=== PATIENT | male | born 1955 | race Caucasian/White ===

== ENCOUNTER 2023-06-28 07:30 | Outpatient (RCR) | payer MEDICARE, OTHER, SELFPAY | END 2023-07-27 23:59 | disposition home or self-care (01) | LOC: INF 07:30 | PROVIDERS: PCP Family Medicine; Visit Provider Internal Medicine Hematology & Oncology | DX: C43.9 Malignant melanoma of skin, unspecified (principal); D64.9 Anemia, unspecified | CPT/HCPCS: G0463 ==

== ENCOUNTER 2023-07-01 14:03 | Outpatient (OUT) | payer MEDICARE, OTHER, MEDICAID, SELFPAY ==
--- NOTE | 2023-07-01 14:13 | PE_ITS ---
[address] [address] Patient Name: ALEXANDRIA JONES MRN: [id number] date: 1955 Sex: M Assigned Patient Location: PETCT Current Patient Location: Accession/Order Number: [id number] Exam Date: 07/01/2023 15:14 Report Date: 07/02/2023 09:17 At the request of: DIANA CHILDRESS Procedure: PET skull to mid thigh NUCLEAR MEDICINE PET/CT HISTORY: Melanoma. COMPARISON: None. METHOD: 13.6 mCi of F-18 FDG was administered intravenously. Blood sugar level at the time of the injection: 79. At 53 minutes from injection, PET images were obtained from the skull base through the midthigh levels in the axial plane. Reformatted images were performed in the sagittal and coronal planes. A low-dose, noncontrast CT scan was performed for attenuation correction and anatomical localization. A low dose, noncontrast and nondiagnostic CT scan was performed for attenuation correction and anatomic localization. Mediastinal blood pool SUV max 3.3 using the patient's body weight as the normalization method. FINDINGS: HEAD AND NECK: There are no metabolically active lymph nodes in the neck. CHEST: There are no metabolically active mediastinal, hilar, or axillary lymph nodes. The major airways are patent. There is no pericardial effusion. There is no evidence of abnormal metabolic uptake in the esophagus. There are coronary artery calcifications. There is no evidence of abnormal metabolic uptake in the lung parenchyma. There are no pleural effusions. There is no pneumothorax. ABDOMEN AND PELVIS: There is no evidence of abnormal metabolic activity in the liver or adrenal glands. There is no evidence of abnormal metabolic active lymph nodes in the abdomen or pelvis. There is no free fluid. There is physiologic uptake in the urinary system and bowel. There are scattered diverticuli. The prostate is enlarged. There is a focus increased metabolic uptake in the anus with a maximum SUV of 15.7. There is a left renal cyst. MUSCULOSKELETAL: There is a small focus increased metabolic uptake in the periphery of the L3 vertebral body with a maximum SUV of 5.7. PET/PET skull to mid thigh IMPRESSION: Small focus of increased metabolic uptake in the periphery of the L3 vertebral body which may represent degenerative changes, recommend correlation with MRI of lumbar spine with without contrast entirely excluded bone metastasis. No evidence of lymph node metastasis. Focal increased metabolic uptake in the anus which may be physiologic, however recommend direct visualization to exclude underlying lesion. Left renal cyst. Prostamegaly. Diverticulosis. Coronary artery calcifications. Electronically authenticated by: ZACKARY CARRERA Date: 07/02/2023 09:17
== END 2023-07-01 14:04 | disposition home or self-care (01) ==
LOC: PETCT 14:04
PROVIDERS: PCP Family Medicine; Visit Provider Internal Medicine Hematology & Oncology
DX: C43.4 Malignant melanoma of scalp and neck (principal)
CPT/HCPCS: 78815; A9552

== ENCOUNTER 2023-07-25 07:50 | Outpatient (OUT) | payer MEDICARE, OTHER, MEDICAID, SELFPAY ==
--- NOTE | 2023-07-25 | ECG_ITS ---
[facility] Test Date: 2023-07-25 Pat Name: ALEXANDRIA JONES Department: Room: - Gender: Male Video Editing Intern: : 1955 Requested By: FRANCISCO J CARRERA Order Number: [id number] Reading MD: OJ MANUEL Measurements Intervals [place] Rate: 93 P: 67 CA: 157 QRS: 70 QRSD: 89 T: 71 QT: 326 QTc: 406 Interpretive Statements SINUS RHYTHM Compared to ECG 05/17/2017 10:31:46 No significant changes Electronically Signed On 07-25-2023 19:55:48 EST by OJ MANUEL
[2023-07-25 08:36] LABS: Basophils Percent Auto 0.5 % (0.2-2.0); Eosinophils Absolute Auto 0.2 10^3/uL (0.0-0.7); Eosinophils Percent Auto 2.3 % (0.9-7.0); Hematocrit 44.2 % (42.0-54.0); Hemoglobin 14.8 g/dL (14.0-18.0); Immature Granulocytes Abs Auto 0.06 10^3/uL (0.00-0.03); Immature Granulocytes Pct Auto 0.7 % (0.0-0.5); Lymphocytes Absolute Auto 0.9 10^3/uL (1.2-3.8); Lymphocytes Percent Auto 10.6 % (20.5-60.0); Mean Corpuscular HGB Conc 33.5 g/dL (29.9-35.2); Mean Corpuscular Hemoglobin 31.5 pg (25.9-34.0); Mean Platelet Volume 9.5 fL (9.5-13.5); Monocytes Absolute Auto 0.7 10^3/uL (0.3-0.8); Monocytes Percent Auto 8.1 % (1.7-12.0); Neutrophils Absolute Auto 6.5 10^3/uL (1.4-6.5); Neutrophils Percent Auto 77.8 % (43.0-75.0); Platelet Count 231 10^3/uL (150-450); Red Cell Distribution Width 12.1 % (11.0-15.0); White Blood Count 8.4 10^3/uL (4.0-11.0)
[2023-07-25 08:51] LABS: Alanine Aminotransferase 21 U/L (16-63); Albumin Globulin Ratio 1.1; Albumin Level 3.6 g/dL (3.4-5.0); Alkaline Phosphatase 85 U/L (46-116); Anion Gap 12.6; Aspartate Amino Transferase 17 U/L (15-37); Bilirubin Total 0.5 mg/dL (0.2-1.0); Calcium 8.9 mg/dL (8.5-10.1); Carbon Dioxide 27.8 mmol/L (21.0-32.0); Chloride 101 mmol/L (98-107); Estimated GFR (African America >60 (>=60); Estimated GFR (Non-African Ame >60 (>=60); Globulin 3.4 g/dL; Glucose 85 mg/dL (74-106); Potassium 4.4 mmol/L (3.5-5.1); Sodium 137 mmol/L (136-145)
== END 2023-07-25 07:51 | disposition home or self-care (01) ==
LOC: CARD 07:52
PROVIDERS: PCP Family Medicine
DX: C43.4 Malignant melanoma of scalp and neck (principal)
CPT/HCPCS: 36415; 80053; 85025; 93005

== ENCOUNTER 2023-08-18 10:19 | Outpatient (RCR) | payer MEDICARE, OTHER, SELFPAY | END 2023-09-16 15:05 | disposition home or self-care (01) | LOC: PT 10:19 | PROVIDERS: PCP Family Medicine; Visit Provider Orthopaedic Surgery | DX: M25.552 Pain in left hip (principal); R29.3 Abnormal posture; R26.89 Other abnormalities of gait and mobility; R26.9 Unspecified abnormalities of gait and mobility | CPT/HCPCS: 97110; 97162 ==

== ENCOUNTER 2023-10-05 08:53 | Outpatient (OUT) | payer MEDICARE, OTHER, SELFPAY ==
[2023-10-05 09:40] LABS: Microalbumin Urine Random <1.3 mg/dL (<=30.0)
[2023-10-05 09:41] LABS: Estimated Average Glucose 114 mg/dL; Glycohemoglobin A1C 5.6 % (4.5-6.2)
[2023-10-05 10:37] LABS: Alanine Aminotransferase 29 U/L (16-63); Albumin Globulin Ratio 1.1; Albumin Level 3.9 g/dL (3.4-5.0); Alkaline Phosphatase 86 U/L (46-116); Anion Gap 14.4; Aspartate Amino Transferase 18 U/L (15-37); BUN Creatinine Ratio 27.1; Bilirubin Total 0.4 mg/dL (0.2-1.0); Calcium 9.5 mg/dL (8.5-10.1); Carbon Dioxide 27.2 mmol/L (21.0-32.0); Chloride 101 mmol/L (98-107); Chol HDL Ratio 3.4; Cholesterol 152 mg/dL (<=200); Estimated GFR (African America >60 (>=60); Estimated GFR (Non-African Ame >60 (>=60); Globulin 3.4 g/dL; Glucose 102 mg/dL (74-106); HDL Cholesterol 45 mg/dL (40-60); LDL Cholesterol Calculated 82.4 mg/dL; Potassium 4.6 mmol/L (3.5-5.1); Sodium 138 mmol/L (136-145); Total Protein 7.3 g/dL (6.4-8.2); Triglycerides 123 mg/dL (<=150); VLDL CHOLESTEROL 24.6 mg/dL
== END 2023-10-05 08:54 | disposition home or self-care (01) ==
LOC: LAB 08:57
PROVIDERS: PCP Family Medicine; Visit Provider Family Medicine
DX: E11.65 Type 2 diabetes mellitus with hyperglycemia (principal); E78.5 Hyperlipidemia, unspecified; I10 Essential (primary) hypertension
CPT/HCPCS: 36415; 80053; 80061; 82043; 83036

== ENCOUNTER 2024-12-07 08:18 | Outpatient (OUT) | payer MEDICARE, OTHER, SELFPAY ==
--- OUTSIDE RECORDS SUMMARY | 2023-06-28 11:00 | XMS_ITS ---
Author Organization [facility] [place] Address [address] [place] [address] Care Team Providers Care Document Control Supervisor Name Role Phone Karoline Sterling Primary Care Provider UnavailPiper Zuniga Unavailable [phone] REASON FOR VISIT MD New PT Onc Encounters Encounter Location Date Provider Diagnosis [facility] [address] [place] [phone] 06/28/2023 Piper Medina Plan Of Treatment No Information Progress Notes * Wong FLORES ADOB:[birth year] (68 yo M)Acc No.[id number]:06/28/2023 UNLOCKED PROGRESS NOTE Progress Notes Patient: Wong LUGO Provider: Cely Medina M.D. :1955 A ge:67 Y S ex:Male Date:06/28/2023 Address:[address] [place], [place] [id number] Pcp:Karoline Sterling Subjective: * Chief Complaints: * 1 . MD New PT Onc. * Medical History: Objective: * Vitals: Assessment: Plan: * Treatment: * * Electronic signature of Cornelius Medina MD, [id number] on 12/07/2024 at 08:23 AM EDT Sign off status: Pending Visit Status: C ONFPHONE (Voice) * Provider: Cely Medina M.D. Date: 0 06/28/2023 Generated for Samy valera/Dominic/Margaritaitting on: 0 12/07/2024 08:23 AM EDSpencer
--- OUTSIDE RECORDS SUMMARY | 2023-07-26 11:00 | XMS_ITS ---
Author Organization [facility] [place] Address [address] [place] [address] Care Team Providers Care Store Warehouse Associate Name Role Phone Karoline Sterling Primary Care Provider UnavailPiper Zuniga Unavailable [phone] REASON FOR VISIT Cancelled. Encounters Encounter Location Date Provider Diagnosis [facility] [address] [place] [phone] 07/26/2023 Piper Medina Plan Of Treatment No Information Progress Notes * MARK Wong ADOB:[birth year] (68 yo M)Acc No.[id number]:07/26/2023 UNLOCKED PROGRESS NOTE Progress Notes Patient: Wong LUGO Provider: Cely Medina M.D. :1955 A ge:67 Y S ex:Male Date:07/26/2023 Address:[address] [place], [place] [phone] Pcp:Karoline Sterling Subjective: * Chief Complaints: * 1 . Cancelled.. * Medical History: Objective: * Vitals: Assessment: Plan: * Treatment: * * Electronic signature of Cornelius Medina MD, [id number] on 12/07/2024 at 08:22 AM EDT Sign off status: Pending Visit Status: A [facility] (Voice) * Provider: Cely Medina M.D. Date: 0 07/26/2023 Generated for Samy valera/Dominic/Cassidy on: 0 12/07/2024 08:22 AM EDT
--- OUTSIDE RECORDS SUMMARY | 2024-12-07 08:22 | XMS_ITS | Clinical Summary ---
Author Organization [facility] Address [address] [place] [address] Phone Care Team Providers Care Mechanical Striper Name Role Phone Karoline Sterling MD Primary Care Provider [phone] Allergies No known active allergies Medications finasteride (Proscar) 5 mg tablet Take 1 tablet (5 mg) by mouth once daily in the morning. Take before meals. 05/29/2023 Active atorvastatin (Lipitor) 20 mg tablet Take 1 tablet (20 mg) by mouth once daily. 05/29/2023 Active lisinopriL-hydr ochlorothiazide 20-25 mg tablet Take 1 tablet by mouth once daily. 05/29/2023 Active metFORMIN (Glucophage) 500 mg tablet Take 1 tablet (500 mg) by mouth 2 times a day. 05/29/2023 Active spironolactone (Aldactone) 25 mg tablet Take 1 tablet (25 mg) by mouth once daily. 06/01/2023 Active tamsulosin (Flomax) 0.4 mg 24 hr capsule Take 1 capsule (0.4 mg) by mouth once daily. 05/29/2023 Active aspirin 81 mg EC tablet Take 1 tablet (81 mg) by mouth once daily. Active glucosamine/cho ndr munoz A sod (OSTEO BI-FLEX ORAL) Take by mouth. Active traMADol (Ultram) 50 mg tabletIndicatio ns:Malignant melanoma of neck (Multi),Post-op pain Take 1 tablet (50 mg) by mouth every 8 hours if needed for severe pain (7 - 10) for up to 12 doses. 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 Social History Tobacco Use Types Packs/Day Years Used Date Smoking Tobacco: Never Smokeless Tobacco: Never Tobacco Cessation:Counseling Given: Not Answered Sex and Gender Information Value Date Recorded Sex Assigned at Male 07/28/2023 8:55 AM EST Legal Sex Male 9:08 AM EST Gender Identity Male 07/28/2023 8:55 AM EST Sexual Orientation Straight 07/28/2023 8: 55 AM EST Last Filed Vital Signs Vital Sign Reading Time Taken Comments Blood Pressure 126/70 07/28/2023 1:50 PM EST Pulse 77 07/28/2023 1:50 PM EST Temperature 36.2 C (97.2 F) 07/28/2023 1:50 PM EST Respiratory Rate 18 07/28/2023 1:50 PM EST Oxygen Saturation 94% 07/28/2023 1:50 PM EST Inhaled Oxygen Concentration - - Weight 113 kg (248 lb 9.6 oz) 08/19/2023 3:19 PM EST Height 182.9 cm (6') 08/19/2023 3:19 PM EST Body Mass Index 33.72 08/19/2023 3:19 PM EST Plan of Treatment Health Maintenance Due Date Last Done Comments CT Colonography 1955 Colonoscopy 1955 Colorectal Cancer Screening 1955 FIT-DNA (Cologuard) 1955 FIT 1955 Lipid Panel 1955 Medicare Annual Wellness Visit (AWV) 1955 Sigmoidoscopy 1955 Derm Melanoma Skin Check 06/09/1955 Hepatitis C Screening 1972 Zoster Vaccines (1 of 2) 2004 DTaP/Tdap/Td Vaccines (1 - Tdap) 03/31/2017 03/30/2017 Pneumococcal Vaccine (2 of 2 - PCV20 or PCV21) 10/12/2018 10/12/2017 COVID-19 Vaccine (6 - season) 2024 06/10/2021, 01/07/2021, 11/12/2020, Additional history exists Influenza Vaccine (Season Ended) 2025 04/04/2023, 03/24/2022, 03/16/2022, Additional history exists Diabetes Screening 07/28/2026 07/28/2023 RSV High Risk: (Elderly (60+) or Population) (1 - 1-dose 75+ series) 2029 HIB Vaccines Aged Out No longer eligi ble based on patient's age to complete this topic HPV Vaccines Aged Out No longer eligi ble based on patient's age to complete this topic Hepatitis A Vaccines Aged Out No long er eligible based on patient's age to complete this topic Hepatitis B Vaccines Aged Out No long er eligible based on patient's age to complete this topic IPV Vaccines Aged Out No longer eligi ble based on patient's age to complete this topic Meningococcal Vaccine Aged Out No maddi belle eligible based on patient's age to complete this topic Rotavirus Vaccines Aged Out No longer eligible based on patient's age to complete this topic Procedures Procedure Name Priority Date/Time Associated Diagnosis Comments POCT GLUCOSE Routine 07/28/2023 9:15 AM EST from Last 3 Months or Most Recently Relevant to Health Maintenance Results * (ABNORMAL) POCT GLUCOSE (07/28/2023 9:15 AM EST) POCT Glucose 119(H) 74 - 99 mg/dL 07/28/2023 9:16 AM EST [facility] Blood Capillary blood specimen / Unknown 07/28/2023 9:15 AM EST 07/28/2023 9:16 AM EST Selwyn Garcia MD LAB POINT OF CARE TE ST DOCKED DEVICE UNSOLICITED RESULTS Final Result [facility] [address] [place] [address] from Last 3 Months or Most Recently Relevant to Health Maintenance Insurance MEDICARE PART A AND B Member Subscriber Plan / Payer (Ef fective 2019-Present) Name:Wong Flores Member ID:[id number] Relation to Subscriber:Self Name:Wong Flores Subscriber ID:[id number] Payer ID:Not on file Group ID:Not on file Type:Not on file Address: [address] MEDICARE SUPPLEMENT MEDICARE PART A AND B Member Subscriber Plan / Payer (Ef fective 2019-Present) Name:Wong Flores Member ID:[id number] Relation to Subscriber:Self Name:Wong Flores Subscriber ID:[id number] Payer ID:Not on file Group ID:Not on file Type:Not on file Address: [address] MEDICARE SUPPLEMENT Care Teams Mechanical Striper Relationship Specialty Start Date End Date Karoline Sterling MD PCP - General Family Medicine 07/28/23
--- OUTSIDE RECORDS SUMMARY | 2024-12-07 08:23 | XMS_ITS | Clinical Summary ---
Author Organization [employer] [facility] Address [id number] [place] [address] Care Team Providers Care Photographer Assistant Name Role Phone Karoline Sterling MD Primary Care Provider [phone] Allergies No known active allergies Medications atorvastatin (LIPITOR) 20 mg tablet Take 1 tablet (20 mg total) by mouth in the morning. 12/17/2021 Active lisinopril-hydr oCHLOROthiazide (PRINZIDE,ZESTO RETIC) 10-12.5 mg per tablet Take 1 tablet by mouth in the morning. 12/14/2021 Active metFORMIN (GLUCOPHAGE) 500 mg tablet Take 1 tablet (500 mg total) by mouth in the morning and 1 tablet (500 mg total) before bedtime. 10/23/2021 Active spironolactone (ALDACTONE) 25 mg tablet Take 1 tablet (25 mg total) by mouth in the morning. 2021 Active aspirin 81 mg Take 1 tablet (81 mg total) by mouth in the morning and 1 tablet (81 mg total) before bedtime. Active ibuprofen (MOTRIN) 800 mg tablet Take 1 tablet (800 mg total) by mouth every 6 (six) hours as needed for pain. Active tamsulosin (FLOMAX) 0.4 mg capsule TAKE 1 CAPSULE BY MOUTH TWICE DAILY (IN THE MORNING & AT BEDTIME) 180 capsule 3 02/23/2024 Active finasteride (PROSCAR) 5 mg tablet TAKE 1 TABLET BY MOUTH ONCE DAILY IN THE MORNING 90 tablet 3 05/13/2024 Active Active Problems Problem Noted Date Diagnosed Date Benign prostatic hyperplasia with lower urinary tract symptoms 10/20/2022 Overview (08/29/2024): ==== 08/29/2024 ==== continues on with maximal medical therapy no urgency frequency or leakage of urine no gross hematuria. Remain on maximal medical therapy return clinic 1 year PSA ==== 08/22/2023 ==== maximal medical therapy. Remain on such. ==== 10/20/2022 ==== longstanding history of BPH been on finasteride for at least 10 years or so. On tamsulosin as well. Tolerating medication. Continue on with such. Assessment & Plan (08/22/2023 1:30 PM EST): Decision was made during today's visit to continue on with the patient's prescription drug regimen which would require refill prior to next appointment Elevated PSA Overview (08/29/2024): Has been on finasteride greater than 10 years. ==== 08/29/2024 ==== PSA looks good 1.89. Very similar to what he had in the past in February 2022 of 1.87. PSA 1 year. ==== 08/22/2023 ==== PSA 1.61. Rectal exam is benign. Double the PSA. Still fine. PSA 1 year. ==== 10/20/2022 ==== PSA continues to improve 1.50. On finasteride double that to 3.0. For his age that is fine. ====04/14/22====PSA 1.87. Will recheck in 6 months ==== 01/04/2022 ==== PSA February 2024.35 July 17 5.13. October 15 2.75. September 2021 1.9---double to 3.8) . Treated for prostatitis 2020. Digital rectal exam benign feeling prostate. Assessment & Plan (10/20/2022 1:49 PM EDT): The return clinic 10 months with PSA Assessment & Plan (01/04/2022 2:59 PM EDT): Patient here for 2nd opinion regarding need to proceed with prostate biopsy +/- MRI. I discussed as below. The etiologies of elevated PSA including prostate cancer, BPH, natural variation, laboratory error, recent ejaculation, instrumentation, clinical or subclinical infection were reviewed. Options of ultrasound prostate biopsy, active surveillance, repeating the test, or non-intervention were discussed. We discussed the lack of evidence supporting empiric antibiotics. Discussed risk finding prostate cancer in 1:3 men with a PSA above 4 and 1:4 men with a PSA above 3. Patient understands that we do double the PSA based on finasteride use. Given the fact that the patient's PSA continues to drop based on the 2 most recent PSAs I think it would be reasonable to check a 3rd PSA and see where we stand re: his trajectory. Patient is most inclined to do so. He expressed desire to remain within this office. I will get a PSA in February it see him back. Family History Relation Name Status Comments Father Mother Social History Tobacco Use Types Packs/Day Years Used Date Smoking Tobacco: Never Smokeless Tobacco: Never Tobacco Cessation:Counseling Given: Not Answered Alcohol Use Standard Drinks/Week Comments Never 0 (1 standard drink = 0.6 oz pur e alcohol) Childcare Answer Date Recorded Childcare Unknown 12/06/2018 Employment Answer Date Recorded Employment Unknown 12/06/2018 Hunger Screening Answer Date Recorded Within the past 12 months we worried whether our food would run out before we got money to buy more. Never True 08/29/2024 Within the past 12 months th e food we bought just didn't last and we didn't have money to get more. Never True 08/29/2024 Sex and Gender Information Value Date Recorded Sex Assigned at Not on file Legal Sex Male 11:35 AM EDT Gender Identity Not on file Sexual Orientation Not on file Last Filed Vital Signs Vital Sign Reading Time Taken Comments Blood Pressure 144/76 08/29/2024 1:51 PM EST Pulse 94 08/29/2024 1:51 PM EST Temperature - - Respiratory Rate 18 01/04/2022 2:19 PM EDT Oxygen Saturation - - Inhaled Oxygen Concentration - - Weight 115.7 kg (255 lb) 08/29/2024 1:51 PM EST Height 182.9 cm (6') 08/29/2024 1:51 PM EST Body Mass Index 34.58 08/29/2024 1:51 PM EST Plan of Treatment Upcoming Encounters Date Type Department Care Team (Late st Contact Info) Description 09/11/2025 1:00 PM EDT Office Visit [facility] [address] [place] [address] [place] [address] Brian Goldman MD [address] [place] [phone] Health Maintenance Due Date Last Done Comments Depression Screening 1966 Adult BMI Follow Up Plan 1972 DTaP,Tdap and Td Vaccines (1 - Tdap) 1973 Zoster (Shingles) Vaccine (1 of 2) 2004 Fall Risk Screening 12/09/2019 Influenza Vaccine 02/25/2025 Adult BMI Screening 08/29/2025 08/29/2024 Tobacco Screening 08/29/2025 08/29/2024 Medical Devices Not on file Insurance MEDICARE [facility] COMMERCIAL MEDICARE [facility] COMMERCIAL Care Teams Photographer Assistant Relationship Specialty Start Date End Date Karoline Sterling MD [address] [place] [phone] PCP - General Family Medicine 03/10/22
--- OUTSIDE RECORDS SUMMARY | 2024-12-07 08:23 | XMS_ITS | Patient Health Record ---
Author Organization [facility] [place] Address [address] [place] [address] Care Team Providers Care Information Management Officer Name Role Phone Karoline Sterling Primary Care Provider Unavailabl e Reason For Referral No Information Plan Of Treatment No Information Insurance Providers Payer Name Payer Address Payer Phone Subscriber Number Group Number Insured Name Patient Relationship to Insured Coverage Start Date Coverage End Date [place] [address] [place] [address] [id number] Wong Flores Self - patient is the insured [employer] SUPPLEMENT [address] [address] [place], [place] [id number] Wong Flores Self - patient is the insured
--- OUTSIDE RECORDS SUMMARY | 2024-12-07 08:23 | XMS_ITS | Encounter Summary ---
Author Organization [facility] Address [address] [place] [address] Phone Care Team Providers Care Works Manager Name Role Phone Karoline Sterling MD Primary Care Provider [phone] Encounter Details Date Type Department Care Team (Late st Contact Info) Description 07/22/2023 Lab Requisition [facility] [address] [facility] [address] [place] [id number] [place] [address] Department of Otolaryngology [place] [id number] Disorder of the skin and subcutaneous tissue, unspecified Social History Tobacco Use Types Packs/Day Years Used Date Smoking Tobacco: Never Smokeless Tobacco: Never Sex and Gender Information Value Date Recorded Sex Assigned at Male 07/28/2023 8:55 AM EST Legal Sex Male 9:08 AM EST Gender Identity Male 07/28/2023 8:55 AM EST Sexual Orientation Straight 07/28/2023 8: 55 AM EST COVID-19 Exposure Response Date Recorded In the last 10 days, have yo u been in contact with someone who was confirmed or suspected to have Coronavirus/COVID-19? No / Unsure 07/19/2023 12:24 PM EST documented as of this encounter Plan of Treatment Not on file documented as of this encounter Procedures Procedure Name Priority Date/Time Associated Diagnosis Comments DERMPATH CONSULT Routine 07/22/2023 9:16 AM EST Disorder of the skin and subcutaneous tissue, unspecified documented in this encounter Results * Derm Consult (07/22/2023 9:16 AM EST) Case Report Dermatopathology Report Case: [id number] Authorizing Provider: Selwyn Garcia MD Collected: 07/22/2023 0916 Ordering Location: [facility] Received: 07/22/2023 0916 [facility] Pathologist: Ana Cristina Aguirre MD Specimen: OUTSIDE BLOCK(S)/SLIDE(S), 5 SLIDES, INFORM DIAGNOSTICS, [id number] (BX: 06/07/23) 4 3:24 PM EST [facility] FINAL DIAGNOSIS 5 SLIDES, INFORM DIAGNOSTICS, [id number] (BX: 06/07/23) SKIN, LEFT LATERAL NECK - POSTERIOR, TANGENTIAL SHAVE BIOPSY: MALIGNANT MELANOMA, BRESLOW THICKNESS AT LEAST 2.2 MM, PRESENT ON THE DEEP AND PERIPHERAL MARGIN WITH PERINEURAL INVASION, SEE NOTE. Note: Microscopic examination reveals a specimen that extends into the mid to deep reticular dermis. There is dense solar elastosis and there is an asymmetric proliferation of nested and single atypical melanocytes along the dermal-epidermal junction. There are spindled cells in the underlying dermis with mucin and perineural invasion. They stain with antibodies against SOX-10 and some superficial cells stain with antibodies against Melan-A. 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 Ulceration: Not identified Anatomic (Ramon) Level: At least level: IV : Focally transected on the deep margin. Mitotic Rate: None identified Microsatellite(s) : Not identified Lymphovascular Invasion: Not identified Neurotropism: Not identified Tumor-Infiltratin g Lymphocytes: Not identified Tumor Regression: Not identified MARGINS: Margin Status for Invasive Melanoma: Invasive melanoma present at margin Margin(s) Involved by Invasive Melanoma: Deep Margin Status for Melanoma in situ: Melanoma in situ present at margin Margin(s) Involved by Melanoma in Situ: Peripheral Margin(s) Involved by Melanoma in Situ: Deep PATHOLOGIC STAGE CLASSIFICATION (pTNM, AJCC 8th Edition): pT Category: pT3a 4 3:24 PM EST [facility] Clinical History Tuo. Neoplasm of uncertain behavior of skin. Rule out BCC. 4 3:24 PM EST [facility] Specimen Description A. OUTSIDE BLOCK(S)/SLIDE(S). Received for consultation from [employer] are five slides labeled [id number] (Bx: 06/07/23) along with the corresponding pathology report. 4 3:24 PM EST [facility] [employer] (OUTSIDE BLOCK(S)/SLIDE(S) ) 07/22/2023 9:16 AM EST 07/22/2023 9:16 AM EST us Selwyn Garcia MD LAB PATHOLOGY ORDERABLES Shannan l Result [facility] [address] [address] [place] [id number] documented in this encounter Visit Diagnoses Diagnosis Disorder of the skin and subcutaneous tissue, unspecified documented in this encounter Care Teams Works Manager Relationship Specialty Start Date End Date Karoline Sterling MD PCP - General Family Medicine 07/28/23 documented as of this encounter
--- OUTSIDE RECORDS SUMMARY | 2024-12-07 08:23 | XMS_ITS | Clinical Summary ---
Author Organization [facility] Address [address] [place] [address] Care Team Providers Care Hospitality Recruiter Name Role Phone Karoline Sterling MD Primary Care Provider [phone] Medications aspirin 325 MG tablet every 12 (twelve) hours Active atorvastatin (Lipitor) 20 MG tablet Take 20 mg by mouth in the morning. 05/29/2023 Active finasteride (Proscar) 5 MG tablet Take 5 mg by mouth in the morning. Take before meals. 05/29/2023 Active ibuprofen 800 MG tablet Take 800 mg by mouth every 6 (six) hours if needed Active lisinopril-hydr oCHLOROthiazide 10-12.5 MG tablet Take 1 tablet by mouth Daily Active metFORMIN (Glucophage) 500 MG tablet Take 500 mg by mouth in the morning and 500 mg in the evening. 05/29/2023 Active spironolactone (Aldactone) 25 MG tablet Take 25 mg by mouth Daily Active tamsulosin (Flomax) 0.4 MG 24 hr capsule TAKE 1 CAPSULE BY MOUTH TWICE DAILY (IN THE MORNING & AT BEDTIME) Active Active Problems No known active problems Family History Relation Name Status Comments Father Mother Social History Tobacco Use Types Packs/Day Years Used Date Smoking Tobacco: Never Smokeless Tobacco: Never Tobacco Cessation:Counseling Given: Not Answered Alcohol Use Standard Drinks/Week Comments Never 0 (1 standard drink = 0.6 oz pur e alcohol) Sex and Gender Information Value Date Recorded Sex Assigned at Male 08/03/2023 9:07 AM EST Legal Sex Male 6:46 PM EDT Gender Identity Male 08/03/2023 9:07 AM EST Sexual Orientation Not on file Last Filed Vital Signs Vital Sign Reading Time Taken Comments Blood Pressure - - Pulse - - Temperature - - Respiratory Rate - - Oxygen Saturation - - Inhaled Oxygen Concentration - - Weight 120 kg (265 lb) 08/11/2022 12:00 PM EST Height 182.9 cm (6') 08/11/2022 12:00 PM EST Body Mass Index 35.94 08/11/2022 12:00 PM EST Plan of Treatment Not on file Insurance MEDICARE [facility] Care Teams Hospitality Recruiter Relationship Specialty Start Date End Date Karoline Sterling MD PCP - General Family Medicine 08/10/23
[2024-12-07 08:39] LABS: Basophils Percent Auto 0.4 % (0.2-2.0); Eosinophils Absolute Auto 0.2 10^3/uL (0.0-0.7); Eosinophils Percent Auto 2.4 % (0.9-7.0); Hematocrit 43.9 % (42.0-54.0); Hemoglobin 14.7 g/dL (14.0-18.0); Immature Granulocytes Abs Auto 0.03 10^3/uL (0.00-0.03); Immature Granulocytes Pct Auto 0.4 % (0.0-0.5); Lymphocytes Absolute Auto 1.1 10^3/uL (1.2-3.8); Lymphocytes Percent Auto 14.6 % (20.5-60.0); Mean Corpuscular HGB Conc 33.5 g/dL (29.9-35.2); Mean Corpuscular Hemoglobin 31.3 pg (25.9-34.0); Mean Corpuscular Volume 93.6 fL (80.0-94.0); Mean Platelet Volume 9.7 fL (9.5-13.5); Monocytes Absolute Auto 0.6 10^3/uL (0.3-0.8); Neutrophils Absolute Auto 5.8 10^3/uL (1.4-6.5); Neutrophils Percent Auto 74.2 % (43.0-75.0); Platelet Count 239 10^3/uL (150-450); Red Blood Count 4.69 10^6/uL (4.70-6.10); Red Cell Distribution Width 12.7 % (11.0-15.0); White Blood Count 7.8 10^3/uL (4.0-11.0)
--- OUTSIDE RECORDS SUMMARY | 2024-12-07 08:39 | XMS_ITS | CCD ---
Author Organization [facility] Care Team Providers Care Commercial Construction Project Manager Name Role Phone DEEJAY MANUEL Referring Unavailable DEEJAY MANUEL Primary Care Unavailable SHENDGE, VITHAL Admitting Unavailable SHENDGE, ISRAHAL Attending Unavailable SHENDGE, VITHAL Surgeon Unavailable MS Procedure Practitioner Unavailab le DEEJAY MANUEL Referring Unavailable SHENDGE, VITHAL Admitting Unavailable DEEJAY MANUEL Primary Care Unavailable SHENDGE, VITHAL Attending Unavailable SHENDGE, VITHAL Surgeon Unavailable MS Procedure Practitioner Unavailab FRANCISCO J Perez Primary Care Physician [phone] DO Deejay Manuel Primary Care Provider MD Moody Barrett Attending Provider BRIA GONZALEZ Attending Unavailable PCP, UNKNOWN Primary Care Unavailable LUCHO, DR AKHTAR Admitting Unavailable STEPANIC, DR AKHTAR Attending Unavailable CARRERA, DR FRANCISCO J Allen Primary Care Unavailable STEPANIC, DR AKHTAR Admitting Unavailable STEPANIC, DR AKHTAR Attending Unavailable CARRERA, DR FRANCISCO J Allen Primary Care Unavailable MOUKARBEL, DR AKHTAR Admitting Unavailable MOUKARBEL, DR AKHTAR Attending Unavailable CARRERA, DR FRANCISCO J Allen Primary Care Unavailable Deejay Manuel Unavailable ALINE ., DR MERARY Terrazas Admitting Unavailable MIRELES ., DR MERARY Terrazas Attending Unavailable MIRELES ., DR MERARY Terrazas Consulting Unavailable KALEB, DR MCWILLIAMS Primary Care Unavailable MIRELES ., DR MERARY Terrazas Consulting Unavailable MIRELES ., DR MERARY Terrazas Attending Unavailable MIRELES ., DR MERARY Terrazas Admitting Unavailable KALEB, DR MCWILLIAMS Primary Care Unavailable RAYMOND MULLINS Consulting Unavailable MIRELES ., DR MERARY Terrazas Attending Unavailable MIRELES ., DR MERARY Terrazas Admitting Unavailable BROTHERS .JEREMY Consulting Unavailable KALEB, DR MCWILLIAMS Primary Care Unavailable MOUKARBEL, DR AKHTAR Attending Unavailable MOUKARBEL, DR AKHTAR Consulting Unavailable MOUKARBEL, DR AKHTAR Admitting Unavailable BALL, DR MCWILLIAMS Primary Care Unavailable BALL, DR MCWILLIAMS Attending Unavailable BALL, DR MCWILLIAMS Primary Care Unavailable BALL, DR MCWILLIAMS Admitting Unavailable BALL, DR MCWILLIAMS Consulting Unavailable LAKSHMIPATHY ., MIKAELA Attending Coreen vailable LAKSHMIPATHY ., NARJORGE AATH Admitting Coreen vailable BALL, DR MCWILLIAMS Consulting Unavailable BALL, DR MCWILLIAMS Primary Care Unavailable LAKSHMIPATHY ., NARJORGE AATH Consulting Coreen vailable LAKSHMIPATHY ., NARENDLEONELATH Consulting Coreen vailable LAKSHMIPATHY ., NARENDRANATH Admitting Coreen vailable LAKSHMIPATHY ., NARJORGE AATH Attending Coreen vailable BALL, DR MCWILLIAMS Primary Care Unavailable CESILIA, SHAKIRA Attending Unavailable CESILIA, SHAKIRA Consulting Unavailable SHAKIRA LOMAS Admitting Unavailable BALL, DR MCWILLIAMS Primary Care Unavailable MISC, DR AZUL Attending Unavailable MISC, DR AZUL Admitting Unavailable WEST, DR LARRY Nguyen Consulting Unavailable KALEB, DR MCWILLIAMS Primary Care Unavailable MISC, DR AZUL Consulting Unavailable MIRELES ., DR MERARY Terrazas Admitting Unavailable MIRELES ., DR MERARY Terrazas Attending Unavailable BALL, DR MCWILLIAMS Primary Care Unavailable NENA, DR Umu Diaz Attending Unavailable NENA, DR Umu Diaz Consulting Unavailable NENA, DR Umu Diaz Admitting Unavailable BALL, DR MCWILLIAMS Primary Care Unavailable LAKSHMIPATHY ., MIKAELA Attending Coreen vailable LAKSHMIPATHY ., MIKAELA Consulting Coreen vailable LAKSHMIPATHY ., MIKAELA Admitting Coreen vailable BALL, DR MCWILLIAMS Primary Care Unavailable BALL, DR MCWILLIAMS Consulting Unavailable KALEB, DR MCWILLIAMS Admitting Unavailable KALEB, DR MCWILLIAMS Primary Care Unavailable BALL, DR MCWILLIAMS Attending Unavailable BROTHERS .JEREMY Consulting Unavailable MIRELES ., DR MERARY Terrazas Admitting Unavailable MIRELES ., DR MERARY Terrazas Attending Unavailable BALL, DR MCWILLIAMS Primary Care Unavailable HALKER .LILA Attending Unavailable HALKER ., LILA Consulting Unavailable HALKER ., LILA Admitting Unavailable KALEB, DR MCWILLIAMS Primary Care Unavailable MIRELES ., DR MERARY Terrazas Attending Unavailable MIRELES ., DR MERARY Terrazas Consulting Unavailable KALEB, DR MCWILLIAMS Primary Care Unavailable MIRELES ., DR MERARY Terrazas Admitting Unavailable MIRELES ., DR MERARY Terrazas Attending Unavailable MIRELES ., DR MERARY Terrazas Consulting Unavailable MIRELES ., DR MERARY Terrazas Admitting Unavailable BALL, DR MCWILLIAMS Primary Care Unavailable BROTHERS ., JEREMY Admitting Unavailable BROTHERS ., JEREMY Attending Unavailable BALL, DR MCWILLIAMS Primary Care Unavailable MOUKARBEL, DR AKHTAR Attending Unavailable MOUKARBEL, DR AKHTAR Admitting Unavailable BALL, DR MCWILLIAMS Primary Care Unavailable MIRELES ., DR MERARY Terrazas Consulting Unavailable MIRELES ., DR MERARY Terrazas Attending Unavailable MIRELES ., DR MERARY Terrazas Admitting Unavailable BALL, DR MCWILLIAMS Primary Care Unavailable HARPREET, RAYMOND Consulting Unavailable HALKER ., LILA Attending Unavailable HALKER ., LILA Admitting Unavailable BALL, DR MCWILLIAMS Primary Care Unavailable LAKSHMIPATHY ., NARMARGARITA Attending Coreen vailable LAKSHMIPATHY ., NARJORGE AATH Admitting Coreen vailable BALL, DR MCWILLIAMS Primary Care Unavailable MIRELES ., DR MERARY Terrazas Consulting Unavailable MIRELES ., DR MERARY Terrazas Admitting Unavailable MIRELES ., DR MERARY Terrazas Attending Unavailable BALL, DR MCWILLIAMS Primary Care Unavailable BROTHERS ., JEREMY Consulting Unavailable BROTHERS ., JEREMY Consulting Unavailable MIRELES ., DR MERARY Terrazas Admitting Unavailable MIRELES ., DR MERARY Terrazas Attending Unavailable BALL, DR MCWILLIAMS Primary Care Unavailable MIRELES ., DR MERARY Terrazas Consulting Unavailable MIRELES ., DR MERARY Terrazas Admitting Unavailable MIRELES ., DR MERARY Terrazas Attending Unavailable BALL, DR MCWILLIAMS Primary Care Unavailable HARPREET, RAYMOND Consulting Unavailable MARTELL MONCADA Consulting Unavailable MIRELES ., DR MERARY Terrazas Admitting Unavailable MIRELES ., DR MERARY Terrazas Attending Unavailable BALL, DR MCWILLIAMS Primary Care Unavailable BALL, DR MCWILLIAMS Admitting Unavailable BALL, DR MCWILLIAMS Attending Unavailable BALL, DR MCWILLIAMS Consulting Unavailable BALL, DR MCWILLIAMS Admitting Unavailable BALL, DR MCWILLIAMS Primary Care Unavailable BALL, DR MCWILLIAMS Attending Unavailable BROTHERS ., JEREMY Consulting Unavailable MIRELES ., DR MERARY Terrazas Admitting Unavailable MIRELES ., DR MERARY Terrazas Attending Unavailable BALL, DR MCWILLIAMS Primary Care Unavailable Francisco J Carrera Unavailable SELWYN GARCIA Attending Unavailable Francisco J Carrera MD Primary Care Provider SHANIKA PURDY Referring Unavailable DEEJAY MANULE Primary Care Unavailable SHANIKA PURDY Attending Unavailable SHANIKA PURDY Referring Unavailable DEEJAY MANUEL Primary Care Unavailable SHANIKA PURDY Attending Unavailable SHANIKA PURDY Referring Unavailable DEEJAY MANUEL Primary Care Unavailable Deejay Manuel MD Primary Care Provider Nadiya Ramon Unavailable [phone] DO Deejay Manuel Primary Care Provider MD Wesley Tomlinson Attending Provider [phone] Unavailable Primary Care Provider Unavailabl e THUENER, SELWYN E Admitting Unavailable THUENER, SELWYN E Attending Unavailable CARRERA, FRANCISCO J E Primary Care Unavailable THUENER, SELWYN E Referring Unavailable CARRERA, FRANCISCO J E Primary Care Unavailable THUENER, SELWYN E Referring Unavailable CARRERA, FRACNISCO J E Primary Care Unavailable THUENER, SELWYN E Referring Unavailable CARRERA, FRANCISCO J E Primary Care Unavailable JR. LUCHO, GIOVANA Trujillo Attending Unavaila ble JR. LUCHO, GIOVANA Trujillo Referring Unavaila ble JR. LUCHO, GIOVANA Trujillo Attending Unavaila DO Deejay Montenegro Primary Care Provider MD Wesley Tomlinson Attending Provider MARTELL FONTAINE Consulting Unavailable WESLEY TOMLINSON Admitting Unavailable WESLEY TOMLINSON Primary Care Unavailable WESLEY TOMLINSON Attending Unavailable WESLEY TOMLINSON Referring Unavailable WESLEY TOMLINSON Primary Care Unavailable DO Deejay Manuel Primary Care Provider MD Wesley Tomlinson Attending Provider Deejay Manuel Primary Care Unavailable Wesley Tomlinson Attending Unavailable Wesley Tomlinson Admitting Unavailable Wesley Tomlinson Admitting Unavailable Kaleb, Deejay Primary Care Unavailable Wesley Tomlinson Attending Unavailable Kaleb, Deejay Primary Care Unavailable Wesley Tomlinson Attending Unavailable Wesley Tomlinson Admitting Unavailable Wesley Tomlinson MD Primary Care Provider Francisco J Carrera MD Primary Care Provider GIOVANA SNYDER JR Referring Unavailabl e CARRERA, FRANCISCO J E Primary Care Unavailable CARRERA, FRANCISCO J E Referring Unavailable CARRERA, FRANCISCO J E Primary Care Unavailable ACE CARRERO Attending Unavailable CARRERA, FRANCISCO J E Referring Unavailable CARRERA, FRANCISCO J E Primary Care Unavailable FELICE PEARSON Attending Unavailable FELICE PEARSON Attending Unavailable JR. LUCHO, GIOVANA Trujillo Attending Unavaila pretty SNYDER JR., GIOVANA Trujillo Referring Unavaila pretty SNYDER JR., GIOVANA Trujillo Attending Unavaila pretty SNYDER JR., GIOVANA Trujillo Attending Unavaila CESAR Booker Referring Unavailable CESAR HERRON Attending Unavailable KI, CESAR Referring Unavailable KI, CESAR Referring Unavailable GIOVANA MAYBERRY Attending Unavailable KI, CESAR Attending Unavailable KI, CESAR Admitting Unavailable KI, CESAR Attending Unavailable KI, CESAR Attending Unavailable Wesley Tomlinson Attending Unavailable Deejay Manuel Primary Care Unavailable Avi JOHNSON, Jai Sims Attending Unavailable Allergies Allergy Classification Reported Allergen(s) Allergy Type Date of Onset Reaction(s) Facility (1 source) [id number] Drug allergy (disorder) 11-11-19 21 [facility] Repository (20 sources) cloNIDine; Translations: [CLONIDINE] Drug Allergy 08-03-19 throat closes, Unknown Reaction, throat closes [facility] Repository (20 sources) DENIES ALLERGY TO METAL Propensity to adverse reactions 06-21-20 23 Unknown [facility] (2 sources) Flupenthixol Drug Allergy [facility] Repository (10 sources) Calcium channel blocking agent Drug allergy Unknown [facility] Other (8 sources) Pravastatin Drug Allergy 12-06-19 15 Comment:Freete xt Needs Updated., Unknown [facility] Other (2 sources) Calcium Channel Blockers; Translations: [calcium channel blockers] Allergy to substance 06-21-20 [facility] (3 sources) Calcium Channel Blocking Agent Dilt Allergy to substance 09-23-19 24 Unknown Reaction [facility] (1 source) Prochlorperazine Drug Allergy 02-10-20 24 Anaphylaxis [facility] (1 source) Clonidine Derivatives Propensity to adverse reactions to drug 02-20-20 24 Anaphylaxis [facility] Medications Current Medications Medication Drug Class(es) Dates Sig (Normalized) Sig (Original) Acetaminophen / oxyCODONE (20 sources) Opioid Agonist Start: 02-20-2024 oxyCODONE-acetamin ophen (PERCOCET) 5-325 MG per tablet 1 tablet Start: 02-20-2024 End: 02-27-2024 oxyCODONE-acetaminophen (PER COCET) 5-325 MG per tablet Indications: Acute post-operative pain Take 1 tablet by mouth every 6 hours as needed for Pain for up to 7 days. Max Daily Amount: 4 tablets 28 tablet 02/20/2024 02/27/2024 Active Start: 09-22-2023 take 1 tablet by joão th twice daily Oxycodone-Acetaminophen 5-325 mg tablet Active 1 TAB PO Twice daily September 22, 2023 12:00am Start: 11-24-2018 End: 04-01-2022 take 1 tablet by mouth every six hours as needed for pain Oxycodone-Acetaminophen (Percocet) 2.5-3 25 mg Tablet Discontinued 1 TAB PO Every 6 hours as needed for Pain 21 01November 24, 2018 April 01, 2022 8:54am Start: 08-19-2018 End: 04-01-2022 take 1 tablet by mouth every six hours as needed for pain Oxycodone-Acetaminophen (Percocet) 5-325 mg Tablet Discontinued 1 TAB PO Q6H as needed for Pain 28 August 19, 2018 1:00am April 01, 2022 8:54am take 1 tablet by joão th three times daily as needed oxyCODONE-acetaminophen (Percocet) 5-325 MG tablet Take 1 tablet by mouth 3 (three) times a day as needed Active take 1 tablet by joão th every eight hours as needed for pain oxyCODONE-acetaminophen (PERCOCET) 5-325 MG per tablet Take 1 tablet by mouth every 8 hours as needed for Pain. Suspended oxyCODONE-acetam inophen (PERCOCET) 5-325 MG per tablet Take 1 tablet by mouth every 4 hours as needed for Pain. Max Daily Amount: 6 tablets Active Percocet 5-325 M G 1 tablet as needed Orally 2 a day Active albuterol 0.83 mg/ml inhalation solution (1 source) beta2-Adrenergic Agonist Start: 07-28-2023 albuterol 2.5 mg /3 mL (0.083 %) nebulizer solution 2.5 mg amiodarone hydrochloride 200 mg oral tablet (1 source) Antiarrhythmic Start: 06-05-2024 take 1 tablet by mouth once daily Amiodarone 200 mg tablet Active 200 MG PO Daily June 05, 2024 1:00am amoxicillin 500 mg oral capsule (6 sources) Penicillin-class Antibacterial Start: 02-01-2024 amoxicillin (Amoxil) 500 MG capsule Indications: History of left hip replacement TAKE 4 CAPSULES BY MOUTH 45 MINUTES TO 1 HOUR PRIOR TO DENTAL PROCEDURE 4 capsule 3 02/01/2024 Active amoxicillin 875 mg / clavulanate 125 mg oral tablet (11 sources) Penicillin-class Antibacterial Start: 08-04-2023 take 1 tablet by mouth every twelve hours Amoxicillin-Pot Clavulanate 875-125 MG 1 tablet Orally every 12 hrs for 10 days Jul, Active Start: 02-23-2023 take 1 tablet by joão th every twelve hours Amoxicillin-Pot Clavulanate 875-125 MG 1 tablet Orally every 12 hrs for 7 days Jan, Not-Taking/PRN apixaban 5 mg oral tablet (1 source) Factor Xa Inhibitor Start: 06-05-2024 take 1 tablet by mouth twice daily Apixaban (Eliquis) 5 mg tablet Active 5 MG PO Twice daily June 05, 2024 1:00am aspirin 81 mg delayed release oral tablet (20 sources) Platelet Aggregation Inhibitor, Nonsteroidal Anti-inflammatory Drug Start: 09-22-2023 take 1 tablet by mouth once daily Aspirin 81 mg tablet,delayed release (DR/EC) Active 81 MG PO Daily September 22, 2023 12:00am Start: 04-01-2022 End: 09-22-2023 take 1 tablet by mouth once daily Aspirin 81 mg Tablet,Chewable Discontinued 81 MG PO Daily April 01, 2022 12:00am September 22, 2023 2:54pm Start: 07-21-2020 take 1 mg by mouth once daily aspirin 325 mg Oral EC Tab mg tab(s), Oral, Daily, Refills(s) 0 Start Date: 07/21/20 Status: Ordered Start: 08-19-2018 End: 11-06-2018 take 1 tablet by mouth once daily Aspirin 325 mg Tablet Discontinued 325 MG PO Daily August 19, 2018 1:00am November 06, 2018 10:37am take 1 tablet by joão th once daily Aspirin 81 81 MG 1 tablet Orally Once a day Active atorvastatin 20 mg oral tablet (20 sources) HMG-CoA Reductase Inhibitor Start: 02-20-2024 take 1 tablet by mouth once daily Atorvastatin 40 mg tablet Active 40 MG PO Daily June 05, 2024 1:00am Start: 11-14-2023 End: 11-22-2024 take 1 tablet by mouth once daily Atorvastatin 20 mg tablet Active 0 .ROUTE .COMPLEX 90 November 22, 2024 8:30am TAKE 1 TABLET BY MOUTH DAILY Start: 07-21-2020 End: 11-14-2023 take 1 tablet by mouth once daily Atorvastatin 20 mg tablet Discontinued 20 MG PO Daily September 23, 2023 12:00am November 14, 2023 3:12pm carvedilol 25 mg oral tablet (20 sources) alpha-Adrenergic Molina, beta-Adrenergic Molina Start: 06-05-2024 Carvedilol 25 mg tablet Active 37.5 MG PO Twice daily June 05, 2024 12:49pm Start: 07-04-2022 End: 06-05-2024 take 1 tablet by mouth twice daily Carvedilol 25 mg tablet Discontinued 25 MG PO Twice daily September 22, 2023 12:00am June 05, 2024 12:53pm Start: 04-01-2022 End: 09-22-2023 take 1 tablet by mouth once daily Carvedilol 12.5 mg tablet Discontinued 12.5 MG PO Daily April 01, 2022 12:00am September 22, 2023 2:55pm ceFAZolin (ANCEF) 2000 mg in 0.9% sodium chloride 50 mL IVPB (1 source) Start: 02-20-2024 End: 02-21-2024 2,000 mg, IntraVENous, EVERY 8 HOURS, 3 doses, First dose on Tue02/20/24 at 2000, Last dose on Tue02/21/24 at 1200, Antimicrobial Indications: Surgical Prophylaxis cephalexin 500 mg oral capsule (2 sources) Cephalosporin Antibacterial Start: 08-23-2024 End: 09-02-2024 take 1 capsule by mouth in the morning, then take 1 capsule by mouth in the evening, then take 1 capsule by mouth at bedtime, then take 1 capsule by mouth three times daily cephalexin (Keflex) 500 MG capsule Indications: Abscess of toe, right Take 1 capsule (500 mg) by mouth in the morning and 1 capsule (500 mg) in the evening and 1 capsule (500 mg) before bedtime. Do all this for 10 days. Take one tablet by mouth three times daily. 30 capsule 08/23/2024 09/02/2024 Active chlorthalidone 25 mg oral tablet (13 sources) Thiazide-like Diuretic Start: 02-21-2024 take 1 tablet by mouth once daily Chlorthalidone 25 mg tablet Active 25 MG PO Daily June 05, 2024 1:00am Chondroitin Sulfates / Glucosamine (3 sources) Start: 07-21-2020 Osteo Bi-Flex Refill(s) 0 Start Date: 07/21/20 Status: Ordered ciprofloxacin 500 mg oral tablet (2 sources) Quinolone Antimicrobial Start: 02-20-2024 End: 02-23-2024 take 1 tablet by mouth twice daily ciprofloxacin (CIPRO) 500 MG tablet Take 1 tablet by mouth 2 times daily for 3 days 6 tablet 02/20/2024 02/23/2024 Active Start: 10-19-2021 End: 10-26-2021 Cipro 500 mg Tab 500 mg = 1 tab(s), Oral, BID, start 3 days prior to procedure, X 7 day(s), # 14 tab(s), Refills(s) 0, Pharmacy: [facility] #[id number], 183, cm, 10/19/21 14:42:00 EDT, Height/Length Dosing, 122.2, kg, 10/19/21 14:42:00 EDT, Weight Dosing Start Date: 10/19/21 Stop Date: 10/26/21 Status: Ordered diphenhydrAMINE (1 source) Histamine-1 Receptor Antagonist Start: 07-28-2023 diphenhydrAMINE (BENADryl) injection 12.5 mg 0.5 ml dulaglutide 1.5 mg/ml auto-injector (20 sources) GLP-1 Receptor Agonist Start: 10-04-2022 Trulicity 0.75 MG/0. 5ML solution pen-injector inject 0.75 milligrams subcutaneously every 7 days IN THE ABDOMEN... (REFER TO PRESCRIPTION NOTES). 10/04/2022 Active Start: 09-06-2022 inject 3 mg by subcu taneous injection every week Trulicity 3 MG/0.5ML 3MG Subcutaneous weekly for 28 days Aug, Active Start: 09-06-2022 Trulicity 1.5 MG/0.5ML 1.5 Subcutaneous weekly Aug, Active Start: 09-06-2022 inject 0.75 mg by munoz bcutaneous injection every week Trulicity 0.75 MG/0.5ML 0.75mg Subcutaneous weekly for 28 days Aug, Active Dulaglutide (ERIC LICITY SC) Inject 3 mg into the skin once a week Tuesday Suspended Dulaglutide (ERIC LICITY SC) Inject 3 mg into the skin once a week Active Dulaglutide (Trulicity) 3 mg /0.5 mL pen injector (6 sources) Start: 09-06-2023 Dulaglutide (T rulicity) 3 mg/0.5 mL pen injector Active 3 MG SUBCUT every week September 06, 2023 6:08pm Start: 09-06-2023 End: 09-06-2023 Dulaglutide (Trulicity) 3 mg /0.5 mL pen injector Discontinued 3 MG SUBCUT every week September 06, 2023 12:00am September 06, 2023 6:10pm fenofibrate 160 mg oral tablet (2 sources) Peroxisome Proliferator Receptor alpha Agonist take 1 tablet by mouth every twenty-four hours Fenofibrate 160 MG 1 tablet with a meal Orally Once a day for 30 day(s) Active finasteride 5 mg oral tablet (15 sources) 5-alpha Reductase Inhibitor Start: 05-18-20 End: 05-13-20 24 take 1 tablet by mouth once daily in the morning finasteride (PROSCAR) 5 mg tablet TAKE 1 TABLET BY MOUTH ONCE DAILY IN THE MORNING 90 tablet 3 05/13/2024 Active Start: 08-11-2021 take 1 tablet by joão th once daily finasteride 5 mg Tab 5 mg = 1 tab(s), Oral, Daily, # 90 tab(s), Refills(s) 0, Pharmacy: [facility] #[id number], 183, cm, 04/17/21 9:02:00 EDT, Height/Length Dosing, 122, kg, 04/17/21 9:02:00 EDT, Weight Dosing Start Date: 08/11/21 Status: Ordered Flax Seed Oil oral capsule (3 sources) Start: 07-21-2020 Flax Seed Oil oral capsule Refill(s) 0 Start Date: 07/21/20 Status: Ordered folic acid 1 mg oral tablet (16 sources) Start: 06-24-2024 End: 06-29-2024 take 1 tablet by mouth once daily Folic Acid 1 mg tablet Active 1 MG PO Daily June 29, 2024 1:59pm Start: 04-01-2022 End: 06-05-2024 take 1 tablet by mouth once daily Folic Acid 1 mg Tablet Discontinued 1 MG PO Daily April 01, 2022 12:00am June 05, 2024 12:50pm glucosamine/chondr tammy Ta sod (OSTEO BI-FLEX ORAL) (4 sources) glucosamine/joan dr munoz A sod (OSTEO BI-FLEX ORAL) Take by mouth. 0 Active hydrALAZINE hydrochloride 50 mg oral tablet (20 sources) Arteriolar Vasodilator Start: Hydralazine 50 mg tablet Active 75 MG PO Three times daily June 05, 2024 12:50pm Start: 02-20-2024 take 100 mg by mouth three times daily 100 mg, Oral, 3 TIMES DAILY, First dose on Tue02/20/24 at 2100, Until Discontinued Start: 09-22-2023 End: 06-05-2024 take 1 tablet by mouth three times daily Hydralazine 50 mg tablet Discontinued 50 MG PO Three times daily September 22, 2023 2:56pm June 05, 2024 12:53pm Start: 07-28-2023 hydrALAZINE (A presoline) injection 5 mg Start: 04-01-2022 End: 09-22-2023 take 1 tablet by mouth once daily Hydralazine 50 mg tablet Discontinued 50 MG PO Daily April 01, 2022 12:00am September 22, 2023 3:00pm take 1 tablet by joão th in the morning, then take 1 tablet by mouth in the evening, then take 1 tablet by mouth at bedtime hydrALAZINE (Apresoline) 100 MG tablet Take 100 mg by mouth in the morning and 100 mg in the evening and 100 mg before bedtime. Active take 1 tablet by joão th every eight hours hydrALAZINE HCl 50 MG 1 tablet with food Orally Three times a day Active hydroCHLOROthiazide 25 mg / lisinopril 20 mg oral tablet (19 sources) Thiazide Diuretic, Angiotensin Converting Enzyme Inhibitor Start: 02-24-2024 take 1 tablet by mouth once daily Lisinopril-Hydrochlorothiazide 20-25 mg tablet Active 0 .ROUTE .COMPLEX 90 February 24, 2024 10:08pm TAKE 1 TABLET BY MOUTH DAILY Start: 09-23-2023 End: 02-24-2024 take 1 tablet by mouth once daily Lisinopril-Hydrochlorothiazide 10-12.5 m g tablet Discontinued 1 TAB PO Daily September 23, 2023 12:00am February 24, 2024 10:08pm Start: 05-29-2023 take 1 tablet by joão th once daily lisinopriL-hydrochlorothiazide 20-25 mg tablet Take 1 tablet by mouth once daily. 0 05/29/2023 Active Start: 06-04-2022 take 10-12.5 mg by mouth once daily Lisinopril-hydroCHLOROthiazide 10-12.5 M G lisinopriL-hydrochlorothiazide 10-12.5mg, 1 (one) Tablet daily # 90, 06/04/2022, Ref. x3. Active Oral daily for 90 May, Active Start: 12-14-2021 take 10-12.5 mg by mouth once in the morning lisinopril-hydroCHLOROthiazide (PRINZIDE,ZESTORETIC) 10-12.5 mg per tablet Take 1 tablet by mouth in the morning. 12/14/2021 Active ibuprofen 200 mg oral capsule (10 sources) Nonsteroidal Anti-inflammatory Drug Start: 07-21-2020 take 1 mg by mouth every six hours ibuprofen 200 mg oral capsule mg cap(s), Oral, q6hr, Refills(s) 0 Start Date: 07/21/20 Status: Ordered take 1 tablet by joão th every six hours as needed for pain ibuprofen (MOTRIN) 800 mg tablet Take 1 tablet (800 mg total) by mouth every 6 (six) hours as needed for pain. Active lisinopril 40 mg oral tablet (20 sources) Angiotensin Converting Enzyme Inhibitor Start: 02-21-2024 take 40 mg by mouth once daily 40 mg, Oral, DAILY, First dose on Tue02/21/24 at 0900, Until Discontinued Start: 09-05-2023 End: 08-22-2024 take 1 tablet by mouth once daily Lisinopril 40 mg tablet Active 0 .ROUTE .COMPLEX August 22, 2024 8:34am TAKE 1 TABLET BY MOUTH EVERY DAY Start: 09-05-2023 take 1 tablet by joão th once daily Lisinopril Active 0 .ROUTE .COMPLEX September 05, 2023 12:48pm take 1 tablet by mouth once daily Start: 09-03-2022 End: 09-05-2023 take 1 tablet by mouth once daily Lisinopril 40 mg tablet Discontinued 40 MG PO Daily September 05, 2023 12:00am September 05, 2023 12:48pm Start: 07-21-2020 take 1 mg by mouth once daily lisinopril 20 mg Tab mg tab(s), Oral, Daily, Refills(s) 0 Start Date: 07/21/20 Status: Ordered magnesium oxide 400 mg oral capsule (1 source) Start: 06-05-2024 take 1 capsule by mouth once daily Magnesium Oxide 400 mg magnesium capsule Active 400 MG PO Daily June 05, 2024 1:00am 1 ml meperidine hydrochloride 50 mg/ml injection (1 source) Opioid Agonist Start: 07-28-2023 meperidine PF (Demerol) injection 12.5 mg metFORMIN hydrochloride 500 mg oral tablet (20 sources) Biguanide Start: 11-30-2023 take 1 tablet by mouth once daily at mealtime Metformin 500 mg tablet Active 0 .ROUTE .COMPLEX 90 November 30, 2023 12:59pm take 1 tablet by mouth once daily WITH A MEAL Start: 08-29-2023 End: 11-26-2024 take 1 tablet by mouth twice daily Metformin 500 mg tablet Active 0 .ROUTE .COMPLEX 180 November 26, 2024 3:06pm TAKE 1 TABLET BY MOUTH TWICE DAILY Start: 10-23-2021 End: 08-29-2023 take 1 tablet by mouth twice daily Metformin 500 mg tablet Discontinued 500 MG PO Twice daily August 29, 2023 1:00am August 29, 2023 4:41pm Start: 08-01-2018 End: 11-30-2023 take 1 tablet by mouth once daily in the morning Metformin 500 mg Tablet Discontinued 500 MG PO Every morning August 01, 2018 1:00am November 30, 2023 12:59pm methocarbamol 500 mg oral tablet (14 sources) Muscle Relaxant Start: 09-22-2023 take 1 tablet by mouth three times daily Methocarbamol 500 mg tablet Active 500 MG PO Three times daily September 22, 2023 12:00am Start: 06-15-2023 take 1 tablet by joão th in the morning, then take 1 tablet by mouth in the evening, then take 1 tablet by mouth at bedtime methocarbamol (Robaxin) 500 MG tablet Take 500 mg by mouth in the morning and 500 mg in the evening and 500 mg before bedtime. 0 06/15/2023 Active methylPREDNISolone (3 sources) Corticosteroid Start: 07-18-2023 methylPREDNISolone (Medrol Dospak) 4 MG tablets Indications: Right hip pain Follow schedule on package instructions 21 tablet 0 07/18/2023 Active 2 ml metoclopramide 5 mg/ml injection (1 source) Dopamine-2 Receptor Antagonist Start: 07-28-2023 metoclopramide (Reglan) injection 10 mg morphine (PF) injection 2 mg (1 source) Start: 02-20-2024 morphine (PF) injection 2 mg 2 ml ondansetron 2 mg/ml injection (1 source) Serotonin-3 Receptor Antagonist Start: 07-28-2023 ondansetron (Zofran) injection 4 mg ondansetron (ZOFRAN-ODT) disintegrating tablet 4 mg (1 source) Start: 02-20-2024 ondansetron (ZOFRAN-ODT) disintegrating tablet 4 mg oxyCODONE hydrochloride 10 mg oral tablet (3 sources) Opioid Agonist Start: 07-28-2023 take 1 tablet by mouth every four hours as needed oxyCODONE (Roxicodone) immediate release tablet 5 mg Start: 07-28-2023 take 1 tablet by joão th every four hours as needed oxyCODONE (Roxicodone) immediate release tablet 10 mg pantoprazole 40 mg delayed release oral tablet (20 sources) Proton Pump Inhibitor Start: 10-04-2024 take 1 tablet by mouth once daily 30 minutes before breakfast Pantoprazole 40 mg tablet,delayed release (DR/EC) Active 0 .ROUTE .COMPLEX October 04, 2024 7:31am TAKE 1 TABLET BY MOUTH EVERY DAY ON AN EMPTY STOMACH 30 MINUTES BEFORE BREAKFAST Start: 02-20-2024 take 40 mg by mouth once daily 40 mg, Oral, DAILY, First dose on Tue02/20/24 at 1845, Until Discontinued, Do not crush or break. Start: 11-14-2023 take 1 tablet by joão th once daily 30 minutes before breakfast Pantoprazole Active 0 .ROUTE .COMPLEX November 14, 2023 1:27pm take 1 tablet by mouth once daily ON AN EMPTY STOMACH 30 MINUTES before breakfast Start: 08-01-2018 End: 11-14-2023 take 1 tablet by mouth once daily in the morning Pantoprazole 40 mg Tablet,Delayed Release (Dr/Ec) Discontinued 40 MG PO Every morning August 01, 2018 1:00am November 14, 2023 1:28pm Pantoprazole Sod ium 40 MG 1 tablet on empty stomach followed in 30 minutes by breakfast Orally Once a day Active PARoxetine hydrochloride 20 mg oral tablet (20 sources) Serotonin Reuptake Inhibitor Start: 04-09-2024 End: 10-03-2024 take 1 tablet by mouth once daily in the morning Paroxetine Hcl 20 mg tablet Active 0 .ROUTE .COMPLEX 90 October 03, 2024 5:19pm TAKE 1 TABLET BY MOUTH EVERY DAY IN THE MORNING Start: 08-01-2018 End: 04-09-2024 take 1 tablet by mouth once daily in the evening Paroxetine Hcl 20 mg Tablet Discontinued 20 MG PO Every evening August 01, 2018 1:00am April 09, 2024 5:51pm polysaccharide iron complex 150 mg oral capsule (14 sources) Start: 06-24-2024 End: 06-29-2024 Polysaccharide Iron Complex (Ferrex 150) 150 mg iron capsule Active 150 MG PO .QOD 45 90 June 29, 2024 1:59pm Start: 04-01-2022 End: 06-05-2024 Polysaccharide Iron Complex (Iferex 150) 150 mg iron capsule Discontinued 150 MG PO Daily April 01, 2022 12:00am June 05, 2024 12:51pm pravastatin sodium 10 mg oral tablet (20 sources) HMG-CoA Reductase Inhibitor Start: 11-29-2024 take 1 tablet by mouth once daily Pravastatin 10 mg tablet Active 10 MG PO Daily November 29, 2024 12:00am FreeTextSig: one tab orally daily; Note: Source Status: Taking; Refills: 5; Qty: #30; Provider: Asher Ramey ( ) Start: 08-01-2018 End: 06-05-2024 take 1 tablet by mouth once daily in the morning Pravastatin 40 mg Tablet Discontinued 40 MG PO Every morning August 01, 2018 1:00am June 05, 2024 12:51pm take 1 tablet by joão th once daily Pravastatin 10 mg one tab orally daily Active pregabalin 75 mg oral capsule (20 sources) Start: 06-05-2024 take 2 capsules by mouth three times daily Pregabalin (Lyrica) 75 mg capsule Active 150 MG PO Three times daily June 05, 2024 12:51pm Start: 02-20-2024 take 150 mg by mouth three times daily 150 mg, Oral, 3 times daily, First dose on Tue02/20/24 at 2100, Until Discontinued Start: 07-01-2023 take 1 capsule by mo uth in the morning, then take 1 capsule by mouth in the evening, then take 1 capsule by mouth at bedtime pregabalin (Lyrica) 100 MG capsule Take 100 mg by mouth in the morning and 100 mg in the evening and 100 mg before bedtime. 07/01/2023 Active Start: 08-01-2018 End: 06-05-2024 take 1 capsule by mouth three times daily Pregabalin (Lyrica) 75 mg Capsule Discontinued 75 MG PO Three times daily 0 November 24, 2018 1:41pm June 05, 2024 12:53pm take 1 capsule by mo [facility] at bedtime pregabalin (LYRICA) 150 MG capsule Take 1 capsule by mouth in the morning, at noon, and at bedtime. Suspended spironolactone 25 mg oral tablet (16 sources) Aldosterone Antagonist Start: 03-01-2024 take 1 tablet by mouth once daily Spironolactone 25 mg tablet Active 0 .ROUTE .COMPLEX 90 March 01, 2024 11:16am TAKE 1 TABLET BY MOUTH DAILY Start: 2021 End: 03-01-2024 take 1 tablet by mouth once daily Spironolactone 25 mg tablet Discontinued 25 MG PO Daily March 01, 2024 12:00am March 01, 2024 11:16am Start: 07-21-2020 take 1 mg by mouth twice daily spironolactone 25 mg Tab mg tab(s), Oral, BID, Refills(s) 0 Start Date: 07/21/20 Status: Ordered tamsulosin hydrochloride 0.4 mg oral capsule (20 sources) alpha-Adrenergic Molina Start: 05-29-2023 take 1 capsule by mouth once daily tamsulosin (Flomax) 0.4 mg 24 hr capsule Take 1 capsule (0.4 mg) by mouth once daily. 0 05/29/2023 Active Start: 10-22-2021 End: 02-23-2024 take 1 capsule by mouth twice daily Tamsulosin 0.4 mg capsule Active 0.4 MG PO Twice daily September 23, 2023 12:00am Start: 07-17-2021 take 1 capsule by [facility] twice daily Flomax 0.4 mg Cap 0.4 mg = 1 cap(s), Oral, BID, # 180 cap(s), Refills(s) 3, Pharmacy: [id number], 183, cm, 04/17/21 9:02:00 EDT, Height/Length Dosing, 122, kg, 04/17/21 9:02:00 EDT, Weight Dosing Start Date: 07/17/21 Status: Ordered traMADol hydrochloride 50 mg oral tablet (3 sources) Opioid Agonist Start: 07-28-2023 take 1 tablet by mouth every eight hours for pain traMADol (Ultram) 50 mg tablet Indications: Malignant melanoma of neck (CMS/HCC) , Post-op pain Take 1 tablet (50 mg) by mouth every 8 hours if needed for severe pain (7 - 10) for up to 12 doses. 12 tablet 0 07/28/2023 Active Completed/Discontinued Medications Medication Drug Class(es) Dates Sig (Normalized) Sig (Original) acetaminophen 325 mg / HYDROcodone bitartrate 5 mg oral tablet (5 sources) Opioid Agonist Start: 08-01-2018 End: 11-06-2018 take 1 tablet by mouth three times daily Hydrocodone-Aceta minophen 5-325 mg Tablet Discontinued 1 TAB PO Three times daily August 01, 2018 1:00am November 06, 2018 10:37am atenolol 100 mg / chlorthalidone 25 mg oral tablet (5 sources) Thiazide-like Diuretic, beta-Adrenergic Molina Start: 08-01-2018 End: 04-01-2022 take 1 tablet by mouth once daily in the morning Atenolol-Chlortha lidone 100-25 mg Tablet Discontinued 1 TAB PO Every morning August 01, 2018 1:00am April 01, 2022 8:54am azithromycin 250 mg oral tablet (2 sources) Macrolide Antimicrobial Start: 12-26-2023 End: 06-05-2024 Azithromycin 250 mg tablet Discontinued 250 MG PO As Directed 6 December 26, 2023 12:00am June 05, 2024 12:47pm baclofen 10 mg oral tablet (20 sources) gamma-Aminobutyric Acid-ergic Agonist Start: 08-01-2018 End: 11-06-2018 take 1 tablet by mouth once daily at bedtime Baclofen 10 mg Tablet Discontinued 10 MG PO Daily at bedtime August 01, 2018 1:00am November 06, 2018 10:37am take 1 tablet by joão th every eight hours Baclofen 10 MG 1 tablet with food or mil k Orally Three times a day Not-Taking/PRN calcium chloride 0.0014 meq/ ml / potassium chloride 0.004 meq/ml / sodium chloride 0.103 meq/ml / sodium lactate 0.028 meq/ml injectable solution (2 sources) Start: 02-20-2024 End: 02-20-2024 IntraVENous, at 125 mL/hr, CONTINUOUS, Starting on Tue02/20/24 at 0915, Pre-op (day of surgery) Start: 07-28-2023 lactated Ringe r's infusion diclofenac sodium 75 mg delayed release oral tablet (20 sources) Nonsteroidal Anti-inflammatory Drug Start: 08-01-2018 End: 08-19-2018 take 1 tablet by mouth twice daily Diclofenac Sodium 75 mg Tablet,Delayed Release (Dr/Ec) Discontinued 75 MG PO Twice daily August 01, 2018 1:00am August 19, 2018 12:54pm Diclofenac 35 MG 75 mg Orally as needed Active doxycycline hyclate 100 mg oral capsule (14 sources) Tetracycline-class Drug Start: 11-12-2022 take 1 capsule by mouth twice daily as needed Doxycycline Hyclate 100 MG 1 capsule Orally twice daily for 7 days October, Not-Taking/PRN 0.3 ml enoxaparin sodium 100 mg/ml prefilled syringe (1 source) Low Molecular Weight Heparin Start: 02-20-2024 inject 30 mg by subcutaneous injection twice daily 30 mg, SubCUTAneous, 2 TIMES DAILY, First dose on Tue02/20/24 at 2200, Until Discontinued, Indication of Use: Prophylaxis-DVT/PE , Administer by deep subCUTAneous injection with pt lying down. Alternate injection sites on abdominal wall. Do not rub site after injection. Check with provider prior to any invasive procedure. 2 ml fentaNYL 0.05 mg/ml injection (1 source) Opioid Agonist Start: 02-20-2024 End: 02-20-2024 25 mcg, IntraVENous, EVERY 5 MIN PRN, 4 doses, Starting on Tue02/20/24 at 1353, Until Tue02/20/24 at 1538, Pain Moderate (4-6), Phase I - Initial therapy for moderate pain., PACU only 1 ml heparin sodium, porcine 5000 unt/ml prefilled syringe (1 source) Unfractionated Heparin, Anti-coagulant Start: 02-20-2024 End: 02-20-2024 inject 1 dose by subcutaneous injection once 5,000 Units, SubCUTAneous, ONCE, 1 dose, On Tue02/20/24 at 1130 Start: 02-20-2024 End: 02-20-2024 inject 1 dose by subcutaneous injection once 5,000 Units, SubCUTAneous, ONCE, 1 dose, On Tue02/20/24 at 1130 hydroCHLOROthiazide 12.5 mg oral capsule (20 sources) Thiazide Diuretic Start: 04-01-2022 End: 09-22-2023 take 1 capsule by mouth once daily Hydrochlorothiazide 12.5 mg capsule Discontinued 12.5 MG PO Daily April 01, 2022 12:00am September 22, 2023 2:56pm 0.5 ml HYDROmorphone hydrochloride 1 mg/ml prefilled syringe (3 sources) Opioid Agonist Start: 02-20-2024 End: 02-20-2024 0.5 mg, IntraVENous, EVERY 5 MIN PRN, 4 doses, Starting on Tue02/20/24 at 1353, Until Tue02/20/24 at 1817, Pain Severe (7-10), Phase I - Initial therapy for severe pain., PACU only Start: 07-28-2023 HYDROmorphone (Dilaudid) injection 0.5 mg Start: 07-28-2023 HYDROmorphone (Dilaudid) injection 0.2 mg labetalol hydrochloride 5 mg/ml injectable solution (3 sources) beta-Adrenergic Molina Start: 02-20-2024 End: 02-20-2024 10 mg, IntraVENous, ONCE, 1 dose, On Tue02/20/24 at 1800, STAT, PACU only Start: 02-20-2024 End: 02-20-2024 1 dose, Starting on 02/19 at 1746, Until Tue02/20/24 at 1748, Tamiko Gallardo: cabinet override, Tamiko Gallardo: cabinet override Start: 07-28-2023 labetaloL (Nor modyne,Trandate) injection 5 mg Pantoprazole 40 mg tablet,delayed release (/EC) (1 source) Start: 11-14-2023 End: 10-04-2024 take 1 tablet by mouth once daily 30 minutes before breakfast Pantoprazole 40 mg tablet,delayed release (DR/EC) Discontinued 0 .ROUTE .COMPLEX 90 November 14, 2023 1:27pm October 04, 2024 7:31am take 1 tablet by mouth once daily ON AN EMPTY STOMACH 30 MINUTES before breakfast quinapril 40 mg oral tablet (5 sources) Angiotensin Converting Enzyme Inhibitor Start: 08-01-2018 End: 09-22-2023 take 1 tablet by mouth once daily in the morning Quinapril 40 mg Tablet Discontinued 40 MG PO Every morning August 01, 2018 1:00am September 22, 2023 3:00pm sulfamethoxazole 800 mg / trimethoprim 160 mg oral tablet (11 sources) Dihydrofolate Reductase Inhibitor Antibacterial, Sulfonamide Antimicrobial Start: 09-22-2023 End: 06-05-2024 take 1 tablet by mouth twice daily Sulfamethoxazole-T rimethoprim (Bactrim Ds) 800-160 mg tablet Discontinued 1 TAB PO Twice daily September 22, 2023 12:00am June 05, 2024 12:51pm Start: 08-19-2013 take 1 tablet by joão th every twelve hours Bactrim DS 800-160 MG 1 tablet Orally Twice a day for 10 day(s) Jul, Active [id number] (Lymphoseek) injection 0.998 millicurie (1 source) Start: 07-28-2023 End: 07-28-2023 [id number] (Lymphoseek) injection 0.998 millicurie tiZANidine 4 mg oral capsule (4 sources) Central alpha-2 Adrenergic Agonist Start: 04-01-2022 End: 09-22-2023 take 1 capsule by mouth once daily at bedtime as needed for sleep Tizanidine 4 mg Capsule Discontinued 4 MG PO Daily at bedtime as needed for Sleep April 01, 2022 12:00am September 22, 2023 3:00pm traZODone hydrochloride 50 mg oral tablet (5 sources) Serotonin Reuptake Inhibitor Start: 08-01-2018 End: 11-06-2018 take 1 tablet by mouth once daily at bedtime Trazodone 50 mg Tablet Discontinued 50 MG PO Daily at bedtime August 01, 2018 1:00am November 06, 2018 10:38am triamcinolone acetonide 5 mg/ml topical cream (20 sources) Corticosteroid Start: 02-23-2023 Triamcinolone Acetonide 0.5 % 1 application Externally Twice a day for 7 days Jan, Not-Taking/PRN Start: 02-23-2023 Triamcinolone Acetonide 0.5 % 1 application Externally Twice a day for 7 days Jan, Not-Taking Start: 11-12-2022 Triamcinolone Acetonide 0.025 % 1 application Externally along nail bed twice daily for 7 days October, Not-Taking/PRN Start: 11-12-2022 Triamcinolone Acetonide 0.025 % 1 application Externally along nail bed twice daily for 7 days October, Not-Taking Problems Active Problems Problem Classification Problem Date Documented Date Episodic/Chronic Abdominal pain (1 source) Epigastric pain; Translations: [Abdominal pain, epigastric] 09-23-2023 Episodic Acute posthemorrhagic anemia (2 sources) Acute posthemorrhagic anemia; Translations: [Acute posthemorrhagic anemia] 06-05-2024 Episodic Cancer of prostate (10 sources) Malignant neoplasm of prostate; Translations: [Malignant tumor of prostate] Onset: 02-10-2024 Chronic Comment on above: Radical Prostatectom y - 01/2024 Cardiac dysrhythmias (6 sources) Paroxysmal atrial fibrillation; Translations: [Cardiac arrhythmia, unspecified] Onset: 03-08-2024 Chronic Comment on above: Cardioversion - 03/28 024 Chronic kidney disease (20 sources) Chronic kidney disease stage 3A ; Translations: [Stage 3a chronic kidney disease] 09-22-2023 Chronic Deficiency and other anemia (5 sources) Iron deficiency anemia secondary to blood loss (chronic); Translations: [IRON DEFIC ANEMIA SEC BLD LOSS CHRN] Onset: 05-11-2022 Chronic Deficiency and other anemia (8 sources) Iron deficiency anemia due to blood loss; Translations: [Iron deficiency anemia secondary to blood loss (chronic)] Chronic Deficiency and other anemia (20 sources) Iron deficiency anemia; Translations: [Iron deficiency anemia, unspecified] 06-08-2023 Episodic Comment on above: Problem List clean-u p per request of Phys. EHR Cmte Deficiency and other anemia (4 sources) Anemia, unspecified; Translations: [ANEMIA UNSPECIFIED] Onset: 01-29-2022 Episodic Deficiency and other anemia (1 source) Anemia; Translations: [Anemia, unspecified] 06-05-2024 Episodic Diabetes mellitus with complications (20 sources) Type 2 diabetes mellitus; Translations: [Type 2 diabetes mellitus with hyperglycemia] Onset: 05-15-2022 Chronic Diabetes mellitus without complication (1 source) Type 2 diabetes mellitus without complications; Translations: [TYPE 2 DM WITHOUT COMPLICATIONS] Onset: 10-22-2022 Chronic Diabetes mellitus without complication (16 sources) Impaired fasting glycemia; Translations: [Impaired fasting glucose] Onset: 11-28-2017 07-04-2023 Episodic Disorders of lipid metabolism (20 sources) Hypercholesterolemia; Translations: [Pure hypercholesterolemia] Onset: 11-28-2017 07-21-2020 Chronic Esophageal disorders (20 sources) Gastroesophageal reflux disease without esophagitis; Translations: [Gastro-esophageal reflux disease without esophagitis] Chronic Essential hypertension (20 sources) Hypertensive disorder; Translations: [Essential hypertension] Onset: 11-28-2017 07-21-2020 Chronic Genitourinary symptoms and ill-defined conditions (6 sources) Nocturia; Translations: [Nocturia] Onset: 08-29-2024 07-21-2020 Episodic Hyperplasia of prostate (20 sources) Benign prostatic hypertrophy without outflow obstruction; Translations: [Benign prostatic hyperplasia without lower urinary tract symptoms] Onset: 10-07-2021 Chronic Hypertension with complications and secondary hypertension (16 sources) Hypertensive renal disease; Translations: [Hypertensive chronic kidney disease with stage 1 through stage 4 chronic kidney disease, or unspecified chronic kidney disease] Chronic Inflammatory conditions of male genital organs (4 sources) Prostatitis; Translations: [Inflammatory disease of prostate, unspecified] Onset: 10-19-2021 07-21-2020 Episodic Malignant neoplasm without specification of site (2 sources) Malignant (primary) neoplasm, unspecified; Translations: [Malignant (primary) neoplasm, unspecified (CMS/HCC)] Onset: 07-19-2023 Chronic Melanomas of skin (20 sources) Malignant melanoma of skin; Translations: [Malignant melanoma of skin, unspecified] Onset: 07-19-2023 Chronic Mood disorders (4 sources) Major depressive disorder; Translations: [Major depressive disorder, single episode, unspecified] 09-22-2023 Chronic Nutritional deficiencies (1 source) Deficiency of other specified B group vitamins Episodic Osteoarthritis (20 sources) Osteoarthritis of hip; Translations: [Unilateral primary osteoarthritis, left hip] Onset: 07-31-2018 07-04-2023 Chronic Other acquired deformities (20 sources) Acquired kyphosis; Translations: [Other secondary kyphosis, thoracolumbar region] Onset: 07-04-2023 07-04-2023 Chronic Other acquired deformities (9 sources) Secondary kyphosis; Translations: [Other secondary kyphosis, site unspecified] Onset: 06-16-2018 07-04-2023 Chronic Other acquired deformities (20 sources) Spondylolisthesis; Translations: [Spondylolisthesis, lumbar region] Episodic Other aftercare (8 sources) Patient encounter status; Translations: [Aftercare following joint replacement surgery] Chronic Other aftercare (3 sources) Other terminologist (current) drug therapy; Translations: [Other retirement (current) drug therapy] Onset: 04-16-2024 Episodic Other aftercare (2 sources) prison (current) use of insulin; Translations: [prison (current) use of insulin] Onset: 04-16-2024 Episodic Other circulatory disease (1 source) Orthostatic hypotension; Translations: [Orthostatic hypotension] 03-05-2024 Episodic Other connective tissue disease (20 sources) History of total hip arthroplasty; Translations: [Presence of right artificial hip joint] Onset: 07-04-2023 11-24-2018 Chronic Comment on above: Problem List clean-u p per request of Phys. EHR Cmte Other connective tissue disease (20 sources) History of repair of hip joint; Translations: [Presence of left artificial hip joint] 09-26-2023 Chronic Other connective tissue disease (1 source) Presence of artificial hip joint, bilateral; Translations: [PRESENCE ARTIFICIAL HIP JOINT BILAT] Onset: 05-09-2022 Chronic Other connective tissue disease (1 source) Presence of right artificial hip joint; Translations: [Presence of right artificial hip joint] Onset: 07-04-2023 Chronic Other connective tissue disease (18 sources) Hip joint prosthesis present; Translations: [Presence of unspecified artificial hip joint] Onset: 08-21-2018 07-04-2023 Chronic Other connective tissue disease (9 sources) History of revision of left total hip arthroplasty; Translations: [Presence of left artificial hip joint] Onset: 07-04-2023 07-04-2023 Chronic Other connective tissue disease (1 source) Other muscle spasm; Translations: [OTHER MUSCLE SPASM] Onset: 11-04-2022 Episodic Other connective tissue disease (4 sources) Pain of toe of right foot; Translations: [Pain in right toe(s)] 08-23-2024 Episodic Other diseases of veins and lymphatics (20 sources) Peripheral venous insufficiency; Translations: [Venous insufficiency (chronic) (peripheral)] 09-22-2023 Episodic Other diseases of veins and lymphatics (4 sources) Venous insufficiency (chronic) (peripheral) Episodic Other ear and sense organ disorders (1 source) Impacted cerumen, bilateral Episodic Other ear and sense organ disorders (1 source) Impacted cerumen, left ear Episodic Other nervous system disorders (17 sources) Difficulty walking; Translations: [Difficulty in walking, not elsewhere classified] Onset: 08-21-2018 07-04-2023 Chronic Other nervous system disorders (4 sources) Other specified mononeuropathies; Translations: [OTHER SPECIFIED MONONEUROPATHIES] Onset: 10-29-2022 Chronic Other nervous system disorders (1 source) Other chronic pain; Translations: [OTHER CHRONIC PAIN] Onset: 07-26-2022 Chronic Other nervous system disorders (5 sources) Carpal tunnel syndrome; Translations: [Carpal tunnel syndrome, right upper limb] Chronic Other nervous system disorders (2 sources) Carpal tunnel syndrome of right wrist; Translations: [Carpal tunnel syndrome, right upper limb] 09-23-2023 Chronic Other nervous system disorders (1 source) Unspecified abnormalities of gait and mobility; Translations: [UNS ABNORMALITIES GAIT AND MOBILITY] Onset: 06-03-2022 Episodic Other nervous system disorders (1 source) Other abnormalities of gait and mobility; Translations: [OTHER ABNORMALITIES GAIT AND MOBILITY] Onset: 06-03-2022 Episodic Other nervous system disorders (1 source) Postoperative pain ; Translations: [Other acute postprocedural pain] 07-28-2023 Episodic Other nervous system disorders (3 sources) Other acute postprocedural pain; Translations: [Other acute postprocedural pain] Onset: 07-28-2023 Episodic Other non-traumatic joint disorders (5 sources) Pain in right hip; Translations: [PAIN IN RIGHT HIP] Onset: 09-30-2022 Episodic Other nutritional; endocrine; and metabolic disorders (20 sources) Morbid obesity; Translations: [Morbid (severe) obesity due to excess calories] Chronic Other nutritional; endocrine; and metabolic disorders (4 sources) Morbid (severe) obesity due to excess calories; Translations: [Morbid (severe) obesity due to excess calories] Onset: 04-16-2024 Chronic Other nutritional; endocrine; and metabolic disorders (2 sources) Body mass index (BMI) 40.0-44.9, adult; Translations: [Body mass index (BMI) 40.0-44.9, adult] Onset: 04-16-2024 Chronic Other screening for suspected conditions (not mental disorders or infectious disease) (20 sources) Raised prostate specific antigen; Translations: [Elevated prostate specific antigen [PSA]] Onset: 10-07-2021 Episodic Comment on above: rajeev Carrero / [place] Other skin disorders (4 sources) Ingrowing nail; Translations: [Ingrowing nail] 08-23-2024 Episodic Other upper respiratory disease (2 sources) Allergic rhinitis; Translations: [Allergic rhinitis, unspecified] 12-26-2023 Chronic Other upper respiratory infections (1 source) Acute maxillary sinusitis, unspecified Episodic Residual codes; unclassified (20 sources) Obstructive sleep apnea syndrome; Translations: [Obstructive sleep apnea (adult) (pediatric)] 09-22-2023 Chronic Residual codes; unclassified (9 sources) Obstructive sleep apnea (adult) (pediatric); Translations: [Obstructive sleep apnea (adult)(pediatric)] Onset: 04-16-2024 Chronic Residual codes; unclassified (5 sources) Edema; Translations: [Localized edema] Episodic Residual codes; unclassified (2 sources) Edema of lower extremity; Translations: [Localized edema] 09-26-2023 Episodic Residual codes; unclassified (1 source) H/O Malignant melanoma; Translations: [Other specified postprocedural states] 09-26-2023 Episodic Comment on above: Naik 2023 Skin and subcutaneous tissue infections (6 sources) Cellulitis of left finger; Translations: [Abscess of toe of right foot] Episodic Spondylosis; intervertebral disc disorders; other back problems (15 sources) Spondylosis without myelopathy or radiculopathy, lumbar region; Translations: [Other intervertebral disc degeneration, lumbar region] Onset: 12-23-2021 Chronic Comment on above: Lumbar Fusion - 01/13 24 Spondylosis; intervertebral disc disorders; other back problems (20 sources) Spinal stenosis of lumbar region; Translations: [Spinal stenosis, lumbar region with neurogenic claudication] Onset: 05-31-2014 Episodic Unclassified (4 sources) LOW BACK PAIN, UNSPECIFIED; Translations: [LOW BACK PAIN, UNSPECIFIED] Onset: 05-13-2022 Unclassified (1 source) CONTACT W/AND (SUSP) EXPOS COVID-19; Translations: [CONTACT W/AND (SUSP) EXPOS COVID-19] Onset: 01-29-2022 Unclassified (1 source) Obesity, class 3; Translations: [Obesity, class 3] Onset: 04-16-2024 Unclassified (2 sources) Other persistent atrial fibrillation; Translations: [Other persistent atrial fibrillation] Onset: 03-08-2024 Past or Other Problems Problem Classification Problem Date Documented Date Episodic/Chronic Cardiac dysrhythmias (2 sources) Bradycardia, unspecified; Translations: [Bradycardia, unspecified] Onset: 03-05-2024 Episodic Chronic kidney disease (3 sources) Chronic kidney disease Complication of device; implant or graft (9 sources) 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; Translations: [Infection and inflammatory reaction due to internal left hip prosthesis, initial encounter] Onset: 12-24-2020 07-04-2023 Episodic Deficiency and other anemia (4 sources) Iron deficiency anemia, unspecified; Translations: [IRON DEFICIENCY ANEMIA UNSPECIFIED] Onset: 04-29-2022 Episodic Other acquired deformities (9 sources) Lumbar spondylolisthesis; Translations: [Spondylolisthesis, lumbar region] Onset: 07-04-2023 07-04-2023 Episodic Other acquired deformities (9 sources) Acquired spondylolisthesis; Translations: [Spondylolisthesis, site unspecified] Onset: 06-16-2018 07-04-2023 Episodic Other connective tissue disease (9 sources) Tear of right rotator cuff; Translations: [Unspecified rotator cuff tear or rupture of right shoulder, not specified as traumatic] Onset: 07-04-2023 07-04-2023 Episodic Other connective tissue disease (9 sources) History of cervical spine fusion; Translations: [Arthrodesis status] Onset: 07-30-2013 07-04-2023 Episodic Other connective tissue disease (9 sources) Pain in right arm; Translations: [Pain in right arm] Onset: 07-30-2013 07-04-2023 Episodic Other connective tissue disease (9 sources) Neurogenic claudication; Translations: [Other symptoms and signs involving the nervous system] Onset: 06-16-2018 07-04-2023 Episodic Other connective tissue disease (9 sources) Impingement syndrome of right shoulder region; Translations: [Impingement syndrome of right shoulder] Onset: 07-30-2013 07-04-2023 Episodic Other connective tissue disease (9 sources) H/O: Disorder; Translations: [Personal history of other diseases of the musculoskeletal system and connective tissue] Onset: 08-03-2022 07-04-2023 Episodic Other lower respiratory disease (4 sources) Other forms of dyspnea; Translations: [OTHER FORMS OF DYSPNEA] Onset: 03-08-2022 Episodic Other nervous system disorders (1 source) Acute postoperative pain; Translations: [Other acute postprocedural pain] 02-20-2024 Episodic Other non-traumatic joint disorders (6 sources) Pain in right shoulder; Translations: [Pain in right shoulder] Onset: 04-23-2022 Episodic Other non-traumatic joint disorders (5 sources) Pain in left hip; Translations: [PAIN IN LEFT HIP] Onset: 06-27-2022 Episodic Other non-traumatic joint disorders (17 sources) Arthralgia of the pelvic region and thigh; Translations: [Pain in left hip] Onset: 10-11-2019 07-04-2023 Episodic Other non-traumatic joint disorders (9 sources) Pain of left hip joint; Translations: [Pain in left hip] Onset: 09-17-2020 07-04-2023 Episodic Other non-traumatic joint disorders (3 sources) Hip pain; Translations: [Pain in left hip] 09-21-2023 Episodic Unclassified (1 source) LOW BACK PAIN, UNSPECIFIED; Translations: [LOW BACK PAIN, UNSPECIFIED] Onset: 05-10-2022 Unclassified (1 source) Obesity, class 3; Translations: [Obesity, class 3] Onset: 10-15-2024 Results Test Name Value Interpretation Reference Range Facility Outside Recordson 11-15-2024 Outside Records [id number] [facility] Office Visiton 10-15-2024 Follow-up visit [id number] Luis Armando Flores is I 1955 M Date Provider Department Center 10/15/2024 [id number] AJ BH CARD [facility] Family History Problem Relation Age of Onset Heart failure Mother Atrial fibrillation Mother Family Status - Relation Status Age at Mother Father Sister Alive Brother Alive Level of Service:57580 MS OFFICE/OUTPATIENT ESTABLISHED MOD MDM 30 MIN Reason for Visit and Comments: 6 month follow up [Other] [facility] 36on 10-08-2024 36 Regarding PFT's from 09/07/2024: MD Deisy Mccabe MA Normal DLCO, continue amiodarone and recheck in 6 months. Patient informed. He's scheduled for 6 mo follow up on 10/08/[address] Herron. [facility] Hemoglobin [Mass/volume] in Bloodon 09-07-2024 Hemoglobin (Bld) [Mass/Vol] Hemoglobin [Mass/volume] in Blood Low 14.0-18.0 [facility] Prostate specific Ag [Mass/V ol]on 08-22-2024 PROSTATIC SPEC ANT 1.89 ng/mL Normal 0.00-4.00 [facility] Comment on above: Result Comment: The method used for this test is [employer] [place] DXI chemiluminescent immunoassay. Values obtained by different assay methods cannot be used interchangeably. Performed By: #### 2 [id number] #### [facility] ([id number]) [address], [address] [place] [address] 36on 05-31-2024 36 Regarding PFT result from 04/24/2024: MD Deisy Mccabe MA This is a baseline study shows mild abnormality. We will repeat it in 6 months. Patient informed. He verbalized understanding. [facility] 36on 05-17-2024 36 Called patient to schedule a new patient appointment with [facility] Endocrine for Diabetes mellitus type II, non insulin dependent . Result: Patient declined to make an appointment with our Endocrinology team. Declined to specify why. Referral closed out [facility] 36on 05-01-2024 36 Regarding labs ----- Message ----- From: Cesar Herron MD Sent: 04/28/2024 10:56 PM EST To: Deisy Gamboa MA Subject: RE: Scan BMP, lipids, AST ALT, TSH are good. Continue current management Informed pt of the message. [facility] Telephoneon 05-01-2024 Telephone [id number] Luis Armando Flores is I 1955 M Date Provider Department [place] 05/01/2024 [id number], TANA LILLY Rudolph Family History Problem Relation Age of Onset Heart failure Mother Atrial fibrillation Mother Family Status - Relation Status Age at Mother [facility] Follow-Upon 04-16-2024 Follow-Up [id number] Luis Armando Flores is I 1955 M Date Provider Department [place] 04/16/2024 [id number] HERRON Family History Problem Relation Age of Onset Heart failure Mother Atrial fibrillation Mother Family Status - Relation Status Age at Mother Level of Service:49101 MS OFFICE/OUTPATIENT ESTABLISHED MOD MDM 30 MIN Reason for Visit and Comments: Atrial Fibrillation [80] - Denies palpitations and bleeding on Eliquis. follow up MAMIE/DCCV [Other] Hypertension [594119] Hyperlipidemia [182] [facility] Documentationon 03-29-2024 Documentation [id number] Luis Armando Flores is I 1955 [facility] Provider Department Center 03/29/2024 Katalina-ROMINA [facility] CARD Good Count Family History Problem Relation Age of Onset Heart failure Mother Atrial fibrillation Mother Family Status - Relation Status Age at Mother Reason for Visit and Comments: Atrial Fibrillation [80] [facility] HPon 03-29-2024 HP History Of Present Illness Kin Flores is a 68 y.o. male presenting for MAMIE with cardioversion today for new onset afib. Past medical history includes: HTN HLD DM-II HERBERT, compliant with his CPAP Patient had a surgery in December. He was found to be in afib, after. Patient reports that his only symptom was fatigue with mild shortness of breath. He was seen by Dr. Herron, where he was started on eliquis 5mg BID with a plan for cardioversion today. Patient was seen and examined today. He is in rate controlled afib. Past Medical History He has a past medical history of Diabetes mellitus ([facility]), Hyperlipidemia, Hypertension, and Sleep apnea. Surgical History He has a past surgical history that includes FL guided aspiration or injection large joint bilateral (Bilateral, 10/03/2020); Appendectomy; Tonsillectomy; Replacement total hip lateral position; Neck surgery; and Total shoulder arthroplasty. Social History He reports that he has never smoked. He has never used smokeless tobacco. He reports that he does not currently use alcohol. No history on file for drug use. Family History Family History Problem Relation Name Age of Onset Heart failure Mother Atrial fibrillation Mother Allergies Clonidine Medications (Not in a hospital admission) Review of Systems Constitutional: Positive for fatigue. All other systems reviewed and are negative. Last Recorded Vitals Visit Vitals Smoking Status Never Physical Exam HENT: Head: Normocephalic and atraumatic. Cardiovascular: Rate and Rhythm: Rhythm irregular. Pulmonary: Effort: Pulmonary effort is normal. Breath sounds: Normal breath sounds. Abdominal: General: Abdomen is flat. Palpations: Abdomen is soft. Musculoskeletal: Cervical back: Normal range of motion. Skin: General: Skin is warm and dry. Neurological: Mental Status: He is alert. Psychiatric: Mood and Affect: Mood normal. Relevant Lab Results Lab Results Component Value Date CO2 29 02/07/2021 BUN 20 02/07/2021 CALCIUM 9.5 02/07/2021 EGFR >60 02/07/2021 EGFR >60 02/07/2021 No echocardiogram results found for the past 12 months Relevant Imaging Results XR hip left 2 or 3 views Narrative: [facility] Department of Radiology [address] [place] [address] ======== Patient Name: KIN FLORES : 1955 Sex: M Age: Race: White^White Pt. Location: 84 Patient Status: Ordered Date: 02/27/2021 3:00:00 PM Completed Date: 02/27/2021 03:03 PM Requesting Provider: ISAI CURIEL Attending Provider: Report Copy To: Signs & Symptoms: Z96.649 Presence of unspecified artificial hip joint I10 History: Valeria Comments: Evaluate Exam: HIP LEFT 1 OR 2 VWS WITH PELVIS ======== HIP LEFT 1 OR 2 VWS WITH PELVIS 02/27/2021 3:03 PM CLINICAL INDICATIONS: Z96.649 Presence of unspecified artificial hip joint I10 TECHNOLOGIST COMMENTS: History of left hip surgery 11/12/2020. Ortho follow up. QUESTION FOR THE RADIOLOGIST: Evaluate PROTOCOL: AP(PA) and Lateral views were obtained. COMPARISON: 02/11/2021 FINDINGS: Left hip replacement appears unchanged. Periosteal reaction noted about proximal femur appears unchanged. No new fractures seen. Impression: Unchanged appearance left hip replacement Electronically signed: Katie Rain. Transcribed by: [email or web address], User Resident: Electronically Signed by: KATIE RAIN @ 02/27/2021 06:53 PM Assessment/Plan New onset afib, [id number] score-3 [Age, HTN, DMII] HTN HLD HERBERT, compliant with his CPAP -EKG was reviewed, rate controlled afib -Scheduled for MAMIE/ DCCV today -An informed consent was signed prior to procedure. Teodora Thomas MD Cardiovascular disease fellow [facility] NURSNOTEon 03-29-2024 NURSNOTE Bedside swallow stud y completed and passed. [facility] NURSNOTE RN educated pt on d/ c instructions. RN provided pt with arm sling and educated pt on importance of not using arm for 24 hours for radial sites and limited physical activity for femoral sites. RN encouraged pt to voice any questions or concerns. Pt verbalizes no questions or concerns at this time. Normal [facility] 36on 03-26-[address] Herron, s/p 3 day Holter monitor - increase carvedilol to 37.5mg bid and reduce hydralazine to 75mg TID. Patient made aware. He will keep track of BP's and see Dr. Herron on 03/29 for his procedure. Normal [facility] Orders Onlyon 03-22-2024 Orders Only [id number] Luis Armando Flores is I 1955 M Date Provider Department Center 03/22/2024 CAIT BURGOS [facility] MA HeartVAS Family History Problem Relation Age of Onset Heart failure Mother Atrial fibrillation Mother Family Status - Relation Status Age at Mother [facility] Office Visiton 03-05-2024 Follow-up visit [id number] Luis Armando Flores is I 1955 M Date Provider Department Center 03/05/2024 [id number] AJ LILLY [facility] Family History Problem Relation Age of Onset Heart failure Mother Atrial fibrillation Mother Family Status - Relation Status Age at Mother Level of Service:53312 MS OFFICE/OUTPATIENT ESTABLISHED MOD MDM 30 MIN Reason for Visit and Comments: Hyperlipidemia [182] Hypertension [525530] - Pt is being seen for fast heart rate. Normal [facility] [place] cystogramon 02-29-2024 FL cystogram [facility] [place] [address] Fluoroscopy Report Signed Patient: Kin Flores I MR#: [id number] : 1955 Acct:[id number] Age/Sex: 68 / M ADM Date: 02/29/24 Loc: XD Room: Type: [facility] Attending Dr: Wesley Tomlinson MD Copies to: Wesley Tomlinson MD Ordering Provider: Wesley Tomlinson MD Date of Service: 02/29/24 FL/FL cystogram: PROSTATE CA FL cystogram 02/29/2024 7:48 AM SIGNS AND SYMPTOMS: 49.79 [id number] PROSTATE CA PROTOCOL: Frontal radiograph of the abdomen and pelvis. Fluoroscopic images were obtained during and after administration of contrast via the Miles catheter. Contrast: COMPARISON: None FINDINGS: Deputy Treasurer radiograph demonstrates total hip arthroplasty hardware bilaterally with fusion hardware in the lower lumbar spine. There is a nonobstructive bowel gas pattern. Contrast distends the bladder passing into the urethra without evidence of contrast extravasation. Cumulative Air Kerma in mGy: 49.791 mGy FL/FL cystogram IMPRESSION: No evidence of contrast extravasation. A Miles catheter was discontinued after the conclusion of the study. Impression dictated by: Darron Lei M.D.02/29/2024 1:03 PM Dictation Location: [place] [address] Transcribed By: SARIAH 02/29/24 1303 Dictated By: Darron Lei II, MD 02/29/24 1251 Signed By: 02/29/24 1303 Normal [facility] Basic Metabolic Panelon 08- Anion gap [Moles/Vol] 11 mmol/L 9 - 17 mmol/L [facility] Calcium [Mass/Vol] 8.8 mg/dL 8.6 - 10. 4 mg/dL [facility] Chloride [Moles/Vol] 98 mmol/L 98 - 10 7 mmol/L [facility] CO2 [Moles/Vol] 23 mmol/L 20 - 31 mmol/L [facility] Creatinine [Mass/Vol] 1.2 mg/dL 0.7 - 1.2 mg/dL [facility] Est, Glom Filt Rate 65 - PINF [facility] [employer] Comment on above: These results are not intended for use in patients <18 years of age. eGFR results are calculated without a race factor using the 2020 CKD-EPI equation. Careful clinical correlation is recommended, particularly when comparing to results calculated using previous equations. The CKD-EPI equation is less accurate in patients with extremes of muscle mass, extra-renal metabolism of creatine, excessive creatine ingestion, or following therapy that affects renal tubular secretion. Glucose [Mass/Vol] 127 mg/dL High 70 - 99 mg/dL [employer] Interpretation and review of laboratory results Abnormal [facility] Potassium [Moles/Vol] 4.5 mmol/L 3.7 - 5.3 mmol/L [facility] Sodium [Moles/Vol] 132 mmol/L Low 135 - 144 mmol/L [facility] Urea nitrogen [Mass/Vol] 22 mg/dL 8 - 23 mg/dL [facility] Urea nitrogen/Creatinine [Mass ratio] 18 mg/mg 9 - 20 [facility] Basic Metabolic Profon 02-20 Anion gap [Moles/Vol] 11 mmol/L Normal 9-17 [facility] Comment on above: Performed By: #### B MP, CBC #### [facility] [address] [place] [address] Licensed Pharmacist: Darien Harvey MD BUN/CRE Ratio 18 Normal 9- [facility] Comment on above: Performed By: #### B MP, CBC #### [facility] [address] [place] [address] Licensed Pharmacist: Darien Harvey MD Calcium [Mass/Vol] 8.8 mg/dL Normal 8.6-10.4 [facility] Comment on above: Performed By: #### B MP, CBC #### [facility] [address] [place] [address] Licensed Pharmacist: Darien Harvey MD Chloride [Moles/Vol] 98 mmol/L Normal 98-107 [facility] Comment on above: Performed By: #### B MP, CBC #### [facility] [address] [place] [address] Licensed Pharmacist: Darien Harvey MD CO2 [Moles/Vol] 23 mmol/L Normal 20-31 [facility] Comment on above: Performed By: #### B MP, CBC #### [facility] [address] [place] [address] Licensed Pharmacist: Darien Harvey MD Creatinine [Mass/Vol] 1.2 mg/dL Normal 0.7-1.2 [facility] Comment on above: Performed By: #### B JESSICA, CBC #### [facility] [address] [facility] [place] [address] Licensed Pharmacist: Darien Harvey MD GFR/1.73 sq M.predicted among non-blacks MDRD (S/P/Bld) [Vol rate/Area] 65 mL/min/{1.73_m2} Normal >60 [facility] Comment on above: Result Comment: These results are not intended for use in patients <18 years of age. eGFR results are calculated without a race factor using the 2020 CKD-EPI equation. Careful clinical correlation is recommended, particularly when comparing to results calculated using previous equations. The CKD-EPI equation is less accurate in patients with extremes of muscle mass, extra-renal metabolism of creatine, excessive creatine ingestion, or following therapy that affects renal tubular secretion. Performed By: #### B JESSICA, CBC #### [facility] [address] [facility] [place] [address] Licensed Pharmacist: Darien Harvey MD Glucose [Mass/Vol] 127 mg/dL High 70-99 [facility] Comment on above: Performed By: #### B JESSICA, CBC #### [facility] [address] [facility] [place] [address] Licensed Pharmacist: Darien Harvey MD Potassium [Moles/Vol] 4.5 mmol/L Normal 3.7-5.3 [facility] Comment on above: Performed By: #### B MP, CBC #### [facility] [address] [facility] [place] [address] Licensed Pharmacist: Darien Harvey MD Sodium [Moles/Vol] 132 mmol/L Low 135-144 [facility] Comment on above: Performed By: #### B MP, CBC #### [facility] [address] [facility] [place], [place] [id number] Licensed Pharmacist: Darien Harvey MD Urea nitrogen [Mass/Vol] 22 mg/dL Normal 8-23 [facility] Comment on above: Performed By: #### B MP, CBC #### [facility] [address] [facility] [place] [address] Licensed Pharmacist: Darien Harvey MD CBCon 02-21-2024 Erythrocyte distribution width (RBC) [Ratio] 14.3 % 11.8 - 14.4 % [facility] Hematocrit (Bld) [Volume fraction] 30.7 % Low 40.7 - 50.3 % [facility] Hemoglobin (Bld) [Mass/Vol] 9.6 g/dL Low 13.0 - 17.0 g/dL [facility] Interpretation and review of laboratory results Abnormal [facility] MCH (RBC) [Entitic mass] 28.2 pg 25.2 - 33.5 pg [facility] MCHC (RBC) [Mass/Vol] 31.3 g/dL 28.4 - 34.8 g/dL [facility] MCV (RBC) [Entitic vol] 90.0 fL 82.6 - 102.9 fL [facility] Nucleated RBC/100 WBC (Bld) [Ratio] 0.0 % 0.0 per 100 WBC [facility] Platelet mean volume (Bld) [Entitic vol] 9.9 fL 8.1 - 13.5 fL [facility] Platelets (Bld) [#/Vol] 259 10*3/uL [facility] RBC (Bld) [#/Vol] 3.41 10*6/uL Low 4.21 - 5.7 7 m/uL [facility] WBC other (Bld) [#/Vol] 10.4 [facility] Erythrocyte distribution width (RBC) [Ratio] 14.3 % Normal 11.8-14.4 [facility] Comment on above: Performed By: #### B MP, CBC #### [facility] [facility] [place] [address] Licensed Pharmacist: Darien Harvey MD Hematocrit (Bld) [Volume fraction] 30.7 % Low 40.7-50.3 [facility] Comment on above: Performed By: #### B MP, CBC #### [facility] [address] [place] [address]. [place] [address] Licensed Pharmacist: Darien Harvey MD Hemoglobin (Bld) [Mass/Vol] 9.6 g/dL Low 13.0-17.0 [facility] Comment on above: Performed By: #### B MP, CBC #### [facility] [address] [place] [address] Licensed Pharmacist: Darien Harvey MD MCH (RBC) [Entitic mass] 28.2 pg Normal 25.2-33.5 [facility] Comment on above: Performed By: #### B MP, CBC #### [facility] [address] [place] [address] Licensed Pharmacist: Darien Harvey MD MCHC (RBC) [Mass/Vol] 31.3 g/dL Normal 28.4-34.8 [facility] Comment on above: Performed By: #### B MP, CBC #### [facility] [address] [place] [address] Licensed Pharmacist: Darien Harvey MD MCV (RBC) [Entitic vol] 90.0 fL Normal 82.6-102.9 [facility] Comment on above: Performed By: #### B MP, CBC #### [facility] [address] [place] [address] Licensed Pharmacist: Darien Harvey MD NRBC Automated 0.0 per 100 WBC Normal 0.0 [facility] Comment on above: Performed By: #### B MP, CBC #### [facility] [address] [place] [address] Licensed Pharmacist: Darien Harvey MD Platelet mean volume (Bld) [Entitic vol] 9.9 fL Normal 8.1-13.5 [facility] Comment on above: Performed By: #### B MP, CBC #### [facility] [address] [place] [address] Licensed Pharmacist: Darien Harvey MD Platelets (Bld) [#/Vol] 259 10*3/uL Normal 138-453 [facility] Comment on above: Performed By: #### B MP, CBC #### [facility] [place] [address] Licensed Pharmacist: Darien Harvey MD RBC (Bld) [#/Vol] 3.41 10*6/uL Low 4.21-5.77 [facility] Comment on above: Performed By: #### B MP, CBC #### [facility] [place] [address] Licensed Pharmacist: Darien Harvey MD WBC (Bld) [#/Vol] 10.4 10*3/uL Normal 3.5-11.3 [facility] Comment on above: Performed By: #### B MP, CBC #### [facility] [place] [address] Licensed Pharmacist: Darien Harvey MD Glucose,Whole Bloodon 2023 Glucose [Mass/Vol] 165 mg/dL High 75-110 [facility] Glucose [Mass/Vol] 124 mg/dL High 75-110 [facility] POC Glucose Fingerstickon Glucose [Mass/Vol] 165 mg/dL High 75 - 110 mg/dL [facility] Interpretation and review of laboratory results Abnormal [facility] Glucose [Mass/Vol] 124 mg/dL High 75 - 110 mg/dL [facility] Interpretation and review of laboratory results Abnormal [facility] Hemoglobin A1Con 02-13-2024 Average glucose Estimated from glycated hemoglobin (Bld) [Mass/Vol] 114 mg/dL [facility] Comment on above: The ADA and AACC rec ommend providing the estimated average glucose result to permit better patient understanding of their HBA1c result. HbA1c (Bld) [Mass fraction] 5.6 % 4.0 - 6.0 % [facility] Glucose [Mass/Vol] 114 mg/dL Normal [facility] [place] Comment on above: Result Comment: The ADA and AACC recommend providing the estimated average glucose result to permit better patient understanding of their HBA1c result. Performed By: #### B MP, CBC #### [facility] [place], [place] [id number] Licensed Pharmacist: Darien Harvey MD #### GLYHGB #### [address] [phone] Licensed Pharmacist: Danny Davey MD HbA1c (Bld) [Mass fraction] 5.6 % Normal 4.0-6.0 [facility] [place] Comment on above: Performed By: #### B MP, CBC #### [facility] [place], [place] [phone] Licensed Pharmacist: Darien Harvey MD #### GLYHGB #### [address] [place], [place] 1897[address] Licensed Pharmacist: Danny Davey MD Basic Metabolic Panelon 01-25 Anion gap [Moles/Vol] 12 mmol/L 9 - 17 mmol/L [facility] Calcium [Mass/Vol] 9.5 mg/dL 8.6 - 10. 4 mg/dL [facility] Chloride [Moles/Vol] 97 mmol/L Low 98 - 10 7 mmol/L [facility] CO2 [Moles/Vol] 25 mmol/L 20 - 31 mmol/L [facility] Creatinine [Mass/Vol] 1.1 mg/dL 0.7 - 1.2 mg/dL [facility] Est, Glom Filt Rate 73 - PINF [facility] Comment on above: These results are not intended for use in patients <18 years of age. eGFR results are calculated without a race factor using the 2020 CKD-EPI equation. Careful clinical correlation is recommended, particularly when comparing to results calculated using previous equations. The CKD-EPI equation is less accurate in patients with extremes of muscle mass, extra-renal metabolism of creatine, excessive creatine ingestion, or following therapy that affects renal tubular secretion. Glucose [Mass/Vol] 107 mg/dL High 70 - 99 mg/dL [facility] Interpretation and review of laboratory results Abnormal [facility] Potassium [Moles/Vol] 4.4 mmol/L 3.7 - 5.3 mmol/L [facility] Sodium [Moles/Vol] 134 mmol/L Low 135 - 144 mmol/L [facility] Urea nitrogen [Mass/Vol] 21 mg/dL 8 - 23 mg/dL [facility] Urea nitrogen/Creatinine [Mass ratio] 19 mg/mg 9 - 20 [facility] Basic Metabolic Profon 02-09 Anion gap [Moles/Vol] 12 mmol/L Normal 9-17 [facility] Comment on above: Performed By: #### B MP, CBC #### [facility] [address] [place] [address] Licensed Pharmacist: Darien Harvey MD #### GLYHGB #### [facility] [address] [place] [address] Licensed Pharmacist: Danny Davey MD BUN/CRE Ratio 19 Normal - [facility] [place] Comment on above: Performed By: #### B MP, CBC #### [facility] [address] [place] [address] Licensed Pharmacist: Darien Harvey MD #### GLYHGB #### [address] [address] Licensed Pharmacist: Danny Davey MD Calcium [Mass/Vol] 9.5 mg/dL Normal 8.6-10.4 [facility] [place] Comment on above: Performed By: #### B MP, CBC #### [facility] [address] [place] [address] Licensed Pharmacist: Draien Harvey MD #### GLYHGB #### [address] [address] Licensed Pharmacist: Danny Davey MD Chloride [Moles/Vol] 97 mmol/L Low 98-107 [facility] Comment on above: Performed By: #### B MP, CBC #### [facility] [address] [place] [address] Licensed Pharmacist: Darien Harvey MD #### GLYHGB #### [address] [address] Licensed Pharmacist: Danny Davey MD CO2 [Moles/Vol] 25 mmol/L Normal 20-31 [facility] [place] Comment on above: Performed By: #### B MP, CBC #### [facility] [address] [place] [address] Licensed Pharmacist: Darien Harvey MD #### GLYHGB #### [address] [address] Licensed Pharmacist: Danny Davey MD Creatinine [Mass/Vol] 1.1 mg/dL Normal 0.7-1.2 [facility] Comment on above: Performed By: #### B MP, CBC #### [facility] [address] [place] [address] Licensed Pharmacist: Darien Harvey MD #### GLYHGB #### [address] [phone] Licensed Pharmacist: Danny Davey MD GFR/1.73 sq M.predicted among non-blacks MDRD (S/P/Bld) [Vol rate/Area] 73 mL/min/{1.73_m2} Normal >60 [facility] [place] Comment on above: Result Comment: These results are not intended for use in patients <18 years of age. eGFR results are calculated without a race factor using the 2020 CKD-EPI equation. Careful clinical correlation is recommended, particularly when comparing to results calculated using previous equations. The CKD-EPI equation is less accurate in patients with extremes of muscle mass, extra-renal metabolism of creatine, excessive creatine ingestion, or following therapy that affects renal tubular secretion. Performed By: #### B MP, CBC #### [facility] [address] [place] [address] Licensed Pharmacist: Darien Harvey MD #### GLYHGB #### [address] [phone] Licensed Pharmacist: Danny Davey MD Glucose [Mass/Vol] 107 mg/dL High 70-99 [facility] [place] Comment on above: Performed By: #### B MP, CBC #### [facility] [address] [place] [address] Licensed Pharmacist: Darien Harvey MD #### GLYHGB #### [address] [address] Licensed Pharmacist: Danny Davey MD Potassium [Moles/Vol] 4.4 mmol/L Normal 3.7-5.3 [facility] Comment on above: Performed By: #### B MP, CBC #### [facility] [address] [place] [address] Licensed Pharmacist: Darien Harvey MD #### GLYHGB #### [facility] [address] [place], [place] [phone] Licensed Pharmacist: Danny Davey MD Sodium [Moles/Vol] 134 mmol/L Low 135-144 [facility] [place] Comment on above: Performed By: #### B MP, CBC #### [facility] [address] [place], [place] [phone] Licensed Pharmacist: Darien Harvey MD #### GLYHGB #### [facility] [place], [place] [phone] Licensed Pharmacist: Danny Davey MD Urea nitrogen [Mass/Vol] 21 mg/dL Normal 8-23 [facility] [place] Comment on above: Performed By: #### B MP, CBC #### [facility] [address] [place] [phone] Licensed Pharmacist: Darien Harvey MD #### GLYHGB #### [address] [place], [place] [phone] Licensed Pharmacist: Danny Davey MD [facility] 02-10-2024 Erythrocyte distribution width (RBC) [Ratio] 14.7 % High 11.8 - 14.4 % [facility] Hematocrit (Bld) [Volume fraction] 33.9 % Low 40.7 - 50.3 % [facility] Hemoglobin (Bld) [Mass/Vol] 10.5 g/dL Low 13.0 - 17.0 g/dL [facility] Interpretation and review of laboratory results Abnormal [facility] MCH (RBC) [Entitic mass] 28.5 pg 25.2 - 33.5 pg [facility] MCHC (RBC) [Mass/Vol] 31.0 g/dL 28.4 - 34.8 g/dL [facility] MCV (RBC) [Entitic vol] 92.1 fL 82.6 - 102.9 fL [facility] Nucleated RBC/100 WBC (Bld) [Ratio] 0.0 % 0.0 per 100 WBC [facility] Platelet mean volume (Bld) [Entitic vol] 9.4 fL 8.1 - 13.5 fL [facility] Platelets (Bld) [#/Vol] 290 10*3/uL [facility] RBC (Bld) [#/Vol] 3.68 10*6/uL Low 4.21 - 5.7 7 m/uL [facility] WBC other (Bld) [#/Vol] 6.9 [facility] Erythrocyte distribution width (RBC) [Ratio] 14.7 % High 11.8-14.4 [facility] [place] Comment on above: Performed By: #### B MP, CBC #### [facility] [address] [place] [address] Licensed Pharmacist: Darien Harvey MD #### GLYHGB #### [address] [address] Licensed Pharmacist: Danny Davey MD Hematocrit (Bld) [Volume fraction] 33.9 % Low 40.7-50.3 [facility] [place] Comment on above: Performed By: #### B MP, CBC #### [facility] [address] [place] [address] Licensed Pharmacist: Darien Harvey MD #### GLYHGB #### [address] [address] Licensed Pharmacist: Danny Davey MD Hemoglobin (Bld) [Mass/Vol] 10.5 g/dL Low 13.0-17.0 [facility] [place] Comment on above: Performed By: #### B MP, CBC #### [facility] [address] [place] [address] Licensed Pharmacist: Darien Harvey MD #### GLYHGB #### [address] [address] Licensed Pharmacist: Danny Davey MD MCH (RBC) [Entitic mass] 28.5 pg Normal 25.2-33.5 [facility] [place] Comment on above: Performed By: #### B MP, CBC #### [facility] [address] [place] [address] Licensed Pharmacist: Darien Harvey MD #### GLYHGB #### [address] [address] Licensed Pharmacist: Danny Davey MD MCHC (RBC) [Mass/Vol] 31.0 g/dL Normal 28.4-34.8 [facility] Comment on above: Performed By: #### B MP, CBC #### [facility] [address] [place] [address] Licensed Pharmacist: Darien Harvey MD #### GLYHGB #### [address] [address] Licensed Pharmacist: Danny Davey MD MCV (RBC) [Entitic vol] 92.1 fL Normal 82.6-102.9 [facility] [place] Comment on above: Performed By: #### B MP, CBC #### [facility] [address] [place] [address] Licensed Pharmacist: Darien Harvey MD #### GLYHGB #### [address] [address] Licensed Pharmacist: Danny Davey MD NRBC Automated 0.0 per 100 WBC Normal 0.0 [facility] [place] Comment on above: Performed By: #### B MP, CBC #### [facility] [address] [place] [address] Licensed Pharmacist: Darien Harvey MD #### GLYHGB #### [address] [address] Licensed Pharmacist: Danny Davey MD Platelet mean volume (Bld) [Entitic vol] 9.4 fL Normal 8.1-13.5 [facility] [place] Comment on above: Performed By: #### B MP, CBC #### [facility] [address] [place] [address] Licensed Pharmacist: Darien Harvey MD #### GLYHGB #### [address] [address] Licensed Pharmacist: Danny Davey MD Platelets (Bld) [#/Vol] 290 10*3/uL Normal 138-453 [facility] [place] Comment on above: Performed By: #### B MP, CBC #### [facility] [address] [place] [address] Licensed Pharmacist: Darien Harvey MD #### GLYHGB #### [address] [address] Licensed Pharmacist: Danny Davey MD RBC (Bld) [#/Vol] 3.68 10*6/uL Low 4.21-5.77 [facility] [place] Comment on above: Performed By: #### B MP, CBC #### [facility] [address] [place] [address] Licensed Pharmacist: Darien Harvey MD #### GLYHGB #### [address] [address] Licensed Pharmacist: Dnany Davey MD WBC (Bld) [#/Vol] 6.9 10*3/uL Normal 3.5-11.3 [facility] [place] Comment on above: Performed By: #### B MP, CBC #### [facility] [address] [place] [address] [phone] Licensed Pharmacist: Darien Harvey MD #### GLYHGB #### [email or web address] [address] [place], [place] [phone] Licensed Pharmacist: Danny Davey MD TYPE AND SCREENon 02-10-2024 ABO and Rh group Nom (Bld) Blood group O Rh(D) negative [facility] Arm Band Number [id number] [facility] Blood Bank Sample Expiration 02/23/2024,2359 [facility] Blood group antibodies identified Nom Negative [facility] Type + Screenon 02-10-2024 Type + Screen Sample Expiration 02/23/2024,2355 Arm Band Number [id number] ABO/Rh(D) O NEGATIVE Antibody Screen NEGATIVE Normal [facility] [place] Comment on above: Performed By: #### T YS #### [facility] [address] [place], [place] [address] Licensed Pharmacist: Darien Harvey MD Office Visiton 01-13-2024 Follow-up visit [id number] Luis Armando Flores is I 1955 M Date Provider Department Center 01/13/2024 [facility] Family History Problem Relation Age of Onset Heart failure Mother Atrial fibrillation Mother Family Status - Relation Status Age at Mother Level of Service:26451 MS OFFICE/OUTPATIENT ESTABLISHED MOD MDM 30 MIN Normal [facility] Activated partial thrombopla stin time (aPTT) in platelet poor plasma by coagulation aon 12-27-2023 aPTT Coag (PPP) [Time] 29.1 s 22.3-36.2 [facility] Basophils Auto (Bld) [#/Vol] on 12-27-2023 Basophils (Bld) [#/Vol] 0.0 10 3/uL 0.0-0.1 [facility] Basophils/100 WBC Auto (Bld) on 12-27-2023 Basophils/100 WBC (Bld) 0.5 % 0.2-2.0 [facility] Eosinophils/100 WBC Auto (Bl d)on 12-27-2023 Eosinophils/100 WBC (Bld) 1.8 % 0.9-7.0 [facility] Erythrocyte distribution wid th Auto (RBC) [Ratio]on 12-27-2023 Erythrocyte distribution width (RBC) [Ratio] 14.9 % 11.0-15.0 [facility] Estimated glomerular filtrat ion rate (GFR) non- Americanon 12-27-2023 GFR/1.73 sq M.predicted among non-blacks MDRD (S/P/Bld) [Vol rate/Area] 56 mL/min/{1.73_m2} Low >=60 [facility] Glucose mean value [Mass/vol ume] in Blood Estimated from glycated hemoglobinon 12-27-2023 Average glucose Estimated from glycated hemoglobin (Bld) [Mass/Vol] 123 mg/dL [facility] Hematocrit Auto (Bld) [Volum e fraction]on 12-27-2023 Hematocrit (Bld) [Volume fraction] 37.7 % Low 42.0-54.0 [facility] Hemoglobin [Mass/volume] in Bloodon 12-27-2023 Hemoglobin (Bld) [Mass/Vol] 12.0 g/dL Low 14.0-18.0 [facility] INR in Platelet poor plasma by Coagulation assayon 12-27-2023 INR Coag (PPP) [Relative time] 1.00 {INR} [facility] Comment on above: DESIRED INR:2.0-3.0 CONDITIONS NOT LISTED BELOW2.5-3.5 FOR PROSTHETIC HEART VALVE REPLACEMENT2.5-3.5 RECURRENT THROMBOSIS Laboratory - Chemistry and C hemistry - challengeon 12-27-2023 Calcium [Mass/Vol] 9.0 mg/dL 8.5-10.1 [facility] Chloride [Moles/Vol] 102 mmol/L 98-107 [facility] CO2 [Moles/Vol] 28.4 mmol/L 21.0-32.0 [facility] Creatinine [Mass/Vol] 1.28 mg/dL 0.70-1.30 [facility] GFR/1.73 sq M.predicted MDRD (S/P/Bld) [Vol rate/Area] mL/min/{1.73_m2} >=60 [facility] Glucose [Mass/Vol] 111 mg/dL High 74-106 [facility] Potassium [Moles/Vol] 4.4 mmol/L 3.5-5.1 [facility] Sodium [Moles/Vol] 139 mmol/L 136-145 [facility] Urea nitrogen [Mass/Vol] 22.0 mg/dL High 7.0-18.0 [facility] Urea nitrogen/Creatinine [Mass ratio] 17.2 mg/mg [facility] Laboratory - Hematology and Cell countson 12-27-2023 HbA1c (Bld) [Mass fraction] 5.9 % 4.5-6.2 [facility] Comment on above: ADA RECOMMENDED LIMI T 4.0 - 6.0ADA THERAPEUTIC TARGET < 7.0ACTION SUGGESTED> 7.0 Immature granulocytes/100 WBC (Bld) 0.5 % 0.0-0.5 [facility] Leukocytes [#/volume] correc cindy for nucleated erythrocytes in Blood by Automated counon 12-27-2023 WBC corrected for nucl RBC Auto (Bld) [#/Vol] 7.6 10 3/uL 4.0-11.0 [facility] Lymphocytes Auto (Bld) [#/Vo l]on 12-27-2023 Lymphocytes (Bld) [#/Vol] 1.0 10 3/uL Low 1.2-3.8 [facility] Lymphocytes/100 WBC Auto (Bl d)on 12-27-2023 Lymphocytes/100 WBC (Bld) 12.5 % Low 20.5-60.0 [facility] MCH Auto (RBC) [Entitic mass ]on 12-27-2023 MCH (RBC) [Entitic mass] 29.1 pg 25.9-34.0 [facility] MCHC Auto (RBC) [Mass/Vol]on 12-27-2023 MCHC (RBC) [Mass/Vol] 31.8 g/dL 29.9-35.2 [facility] MCV Auto (RBC) [Entitic vol] on 12-27-2023 MCV (RBC) [Entitic vol] 91.5 fL 80.0-94.0 [facility] Monocytes Auto (Bld) [#/Vol] on 12-27-2023 Monocytes (Bld) [#/Vol] 0.5 10 3/uL 0.3-0.8 [facility] Monocytes/100 WBC Auto (Bld) on 12-27-2023 Monocytes/100 WBC (Bld) 6.2 % 1.7-12.0 [facility] Neutrophils Auto (Bld) [#/Vo l]on 12-27-2023 Neutrophils (Bld) [#/Vol] 6.0 10 3/uL 1.4-6.5 [facility] Neutrophils/100 WBC Auto (Bl d)on 12-27-2023 Neutrophils/100 WBC (Bld) 78.5 % High 43.0-75.0 [facility] No Panel Informationon 12-26 Eosinophils # (Auto) 0.1 10 3/uL 0.0-0.7 [facility] Immature Granulocyte # (Auto) 0.04 10 3/uL High 0.00-0.03 [facility] Platelet mean volume Auto (B ld) [Entitic vol]on 12-27-2023 Platelet mean volume (Bld) [Entitic vol] 10.7 fL 9.5-13.5 [facility] Platelets Auto (Bld) [#/Vol] on 12-27-2023 Platelets (Bld) [#/Vol] 226 10 3/uL 150-450 [facility] Prothrombin time (PT)on PT Coag (PPP) [Time] 10.6 s 9.0-11.6 [facility] RBC Auto (Bld) [#/Vol]on RBC (Bld) [#/Vol] 4.12 10 6/uL Low 4.70-6.[address] [facility] Serum or plasma anion gap de terminationon 12-27-2023 Anion gap [Moles/Vol] 13.0 mmol/L Fi [facility] [place] Glucose Glucometer (BldC) [M ass/Vol]on 10-06-2023 Glucose [Mass/Vol] 103 mg/dL 74-118 [facility] Aguila 10-06-2023 L Specimen: [id number] Received: 10/07/23 Status: SOUT Req Num: [id number] Spec Type: Surgical Subm Dr: Wesley Tomlinson MD Tissues: A Prostate - Needle Biopsy (RIGHT BASE LATERAL PROSTATE) B Prostate - Needle Biopsy (RIGHT BASE MEDIAL PROSTATE) C Prostate - Needle Biopsy (RIGHT MID LATERAL PROSTATE) D Prostate - Needle Biopsy (RIGHT MID MEDIAL PROSTATE) E Prostate - Needle Biopsy (RIGHT APEX LATERAL PROSTATE) F Prostate - Needle Biopsy (RIGHT APEX MEDIAL PROSTATE) G Prostate - Needle Biopsy (LEFT BASE LATERAL PROSTATE) H Prostate - Needle Biopsy (LEFT BASE MEDIAL PROSTATE) I Prostate - Needle Biopsy (LEFT MID LATERAL PROSTATE) J Prostate - Needle Biopsy (LEFT MID MEDIAL PROSTATE) K Prostate - Needle Biopsy (LEFT APEX LATERAL PROSTATE) L Prostate - Needle Biopsy (LEFT APEX MEDIAL PROSTATE) M Prostate - Needle Biopsy (PROSTATE AOI LEFT [place]) Procedures: HE/26, Gross/Micro L4/13, PIN Cocktail/6, IHC Multipl/6 Age/ Patient Sex Location Account Attending Physician Kin Flores I 67/M CYN [id number] Wesley Tomlinson MD SPEC NUM: [id number] RECD: 10/07/23 STATUS: SHAWNA REQ NUM: [id number] MARJAN: 10/06/[address] [facility] [address]: Wesley Tomlinson MD ENTERED: 10/07/23-3 [facility] DR: Todd,Jo SPEC TYPE: Surgical DEPT: MAG VERA ORDERED: HE/26, Gross/Micro L4/13, PIN Cocktail/6, IHC Multipl/6 ORDERED: HE/26, Gross/Micro L4/13, PIN Cocktail/6, USS/20, IHC Multipl/6 Supplemental Report Addendum 1 Entered: 11/03/23-6729 Please see attached prostate genomic laboratory chemical assistant report. Addendum Signed (signature on file) Vijay Gaffney MD 11/03/23 9676 ---- ---- Specimen: [id number] Received: 10/07/23 Status: SHAWNA Best Num: [id number] Spec Type: Surgical Subm Dr: Wesley Tomlinson MD Tissues: A Prostate - Needle Biopsy (RIGHT BASE LATERAL PROSTATE) B Prostate - Needle Biopsy (RIGHT BASE MEDIAL PROSTATE) C Prostate - Needle Biopsy (RIGHT MID LATERAL PROSTATE) D Prostate - Needle Biopsy (RIGHT MID MEDIAL PROSTATE) E Prostate - Needle Biopsy (RIGHT APEX LATERAL PROSTATE) F Prostate - Needle Biopsy (RIGHT APEX MEDIAL PROSTATE) G Prostate - Needle Biopsy (LEFT BASE LATERAL PROSTATE) H Prostate - Needle Biopsy (LEFT BASE MEDIAL PROSTATE) I Prostate - Needle Biopsy (LEFT MID LATERAL PROSTATE) J Prostate - Needle Biopsy (LEFT MID MEDIAL PROSTATE) K Prostate - Needle Biopsy (LEFT APEX LATERAL PROSTATE) L Prostate - Needle Biopsy (LEFT APEX MEDIAL PROSTATE) M Prostate - Needle Biopsy (PROSTATE AOI LEFT [place]) Procedures: HE/26, Gross/Micro L4/13, PIN Cocktail/6, IHC Multipl/6 ---- Patient: Kin Flores I [id number] (Continued) ---- Specimen: [id number] Received: 10/07/23 (Continued) Signed (signature on file) Vijay Gaffney MD 10/12/23 1643 ---- Specimen: [id number] Received: 10/07/23 Status: SHAWNA Best Num: [id number] Spec Type: Surgical Subm Dr: Wesley Tomlinson MD Tissues: A Prostate - Needle Biopsy (RIGHT BASE LATERAL PROSTATE) B Prostate - Needle Biopsy (RIGHT BASE MEDIAL PROSTATE) C Prostate - Needle Biopsy (RIGHT MID LATERAL PROSTATE) D Prostate - Needle Biopsy (RIGHT MID MEDIAL PROSTATE) E Prostate - Needle Biopsy (RIGHT APEX LATERAL PROSTATE) F Prostate - Needle Biopsy (RIGHT APEX MEDIAL PROSTATE) G Prostate - Needle Biopsy (LEFT BASE LATERAL PROSTATE) H Prostate - Needle Biopsy (LEFT BASE MEDIAL PROSTATE) I Prostate - Needle Biopsy (LEFT MID LATERAL PROSTATE) J Prostate - Needle Biopsy (LEFT MID MEDIAL PROSTATE) K Prostate - Needle Biopsy (LEFT APEX LATERAL PROSTATE) L Prostate - Needle Biopsy (LEFT APEX MEDIAL PROSTATE) M Prostate - Needle Biopsy (PROSTATE AOI LEFT [place]) Procedures: HE/26, Gross/Micro L4/13, PIN Cocktail/6, IHC Multipl/6 ---- Patient: Kin Flores I [id number] (Continued) ---- Specimen: [id number] Received: 10/07/23-122 (Continued) Pathological Diagnosis Prostate adenocarcinoma, Kt score 3+4=7, involving 4 out of the 13 biopsies (overall 4% involvement), as follows: A. Prostate, RBL, Biopsy: Benign Prostate Tissue. B. Prostate, RBM, Biopsy: Benign Prostate Tissue. C. Prostate, RML, Biopsy: Benign Prostate Tissue. D. Prostate, RMM, Biopsy: Benign Prostate Tissue (more content not included)... Normal [facility] Basophils Auto (Bld) [#/Vol] on 09-23-2023 Basophils (Bld) [#/Vol] 0.0 x10 0.0-0.2 [facility] Basophils/100 WBC Auto (Bld) on 09-23-2023 Basophils/100 WBC (Bld) 0.5 % 0.2-2.0 [facility] Eosinophils/100 WBC Auto (Bl d)on 09-23-2023 Eosinophils/100 WBC (Bld) 3.3 % 0.9-4.0 [facility] Erythrocyte distribution wid th Auto (RBC) [Ratio]on 09-23-2023 Erythrocyte distribution width (RBC) [Ratio] 16.1 % 11.5-15.0 [facility] Estimated glomerular filtrat ion rate (GFR) non- Americanon 09-23-2023 GFR/1.73 sq M.predicted among non-blacks MDRD (S/P/Bld) [Vol rate/Area] 55 mL/min/{1.73_m2} [facility] Hematocrit Auto (Bld) [Volum e fraction]on 09-23-2023 Hematocrit (Bld) [Volume fraction] 36.8 % 34.8-51.9 [facility] Hemoglobin [Mass/volume] in Bloodon 09-23-2023 Hemoglobin (Bld) [Mass/Vol] 12.0 g/dL 11.8-17.7 [facility] Laboratory - Chemistry and C hemistry - challengeon 09-23-2023 Calcium [Mass/Vol] 8.9 mg/dL 8.9-10.3 [facility] Chloride [Moles/Vol] 99 mmol/L 101-111 [facility] CO2 [Moles/Vol] 27 mmol/L 21-32 [facility] Creatinine [Mass/Vol] 1.29 mg/dL 0.90-1.30 [facility] GFR/1.73 sq M.predicted MDRD (S/P/Bld) [Vol rate/Area] mL/min/{1.73_m2} [facility] Glucose [Mass/Vol] 106.0 mg/dL 74.0-118.[address] [facility] Potassium [Moles/Vol] 4.0 mmol/L 3.6-5.1 [facility] Sodium [Moles/Vol] 134.0 mmol/L 136.0-144.0 [facility] Urea nitrogen [Mass/Vol] 25 mg/dL 8- [facility] Urea nitrogen/Creatinine [Mass ratio] 19.3 mg/mg 4.6-16.2 [facility] Leukocytes [#/volume] correc cindy for nucleated erythrocytes in Blood by Automated counon 09-23-2023 WBC corrected for nucl RBC Auto (Bld) [#/Vol] 7.4 x10 3.5-10.5 [facility] Lymphocytes Auto (Bld) [#/Vo l]on 09-23-2023 Lymphocytes (Bld) [#/Vol] 1.1 x10 1.3-2.9 [facility] Lymphocytes/100 WBC Auto (Bl d)on 09-23-2023 Lymphocytes/100 WBC (Bld) 15 % 14-48 [facility] MCH Auto (RBC) [Entitic mass ]on 09-23-2023 MCH (RBC) [Entitic mass] 29 pg 24-34 [facility] MCHC Auto (RBC) [Mass/Vol]on 09-23-2023 MCHC (RBC) [Mass/Vol] 33 g/dL 26-37 [facility] MCV Auto (RBC) [Entitic vol] on 09-23-2023 MCV (RBC) [Entitic vol] 88 fL 81-100 [facility] Monocytes Auto (Bld) [#/Vol] on 09-23-2023 Monocytes (Bld) [#/Vol] 0.5 x10 0.0-0.8 [facility] Monocytes/100 WBC Auto (Bld) on 09-23-2023 Monocytes/100 WBC (Bld) 7 % 1-12 [facility] Neutrophils Auto (Bld) [#/Vo l]on 09-23-2023 Neutrophils (Bld) [#/Vol] 5.5 x10 1.5-9.2 [facility] Neutrophils/100 WBC Auto (Bl d)on 09-23-2023 Neutrophils/100 WBC (Bld) 74 % 44-88 [facility] No Panel Informationon 09-22 Add Manual Differential Auto Auto [facility] Eosinophils # (Auto) 0.2 x10 0.0-0.4 [facility] Osmolality 273 mOsm/L [facility] Platelet mean volume Auto (B ld) [Entitic vol]on 09-23-2023 Platelet mean volume (Bld) [Entitic vol] 8.6 fL 6.3-10.2 [facility] Platelets Auto (Bld) [#/Vol] on 09-23-2023 Platelets (Bld) [#/Vol] 215 x10 138-427 [facility] RBC Auto (Bld) [#/Vol]on RBC (Bld) [#/Vol] 4.20 x10 3.70-5.30 [facility] Serum or plasma anion gap de terminationon 09-23-2023 Anion gap [Moles/Vol] 12.0 mmol/L 5.0-19.0 [facility] C REACTIVE PROTEINon 024 CRP [Mass/Vol] mg/L Normal 0.000-0.744 [facility] Comment on above: Performed By: #### 8 2477, CBCA, 1987-10 #### [facility] ([id number]) [address], [address] [place] [address] CBC AND AUTO DIFFon 09-21-19 24 ABSOLUTE BASOPHIL 0.0 X10E9/L Normal 0.0-0.2 [facility] Comment on above: Performed By: #### 8 2477, CBCA1987-10 #### [facility] ([id number]) [address], [address] [place] [address] ABSOLUTE NEUTROPHIL 5.9 X10E9/L Normal 1.5-6.6 [facility] Comment on above: Performed By: #### 8 24712-25, CBCA, 1987-10 #### [facility] ([id number]) [address], [address] [place] [address] Basophils/100 WBC (Bld) 0.6 % Normal [facility] Comment on above: Performed By: #### 8 24712-25, CBCA1987-10 #### [facility] ([id number]) [address], [address] [place] [address] Eosinophils (Bld) [#/Vol] 0.2 10*3/uL Normal 0.0-0.4 [facility] Comment on above: Performed By: #### 8 2477-, CBCA1987-10 #### [facility] ([id number]) [address], [address] [place] [address] Eosinophils/100 WBC (Bld) 2.9 % Normal [facility] Comment on above: Performed By: #### 8 2477-, CBCA1987-10 #### [facility] ([id number]) [address], [address] [place] [address] Erythrocyte distribution width (RBC) [Ratio] 13.4 % Normal 11.5-15.0 [facility] Comment on above: Performed By: #### 8 2477-, CBCA, 1987-10 #### [facility] ([id number]) [address], [address] [place] [address] Hematocrit (Bld) [Volume fraction] 46.0 % Normal 39-49 [facility] Comment on above: Performed By: #### 8 24712-25, CBCA, 1987-10 #### [facility] ([id number]) [address], [facility] [address] [place] [address] Hemoglobin (Bld) [Mass/Vol] 15.6 g/dL Normal 13.0-17.0 [facility] Comment on above: Performed By: #### 8 24712-25, CBCA, 1987-10 #### [facility] ([id number]) [address], [facility] [address] [place] [address] Lymphocytes (Bld) [#/Vol] 0.9 10*3/uL Low 1.0-3.5 [facility] Comment on above: Performed By: #### 8 24712-25, CBCA, 1987-10 #### [facility] ([id number]) [address], [facility] [address] [place] [address] Lymphocytes/100 WBC (Bld) 12.1 % Normal [facility] Comment on above: Performed By: #### 8 2477-, CBCA1987-10 #### [facility] ([id number]) [address], [address] [place] [address] MCH (RBC) [Entitic mass] 31.8 pg Normal 27-34 [facility] Comment on above: Performed By: #### 8 24712-25, CBCA, 1987-10 #### [facility] ([id number]) [address], [address] [place] [address] MCHC (RBC) [Mass/Vol] 33.8 g/dL Normal 32-36 [facility] Comment on above: Performed By: #### 8 2477-, CBCA, 1987-10 #### [facility] ([id number]) [address], [address] [place] [address] MCV (RBC) [Entitic vol] 94 fL Normal 80-100 [facility] Comment on above: Performed By: #### 8 247-, CBCA, 1987-10 #### [facility] ([id number]) [address], [address] [place] [address] Monocytes (Bld) [#/Vol] 0.7 10*3/uL Normal 0-0.9 [facility] Comment on above: Performed By: #### 8 247-, CBCA, 1987-10 #### [facility] ([id number]) [address], [facility] [address] [place] [address] Monocytes/100 WBC (Bld) 9.2 % Normal [facility] Comment on above: Performed By: #### 8 247-, CBCA, 1987-10 #### [facility] ([id number]) [address], [address] [place] [address] Neutrophils/100 WBC (Bld) 75.2 % Normal [facility] Comment on above: Performed By: #### 8 2477-, CBCA1987-10 #### [facility] ([id number]) [address], [address] [place] [address] Platelet mean volume (Bld) [Entitic vol] 8.2 fL Normal 7-12 [facility] Comment on above: Performed By: #### 8 2477-, CBCA1987-10 #### [facility] ([id number]) [address], [address] [place] [address] Platelets (Bld) [#/Vol] 250 10*3/uL Normal 150-450 [facility] Comment on above: Performed By: #### 8 247-, CBCA1987-10 #### [facility] ([id number]) [address], [address] [place] [address] RBC COUNT 4.90 X10E12/L Normal 4.10-5.70 [facility] Comment on above: Performed By: #### 8 2477-1, CBCA, 1987-10 #### [facility] ([id number]) [address], [address] [place] [address] WBC (Bld) [#/Vol] 7.8 10*3/uL Normal 4.0-11.0 [facility] Comment on above: Performed By: #### 8 2477-1, CBCCely, 1987-10 #### [facility] ([id number]) [address], [address] [place] [address] ESR Photometric method (Bld) [Velocity]on 09-21-2023 ESR, ERYTHROCYTE SEDIMENTATION RATE 4 mm/h Normal 0-20 [facility] Comment on above: Performed By: #### 8 2477-1, CBCCely, 1987-10 #### [facility] ([id number]) [address], [address] [place] [address] ISTAT XRay CREon 08-09-2023 ISTAT GFR 59.839 Normal [facility] Comment on above: Result Comment: PERF ORMED BY: [place] [address] PATHOLOGIST DETAIL MANAGER EZIO LOVE M.D. Performed By: #### I SCRE #### [address] MR prostate wo/w conon 08-09 MR prostate wo/w con [facility] [place] [address] [place], [place] [address] MRI Report Signed Patient: Kin Flores I MR#: [id number] 199 : 1955 Acct:[id number] Age/Sex: 67 / M ADM Date: 08/09/23 Loc: MR Room: Type: [facility] Attending Dr: Wesley Tomlinson MD Copies to: Wesley Tomlinson MD Ordering Provider: Wesley Tomlinson MD Date of Service: 08/09/23 MR/MR prostate wo/w con: R97.20 EXAMINATION: MR prostate wo/w con HISTORY: Elevated PSA. COMPARISON: NONE TECHNIQUE: Multiparametric imaging of the prostate gland was performed with IV contrast. FINDINGS: Blooming artifact is seen involving the patient's bilateral hip prostheses limiting evaluation. Prostate Dimensions: 6.9 x 5.3 x 6.8 cm. Prostate Volume: 130 mL. Peripheral Zone: Heterogenous inT2 signal suggestive of prior prostatitis. Focal area of T2 hypointensity is seen involving the posterior aspect of the left peripheral zone near the level of the mid gland measuring 4 x 4 mm with associated restricted diffusion and low ADC value. No gross extraprostatic extension is seen. Please see series 4 image 12, series 650 image 12 and series 600 image 12. Central/Transitional Zone: BPH changes. Seminal Vesicles: Unremarkable Neurovascular bundles: Unremarkable. Lymphadenopathy: No evidence of lymphadenopathy. Bladder: No focal lesion. Bowel: Diverticulosis. Peritoneal Cavity: No free fluid. Bones: No suspicious bony lesion. MR/MR prostate wo/w con IMPRESSION: Focal area of T2 hypointensity is seen involving the posterior aspect of the left peripheral zone near the level of the mid gland measuring 4 x 4 mm with associated restricted diffusion and low ADC value. No gross extraprostatic extension is seen. Please see series 4 image 12, series 650 image 12 and series 600 image 12.PI-RADS 4. Targeting of this area on biopsy is recommended. Impression dictated by: Oscar Graham Jr., D.OLefty08/09/2023 7:54 PM Dictation Location: [facility] Transcribed By: [facility] 08/09/231953 Dictated By: Oscar Graham Jr, DO 08/09/231948 Signed By: 08/09/231953 Normal [facility] No Panel InformationOrdered By: Wesley Tomlinson on 08-09-2023 Bedside Estimated GFR (eGFR) 59.839 [facility] Whole blood creatinine measu rementOrdered By: Wesley Tomlinson on 08-09-2023 Creatinine [Mass/Vol] 1.3 mg/dL Normal 0.6-1.3 [facility] Comment on above: ER/ESD physician is notified/shown all ISTAT results.Critical values may be confirmed by laboratory testing ifdeemed necessary by ER attending doctor. Result Comment: ER/E SD physician is notified/shown all ISTAT results. Critical values may be confirmed by laboratory testing if deemed necessary by ER attending doctor. 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 There is decreased disc space noted globally to the lumbar spine. Anterior and posterior columns appeared to be symmetric posterior elements appear to be anatomic. There was no acute Bony process including but not limited to fracture and/or dislocation. Impression: Moderate degenerative changes lumbar spine globally no acute bony process. [facility] Radiology Study observation (narrative) [facility] CBC panel Auto (Bld)on 07-28 Erythrocyte distribution width (RBC) [Ratio] 12.1 % Normal 11.5-14.5 [facility] Comment on above: Performed By: #### 5 8410-2 #### [facility] ([id number]) [facility]) [address] [place] [address] Hematocrit (Bld) [Volume fraction] 45.4 % Normal 41.0-52.0 [facility] Comment on above: Performed By: #### 5 8410-2 #### [facility] ([id number]) [facility] ([facility]) [address] [place] [address] Hemoglobin (Bld) [Mass/Vol] 15.3 g/dL Normal 13.5-17.5 [facility] Comment on above: Performed By: #### 5 8410-2 #### [facility] ([id number]) [facility] ([facility]) [address] [place] [address] MCH (RBC) [Entitic mass] 30.8 pg Normal 26.0-34.0 [facility] Comment on above: Performed By: #### 5 8410-2 #### [facility] ([id number]) [facility] ([facility]) [address] [place] [address] MCHC (RBC) [Mass/Vol] 33.7 g/dL Normal 32.0-36.0 [facility] Comment on above: Performed By: #### 5 8410-2 #### [facility] ([id number]) [facility] ([facility]) [address] [place] [address] MCV (RBC) [Entitic vol] 92 fL Normal 80-100 [facility] Comment on above: Performed By: #### 5 8410-2 #### [facility] ([id number]) [facility] ([facility]) [address] [place] [address] Nucleated RBC/100 WBC (Bld) [Ratio] 0.0 /100 WBCs Normal 0.0-0.0 [facility] Comment on above: Performed By: #### 5 8410-2 #### [facility] ([id number]) [facility] ([facility]) [address] [place] [address] Platelets (Bld) [#/Vol] 231 x10*3/uL Normal 150-450 [facility] Comment on above: Performed By: #### 5 8410-2 #### [facility] ([id number]) [facility] ([facility]) [address] [place] [address] RBC (Bld) [#/Vol] 4.96 x10*6/uL Normal 4.50-5.90 [facility] Comment on above: Performed By: #### 5 8410-2 #### [facility] ([id number]) [facility] ([facility]) [address] [place] [address] WBC (Bld) [#/Vol] 9.7 x10*3/uL Normal 4.4-11.3 [facility] Comment on above: Performed By: #### 5 8410-2 #### [facility] ([id number]) [facility] ([facility]) [address] [place] [address] Erythrocyte distribution width (RBC) [Ratio] 12.1 % 11.5 - 14.5 % [facility] Hematocrit (Bld) [Volume fraction] 45.4 % 41.0 - 52.0 % [facility] Hemoglobin (Bld) [Mass/Vol] 15.3 g/dL 13.5 - 17.5 g/dL [facility] Interpretation and review of laboratory results Normal [facility] MCH (RBC) [Entitic mass] 30.8 pg 26.0 - 34.0 pg [facility] MCHC (RBC) [Mass/Vol] 33.7 g/dL 32.0 - 36.0 g/dL [facility] MCV (RBC) [Entitic vol] 92 fL 80 - 100 fL [facility] Nucleated RBC/100 WBC (Bld) [Ratio] 0.0 % [facility] Platelets (Bld) [#/Vol] 231 10*3/uL [facility] RBC (Bld) [#/Vol] 4.96 10*6/uL [facility] WBC (Bld) [#/Vol] 9.7 10*3/uL [facility] ECG 12-LEADon 07-28-2023 ECG 12-LEAD Ventricular Rate 97 Atrial Rate 97 P-R Interval 156 QRS Duration 74 Q-T Interval 330 QTC Calculation(Bazett) 419 P [place] 40 R [place] 7 T [place] 53 QRS Count 16 Q Onset 230 P Onset 152 P Offset 213 T Offset 395 QTC [place] 387 Diagnosis Normal sinus rhythm Normal ECG No previous ECGs available Normal [facility] Glucose Test strip manual (B ld) [Mass/Vol]on 07-28-2023 Glucose [Mass/Vol] 119 mg/dL High 74-99 [facility] Comment on above: Performed By: #### 2 341-6 #### [facility] RO[facility] ([id number]) [facility] ([facility]) [address] [place] [address] Glucose [Mass/Vol] 119 mg/dL High 74 - 99 mg/dL [facility] Interpretation and review of laboratory results Abnormal [facility] Light Blue Topon 07-28-2023 Extra Tube Hold for add-ons. [facility] Comment on above: Auto resulted. [facility] NM LYMPHOSCINTIGRAMon 2023 NM LYMPHOSCINTIGRAM Interpreted By: Morris Huber and Sullivan Shannon STUDY: NM LYMPHOSCINTIGRAM; NM SPECT/CT LOCALIZATION ADD ON SINGLE DAY; 07/28/2023 8:57 am INDICATION: Signs/Symptoms:lymphos entigraphy for SLNB of a left lateral neck melanoma; Signs/Symptoms:lymphos entigraphy for SLNB left lateral neck melanoma. COMPARISON: None. ACCESSION NUMBER(S): [id number]; [id number] ORDERING CLINICIAN: SELWYN GARCIA TECHNIQUE: DIVISION OF NUCLEAR MEDICINE RADIONUCLIDE SENTINEL LYMPH NODE LYMPHOSCINTIGRAPHY A total of 1.0 millicuries of Tc-99m tilmanocept (LymphValchemy) was injected intradermally in a circumferential pattern surrounding the patient's left cervical neck melanoma biopsy site. Immediate dynamic images were obtained followed by multiple static images in multiple projections. Exam was terminated early at patient's request. SPECT/CT images were not obtained.. FINDINGS: Immediate dynamic images reveal tracer deposition at the site of injection but no other additional sites. Of note, sensitivity for sentinel lymph nodes is limited in the absence of SPECT CT. IMPRESSION: Nonvisualization of a sentinel lymph node. Severely limited exam due to exam termination and lack of SPECT CT images. Although dynamic images do not demonstrate sites of uptake beyond the site of injection, recommend follow-up with surgical probe. I personally reviewed the images/study and I agree with the findings as stated by executive vice president Dr. Ayers. This study was interpreted at [facility], [place], [place]. MACRO: None Signed by: Morris Siddiqui 07/28/2023 11:06 AM Dictation workstation: [id number] Normal [facility] NM Lymphatic vessels Views W radionuclide intra lymphaticon 07-28-2023 Radiology Study observation (narrative) [facility] Work Phone: NM SPECT/CT LOCALIZATION ADD ON SINGLE DAYon 07-28-2023 NM SPECT/CT LOCALIZATION ADD ON SINGLE DAY Interpreted By: Morris Siddiqui and Sullivan Shannon STUDY: NM LYMPHOSCINTIGRAM; NM SPECT/CT LOCALIZATION ADD ON SINGLE DAY; 07/28/2023 8:57 am INDICATION: Signs/Symptoms:lymphos entigraphy for SLNB of a left lateral neck melanoma; Signs/Symptoms:lymphos entigraphy for SLNB left lateral neck melanoma. COMPARISON: None. ACCESSION NUMBER(S): [id number]; [id number] ORDERING CLINICIAN: SELWYN GARCIA TECHNIQUE: DIVISION OF NUCLEAR MEDICINE RADIONUCLIDE SENTINEL LYMPH NODE LYMPHOSCINTIGRAPHY A total of 1.0 millicuries of Tc-99m tilmanocept (Lymphoseek) was injected intradermally in a circumferential pattern surrounding the patient's left cervical neck melanoma biopsy site. Immediate dynamic images were obtained followed by multiple static images in multiple projections. Exam was terminated early at patient's request. SPECT/CT images were not obtained.. FINDINGS: Immediate dynamic images reveal tracer deposition at the site of injection but no other additional sites. Of note, sensitivity for sentinel lymph nodes is limited in the absence of SPECT CT. IMPRESSION: Nonvisualization of a sentinel lymph node. Severely limited exam due to exam termination and lack of SPECT CT images. Although dynamic images do not demonstrate sites of uptake beyond the site of injection, recommend follow-up with surgical probe. I personally reviewed the images/study and I agree with the findings as stated by executive vice president Dr. Ayers. This study was interpreted at [place], [place]. MACRO: None Signed by: Morris Siddiqui 07/28/2023 11:06 AM Dictation workstation: [id number] [facility] No Panel Informationon 07-28 Nonvisualization of a sentinel lymph node. Severely limited exam due to exam termination and lack of SPECT CT images. Although dynamic images do not demonstrate sites of uptake beyond the site of injection, recommend follow-up with surgical probe. I personally reviewed the images/study and I agree with the findings as stated by executive vice president Dr. Ayers. This study was interpreted at [place], [place]. MACRO: None Signed by: Morris Siddiqui 07/28/2023 11:06 AM Dictation workstation: [id number] MMODAL Interpreted By: Morris Huber and Sullivan Shannon STUDY: NM LYMPHOSCINTIGRAM; NM SPECT/CT LOCALIZATION ADD ON SINGLE DAY; 07/28/2023 8:57 am INDICATION: Signs/Symptoms:lymphos entigraphy for SLNB of a left lateral neck melanoma; Signs/Symptoms:lymphos entigraphy for SLNB left lateral neck melanoma. COMPARISON: None. ACCESSION NUMBER(S): [id number]; [id number] ORDERING CLINICIAN: SELWYN GARCIA TECHNIQUE: DIVISION OF NUCLEAR MEDICINE RADIONUCLIDE SENTINEL LYMPH NODE LYMPHOSCINTIGRAPHY A total of 1.0 millicuries of Tc-99m tilmanocept (Lymphoseek) was injected intradermally in a circumferential pattern surrounding the patient's left cervical neck melanoma biopsy site. Immediate dynamic images were obtained followed by multiple static images in multiple projections. Exam was terminated early at patient's request. SPECT/CT images were not obtained.. FINDINGS: Immediate dynamic images reveal tracer deposition at the site of injection but no other additional sites. Of note, sensitivity for sentinel lymph nodes is limited in the absence of SPECT CT. MMODAL Morris Siddiqui MD - 07/28/2023 Interpreted By: Morris Siddiqui and Sullivan Shannon STUDY: NM LYMPHOSCINTIGRAM; NM SPECT/CT LOCALIZATION ADD ON SINGLE DAY; 07/28/2023 8:57 am INDICATION: Signs/Symptoms:lymphos entigraphy for SLNB of a left lateral neck melanoma; Signs/Symptoms:lymphos entigraphy for SLNB left lateral neck melanoma. COMPARISON: None. ACCESSION NUMBER(S): [id number]; [id number] ORDERING CLINICIAN: SELWYN GARCIA TECHNIQUE: DIVISION OF NUCLEAR MEDICINE RADIONUCLIDE SENTINEL LYMPH NODE LYMPHOSCINTIGRAPHY A total of 1.0 millicuries of Tc-99m tilmanocept (Lymphoseek) was injected intradermally in a circumferential pattern surrounding the patient's left cervical neck melanoma biopsy site. Immediate dynamic images were obtained followed by multiple static images in multiple projections. Exam was terminated early at patient's request. SPECT/CT images were not obtained.. FINDINGS: Immediate dynamic images reveal tracer deposition at the site of injection but no other additional sites. Of note, sensitivity for sentinel lymph nodes is limited in the absence of SPECT CT. IMPRESSION: Nonvisualization of a sentinel lymph node. Severely limited exam due to exam termination and lack of SPECT CT images. Although dynamic images do not demonstrate sites of uptake beyond the site of injection, recommend follow-up with surgical probe. I personally reviewed the images/study and I agree with the findings as stated by executive vice president Dr. Ayers. This study was interpreted at [place], [place]. MACRO: None Signed by: Morris Siddiqui 07/28/2023 11:06 AM Dictation workstation: [id number] [facility] Work Phone: Radiology Study observation (narrative) [facility] Work Phone: No Panel InformationOrdered By: Morris Siddiqui on 07-28-2023 [facility] Work Phone: Surgical pathology studyon 0 07-28-2023 Surgical pathology study Pathology report.total SEE COMMENT Surgical Pathology Case: [id number] Authorizing Provider: Selwyn Garcia MD Collected: 07/28/2023 1132 Ordering Location: [facility] Received: 07/28/2023 1311 OR Pathologist: Rachele Nascimento MD Specimen: SKIN WIDE EXCISION, WIDE LOCAL EXCISION LEFT POSTERIOR NECK, SHORT STITCH SUPERIOR, LONG STITCH ANTERIOR Path report.final diagnosis SEE COMMENT A. SKIN, LEFT POSTERIOR NECK, WIDE EXCISION: --SCAR AND SURGICAL SITE CHANGES, NEGATIVE FOR MELANOMA, SEE COMMENT --INCIDENTAL DYSPLASTIC JUNCTIONAL NEVI, NOT PRESENT AT SURGICAL MARGINS COMMENT: Note is made of the patient's prior pathology report, [id number]. There is background actinic melanocytosis and dysplastic lentiginous junctional nevi. No residual melanoma is seen in visualized tissue. Laboratory comment By the signature on this report, the individual or group listed as making the Final Interpretation/Diagnos is certifies that they have reviewed this case. 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 The specimen is oriented by a short suture, present at one of the ellipse tips, indicated to represent superior by the surgeon and arbitrarily assigned 12:00, and a long suture, present midway along the ellipse, indicated to represent anterior by the surgeon arbitrarily assigned 9:00. The specimen is inked as follows: 12-3-6:00 blue, 6-9-12:00 yellow, deep black. The skin surface shows a mixed hypo- and hyper-pigmented, smooth lesion, measuring 0.9 x 0.7 cm and located 2.5 cm from the 12:00 margin, 1.6 cm from the 3:00 margin, 4.3 cm from the 6:00 margin, and 1.3 cm from the 9:00 margin. The specimen is serially sectioned into 28 slices. Sections show the lesion measure 0.2 cm from the skin surface and 0.5 cm from the closest deep margin. Photographs are taken and annotated. Pill Packer sections of the specimen are submitted in 12 cassettes. MAD Summary of Cassettes: Specimen Label Site A 1 Slice 1, 12 tip 2-11 Serial body sections, from 12 o'clock to 6 o'clock Cassette A2 - slice 6 Cassette A3 - slice 9, adjacent to lesion Cassettes A4-A9 - slices 10-15 with lesion (cassette A14 with deepest invasion) Cassette A10- slice 16, adjacent to lesion Cassette A11 - slice 21 12 Slice 28, 6 o'clock tip Path report.microscopic observation Multiple deeper levels from blocks A2 and A5 were reviewed. Sections from block A5 are incomplete. 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] Surgical pathology studyon 0 07-22-2023 Surgical pathology study Pathology report.total SEE COMMENT Dermatopathology Report Case: [id number] Authorizing Provider: Selwyn Garcia MD Collected: 07/22/2023 0916 Ordering Location: [facility] Received: 07/22/2023 0916 [facility] Pathologist: Ana Cristina Aguirre MD Specimen: OUTSIDE BLOCK(S)/SLIDE(S), 5 SLIDES, [facility], [id number] (BX: 06/07/23) Path report.final diagnosis SEE COMMENT 5 SLIDES, [facility], [id number] (BX: 06/07/23) SKIN, LEFT LATERAL NECK - [...] signed out by Ana Cristina Aguirre MD Synoptic report SEE COMMENT MELANOMA OF THE SKIN: Biopsy MELANOMA OF [...] the deep margin. Mitotic Rate: None identified Microsatellite(s): Not identified Lymphovascular Invasion: Not identified Neurotropism: Not identified Tumor-Infiltrating Lymphocytes: Not identified Tumor Regression: Not identified MARGINS: Margin Status for Invasive Melanoma: Invasive melanoma present at margin Margin(s) Involved by Invasive Melanoma: Deep Margin Status for Melanoma in situ: Melanoma in situ present at margin Margin(s) Involved by Melanoma in Situ: Peripheral Margin(s) Involved by Melanoma in Situ: Deep PATHOLOGIC STAGE CLASSIFICATION (pTNM, AJCC 8th Edition): pT Category: pT3a Path report.relevant Hx Tuo. Neoplasm of uncertain behavior of skin. Rule out BCC. Path report.gross observation SEE COMMENT A. OUTSIDE BLOCK(S)/SLIDE(S). Received for consultation from [employer] are five slides labeled [id number] (Bx: 06/07/23) along with the corresponding pathology report. [facility] Comment on above: Order Comment: Mater ials Received: 5 SLIDES, [facility], [id number] (BX: 06/07/23) NM BONE SCAN THREE PHASEon 0 07-13-2023 NM BONE SCAN THREE PHASE NM BONE SCAN THREE PHASE Clinical history: Left hip pain. Possible infection. Three-phase bone scan: 07/12/2023 PROCEDURE: Three-phase imaging of the pelvis and hips was performed after 25.5 mCi of technetium 99m MDP. FINDINGS: Flow images demonstrates symmetric soft tissue activity throughout the pelvis. Blood pool images demonstrate normal distribution of vascular activity with some genitourinary activity. No focal asymmetry or irregularity is present. Delayed images demonstrate no areas of abnormal accumulation in the region of the pelvis or hips. IMPRESSION: No abnormality on three-phase bone scan evaluation. No findings suggestive of osteomyelitis. Finalized by Mariano Yan MD on 07/13/2023 9:04 PM Normal [facility] CBC AND AUTO DIFFon 07-04-19 24 ABSOLUTE BASOPHIL 0.0 X10E9/L Normal 0.0-0.2 [facility] Comment on above: Performed By: #### Ronnie JOHNSON [id number] #### [facility] ([id number]) [address], [address] [place] [address] ABSOLUTE NEUTROPHIL 6.2 X10E9/L Normal 1.5-6.6 [facility] Comment on above: Performed By: #### Ronnie JOHNSON [id number] #### [facility] ([id number]) [address], [address] [place] [address] Basophils/100 WBC (Bld) 0.6 % Normal [facility] Comment on above: Performed By: #### Ronnie JOHNSON [id number] #### [facility] ([id number]) [address] [address] [place] [address] Eosinophils (Bld) [#/Vol] 0.3 10*3/uL Normal 0.0-0.4 [facility] Comment on above: Performed By: #### Ronnie JOHNSON, 82829-6, 1987-10 #### [facility] ([id number]) [address], [facility] [address] [place] [address] Eosinophils/100 WBC (Bld) 3.3 % Normal [facility] Comment on above: Performed By: #### Ronnie JOHNSON, 16507-0, 1987-10 #### [facility] ([id number]) [address] [address] [place] [address] Erythrocyte distribution width (RBC) [Ratio] 14.5 % Normal 11.5-15.0 [facility] Comment on above: Performed By: #### Ronnie JOHNSON, 65681-3, 1987-10 #### [facility] ([id number]) [address] [address] [place] [address] Hematocrit (Bld) [Volume fraction] 37.1 % Low 39-49 [facility] Comment on above: Performed By: #### Ronnie JOHNSON 90505-4, 1987-10 #### [facility] ([id number]) [address] [address] [place] [address] Hemoglobin (Bld) [Mass/Vol] 12.2 g/dL Low 13.0-17.0 [facility] Comment on above: Performed By: #### Ronnie JOHNSON, 14706-5, 1987-10 #### [facility] ([id number]) [address] [address] [place] [address] Lymphocytes (Bld) [#/Vol] 1.3 10*3/uL Normal 1.0-3.5 [facility] Comment on above: Performed By: #### Ronnie JOHNSON, 14877-8, 1987-10 #### [facility] ([id number]) [address], [address] [place] [address] Lymphocytes/100 WBC (Bld) 15.3 % Normal [facility] Comment on above: Performed By: #### Ronnie JOHNSON, 78141-6, 1987-10 #### [facility] ([id number]) [address], [address] [place] [address] MCH (RBC) [Entitic mass] 29.0 pg Normal 27-34 [facility] Comment on above: Performed By: #### Ronnie JOHNSON 10883-9, 1987-10 #### [facility] ([id number]) [address] [place] [address] MCHC (RBC) [Mass/Vol] 32.9 g/dL Normal 32-36 [facility] Comment on above: Performed By: #### Ronnie JOHNSON, 01565-0, 1987-10 #### [facility] ([id number]) [address] [place] [address] MCV (RBC) [Entitic vol] 88 fL Normal 80-100 [facility] Comment on above: Performed By: #### Ronnie JOHNSON 01219-2, 1987-10 #### [facility] ([id number]) [address], [address] [place] [address] Monocytes (Bld) [#/Vol] 0.5 10*3/uL Normal 0-0.9 [facility] Comment on above: Performed By: #### Ronnie JOHNSON 18612-6, 1987-10 #### [facility] ([id number]) [address] [place] [address] Monocytes/100 WBC (Bld) 6.5 % Normal [facility] Comment on above: Performed By: #### Ronnie JOHNSON, 95654-3, 1987-10 #### [facility] ([id number]) [address], [address] [place] [address] Neutrophils/100 WBC (Bld) 74.3 % Normal [facility] Comment on above: Performed By: #### Ronnie JOHNSON, 15213-1, 1987-10 #### [facility] ([id number]) [address], [address] [place] [address] Platelet mean volume (Bld) [Entitic vol] 9.1 fL Normal 7-12 [facility] Comment on above: Performed By: #### Ronnie JOHNSON, 18808-4, 1987-10 #### [facility] ([id number]) [address], [address] [place] [address] Platelets (Bld) [#/Vol] 250 10*3/uL Normal 150-450 [facility] Comment on above: Performed By: #### Ronnie JOHNSON 97867-7, 1987-10 #### [facility] ([id number]) [address], [address] [place] [address] RBC COUNT 4.21 X10E12/L Normal 4.10-5.70 [facility] Comment on above: Performed By: #### Ronnie JOHNSON, 62711-1, 1987-10 #### [facility] ([id number]) [address] [place] [address] WBC (Bld) [#/Vol] 8.4 10*3/uL Normal 4.0-11.0 [facility] Comment on above: Performed By: #### Ronnie JOHNSON 72861-1, 1987-10 #### [facility] ([id number]) [address] [place] [address] CRP [Mass/Vol]on 07-04-2023 C REACTIVE PROTEIN 0.3 mg/dL Normal 0.000-0.744 [facility] Comment on above: Performed By: #### Ronnie JOHNSON 48186-3, 1987-10 #### [facility] ([id number]) [address], [address] [place] [address] ESR Photometric method (Bld) [Velocity]on 07-04-2023 ESR, ERYTHROCYTE SEDIMENTATION RATE 8 mm/h Normal 0-20 [facility] Comment on above: Performed By: #### C ELIZABETH, 08560-7, 1987-10 #### [facility] ([id number]) [address], [address] [place] [address] LIPID PROFILEon 11-06-2022 CHOL-HDL RATIO NORM SEE BELOW Normal [facility] Comment on above: Result Comment: 3.3 - 4.4 LOW RISK 4.4 - 7.1 AVERAGE RISK 7.1 - 11.0 MODERATE RISK >11.0 HIGH RISK Performed By: #### F ERR, FETIBC, B12FOL #### [facility] [address] [place] [address] Dr. Layla Bennett Cholesterol [Mass/Vol] 131 mg/dL Normal <=200 [facility] Comment on above: Performed By: #### F ERR, FETIBC, B12FOL #### [facility] [address] [address] [address] Layla Bennett Cholesterol in HDL [Mass/Vol] 26 mg/dL Critically low 40-60 [facility] Comment on above: Performed By: #### F ERR, FETIBC, B12FOL #### [facility] [address] [address] [address] Layla Bennett Cholesterol in LDL [Mass/Vol] 62.6 mg/dL Normal [facility] Comment on above: Performed By: #### F ERR, FETIBC, B12FOL #### [facility] [address] [address] [address] Layla Bennett Cholesterol.total/Chol esterol in HDL [Mass ratio] 5.0 {ratio} Normal [facility] Comment on above: Performed By: #### F ERR, FETIBC, B12FOL #### [facility] [address] [address] [address] Layla Bennett HDL NORMAL > or = 60 mg/dl - LO W CARDIOVASCULAR RISK <40 mg/dl - HIGH CARDIOVASCULAR RISK Normal [facility] Comment on above: Performed By: #### F ERR, FETIBC, B12FOL #### [facility] [address] [address] [address] Layla Bennett LDL CALC NORMAL SEE BELOW Normal [facility] Comment on above: Result Comment: <100 mg/dl OPTIMAL 100 - 129 mg/dl NEAR OR ABOVE OPTIMAL 130 - 159 mg/dl BORDERLINE HIGH 160 - 189 mg/dl HIGH >190 mg/dl VERY HIGH Performed By: #### F ERR, FETIBC, B12FOL #### [facility] [address] [address] [address] Layla Bennett Triglyceride [Mass/Vol] 212 mg/dL Critically high <=150 [facility] Comment on above: Performed By: #### F ERR, FETIBC, B12FOL #### [facility] [address] [address] [address] Layla Bennett VLDL CALC 42.4 mg/dL Normal [facility] Comment on above: Performed By: #### F ERR, FETIBC, B12FOL #### [facility] [address] [address] [address] Layla Bennett PROF 14(COMP METB)on 023 Albumin [Mass/Vol] 3.5 g/dL Normal 3.4-5.0 [facility] Comment on above: Performed By: #### F ERR, FETIBC, B12FOL #### [facility] [address] [address] [address] Layla Bennett Albumin/Globulin [Mass ratio] 0.8 {ratio} Normal [facility] Comment on above: Performed By: #### F ERR, FETIBC, B12FOL #### [facility] [address] [place] [address] Dr. Lalya Bennett ALP [Catalytic activity/Vol] 110 U/L Normal 46-116 [facility] Comment on above: Performed By: #### F ERR, FETIBC, B12FOL #### [facility] [address] [place] [address] Dr. Layla Bennett ALT [Catalytic activity/Vol] 27 U/L Normal 16-63 [facility] Comment on above: Performed By: #### F ERR, FETIBC, B12FOL #### [facility] [address] [place] [address] Dr. Layla Bennett Anion gap [Moles/Vol] 13.6 mmol/L Normal [facility] Comment on above: Performed By: #### F ERR, FETIBC, B12FOL #### [facility] [address] [place] [address] Dr. Layla Bennett AST [Catalytic activity/Vol] 14 U/L Critically low 15-37 [facility] Comment on above: Performed By: #### F ERR, FETIBC, B12FOL #### [facility] [address] [place] [address] Dr. Layla Bennett Bilirubin [Mass/Vol] 0.3 mg/dL Normal 0.2-1.0 [facility] Comment on above: Performed By: #### F ERR, FETIBC, B12FOL #### [facility] [address] [place] [address] Dr. Layla Bennett Calcium [Mass/Vol] 9.1 mg/dL Normal 8.5-10.1 [facility] Comment on above: Performed By: #### F ERR, FETIBC, B12FOL #### [facility] [address] [place] [address] Dr. Layla Bennett Chloride [Moles/Vol] 105 mmol/L Normal 98-107 [facility] Comment on above: Performed By: #### F ERR, FETIBC, B12FOL #### [facility] [address] [place] [address] Dr. Layla Bennett CO2 [Moles/Vol] 29.8 mmol/L Normal 21.0-32.0 [facility] Comment on above: Performed By: #### F ERR, FETIBC, B12FOL #### [facility] [address] [address] [address] Layla Bennett Creatinine [Mass/Vol] 1.40 mg/dL Critically high 0.70-1.30 [facility] Comment on above: Performed By: #### F ERR, FETIBC, B12FOL #### [facility] [address] [address] [address] Layla Bennett EGFR-AF [place] >60 Normal >=60 [facility] Comment on above: Performed By: #### F ERR, FETIBC, B12FOL #### [facility] [address] [place] [address] Dr. Layla Bennett EGFR-NON AF [place] 51 mL/min/1.73m2 Critically low >=60 [facility] Comment on above: Performed By: #### F ERR, FETIBC, B12FOL #### [facility] [address] [place] [address] Dr. Layla Bennett Globulin (S) [Mass/Vol] 4.2 g/dL Normal [facility] Comment on above: Performed By: #### F ERR, FETIBC, B12FOL #### [facility] [address] [place] [address] Dr. Layla Bennett Glucose [Mass/Vol] 117 mg/dL Critically high 74-106 [facility] Comment on above: Performed By: #### F ERR, FETIBC, B12FOL #### [facility] [address] [place] [address] Dr. Layla Bennett Potassium [Moles/Vol] 4.4 mmol/L Normal 3.5-5.1 [facility] Comment on above: Performed By: #### F ERR, FETIBC, B12FOL #### [facility] [address] [place] [address] Dr. Layla Bennett Protein [Mass/Vol] 7.7 g/dL Normal 6.4-8.2 [facility] Comment on above: Performed By: #### F ERR, FETIBC, B12FOL #### [facility] [address] [place] [address] Dr. Layla Bennett Sodium [Moles/Vol] 144 mmol/L Normal 136-145 [facility] Comment on above: Performed By: #### F ERR, FETIBC, B12FOL #### [facility] [address] [place] [address] Dr. Layla Bennett Urea nitrogen [Mass/Vol] 22.0 mg/dL Critically high 7.0-18.0 [facility] Comment on above: Performed By: #### F ERR, FETIBC, B12FOL #### [facility] [address] [place] [address] Dr. Layla Bennett Urea nitrogen/Creatinine [Mass ratio] 15.7 mg/mg Normal [facility] Comment on above: Performed By: #### F ERR, FETIBC, B12FOL #### [facility] [address] [place] [address] Dr. Layla Bennett POINT OF CARE GLUCOSEon 04- Glucose [Mass/Vol] 138 mg/dL Critically high 74-106 [facility] Comment on above: Performed By: #### P OCGLUC #### [facility] [address] [place] [address] Dr. Layla Bennett CBC AUTO DIFFon 05-11-2022 BASO # 0.0 103/ul Normal 0.0-0.1 [facility] Comment on above: Performed By: #### C BC #### [facility] [address] [place] [address] Dr. Layla Bennett Basophils/100 WBC (Bld) 0.4 % Normal 0.2-2.0 [facility] Comment on above: Performed By: #### C BC #### [facility] [address] [place] [address] Dr. Layla Bennett EO # 0.1 103/ul Normal 0.0-0.7 [facility] Comment on above: Performed By: #### C BC #### [facility] [address] [place] [address] Dr. Layla Bennett Eosinophils/100 WBC (Bld) 1.2 % Normal 0.9-7.0 [facility] Comment on above: Performed By: #### C BC #### [facility] [address] [address] [address] Layla Bennett Erythrocyte distribution width (RBC) [Ratio] 16.1 % Critically high 11.0-15.0 [facility] Comment on above: Performed By: #### C BC #### [facility] [address] [place] [address] Dr. Layla Bennett Hematocrit (Bld) [Volume fraction] 42.5 % Normal 42.0-54.0 [facility] Comment on above: Performed By: #### C BC #### [facility] [address] [place] [address] Dr. Layla Bennett Hemoglobin (Bld) [Mass/Vol] 13.8 g/dL Critically low 14.0-18.0 [facility] Comment on above: Performed By: #### C BC #### [facility] [address] [place] [address] Dr. Layla Bennett IG # 0.07 10e3/ul Critically high 0.00-0.03 [facility] Comment on above: Performed By: #### C BC #### [facility] [address] [place] [address] Dr. Layla Bennett IG % 0.6 % Critically high 0.0-0.5 [facility] Comment on above: Performed By: #### C BC #### [facility] [address] [place] [address] Dr. Layla Bennett LYMPH # 1.4 103/ul Normal 1.2-3.8 [facility] Comment on above: Performed By: #### C BC #### [facility] [address] [place] [address] Dr. Layla Bennett Lymphocytes/100 WBC (Bld) 12.2 % Critically low 20.5-60.0 [facility] Comment on above: Performed By: #### C BC #### [facility] [address] [place] [address] Dr. Layla Bennett MANUAL DIFF REQ NO Normal [facility] Comment on above: Performed By: #### C BC #### [facility] [address] [address] [address] Layla Bennett MCH (RBC) [Entitic mass] 28.5 pg Normal 25.9-34.0 [facility] Comment on above: Performed By: #### C BC #### [facility] [address] [address] [address] Layla Bennett MCHC (RBC) [Mass/Vol] 32.5 g/dL Normal 29.9-35.2 [facility] Comment on above: Performed By: #### C BC #### [facility] [address] [address] [address] Layla Bennett MCV (RBC) [Entitic vol] 87.6 fL Normal 80.0-94.0 [facility] Comment on above: Performed By: #### C BC #### [facility] [address] [place] [address] Dr. Layla Bennett MONO # 0.7 103/ul Normal 0.3-0.8 [facility] Comment on above: Performed By: #### C BC #### [facility] [address] [place] [address] Dr. Layla Bennett Monocytes/100 WBC (Bld) 6.2 % Normal 1.7-12.0 [facility] Comment on above: Performed By: #### C BC #### [facility] [address] [place] [address] Dr. Layla Bennett NEUT # 9.1 103/ul Critically high 1.4-6.5 [facility] Comment on above: Performed By: #### C BC #### [facility] [address] [place] [address] Dr. Layla Bennett Neutrophils/100 WBC (Bld) 79.4 % Critically high 43.0-75.0 [facility] Comment on above: Performed By: #### C BC #### [facility] [address] [place] [address] Dr. Layla Bennett Platelet mean volume (Bld) [Entitic vol] 9.9 fL Normal 9.5-13.5 [facility] Comment on above: Performed By: #### C BC #### [facility] [address] [address] [address] Layla Bennett PLT 271 103/ul Normal 150-450 [facility] Comment on above: Performed By: #### C BC #### [facility] [address] [place] [address] Dr. Layla Bennett RBC 4.85 106/ul Normal 4.70-6.10 [facility] Comment on above: Performed By: #### C BC #### [facility] [address] [address] [address] Layla Bennett WBC 11.4 103/ul Critically high 4.0-11.0 [facility] Comment on above: Performed By: #### C BC #### [facility] [address] [place] [address] Dr. Layla Bennett FERRITINon 05-11-2022 Ferritin [Mass/Vol] 19.0 ng/mL Critically low 26.0-388.0 [facility] Comment on above: Performed By: #### F ERR, FETIBC, B12FOL #### [facility] [address] [place] [address] Dr. Layla Bennett GLYCOHEMOGLOBIN A1Con 2021 ADA RECOMMENDATION SEE BELOW Normal [facility] Comment on above: Result Comment: ADA RECOMMENDED LIMIT 4.0 - 6.0 ADA THERAPEUTIC TARGET < 7.0 ACTION SUGGESTED > 7.0 Performed By: #### F ERR, FETIBC, B12FOL #### [facility] [address] [address] [address] Layla Bennett Glucose [Mass/Vol] 143 mg/dL Normal [facility] Comment on above: Performed By: #### F ERR, FETIBC, B12FOL #### [facility] [address] [place] [address] Dr. Layla Bennett HbA1c (Bld) [Mass fraction] 6.6 % Critically high 4.5-6.2 [facility] Comment on above: Performed By: #### F ERR, FETIBC, B12FOL #### [facility] [address] [place] [address] Dr. Layla Bennett OCC BLD IMMUNOASSAYon 2021 OCCULT BLOOD Negative Normal NEGATIVE [facility] Comment on above: Performed By: #### O LOLITA #### [facility] [address] [address] [address] SHOULDER RT WO CONon 10-2 CT SHOULDER RT WO CON EXAMINATION: CT SHOULDER RT WO CON HISTORY: Pain of right shoulder joint COMPARISON: No relevant comparison available. TECHNIQUE: Multi-planar CT images were created without IV contrast. Dose reduction techniques were achieved by using automated exposure control and/or adjustment of mA and/or kV according to patient size and/or use of iterative reconstruction technique. FINDINGS: BONES: No acute fracture or dislocation. Severe degenerative changes of the glenohumeral joint with pnjo-ne-fjab articulation and bony remodeling of the humeral head and acetabulum with extensive marginal osteophyte formation. Moderate degenerative changes of the acromioclavicular joint with jpmq-mc-tepl articulation. SOFT TISSUES: Negative. No visible soft tissue swelling. EFFUSION: None visible. OTHER: Negative. IMPRESSION: Severe right glenohumeral joint osteoarthritis Electronically authenticated by: LARRY VASQUEZ Date: 2022-04-23 17:25 Normal [facility] COVID-19 Positive/NegativeOr dered By: Moody Barrett on 03-30-2022 SARS-CoV-2 (COVID-19) N gene CELSO+probe Ql (Resp) Negative Negative [facility] Comment on above: Testing for SARS-CoV -2 by RT-PCRThis test was developed and its performance characteristics determined by [employer] and validated at the [facility]. This test has not been FDA cleared or approved. This test has been authorized by FDA under an Emergency Use Authorization (EUA). This test has been validated in accordance with the FDA's Guidance Document (Policy for Diagnostics Testing in Laboratories Certified to Perform High Complexity Testing under CLIA prior to Emergency Use Authorization for Coronavirus Disease-2019 during the Public Health Emergency) issued on September 27, 2019. This test is only authorized for the duration of time the declaration that circumstances exist justifying the authorization of the emergency use of in vitro diagnostic tests for detection of SARS-CoV-2 virus and/or diagnosis of COVID-19 infection under section 564(b)(1) of the Act, 21 U.S.C. 360bbb-3(b)(1), unless the authorization is terminated or revoked sooner. ECHOCARDIO M/2D COMPLETEon 0 03-08-2022 ECHOCARDIO M/2D COMPLETE Patient: KIN FLORES I. Exam Date: 03/08/2022 : 1955 Gender:M Ordering : DR GIOVANA MAYBERRY M.D. Admission #: [id number] Family : Order #: [id number] CLICK HERE TO VIEW EXAM ECHOCARDIOGRAM REPORT PROCEDURE: CARDIO PULMONARY ECHOCARDIO M/2D COMP INDICATIONS: Dyspnea on exertion COMPARISON: None. DESCRIPTION: COMPLETE ECHOCARDIOGRAM Real-time transthoracic echocardiography with 2D, M-mode, spectral and color flow Doppler performed. QUALITY: Technical quality was good. LEFT VENTRICLE: Normal chamber size. Moderate concentric left ventricular hypertrophy. LV EF: Global left ventricular systolic function is normal. Visual estimation of left ventricular ejection fraction is 65%. DIASTOLIC: Normal diastolic function. ATRIAL SEPTUM: Inadequately seen. LEFT ATRIUM: Poorly seen; appears enlarged. RIGHT ATRIUM: Poorly seen. RIGHT VENTRICLE: Poorly seen; appears normal in size. Normal right ventricular systolic function. TRICUSPID VALVE: Normal mobility and thickness. No stenosis with trivial regurgitation. No evidence of pulmonary hypertension. RVSP 28mmHg MITRAL VALVE: Normal mobility and thickness. No mitral valve prolapse. No evidence of mitral valve stenosis. There is no mitral annular calcification. Trivial mitral regurgitation. AORTIC VALVE: Normal trileaflet appearance. Mildly calcified aortic valve. Normal leaflet mobility. No evidence of aortic valve stenosis. Trivial aortic regurgitation. AORTIC ROOT: Normal diameter and appearance. PULMONIC VALVE: Normal thickness and mobility. No stenosis. Trivial regurgitation. PERICARDIUM: Anterior free space; trivial effusion versus fat pad. IVC: Collapses with inspirations. Normal size. CONCLUSION: Global left ventricular systolic function is hyperdynamic; visually estimated ejection fraction is 65 to 70%. No significant wall motion abnormalities. Moderate left ventricular hypertrophy. Normal diastolic function. The atria are poorly seen. The right ventricle is poorly seen but appears normal in size. Systolic function appears preserved. The valves are poorly seen; no significant valvular abnormalities. Anterior free space; trivial effusion versus fat pad. Adult Echocardiography Procedure Report Left Ventricle LVEDD (3.7 - 5.6 cm): 5.22 cm LVESD (2.2 - 4.0 cm): 3.23 cm LVIVS thickness (0.6 - 1.2 cm): 1.45 cm LVPW thickness (0.5 - 1.0 cm): 1.29 cm LVOT Max Fabian (1.5 m per sec): 1.28 m/s Left Ventricular Ejection Fraction: 67.76 %, 67.76 % Left Atrium Mitral Valve MV E to A Ratio: 1.41 Right Ventricle Aorta AO Root Diam: 3.28 cm Ascending Ao Diam: 3.36 cm Aortic Valve Peak Velocity (Antegrade Flow): 1.68 m/s Tricuspid Valve TV Mean Gradient: 0.99 mm[Hg] Peak Velocity (Regurgitant Flow): 0.50 m/s Mean Velocity: 0.50 m/s Pulmonic Valve Mean Gradient: 2.67 mm[Hg] Mean Velocity: 0.74 m/s Right Atrium Dictated by: Keagan Palumbo M.D. on 03/09/2022 at 13:05 Approved by: Keagan Palumbo M.D. on 03/09/2022 at 13:19 Normal [facility] METHYLMALONIC ACID (MMA)on 0 02-02-2022 Methylmalonic Acid, Serum 378 nmol/L Normal 0-378 [facility] Comment on above: Performed By: #### F ERR, FETIBC, B12FOL #### [facility] [address] [address] [address] Layla Bennett POINT OF CARE GLUCOSEon 08 Glucose [Mass/Vol] 105 mg/dL Normal 74-106 [facility] Comment on above: Performed By: #### F ERR, FETIBC, B12FOL #### [facility] [address] [address] [address] Layla Bennett PSA, FREE AND TOTAL RATIOon 01-29-2022 % Free PSA 53.3 % Normal [facility] Comment on above: Result Comment: The table below lists the probability of prostate cancer for men with non-suspicious ALMA results and total PSA between 4 and 10 ng/mL, by patient age (Chin et al, NADIA 1998, 279:1542). % Free PSA 50-64 yr 65-75 yr 0.00-10.00% 56% 55% 10.01-15.00% 24% 35% 15.01-20.00% 17% 23% 20.01-25.00% 10% 20% >25.00% 5% 9% Please note: Chin et al did not make specific recommendations regarding the use of percent free PSA for any other population of men. Performed By: #### F MIGUEL CADENA B12FOL #### [facility] [address] [address] [address] Layla Bennett Prostate specific Ag [Mass/Vol] 3.0 ng/mL Normal 0.0-4.0 [facility] Comment on above: Result Comment: Shalini SEVILLA methodology. . According to the [employer], Serum PSA should decrease and remain at undetectable levels after radical prostatectomy. The AUA defines biochemical recurrence as an initial PSA value 0.2 ng/mL or greater followed by a subsequent confirmatory PSA value 0.2 ng/mL or greater. Values obtained with different assay methods or kits cannot be used interchangeably. Results cannot be interpreted as absolute evidence of the presence or absence of malignant disease. Performed By: #### F DONTAE CADENAC B12FOL #### [facility] [address] [address] [address] Layla Bennett PSA, Free 1.60 ng/mL Normal N/A [facility] Comment on above: Result Comment: Shalini SEVILLA methodology. Performed By: #### F MIGUEL CADENA B12FOL #### [facility] [address] [place] [address] Dr. Layla Bennett Covid-19 PCR (CVDTB)on SARS-CoV-2 (COVID-19) RNA CELSO+probe Ql (Unsp spec) Not detected Normal NOT DETECTED [facility] Comment on above: Result Comment: This test is not yet approved or cleared by the [place] FDA. When there are no FDA-approved or cleared tests available, and other criteria are met, FDA can make tests available under an emergency access mechanism called an Emergency Use Authorization (EUA). The EUA for this test is supported by the Director Medical Writing of Health and Human Service's (HHS's) declaration that circumstances exist to justify the emergency use of in vitro diagnostics for the detection and/or diagnosis of the virus that causes COVID-19. This EUA will remain in effect (meaning this test can be used) for the duration of the COVID-19 declaration justifying emergency of IVDs, unless it is terminated or revoked by FDA (after which the test may no longer be used). When diagnostic testing is negative, the possibility of a false negative should be considered in the context of a patient's recent exposures and the presence of clinical signs and symptoms consistent with SARS-CoV-2. Performed By: #### C VDTBH #### [facility] [address] [place] [address] Dr. Layla Bennett FERRITINon 01-28-2022 Ferritin [Mass/Vol] 14.0 ng/mL Critically low 26.0-388.0 [facility] Comment on above: Performed By: #### F ERR, FETIBC, B12FOL #### [facility] [address] [place] [address] Dr. Layla Bennett IRON AND TIBCon 01-28-2022 % SATURATION 10.2 % Normal [facility] Comment on above: Performed By: #### F ERR, FETIBC, B12FOL #### [facility] [address] [place] [address] Dr. Layla Bennett Iron [Mass/Vol] 43.0 ug/dL Critically low 65.0-175.0 [facility] Comment on above: Performed By: #### F ERR, FETIBC, B12FOL #### [facility] [address] [place] [address] Dr. Layla Bennett TIBC DIRECT 420.0 ug/dL Normal 250.0-450.0 [facility] Comment on above: Performed By: #### F ERR, FETIBC, B12FOL #### [facility] [address] [place] [address] Dr. Layla Bennett VIT B12 AND FOLATEon 022 Cobalamin (Vitamin B12) [Mass/Vol] 380.0 pg/mL Normal 193.0-986.0 [facility] Comment on above: Performed By: #### F ERR, FETIBC, B12FOL #### [facility] [address] [address] [address] Layla Bennett FOLATE 4.50 ng/mL Critically low 8.60-58.90 [facility] Comment on above: Performed By: #### F ERR, FETIBC, B12FOL #### [facility] [address] [address] [address] Layla Bennett POINT OF CARE GLUCOSEon Glucose [Mass/Vol] 110 mg/dL Critically high 74-106 [facility] Comment on above: Performed By: #### F ERR, FETIBC, B12FOL #### [facility] [address] [address] [address] Layla Bennett Covid-19 PCR (CVDTB)on SARS-CoV-2 (COVID-19) RNA CELSO+probe Ql (Unsp spec) Not detected Normal NOT DETECTED [facility] Comment on above: Result Comment: This test is not yet approved or cleared by the [place] FDA. When there are no FDA-approved or cleared tests available, and other criteria are met, FDA can make tests available under an emergency access mechanism called an Emergency Use Authorization (EUA). The EUA for this test is supported by the Director Medical Writing of Health and Human Service's (HHS's) declaration that circumstances exist to justify the emergency use of in vitro diagnostics for the detection and/or diagnosis of the virus that causes COVID-19. This EUA will remain in effect (meaning this test can be used) for the duration of the COVID-19 declaration justifying emergency of IVDs, unless it is terminated or revoked by FDA (after which the test may no longer be used). When diagnostic testing is negative, the possibility of a false negative should be considered in the context of a patient's recent exposures and the presence of clinical signs and symptoms consistent with SARS-CoV-2. Performed By: #### F ERR, FETIBC, B12FOL #### [facility] [address] [address] [address] Layla Bennett Covid-19 PCR (CVDTBH)on 12-26 SARS-CoV-2 (COVID-19) RNA CELSO+probe Ql (Unsp spec) Not detected Normal NOT DETECTED [facility] Comment on above: Result Comment: This test is not yet approved or cleared by the [place] FDA. When there are no FDA-approved or cleared tests available, and other criteria are met, FDA can make tests available under an emergency access mechanism called an Emergency Use Authorization (EUA). The EUA for this test is supported by the [place] of Health and Human Service's (HHS's) declaration that circumstances exist to justify the emergency use of in vitro diagnostics for the detection and/or diagnosis of the virus that causes COVID-19. This EUA will remain in effect (meaning this test can be used) for the duration of the COVID-19 declaration justifying emergency of IVDs, unless it is terminated or revoked by FDA (after which the test may no longer be used). When diagnostic testing is negative, the possibility of a false negative should be considered in the context of a patient's recent exposures and the presence of clinical signs and symptoms consistent with SARS-CoV-2. Performed By: #### F ERR, FETIBC, B12FOL #### [facility] [address] [place] [address] Dr. Layla Bennett CBC AUTO DIFFon 12-24-2021 BASO # 0.0 103/ul Normal 0.0-0.1 [facility] Comment on above: Performed By: #### F ERR, FETIBC, B12FOL #### [facility] [address] [place] [address] Dr. Layla Bennett Basophils/100 WBC (Bld) 0.4 % Normal 0.2-2.0 [facility] Comment on above: Performed By: #### F ERR, FETIBC, B12FOL #### [facility] [address] [place] [address] Dr. Layla Bennett EO # 0.3 103/ul Normal 0.0-0.7 [facility] Comment on above: Performed By: #### F ERR, FETIBC, B12FOL #### [facility] [address] [place] [address] Dr. Layla Bennett Eosinophils/100 WBC (Bld) 3.8 % Normal 0.9-7.0 [facility] Comment on above: Performed By: #### F ERR, FETIBC, B12FOL #### [facility] [address] [place] [address] Dr. Layla Bennett Erythrocyte distribution width (RBC) [Ratio] 19.5 % Critically high 11.0-15.0 [facility] Comment on above: Performed By: #### F ERR, FETIBC, B12FOL #### [facility] [address] [place] [address] Dr. Layla Bennett Hematocrit (Bld) [Volume fraction] 38.0 % Critically low 42.0-54.0 [facility] Comment on above: Performed By: #### F ERR, FETIBC, B12FOL #### [facility] [address] [place] [address] Dr. Layla Bennett Hemoglobin (Bld) [Mass/Vol] 11.5 g/dL Critically low 14.0-18.0 [facility] Comment on above: Performed By: #### F ERR, FETIBC, B12FOL #### [facility] [address] [place] [address] Dr. Layla Bennett IG # 0.02 10e3/ul Normal 0.00-0.03 [facility] Comment on above: Performed By: #### F ERR, FETIBC, B12FOL #### [facility] [address] [place] [address] Dr. Layla Bennett IG % 0.3 % Normal 0.0-0.5 [facility] Comment on above: Performed By: #### F ERR, FETIBC, B12FOL #### [facility] [address] [place] [address] Dr. Layla Bennett LYMPH # 1.2 103/ul Normal 1.2-3.8 [facility] Comment on above: Performed By: #### F ERR, FETIBC, B12FOL #### [facility] [address] [place] [address] Dr. Layla Bennett Lymphocytes/100 WBC (Bld) 18.1 % Critically low 20.5-60.0 [facility] Comment on above: Performed By: #### F ERR, FETIBC, B12FOL #### [facility] [address] [place] [address] Dr. Layla Bennett MANUAL DIFF REQ NO Normal [facility] Comment on above: Performed By: #### F ERR, FETIBC, B12FOL #### [facility] [address] [place] [address] Dr. Layla Bennett MCH (RBC) [Entitic mass] 25.3 pg Critically low 25.9-34.0 [facility] Comment on above: Performed By: #### F ERR, FETIBC, B12FOL #### [facility] [address] [place] [address] Dr. Layla Bennett MCHC (RBC) [Mass/Vol] 30.3 g/dL Normal 29.9-35.2 [facility] Comment on above: Performed By: #### F ERR, FETIBC, B12FOL #### [facility] [address] [place] [address] Dr. Layla Bennett MCV (RBC) [Entitic vol] 83.7 fL Normal 80.0-94.0 [facility] Comment on above: Performed By: #### F ERR, FETIBC, B12FOL #### [facility] [address] [place] [address] Dr. Layla Bennett MONO # 0.7 103/ul Normal 0.3-0.8 [facility] Comment on above: Performed By: #### F ERR, FETIBC, B12FOL #### [facility] [address] [place] [address] Dr. Layla Bennett Monocytes/100 WBC (Bld) 10.0 % Normal 1.7-12.0 [facility] Comment on above: Performed By: #### F ERR, FETIBC, B12FOL #### [facility] [address] [place] [address] Dr. Layla Bennett NEUT # 4.6 103/ul Normal 1.4-6.5 [facility] Comment on above: Performed By: #### F ERR, FETIBC, B12FOL #### [facility] [address] [address] [address] Layla Bennett Neutrophils/100 WBC (Bld) 67.4 % Normal 43.0-75.0 [facility] Comment on above: Performed By: #### F ERR, FETIBC, B12FOL #### [facility] [address] [address] [address] Layla Bennett Platelet mean volume (Bld) [Entitic vol] 10.1 fL Normal 9.5-13.5 [facility] Comment on above: Performed By: #### F ERR, FETIBC, B12FOL #### [facility] [address] [place] [address] Dr. Layla Bennett PLT 216 103/ul Normal 150-450 [facility] Comment on above: Performed By: #### F ERR, FETIBC, B12FOL #### [facility] [address] [place] [address] Dr. Layla Bennett RBC 4.54 106/ul Critically low 4.70-6.10 [facility] Comment on above: Performed By: #### F ERR, FETIBC, B12FOL #### [facility] [address] [place] [address] Dr. Layla Bennett WBC 6.8 103/ul Normal 4.0-11.0 [facility] Comment on above: Performed By: #### F ERR, FETIBC, B12FOL #### [facility] [address] [place] [address] Dr. Layla Bennett GLYCOHEMOGLOBIN A1Con 2021 ADA RECOMMENDATION SEE BELOW Normal [facility] Comment on above: Result Comment: ADA RECOMMENDED LIMIT 4.0 - 6.0 ADA THERAPEUTIC TARGET < 7.0 ACTION SUGGESTED > 7.0 Performed By: #### F ERR, FETIBC, B12FOL #### [facility] [address] [place] [address] Dr. Layla Bennett Glucose [Mass/Vol] 143 mg/dL Normal [facility] Comment on above: Performed By: #### F ERR, FETIBC, B12FOL #### [facility] [address] [address] [address] Layla Bennett HbA1c (Bld) [Mass fraction] 6.6 % Critically high 4.5-6.2 [facility] Comment on above: Performed By: #### F ERR, FETIBC, B12FOL #### [facility] [address] [address] [address] Layla Bennett LIPID PROFILEon 12-24-2021 CHOL-HDL RATIO NORM SEE BELOW Normal [facility] Comment on above: Result Comment: 3.3 - 4.4 LOW RISK 4.4 - 7.1 AVERAGE RISK 7.1 - 11.0 MODERATE RISK >11.0 HIGH RISK Performed By: #### F ERR, FETIBC, B12FOL #### [facility] [address] [place] [address] Dr. Layla Bennett Cholesterol [Mass/Vol] 173 mg/dL Normal <=200 [facility] Comment on above: Performed By: #### F ERR, FETIBC, B12FOL #### [facility] [address] [place] [address] Dr. Layla Bennett Cholesterol in HDL [Mass/Vol] 31 mg/dL Critically low 40-60 [facility] Comment on above: Performed By: #### F ERR, FETIBC, B12FOL #### [facility] [address] [place] [address] Dr. Layla Bennett Cholesterol in LDL [Mass/Vol] 99.8 mg/dL Normal [facility] Comment on above: Performed By: #### F ERR, FETIBC, B12FOL #### [facility] [address] [place] [address] Dr. Layla Bennett Cholesterol.total/Chol esterol in HDL [Mass ratio] 5.6 {ratio} Normal [facility] Comment on above: Performed By: #### F ERR, FETIBC, B12FOL #### [facility] [address] [place] [address] Dr. Layla Bennett HDL NORMAL > or = 60 mg/dl - LO W CARDIOVASCULAR RISK <40 mg/dl - HIGH CARDIOVASCULAR RISK Normal [facility] Comment on above: Performed By: #### F ERR, FETIBC, B12FOL #### [facility] [address] [place] [address] Dr. Layla Bennett LDL CALC NORMAL SEE BELOW Normal [facility] Comment on above: Result Comment: <100 mg/dl OPTIMAL 100 - 129 mg/dl NEAR OR ABOVE OPTIMAL 130 - 159 mg/dl BORDERLINE HIGH 160 - 189 mg/dl HIGH >190 mg/dl VERY HIGH Performed By: #### F ERR, FETIBC, B12FOL #### [facility] [address] [place] [address] Dr. Layla Bennett Triglyceride [Mass/Vol] 211 mg/dL Critically high <=150 [facility] Comment on above: Performed By: #### F ERR, FETIBC, B12FOL #### [facility] [address] [place] [address] Dr. Layla Bennett VLDL CALC 42.2 mg/dL Normal [facility] Comment on above: Performed By: #### F ERR, FETIBC, B12FOL #### [facility] [address] [place] [address] Dr. Layla Bennett MICROALBUMIN, RAND URon 11-27 mALB 6.4 mg/L Normal <=30.0 [facility] Comment on above: Performed By: #### M ALBR #### [facility] [address] [place] [address] Dr. Layla Bennett PROF 14(COMP METB)on 022 Albumin [Mass/Vol] 3.6 g/dL Normal 3.4-5.0 [facility] Comment on above: Performed By: #### F ERR, FETIBC, B12FOL #### [facility] [address] [place] [address] Dr. Layla Bennett Albumin/Globulin [Mass ratio] 1.1 {ratio} Normal [facility] Comment on above: Performed By: #### F ERR, FETIBC, B12FOL #### [facility] [address] [place] [address] Dr. Layla Bennett ALP [Catalytic activity/Vol] 81 U/L Normal 46-116 [facility] Comment on above: Performed By: #### F ERR, FETIBC, B12FOL #### [facility] [address] [place] [address] Dr. Layla Bennett ALT [Catalytic activity/Vol] 32 U/L Normal 16-63 [facility] Comment on above: Performed By: #### F ERR, FETIBC, B12FOL #### [facility] [address] [place] [address] Dr. Layla Bennett Anion gap [Moles/Vol] 11.0 mmol/L Normal [facility] Comment on above: Performed By: #### F ERR, FETIBC, B12FOL #### [facility] [address] [place] [address] Dr. Layla Bennett AST [Catalytic activity/Vol] 15 U/L Normal 15-37 [facility] Comment on above: Performed By: #### F ERR, FETIBC, B12FOL #### [facility] [address] [place] [address] Dr. Layla Bennett Bilirubin [Mass/Vol] 0.3 mg/dL Normal 0.2-1.0 [facility] Comment on above: Performed By: #### F ERR, FETIBC, B12FOL #### [facility] [address] [place] [address] Dr. Layla Bennett Calcium [Mass/Vol] 8.6 mg/dL Normal 8.5-10.1 [facility] Comment on above: Performed By: #### F ERR, FETIBC, B12FOL #### [facility] [address] [place] [address] Dr. Layla Bennett Chloride [Moles/Vol] 105 mmol/L Normal 98-107 [facility] Comment on above: Performed By: #### F ERR, FETIBC, B12FOL #### [facility] [address] [place] [address] Dr. Layla Bennett CO2 [Moles/Vol] 29.4 mmol/L Normal 21.0-32.0 [facility] Comment on above: Performed By: #### F ERR, FETIBC, B12FOL #### [facility] [address] [address] [address] Layla Bennett Creatinine [Mass/Vol] 1.23 mg/dL Normal 0.70-1.30 [facility] Comment on above: Performed By: #### F ERR, FETIBC, B12FOL #### [facility] [address] [place] [address] Dr. Layla Bennett EGFR-AF [place] >60 Normal >=60 [facility] Comment on above: Performed By: #### F ERR, FETIBC, B12FOL #### [facility] [address] [place] [address] Dr. Layla Bennett EGFR-NON AF [place] 59 mL/min/1.73m2 Critically low >=60 [facility] Comment on above: Performed By: #### F ERR, FETIBC, B12FOL #### [facility] [address] [address] [address] Layla Bennett Globulin (S) [Mass/Vol] 3.3 g/dL Normal [facility] Comment on above: Performed By: #### F ERR, FETIBC, B12FOL #### [facility] [address] [place] [address] Dr. Layla Bennett Glucose [Mass/Vol] 128 mg/dL Critically high 74-106 [facility] Comment on above: Performed By: #### F ERR, FETIBC, B12FOL #### [facility] [address] [address] [address] Layla Bennett Potassium [Moles/Vol] 4.4 mmol/L Normal 3.5-5.1 [facility] Comment on above: Performed By: #### F ERR, FETIBC, B12FOL #### [facility] [address] [place] [address] Dr. Layla Bennett Protein [Mass/Vol] 6.9 g/dL Normal 6.4-8.2 [facility] Comment on above: Performed By: #### F ERR, FETIBC, B12FOL #### [facility] [address] [place] [address] Dr. Layla Bennett Sodium [Moles/Vol] 141 mmol/L Normal 136-145 [facility] Comment on above: Performed By: #### F ERR, FETIBC, B12FOL #### [facility] [address] [place] [address] Dr. Layla Bennett Urea nitrogen [Mass/Vol] 23.0 mg/dL Critically high 7.0-18.0 [facility] Comment on above: Performed By: #### F ERR, FETIBC, B12FOL #### [facility] [address] [place] [address] Dr. Layla Bennett Urea nitrogen/Creatinine [Mass ratio] 18.7 mg/mg Normal [facility] Comment on above: Performed By: #### F ERR, FETIBC, B12FOL #### [facility] [address] [place] [address] Dr. Layla Bennett POINT OF CARE GLUCOSEon 11-25 Glucose [Mass/Vol] 110 mg/dL Critically high 74-106 [facility] Comment on above: Performed By: #### P OCGLUC #### [facility] [address] [place] [address] Dr. Layla Bennett CHEMISTRYOrdered By: Celia Iqbal on 10-07-2021 Prostate specific Ag [Mass/Vol] 1.9 ng/mL Normal 0.1 - 3.5 ng/mL [facility] Remisol HIP LEFT 1 OR 2 VWS WITH PEL VISon 02-27-2021 HIP LEFT 1 OR 2 VWS WITH PELVIS [facility] Department of Radiology [address] [place] [id number] ======== Patient Name: KIN FLORES : 1955 Sex: M Age: Race: White Pt. Location: 84 Patient Status: Ordered Date: 02/27/2021 3:00:00 PM Completed Date: 02/27/2021 03:03 PM Requesting Provider: ISAI CURIEL Attending Provider: Report Copy To: Signs & Symptoms: Z96.649 Presence of unspecified artificial hip joint I10 History: Valeria Comments: Evaluate Exam: HIP LEFT 1 OR 2 VWS WITH PELVIS ======== HIP LEFT 1 OR 2 VWS WITH PELVIS 02/27/2021 3:03 PM CLINICAL INDICATIONS: Z96.649 Presence of unspecified artificial hip joint I10 TECHNOLOGIST COMMENTS: History of left hip surgery 11/12/2020. Ortho follow up. QUESTION FOR THE RADIOLOGIST: Evaluate PROTOCOL: AP(PA) and Lateral views were obtained. COMPARISON: 02/11/2021 FINDINGS: Left hip replacement appears unchanged. Periosteal reaction noted about proximal femur appears unchanged. No new fractures seen. IMPRESSION: Unchanged appearance left hip replacement Electronically signed: Katie Rain. Transcribed by: [email or web address], User Resident: Electronically Signed by: KATIE RAIN @ 02/27/2021 06:53 PM Normal [facility] Comment on above: Order Comment: Left hip , Body Part: Hip Operative Reporton Operative Report MR#: [id number] S [facility] Pt. Name: Kin Flores Room #: PAT Discharge Date: Birthdate: 1955 OPERATIVE REPORT DATE OF SURGERY: 02/11/2021 SURGEON: Isai Curiel M.D. PRIMARY CARE PHYSICIAN: Deejay Manuel D.O. STREET CLEANER: Medical student year 3, Zehra Sterling, 1st assist. 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 INTRAOPERATIVE FINDINGS: 1. Severe scarring of the abductors as well as the posterior hip capsule and severe contracture of the hip joint along with anterior medial bone loss of the acetabulum. 2. Superolateral bone loss of the acetabulum. 3. Resolved inflammation and possible no further infection in the left hip joint. 4. Intraoperative frozen sections were taken from the femur x2, intraoperative fluid as well as from the acetabulum. All these intraoperative frozen sections were negative for any polymorphonucleocytes more than 5 per high-power field. PROCEDURE PERFORMED: Left hip joint removal of antibiotic spacer, and revision to left total hip arthroplasty using Biomet implants. COMPLICATIONS: None. ESTIMATED BLOOD LOSS: About 800 mL. HARDWARE USED: 1. Multi hole G7 ostial titanium acetabular shell cementless G7 compatible implants, 56 mm outer diameter, and liner size F. 2. Bone screw self-tapping 6.5 x 35 mm length 1. 3. Bone screw self-tapping 6.5 x 30 mm. 4. G7 acetabular system dual mobility acetabular liner neutral, 44 mm bearing size, liner size F. 5. Ondina-Head primary hip system lateralizing femoral stem size 30 mm 170 mm length type 1 taper. Porous Plasma uncemented. 6. Active articulation hip system dual mobility bearing arc, XL 28 mm head size and 44 mm bearing size F for dual mobility. 7. Biolox Option taper sleeve used with Biolox Option ceramic head only type 1 taper, standard neck. 8. Biolox Delta Option ceramic head, used Biolox Option taper sleeve only 28 mm head type 16/18 taper. 9. [employer]gunc Quick Connect drill bit 2.2 x 30 mm used, which is not implanted. SPECIMENS: That were taken intraoperatively were sent for frozen section as well as culture and sensitivity. COUNTS: Total count of the needles as well as instrument was within normal limits. INDICATION FOR THE PROCEDURE: The patient is a pleasant 65-year-old male who had previous bilateral total hip arthroplasty. He had developed increasing pain, swelling, tenderness over his left hip joint for the past 6-8 months. He underwent stage I revision total hip arthroplasty recently on November 12, 2020. 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 The patient did well following the surgery and has been nonweightbearing. His initial surgery was done by Dr. Snyder in 2019. His bone scan revealed loosening of his left hip arthroplasty components and hence he underwent the procedure. He has had IV PICC line and antibiotics as per Infectious Disease team. Following this, he has been doing well for his following his surgery and has been following up with the Infectious Disease team. As per his ID recommendations, he is now ready for his stage II revision total hip arthroplasty. He understands that we will be taking intraoperative frozen sections to further assess the hip and if this shows any further infection, he will undergo further stage I revision hip arthroplasty. Details of the left stage II revision hip arthroplasty were discussed with the patient including complications which are but not restricted to bleeding, infection, neurovascular injury, deep vein thrombosis, pulmonary embolism, myocardial infarction, stroke, mortality, iatrogenic fractures, recurrence of infection, need for further multiple surgeries in future, contractures causing recurrent dislocations, loosening of the polyethylene liner with time, need for multiple surgeries including excision arthroplasty, which may lead to limb length discrepancy were all explained to the patient as well as Trendelenburg lurch and painful back issues and complications in the form of gastrointestinal complications, as well as heart and lung complications were all discussed at length. He also understands that he needs have strict blood sugar control to have optimal outcome following his left revision hip arthroplasty. Despite all these risks, the patient wishes to proceed with the surgery. He has signed his consent form. He has had clearance from his primary care physician. He has signed his consent form and site was marked and we saw him in the preoperat (more content not included)... Normal [facility] *ANAEROBIC CULTUREon 021 *ANAEROBIC CULTURE Clinical Report: (D) Specimen/Source: TISSUE/INTRAOP SPEC Collected: 02/11/2021 09:53 Status: Final Last Updated: 02/16/2021 09:04 (1) #4 L. FEMUR CULT RES (Final) No Anaerobes Isolated 5 Days Normal [facility] Comment on above: Order Comment: #1 LE FT ACETABULUM Performed By: #### 3 0338 #### [facility] [address] [place] [address], [facility] *ANAEROBIC CULTURE Clinical Report: (D) Specimen/Source: FLUID/INTRAOP SPEC Collected: 02/11/2021 09:07 Status: Final Last Updated: 02/16/2021 09:04 (1) #1 L. HIP FLUID CULT RES (Final) No Anaerobes Isolated 5 Days Normal [facility] Comment on above: Order Comment: #1 L. HIP FLUID Performed By: #### 8 [id number] #### [facility] [address] [place] [address], [facility] *BODY FLUID CULTUREon 2020 *BODY FLUID CULTURE Clinical Report: (D) Specimen/Source: FLUID/INTRAOP SPEC Collected: 02/11/2021 09:07 Status: Final Last Updated: 02/16/2021 08:47 (1) #1 L. HIP FLUID GRAM (Final) Rare Polys No Bacteria Seen CULT RES (Final) No Growth Day 5 Normal [facility] Comment on above: Order Comment: #1 LE FT ACETABULUM Performed By: #### 3 0338 #### [facility] [address] [facility] [place] [address], [facility] *TISSUE CULTUREon 02-11-2021 *TISSUE CULTURE Clinical Report: (D) Specimen/Source: TISSUE/INTRAOP SPEC Collected: 02/11/2021 09:53 Status: Final Last Updated: 02/16/2021 08:48 (1) #4 L. FEMUR GRAM (Final) Moderate Polys No Bacteria Seen CULT RES (Final) No Growth Day 5 Normal [facility] Comment on above: Order Comment: #4 L. FEMUR Performed By: #### 8 [id number] #### [facility] [address] [place] [address], [facility] POC GLUCOSE LABon 02-11-2021 Glucose [Mass/Vol] 201 mg/dL High 70-100 [facility] Comment on above: Performed By: #### 3 0965 #### [facility] [address] [place] [address], [place] Glucose [Mass/Vol] 136 mg/dL High 70-100 [facility] Comment on above: Performed By: #### 3 0965 #### [address] [address], [facility] PORTABLE HIP LEFT 1 OR 2 VWS WITH PELVISon 02-11-2021 PORTABLE HIP LEFT 1 OR 2 VWS WITH PELVIS [facility] Department of Radiology [address] [place] [id number] ======== Patient Name: KIN FLORES : 1955 Sex: M Age: Race: White Pt. Location: OUTP Patient Status: O Ordered Date: 02/11/2021 11:50:00 AM Completed Date: 02/11/2021 12:26 PM Requesting Provider: RUTH ANN CHAVEZ Attending Provider: ISAI CURIEL Report Copy To: Signs & Symptoms: Pain History: Comments: Hardware Evaluation, Postop L hip, need AP Pelvis, AP L hip, and Lateral L hip, please obtain in PACU before patient goes to floor, thanks Exam: PORTABLE HIP LEFT 1 OR 2 VWS WITH PELVIS ======== PORTABLE HIP LEFT 1 OR 2 VWS WITH PELVIS 02/11/2021 12:26 PM CLINICAL INDICATIONS: Pain TECHNOLOGIST COMMENTS: post op left hip PROTOCOL: AP(PA) and Lateral views were obtained. COMPARISON: None FINDINGS: There is interval revision of a left hip arthroplasty. Prior visualized spacer material has been replaced with an anchored bipolar hip prosthetic. There is no periprosthetic lucency, fracture, or evidence of hardware malfunction. There is stable chronic periosteal new bone formation along the lateral aspect of the proximal femoral shaft. The pelvic ring is intact. There is a right hip arthroplasty. The partially visualized lumbar spine shows degenerative changes. Bilateral SI joints appear symmetric. There is soft tissue gas surrounding the proximal femoral prosthesis likely related to recent surgery. IMPRESSION: * Interval revision of left hip arthroplasty with placement of anchored bipolar prosthesis in satisfactory alignment. No evidence of hardware complication. * No acute osseous abnormality. Approved by:Colby Bronson02/11/2021 1:28 PM. I, Darien Hammond,have reviewed the image(s) and agree with the findings in this report. Electronically signed: Darien Hammond. Transcribed by: [email or web address], User Resident: COLBY LERMA Electronically Signed by: DARIEN HAMMOND @ 02/11/2021 01:33 PM I personally read this/these film(s) with this resident Normal [facility] Comment on above: Order Comment: Left hip , Body Part: Hip HIP LEFT 1 OR 2 VWS WITH PEL VISon 11-27-2020 HIP LEFT 1 OR 2 VWS WITH PELVIS [facility] Department of Radiology [address] [place] [id number] ======== Patient Name: KIN FLORES : 1955 Sex: M Age: Race: White Pt. 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 COMPARISON: 09/18/2020 FINDINGS: 3 views of the hip were obtained. Hardware is been removed and antibiotic device placed. The material has expected position with no evidence of acute complication. There is no residual metallic material present. No acute erosion is evident. There right hip arthroplasty is in expected position. There are degenerative changes in the visualized lumbar spine. IMPRESSION: Revised left hip arthroplasty as described above. Electronically signed: Mariano Yan. Transcribed by: [email or web address], User Resident: Electronically Signed by: MARIANO YAN @ 11/28/2020 09:25 AM Normal [facility] Comment on above: Order Comment: Left hip , Body Part: Hip POC GLUCOSE LABon 11-16-2020 Glucose [Mass/Vol] 109 mg/dL High 70-100 [facility] Comment on above: Performed By: #### 3 0965 #### [facility] [address] [place] [address], [facility] Glucose [Mass/Vol] 121 mg/dL High 70-100 [facility] Comment on above: Performed By: #### 3 1792 #### [facility] [address] [place] [address], [place] BASIC METABOLIC PANELon 10-26 Calcium [Mass/Vol] 9.2 mg/dL Normal 8.6-10.3 [facility] Comment on above: Order Comment: Yes: Add to Previous draw if able Performed By: #### 8 [id number] #### [facility] [address] [place] [address], [place] Chloride [Moles/Vol] 100 mmol/L Normal 98-107 [facility] Comment on above: Order Comment: Yes: Add to Previous draw if able Performed By: #### 8 [id number] #### [facility] [address] [place] [address], [place] CO2 [Moles/Vol] 28 mmol/L Normal 21-31 [facility] Comment on above: Order Comment: Yes: Add to Previous draw if able Performed By: #### 8 [id number] #### [facility] [address] [place] [address], [place] Creatinine [Mass/Vol] 0.73 mg/dL Normal 0.70-1.30 [facility] Comment on above: Order Comment: Yes: Add to Previous draw if able Performed By: #### 8 [id number] #### [facility] [address] [place] [address], [place] GFR/1.73 sq M.predicted among blacks MDRD (S/P/Bld) [Vol rate/Area] mL/min/{1.73_m2} Normal >60 [facility] Comment on above: Order Comment: Yes: Add to Previous draw if able Performed By: #### 8 5499 #### [facility] [address] [place] [address], [place] GFR/1.73 sq M.predicted among non-blacks MDRD (S/P/Bld) [Vol rate/Area] mL/min/{1.73_m2} Normal >60 [facility] Comment on above: Order Comment: Yes: Add to Previous draw if able Performed By: #### 8 5499 #### [facility] [address] [place] [address], [place] Glucose [Mass/Vol] 141 mg/dL High 70-100 [facility] Comment on above: Order Comment: Yes: Add to Previous draw if able Performed By: #### 8 [id number] #### [facility] [address] [place] [address], [facility] Potassium [Moles/Vol] 3.9 mmol/L Normal 3.5-5.1 [facility] Comment on above: Order Comment: Yes: Add to Previous draw if able Performed By: #### 8 [id number] #### [facility] [address] [place] [address], [place] Sodium [Moles/Vol] 137 mmol/L Normal 136-145 [facility] Comment on above: Order Comment: Yes: Add to Previous draw if able Performed By: #### 8 5499 #### [facility] [address] [place] [address], [facility] Urea nitrogen [Mass/Vol] 20 mg/dL Normal 7-25 [facility] Comment on above: Order Comment: Yes: Add to Previous draw if able Performed By: #### 8 [id number] #### [facility] [address] [place] [address], [facility] CBC COMPLETE BLOOD COUNTon - Erythrocyte distribution width (RBC) [Ratio] 13.4 % Normal 11.5-15.0 [facility] Comment on above: Order Comment: Yes: Add to Previous draw if able Performed By: #### 5 0608 ####[facility] [facility] [place] [address], [facility] Hematocrit (Bld) [Volume fraction] 35.5 % Low 39.0-50.0 [facility] Comment on above: Order Comment: Yes: Add to Previous draw if able Performed By: #### 5 0608 ####[facility] [place] [address], [facility] Hemoglobin (Bld) [Mass/Vol] 11.5 g/dL Low 13.0-17.0 [facility] Comment on above: Order Comment: Yes: Add to Previous draw if able Performed By: #### 5 0608 ####[facility] [facility].[address] MCH (RBC) [Entitic mass] 29.0 pg Normal 27.0-33.0 [facility] Comment on above: Order Comment: Yes: Add to Previous draw if able Performed By: #### 5 0608 ####[address] MCHC (RBC) [Mass/Vol] 32.4 g/dL Normal 32.0-35.0 [facility] Comment on above: Order Comment: Yes: Add to Previous draw if able Performed By: #### 5 0608 ####[address] MCV (RBC) [Entitic vol] 89.6 fL Normal 82.0-98.0 [facility] Comment on above: Order Comment: Yes: Add to Previous draw if able Performed By: #### 5 0608 ####[address] Nucleated RBC/100 WBC (Bld) [Ratio] 0 % Normal 0-0 [facility] Comment on above: Order Comment: Yes: Add to Previous draw if able Performed By: #### 5 0608 ####[address] PLAT CNT 196 10*3/uL Normal 150-400 [facility] Comment on above: Order Comment: Yes: Add to Previous draw if able Performed By: #### 5 0608 ####[address] RBC (Bld) [#/Vol] 3.96 10*6/uL Low 4.20-5.70 [facility] Comment on above: Order Comment: Yes: Add to Previous draw if able Performed By: #### 5 0608 ####[facility] [place] [address].[place] [address], [place] WBC (Bld) [#/Vol] 8.80 10*3/uL Normal 4.00-10.60 [facility] Comment on above: Order Comment: Yes: Add to Previous draw if able Performed By: #### 5 0608 ####[facility] [place] [address], [place] POC GLUCOSE LABon 11-15-2020 Glucose [Mass/Vol] 122 mg/dL High 70-100 [facility] Comment on above: Performed By: #### 3 1792 #### [facility] [address] [place] [address], [place] Glucose [Mass/Vol] 133 mg/dL High 70-100 [facility] Comment on above: Performed By: #### 3 1792 #### [facility] [address] [place] [address], [place] Glucose [Mass/Vol] 122 mg/dL High 70-100 [facility] Comment on above: Performed By: #### 8 5499 ####[facility] [place] [address], [place] Glucose [Mass/Vol] 123 mg/dL High 70-100 [facility] Comment on above: Performed By: #### 3 0965 #### [facility] [address] [place] [address], [place] POC GLUCOSE LABon 11-14-2020 Glucose [Mass/Vol] 130 mg/dL High 70-100 [facility] Comment on above: Performed By: #### 3 0965 #### [facility] [address] [place] [address], [place] Glucose [Mass/Vol] 96 mg/dL Normal 70-100 [facility] Comment on above: Performed By: #### 8 5499 #### [facility] [address] [place] [address], [place] Glucose [Mass/Vol] 101 mg/dL High 70-100 [facility] Comment on above: Performed By: #### 3 0965 #### [facility] [address] [place] [address], [facility] Glucose [Mass/Vol] 113 mg/dL High 70-100 [facility] Comment on above: Performed By: #### 8 [id number] ####[facility] [place] [address], [facility] VANCOMYCIN TROUGHon 11-15-19 VANCOMYCIN TROU 8.6 mcg/mL Normal 5.0-20.0 [facility] Comment on above: Performed By: #### 0 2024 ####[facility] [facility].[address] BASIC METABOLIC PANELon 05- Calcium [Mass/Vol] 8.8 mg/dL Normal 8.6-10.3 [facility] Comment on above: Order Comment: No: D o not add to previous draw Performed By: #### 0 0071 ####[facility] [place] [address], [facility] Chloride [Moles/Vol] 102 mmol/L Normal 98-107 [facility] Comment on above: Order Comment: No: D o not add to previous draw Performed By: #### 0 0071 ####[facility] [place] [address], [facility] CO2 [Moles/Vol] 26 mmol/L Normal 21-31 [facility] Comment on above: Order Comment: No: D o not add to previous draw Performed By: #### 0 0071 ####[facility] [place] [address], [facility] Creatinine [Mass/Vol] 0.77 mg/dL Normal 0.70-1.30 [facility] Comment on above: Order Comment: No: D o not add to previous draw Performed By: #### 0 0071 ####[facility] [place] [address], [place] GFR/1.73 sq M.predicted among blacks MDRD (S/P/Bld) [Vol rate/Area] mL/min/{1.73_m2} Normal >60 [facility] Comment on above: Order Comment: No: D o not add to previous draw Performed By: #### 0 0071 ####[facility] [place] [address], [place] GFR/1.73 sq M.predicted among non-blacks MDRD (S/P/Bld) [Vol rate/Area] mL/min/{1.73_m2} Normal >60 [facility] Comment on above: Order Comment: No: D o not add to previous draw Performed By: #### 0 0071 ####[facility] [place] [address], [place] Glucose [Mass/Vol] 147 mg/dL High 70-100 [facility] Comment on above: Order Comment: No: D o not add to previous draw Performed By: #### 0 0071 ####[facility] [place] [address], [place] Potassium [Moles/Vol] 3.9 mmol/L Normal 3.5-5.1 [facility] Comment on above: Order Comment: No: D o not add to previous draw Performed By: #### 0 0071 ####[facility] [place] [address], [place] Sodium [Moles/Vol] 135 mmol/L Low 136-145 [facility] Comment on above: Order Comment: No: D o not add to previous draw Performed By: #### 0 0071 ####[facility] [place] [address], [place] Urea nitrogen [Mass/Vol] 21 mg/dL Normal 7-25 [facility] Comment on above: Order Comment: No: D o not add to previous draw Performed By: #### 0 0071 ####[facility] CBC COMPLETE BLOOD COUNTon 11-13-2020 Erythrocyte distribution width (RBC) [Ratio] 13.4 % Normal 11.5-15.0 [facility] Comment on above: Order Comment: No: D o not add to previous draw Performed By: #### 5 0608 ####[facility] Hematocrit (Bld) [Volume fraction] 36.5 % Low 39.0-50.0 [facility] Comment on above: Order Comment: No: D o not add to previous draw Performed By: #### 5 0608 ####[place] [address] [address] Hemoglobin (Bld) [Mass/Vol] 11.7 g/dL Low 13.0-17.0 [facility] Comment on above: Order Comment: No: D o not add to previous draw Performed By: #### 5 0608 ####[place] [address] [address] MCH (RBC) [Entitic mass] 29.0 pg Normal 27.0-33.0 The [facility] Comment on above: Order Comment: No: D o not add to previous draw Performed By: #### 5 0608 ####[facility] MCHC (RBC) [Mass/Vol] 32.1 g/dL Normal 32.0-35.0 The [facility] Comment on above: Order Comment: No: D o not add to previous draw Performed By: #### 5 0608 ####[facility] MCV (RBC) [Entitic vol] 90.6 fL Normal 82.0-98.0 The [facility] Comment on above: Order Comment: No: D o not add to previous draw Performed By: #### 5 0608 ####[facility]3000 [facility].[address] Nucleated RBC/100 WBC (Bld) [Ratio] 0 % Normal 0-0 The [facility] Comment on above: Order Comment: No: D o not add to previous draw Performed By: #### 5 0608 ####[facility] [place] [address], [facility] PLAT CNT 232 10*3/uL Normal 150-400 The [facility] Comment on above: Order Comment: No: D o not add to previous draw Performed By: #### 5 0608 ####[facility]3000 [facility].[address] RBC (Bld) [#/Vol] 4.03 10*6/uL Low 4.20-5.70 The [facility] Comment on above: Order Comment: No: D o not add to previous draw Performed By: #### 5 0608 ####[facility] [place] [address], [facility] WBC (Bld) [#/Vol] 12.31 10*3/uL High 4.00-10.60 The [facility] Comment on above: Order Comment: No: D o not add to previous draw Performed By: #### 5 0608 ####[facility]3000 [facility].[address] Operative Reporton Operative Report MR#: [id number] I [facility] Pt. Name: Kin Flores Room #: [id number] Discharge Date: Birthdate: 1955 OPERATIVE REPORT DATE OF SURGERY: 11/12/2020 SURGEON: Isai Curiel M.D. REFERRING PHYSICIAN: Dr. Estes. PRIMARY CARE PHYSICIAN: Deejay Manuel DO ASSISTANTS: 1. Jacinto Mata, resident Orthopedic Surgery. 2. First Petra Butler. 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 SECONDARY DIAGNOSES: 1. Morbid obesity. 2. Essential hypertension. 3. Diabetes mellitus. 4. Hyperlipidemia. 5. Status post hip arthroplasty. POSTOPERATIVE DIAGNOSIS: Periprosthetic joint infection, left hip joint along with complete loosening of the femoral component with partial loosening of the acetabular component along with severe scarring and adhesions into the left hip joint. PROCEDURE PERFORMED: Left stage I revision total hip arthroplasty, removal of hardware completely, debridement, washout, excision of scar and placement of antibiotic impregnated spacer using Biomet implants. ESTIMATED BLOOD LOSS: 400 mL. COMPLICATIONS: None. HARDWARE USED: 1. Biomet stage I antibiotic impregnated cement spacer, medium size femoral component. 2. Femoral head size is 56 mm, neck length is standard. SPECIMENS: Specimens were taken from the femur, acetabulum, as well as the capsule for culture sensitivity intraoperatively. INDICATION FOR THE PROCEDURE: The patient is a pleasant, 64-year-old male, who is a lucio by occupation, has been referred by Dr. Estes after he was seen by him in August of 2020 and was found to have infected left total hip arthroplasty as per his recent aspiration that grew Staph epidermidis. He was referred to me to discuss surgical management of his possible osteomyelitis of the proximal femur as x-ray showed severe sclerosis around the proximal femur, as well as the greater trochanter. The patient believes that he has been having left hip pain for almost 1 year after he fell onto his left side. He has been having increasing start-up pain as well as pain when he is rising from sitting position. He has had multiple injection of corticosteroid in his lumbar spine to relieve his leg pain, which has not helped him. He is status post bilateral total hip arthroplasty done by Dr. Snyder in 2019. Recently, the patient had a bone scan, which revealed loosening of his left hip components and he was referred to [facility] for further management due to his morbid obesity and complex pain issues. Since the patient has failed nonsurgical treatment and his x-ray showed loosening, as well as his aspirate shows infection, he is indicated for treatment of left hip periprosthetic joint infection in the form of two-stage left revision hip arthroplasty. Details of the left hip problems were discussed at length with the patient. The x-rays of the pelvis, both hips, as well as the left hip joint done on September 29, 2020 were reviewed by myself and interpreted, which showed the patient has periosteal reaction of the proximal femur along with lucency suggestive of chronic osteomyelitis of the left proximal femur along with lucency around the femoral stem, suggestive of left femoral component loosening. Acetabular component also shows some lucency around the cup suggestive of possible loosening of the acetabular cup as well. Swelling noted into the joint suggestive of hip effusion. Since the patient has infection, he is indicated for above-mentioned procedure. He was also referred to Infectious Disease team for further evaluation and treatment for his osteomyelitis of his femur. He has been cleared by his primary care physician for his staged hip arthroplasty. He understands that he will need two-staged hip arthroplasty. Details of the problem and treatment options were discussed, which includes we will remove all the components of his left hip joint along with acetabular component and plan for placement of antibiotic spacer with strict nonweightbearing for about 2-2.5 months in the wheelchair. He will also need to be on IV antibiotic in the form of PICC line and antibiotics as per ID recommendations. We will plan for revision of his stage II arthroplasty in #2 months' time. The patient understands the risks and benefits of the staged hip arthroplasty in the form of stage I, but not restricted to bleeding, infection, neurovascular injury, residual pain, stiffness, deep vein thrombosis, pulmonary embolism, myocardial infarction, stroke, mortality less than 1%, risk of periprosthetic joint infection and fractures, iatrogenic fractures, recurrence of infection, need for multiple revision surgeries, contractures, contractures causing recurrent dislocations, recurrent dislocations causing hip wea (more content not included)... Normal The [facility] POC GLUCOSE LABon 11-13-2020 Glucose [Mass/Vol] 108 mg/dL High 70-100 The [facility] Comment on above: Performed By: #### 3 0965 #### [facility] [address] [facility] [place] [address], [facility] Glucose [Mass/Vol] 119 mg/dL High 70-100 The [facility] Comment on above: Performed By: #### 3 1792 #### [facility] [address] [place] [address], [facility] Glucose [Mass/Vol] 108 mg/dL High 70-100 The [facility] Comment on above: Performed By: #### 8 5499 #### [facility] [address] [place] [address], [facility] Glucose [Mass/Vol] 135 mg/dL High 70-100 The [facility] Comment on above: Performed By: #### 8 5499 #### [facility] [address] [place] [address], [facility] *ANAEROBIC CULTUREon 021 *ANAEROBIC CULTURE Clinical Report: (D) Specimen/Source: TISSUE/L HIP ACETABULU Collected: 11/12/2020 11:30 Status: Final Last Updated: 11/17/2020 08:42 CULT RES (Final) No Anaerobes Isolated 5 Days Normal The [facility] Comment on above: Performed By: #### 8 5499 #### [facility] [address] [facility] [place] [address], [facility] *ANAEROBIC CULTURE Clinical Report: (D) Specimen/Source: ASPIRATE/L HIP CAPSULE Collected: 11/12/2020 10:06 Status: Final Last Updated: 11/17/2020 08:42 CULT RES (Final) No Anaerobes Isolated 5 Days Normal The [facility] Comment on above: Performed By: #### 3 0338 #### [facility] [address] [facility] [place] [address], [facility] *ANAEROBIC CULTURE Clinical Report: (D) Specimen/Source: TISSUE/LEFT FEMUR Collected: 11/12/2020 10:05 Status: Final Last Updated: 11/17/2020 08:35 ISO (Final) No Anaerobes Isolated 5 Days Normal The [facility] Comment on above: Performed By: #### 8 5499 #### [facility] [address] [place] [address], [facility] *ANAEROBIC CULTURE Clinical Report: (D) Specimen/Source: TISSUE/L ACETABULUM Collected: 11/12/2020 09:33 Status: Final Last Updated: 11/17/2020 08:42 CULT RES (Final) No Anaerobes Isolated 5 Days Normal The [facility] Comment on above: Performed By: #### 3 0338 #### [facility] [address] *TISSUE CULTUREon 11-12-2020 *TISSUE CULTURE Clinical Report: (D) Specimen/Source: TISSUE/INTRAOP SPEC Collected: 11/12/2020 11:30 Status: Final Last Updated: 11/17/2020 08:44 (1) #4 LT - HIP ACETABULUM GRAM (Final) Many Polys No Bacteria Seen CULT RES (Final) No Growth Day 5 Normal The [facility] Comment on above: Order Comment: #1 LE FT ACETABULUM Performed By: #### 3 0338 #### [facility] [address] *TISSUE CULTURE Clinical Report: (D) Specimen/Source: TISSUE/INTRAOP SPEC Collected: 11/12/2020 10:06 Status: Final Last Updated: 11/17/2020 08:44 (1) #3 LT - HIP CAPSULE GRAM (Final) Many Polys No Bacteria Seen CULT RES (Final) No Growth Day 5 Normal The [facility] Comment on above: Order Comment: #3 LT - HIP CAPSULE Performed By: #### 3 0338 #### [facility] [address] [place], [place] [address] [place] [address] *TISSUE CULTURE Clinical Report: (D) Specimen/Source: TISSUE/INTRAOP SPEC Collected: 11/12/2020 10:05 Status: Final Last Updated: 11/17/2020 08:46 (1) #2 LT - FEMUR GRAM (Final) Many Polys No Bacteria Seen CULT RES (Final) No Growth Day 5 Normal The [facility] Comment on above: Order Comment: #1 LE FT ACETABULUM Performed By: #### 3 0338 #### [facility] [address] [place], [place] [id number] [place] [address] *TISSUE CULTURE Clinical Report: (D) Specimen/Source: TISSUE/INTRAOP SPEC Collected: 11/12/2020 09:33 Status: Final Last Updated: 11/17/2020 08:44 (1) #1 LEFT ACETABULUM GRAM (Final) Few Polys No Bacteria Seen CULT RES (Final) No Growth Day 5 Normal The [facility] Comment on above: Order Comment: #1 LE FT ACETABULUM Performed By: #### 3 0338 #### [facility] [address] [place] [address], [place] BASIC METABOLIC PANELon 10-25 Calcium [Mass/Vol] 8.8 mg/dL Normal 8.6-10.3 The [facility] Comment on above: Order Comment: Yes: Add to Previous draw if able Performed By: #### 0 0071 ####[facility] [place] [address], [place] Chloride [Moles/Vol] 101 mmol/L Normal 98-107 The [facility] Comment on above: Order Comment: Yes: Add to Previous draw if able Performed By: #### 0 0071 ####[facility] [place] [address], [place] CO2 [Moles/Vol] 27 mmol/L Normal 21-31 The [facility] Comment on above: Order Comment: Yes: Add to Previous draw if able Performed By: #### 0 0071 ####[facility] [place] [address], [place] Creatinine [Mass/Vol] 1.07 mg/dL Normal 0.70-1.30 The [facility] Comment on above: Order Comment: Yes: Add to Previous draw if able Performed By: #### 0 0071 ####[facility] [place] [address], [place] GFR/1.73 sq M.predicted among blacks MDRD (S/P/Bld) [Vol rate/Area] mL/min/{1.73_m2} Normal >60 The [facility] Comment on above: Order Comment: Yes: Add to Previous draw if able Performed By: #### 0 0071 ####[facility] [place] [address], [facility] GFR/1.73 sq M.predicted among non-blacks MDRD (S/P/Bld) [Vol rate/Area] mL/min/{1.73_m2} Normal >60 The [facility] Comment on above: Order Comment: Yes: Add to Previous draw if able Performed By: #### 0 0071 ####[facility] [place] [address], [facility] Glucose [Mass/Vol] 213 mg/dL High 70-100 The [facility] Comment on above: Order Comment: Yes: Add to Previous draw if able Performed By: #### 0 0071 ####[facility] [facility] [place] [address], [facility] Potassium [Moles/Vol] 4.1 mmol/L Normal 3.5-5.1 The [facility] Comment on above: Order Comment: Yes: Add to Previous draw if able Performed By: #### 0 0071 ####[facility] [facility] [place] [place] [address], [facility] Sodium [Moles/Vol] 135 mmol/L Low 136-145 The [facility] Comment on above: Order Comment: Yes: Add to Previous draw if able Performed By: #### 0 0071 ####[facility] [facility] [place] [address], [facility] Urea nitrogen [Mass/Vol] 19 mg/dL Normal 7-25 The [facility] Comment on above: Order Comment: Yes: Add to Previous draw if able Performed By: #### 0 0071 ####[facility] [facility] [place] [address], [facility] POC GLUCOSE LABon 11-12-2020 Glucose [Mass/Vol] 171 mg/dL High 70-100 The [facility] Comment on above: Performed By: #### 3 0965 #### [facility] [address] [place] [address], [place] Glucose [Mass/Vol] 193 mg/dL High 70-100 The [facility] Comment on above: Performed By: #### 3 0965 #### [facility] [address] [facility] [place] [place] [address], [place] Glucose [Mass/Vol] 172 mg/dL High 70-100 The [facility] Comment on above: Performed By: #### 3 1792 #### [facility] [address] [facility] [place] [address], [place] Glucose [Mass/Vol] 120 mg/dL High 70-100 The [facility] Comment on above: Performed By: #### 3 0965 #### [facility] [address] [facility] [place] [address], [facility] PORTABLE HIP LEFT 1 OR 2 VWS WITH PELVISon 11-12-2020 PORTABLE HIP LEFT 1 OR 2 VWS WITH PELVIS [facility] Department of Radiology [address] [place] [id number] ======== Patient Name: KIN FLORES : 1955 Sex: M Age: Race: White Pt. Location: OUTP Patient Status: I Ordered Date: 11/12/2020 8:35:00 AM Completed Date: 11/12/2020 01:28 PM Requesting Provider: JACINTO MATA Attending Provider: SIAI CURIEL Report Copy To: Signs & Symptoms: Post OP History: Comments: Hardware Evaluation, AP/Lateral Exam: PORTABLE HIP LEFT 1 OR 2 VWS WITH PELVIS ======== PORTABLE HIP LEFT 1 OR 2 VWS WITH PELVIS 11/12/2020 1:28 PM CLINICAL INDICATIONS: Post OP TECHNOLOGIST COMMENTS: post op hardware evaluation. left hip replacement QUESTION FOR THE RADIOLOGIST: Hardware Evaluation, AP/Lateral PROTOCOL: AP(PA) and Lateral views were obtained. COMPARISON: 09/29/2020 FINDINGS: Left hip replacement has been removed with a spacing arthroplasty device now seen. Air in the soft tissues is compatible with recent surgery. No evidence for an acute fracture or dislocation. No destructive lesion. Right hip arthroplasty noted. Lumbar spine degenerative change. IMPRESSION: Status post left hip surgery as described. No acute fracture. Electronically signed: Darien Hammond. Transcribed by: [email or web address], User Resident: Electronically Signed by: DARIEN HAMMOND @ 11/12/2020 03:25 PM Normal The [facility] Comment on above: Order Comment: Left hip , Body Part: Hip RBC'S 2 UNITSon 11-12-2020 CROSSMATCH INTERP 1 COMP Normal The [facility] Comment on above: Performed By: #### 8 6002 ####[facility] [facility] [address], [facility] CROSSMATCH INTERP 2 COMP Normal The [facility] Comment on above: Performed By: #### 8 6002 ####[facility] [place] [address], [facility] PRODUCT CODE 1 E0336 Normal The [facility] Comment on above: Performed By: #### 8 6002 ####[facility] [place] [address], [place] PRODUCT CODE 2 E0336 Normal The [facility] Comment on above: Performed By: #### 8 6002 ####[facility] [place] [address], [place] PRODUCT STATUS 1 RE Normal The [facility] Comment on above: Result Comment: Resu lt changed by IF on 11/15/2020 08:52. The previous value was XM. Performed By: #### 8 6002 ####[facility] [place] [address], [facility] PRODUCT STATUS 2 RE Normal The [facility] Comment on above: Result Comment: Resu lt changed by IF on 11/15/2020 08:52. The previous value was XM. Performed By: #### 8 6002 ####[facility] [place] [address], [facility] UNIT ABO 1 O Normal The [facility] Comment on above: Performed By: #### 8 6002 ####[facility] [place] [address], [facility] UNIT ABO 2 O Normal The [facility] Comment on above: Performed By: #### 8 6002 ####[facility] [place] [address], [facility] UNIT ID 1 [id number] Normal The [facility] Comment on above: Performed By: #### 8 6002 ####[facility] [place] [address], [facility] UNIT ID 2 [id number] Normal The [facility] Comment on above: Performed By: #### 8 6002 ####[facility] [place] [address], [facility] UNIT RH 1 Negative Normal The [facility] Comment on above: Performed By: #### 8 6002 ####[facility] [place] [address], [facility] UNIT RH 2 Negative Normal The [facility] Comment on above: Performed By: #### 8 6002 ####[facility] [place] [address], [facility] *MRSA/MSSA DNA NASALon 11-08 *MRSA/MSSA DNA NASAL Clinical Report: (D ) Specimen: NASAL SWAB Collected: 11/08/2020 10:12 Status: Final Last Updated: 11/09/2020 04:56 MSSA DNA (Final) Negative MRSA DNA (Final) Negative Normal The [facility] Comment on above: Performed By: #### 3 0338 #### [facility] [address] [facility]. [address] *SARS-CoV-2 COVID-19on 11-08 SARS-CoV-2 (COVID-19) RNA CELSO+probe Ql (Unsp spec) Not detected Normal Not Detected The [facility] Comment on above: Order Comment: The A ptima SARS-CoV-2 assay is a nucleic acid amplification test intended for the qualitative detection of RNA from SARS-CoV-2 isolated and purified from nasopharyngeal (GRE TUTOR),oropharyngeal (OP), nasal swab, sputum, and bronchoalveolar lavage (BAL) specimens from patients with signs and symptoms of infection who are suspected of COVID-19. Results are for the identification of SARS-CoV-2 RNA. The SARS-CoV-2 RNA is generally detectable during the acute phase of infection. The Aptima SARS-CoV-2 Assay on the AC Immune SA and AC Immune SA Fusion system is intended for use by laboratory personnel specifically instructed and trained in the operation of the [facility] and AC Immune SA Fusion system. The Aptima SARS-CoV-2 assay is only for use under the Food and Drug Administration Emergency Use Authorization. Testing is limited to laboratories certified under the Clinical Laboratory Improvement Amendments of 1988 (CLIA), 42 U.S.C. ???263a, to perform high complexity tests. Not Detected: Not detected does not preclude SARS-CoV-2 infection and should not be used as the sole basis for patient management decisions. Not detected results must be combined with clinical observations, patient history, and epidemiological information. Performed By: #### 3 1792 #### [facility] [address] [facility]. [address] APTTon 11-08-2020 aPTT Coag (Bld) [Time] 31.1 s Normal 25.0-35.0 Th e [facility] Comment on above: Result Comment: ALL RESULTS MUST BE INTERPRETED WITH RESPECT TO BLOOD DRAWING ARTIFACT OR DILUTION ERROR OF ANTICOAGULANT AT THE TIME OF SAMPLING. THE APTT SHOULD NOT BE USED TO MONITOR UNFRACTIONATED HEPARIN THERAPY, THIS LABORATORY NO LONGER HAS AN ESTABLISHED THERAPEUTIC RANGE BASED ON THE APTT. IT IS RECOMMENDED THAT THE UFH - HEPARIN ASSAY (ANTI-XA ACTIVITY) BE USED FOR THIS PURPOSE. Performed By: #### 8 5499 #### [facility] [address] [facility] [place] [address], [facility] BASIC METABOLIC PANELon 05- Calcium [Mass/Vol] 9.6 mg/dL Normal 8.6-10.3 The [facility] Comment on above: Performed By: #### 0 0071 ####[facility] [place] [address], [facility] Chloride [Moles/Vol] 102 mmol/L Normal 98-107 The [facility] Comment on above: Performed By: #### 0 0071 ####[facility] [place] [address], [facility] CO2 [Moles/Vol] 28 mmol/L Normal 21-31 The [facility] Comment on above: Performed By: #### 0 0071 ####[facility] [place] [address], [facility] Creatinine [Mass/Vol] 0.87 mg/dL Normal 0.70-1.30 The [facility] Comment on above: Performed By: #### 0 0071 ####[facility] [place] [address], [facility] GFR/1.73 sq M.predicted among blacks MDRD (S/P/Bld) [Vol rate/Area] mL/min/{1.73_m2} Normal >60 The [facility] Comment on above: Performed By: #### 0 0071 ####[facility] [facility] [place] [place] [address], [facility] GFR/1.73 sq M.predicted among non-blacks MDRD (S/P/Bld) [Vol rate/Area] mL/min/{1.73_m2} Normal >60 The [facility] Comment on above: Performed By: #### 0 0071 ####[facility] [place] [address], [facility] Glucose [Mass/Vol] 134 mg/dL High 70-100 The [facility] Comment on above: Performed By: #### 0 0071 ####[facility] [place] [address], [facility] Potassium [Moles/Vol] 4.0 mmol/L Normal 3.5-5.1 The [facility] Comment on above: Performed By: #### 0 0071 ####[facility] [place] [address], [facility] Sodium [Moles/Vol] 137 mmol/L Normal 136-145 The [facility] Comment on above: Performed By: #### 0 0071 ####[facility] [place] [address], [facility] Urea nitrogen [Mass/Vol] 15 mg/dL Normal 7-25 The [facility] Comment on above: Performed By: #### 0 0071 ####[facility] [facility] [place] [address], [facility] CBC COMPLETE BLOOD COUNTon - Erythrocyte distribution width (RBC) [Ratio] 13.2 % Normal 11.5-15.0 The [facility] Comment on above: Performed By: #### 5 0608 #### [facility] [address] [place] [address], [facility] Hematocrit (Bld) [Volume fraction] 44.4 % Normal 39.0-50.0 The [facility] Comment on above: Performed By: #### 5 0608 #### [facility] [address] [place] [address], [facility] Hemoglobin (Bld) [Mass/Vol] 13.9 g/dL Normal 13.0-17.0 [facility] Comment on above: Performed By: #### 5 0608 #### [facility] [address] [place] [address], [facility] MCH (RBC) [Entitic mass] 28.7 pg Normal 27.0-33.0 [facility] Comment on above: Performed By: #### 5 0608 #### [facility] [address] [place] [address], [facility] MCHC (RBC) [Mass/Vol] 31.3 g/dL Low 32.0-35.0 [facility] Comment on above: Performed By: #### 5 0608 #### [facility] [address] [facility] [place] [address], [facility] MCV (RBC) [Entitic vol] 91.7 fL Normal 82.0-98.0 [facility] Comment on above: Performed By: #### 5 0608 #### [facility] [address] [place] [address], [facility] Nucleated RBC/100 WBC (Bld) [Ratio] 0 % Normal 0-0 [facility] Comment on above: Performed By: #### 5 0608 #### [facility] [address] [facility] [place] [address], [facility] PLAT CNT 250 10*3/uL Normal 150-400 [facility] Comment on above: Performed By: #### 5 0608 #### [facility] [address] [facility] [place] [address], [facility] RBC (Bld) [#/Vol] 4.84 10*6/uL Normal 4.20-5.70 [facility] Comment on above: Performed By: #### 5 0608 #### [facility] [address] [place] [address], [facility] WBC (Bld) [#/Vol] 7.78 10*3/uL Normal 4.00-10.60 [facility] Comment on above: Performed By: #### 5 0608 #### [facility] [address] [facility]. [address] PROTHROMBIN TIMEon INR Coag (PPP) [Relative time] 0.94 {INR} Normal 0.91-1.16 [facility] Comment on above: Result Comment: ACCC P RECOMMENDED INR FOR WARFARIN THERAPY --------- ------- CONDITION INR PROPHYLAXIS OF VENOUS THROMBOSIS 2-3 (HIGH-RISK SURGERY) TREATMENT OF VENOUS THROMBOSIS 2-3 TREATMENT OF PULMONARY EMBOLISM 2-3 PREVENTION OF SYSTEMIC EMBOLISM: 2-3 ACUTE MYOCARDIAL INFARCTION TISSUE HEART VALVES VALVULAR HEART DISEASE ATRIAL FIBRILLATION RECURRENT SYSTEMIC EMBOLISM MECHANICAL HEART VALVE 2.5-3.5 FROM: ORAL ANTICOAGULANTS. MECHANISM OF ACTION, CLINICAL EFFECTIVENESS, AND OPTIMAL THERAPEUTIC RANGE. CHEST 1995;108:231S-246S. Performed By: #### 8 5499 #### [facility] [address] [place] [address], [facility] PT Coag (PPP) [Time] 12.6 s Normal 12.3-14.8 [facility] Comment on above: Result Comment: ALL RESULTS MUST BE INTERPRETED WITH RESPECT TO BLOOD DRAWING ARTIFACT OR DILUTION ERROR OF ANTICOAGULANT AT THE TIME OF SAMPLING. Performed By: #### 8 5499 #### [facility] [address] [facility] TYPE AND CROSSMATCHon 2020 ABO INTERPRETATION O Normal [facility] Comment on above: Performed By: #### 8 5499 #### [facility] [address] [place] [address], [facility] RH INTERPRETATION Negative Normal [facility] Comment on above: Performed By: #### 8 5499 #### [facility] [address] [place] [address], [place] URINALYSIS REFLEXon 11-09-19 21 Appearance (U) CLEAR Normal CLEAR [facility] Comment on above: Performed By: #### 3 0965 #### [facility] [address] [place] [address], [place] Bilirubin Ql (U) Negative Normal NEGATIVE [facility] Comment on above: Performed By: #### 3 0965 #### [facility] [address] [place] [address], [place] Color (U) STRAW Abnormal YELLOW [facility] Comment on above: Performed By: #### 3 0965 #### [facility] [address] [place] [address], [place] Glucose Ql (U) Negative Normal NEGATIVE [facility] Comment on above: Performed By: #### 3 0965 #### [facility] [address] [place] [address], [place] Hemoglobin Ql (U) Negative Normal NEGATIVE [facility] Comment on above: Performed By: #### 3 0965 #### [facility] [address] [place] [address], [place] KETONE Negative Normal NEGATIVE [facility] Comment on above: Performed By: #### 3 0965 #### [facility] [address] [place] [address], [place] LEUK KYLE Negative Normal NEGATIVE [facility] Comment on above: Performed By: #### 3 0965 #### [facility] [address] [place] [address], [place] MICRO NOT DONE Normal [facility] Comment on above: Result Comment: Micr oscopics not performed on urines with negative chemical reactions unless requested in original order Performed By: #### 3 0965 #### [facility] [address] [place] [address], [facility] Nitrite Ql (U) Negative Normal NEGATIVE [facility] Comment on above: Performed By: #### 3 0965 #### [facility] [address] [place] [address], [facility] pH (U) 6.0 [pH] Normal 5.0-8.0 [facility] Comment on above: Performed By: #### 3 0965 #### [facility] [address] [place] [address], [facility] Protein Ql (U) Negative Normal NEGATIVE [facility] Comment on above: Performed By: #### 3 0965 #### [facility] [address] SPEC GRAV 1.005 Low 1.015-1.020 [facility] Comment on above: Performed By: #### 3 0965 #### [facility] [address] HIP LEFT 1 OR 2 VWS WITH PEL VISon 09-29-2020 HIP LEFT 1 OR 2 VWS WITH PELVIS [facility] Department of Radiology [address] [place] [id number] ======== Patient Name: KIN FLORES : 1955 Sex: M Age: Race: White Pt. 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 COMPARISON: None FINDINGS: Pelvic ring looks grossly intact Bilateral total hip replacements are seen Anatomic alignment Distal right femoral stem is not fully included No acute fracture is visible There is some chronic remodeling of the proximal femur on the left with cortical thickening, heterotopic new bone formation near the greater trochanter and subtrochanteric region There is not significant bone resorption or lucency seen around the prosthesis Lucency projecting near the acetabular screw may be related to bowel gas Significant degenerative change and hypertrophic bony change seen along the lower lumbar spine. 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 Transcribed by: [email or web address], User Resident: Electronically Signed by: JANETH THORNTON @ 09/29/2020 09:51 AM Normal [facility] Comment on above: Order Comment: Left hip , Body Part: Hip *ANAEROBIC CULTUREon 021 *ANAEROBIC CULTURE Clinical Report: (D) Specimen: SWAB Collected: 09/18/2020 10:30 Status: Final Last Updated: 09/23/2020 08:01 ISO (Final) No Anaerobes Isolated Day 5 Normal [facility] Comment on above: Performed By: #### 3 0338 #### [facility] [address] *BLOOD CULTUREon 09-18-2020 *BLOOD CULTURE Clinical Report: (D) Specimen/Source: BLOOD CULTURE/ARM, LEFT Collected: 09/18/2020 10:54 Status: Final Last Updated: 09/24/2020 08:00 (1) L. ARM CULT RES (Final) No Growth Day 5 Normal [facility] Comment on above: Order Comment: L. AR M Performed By: #### 8 5499 #### [facility] [address] *BLOOD CULTURE Clinical Report: (D) Specimen/Source: BLOOD CULTURE/HAND, LEFT Collected: 09/18/2020 10:54 Status: Final Last Updated: 09/24/2020 08:00 (1) L. HAND CULT RES (Final) No Growth Day 5 Normal [facility] Comment on above: Order Comment: #1 LE FT ACETABULUM Performed By: #### 3 0338 #### [facility] [address] *BODY FLUID CULTUREon 2020 *BODY FLUID CULTURE Clinical Report: (D) Specimen: FLUID Collected: 09/18/2020 11:41 Status: Final Last Updated: 09/23/2020 07:54 (1) No collection time noted on specimen or requisition. The collection time recorded is the time of receipt in the lab. GRAM (Final) Rare Polys No Bacteria Seen ISO (Final) Staphylococcus epidermidis Isolated from broth culture ISOLATE: Staphylococcus epidermidis -- HEYDI (mcg/ml) CLINDAMYCIN (CC) <=0.5 Susceptible OXACILLIN (OX) >1 Resistant TETRACYCLINE (TE) <=0.5 Susceptible VANCOMYCIN (VA) 1 Susceptible Normal [facility] Comment on above: Order Comment: #1 LE FT ACETABULUM Performed By: #### 3 0338 #### [facility] [address] ASPIRATION LARGE JOINTon ASPIRATION LARGE JOINT [facility] Department of Radiology [address] [place] [address] ======== Patient Name: KIN FLORES : 1955 Sex: M Age: Race: White Pt. Location: Patient Status: D Ordered Date: 09/17/2020 4:00:00 PM Completed Date: 09/18/2020 11:42 AM Requesting Provider: KAREEM ESTES Attending Provider: KAREEM ESTES Report Copy To: DEEJAY MANUEL Signs & Symptoms: T84.031A [facility], init I10 History: Comments: Left hip , Body Part: Hip Exam: ASPIRATION LARGE JOINT ======== Addendum Begins Approximately 9 images were obtained. Electronically signed: Joana Downey. Addendum Ends ASPIRATION LARGE JOINT CLINICAL INFORMATION: Hip pain. COMPARISON: None. PROCEDURE: The patient was brought to the fluoroscopy suite where informed written consent was obtained. The patient appeared to understand the procedure and wished to proceed. The patient was placed supine on fluoroscopic examination table. Left hip arthroplasty identified. The left hip joint was marked under fluoroscopic guidance. The left hip was then prepped and draped in the usual sterile fashion. After local anesthesia was obtained with 1% lidocaine, a 20 gauge needle was advanced into the left hip joint. Intra-articular placement was confirmed with contrast material. After this 1 cc of turbid fluid was aspirated. The patient tolerated the procedure well. There were no immediate complications. Dr. Downey used 0.53 minutes of fluoro time , 10 ml's of 1% Lidocaine, and 3 ml's of Omnipaque 240 to remove 1 ml of aspirate from left hip. IMPRESSION: 1. Successful left hip aspiration. Approximately 1 cc turbid fluid aspirated and sent for requested laboratory studies. Electronically signed: Joana Downey. Transcribed by: [email or web address], User Resident: Electronically Signed by: JOANA DOWNEY @ 10/03/2020 02:24 PM Normal [facility] Comment on above: Order Comment: Left hip , Body Part: Hip C REACTIVE PROTEINon 021 CRP [Mass/Vol] 3.8 mg/L Normal 0.0-7.0 [facility] Comment on above: Performed By: #### 8 5499 #### [facility] [address] CBC W/DIFFon 09-18-2020 ABS IMM GRANS 0.0 10*3/uL Normal 0.0-0.2 [facility] Comment on above: Performed By: #### 5 0103, [address] ####[facility] ABS NEUTROPHILS 4.9 10*3/uL Normal 1.6-7.6 [facility] Comment on above: Performed By: #### 5 0103, 22087 ####[facility] Basophils (Bld) [#/Vol] 0.0 10*3/uL Normal 0.0-0.2 [facility] Comment on above: Performed By: #### 5 0103, 36726 ####[facility] Basophils/100 WBC (Bld) 0.2 % Normal 0.0-1.0 [facility] Comment on above: Performed By: #### 5 0103, [address]7020 ####[facility] [facility] Eosinophils (Bld) [#/Vol] 0.2 10*3/uL Normal 0.0-0.5 [facility] Comment on above: Performed By: #### 102, 05139 ####[facility] [facility].[address] Eosinophils/100 WBC (Bld) 3.2 % Normal 0.0-6.0 [facility] Comment on above: Performed By: #### 102, [address] ####[place] [address] [facility].[address] Erythrocyte distribution width (RBC) [Ratio] 13.5 % Normal 11.5-15.0 [facility] Comment on above: Performed By: #### 102, 64994 ####[facility] [facility].[address] Hematocrit (Bld) [Volume fraction] 44.8 % Normal 39.0-50.0 [facility] Comment on above: Performed By: #### 102, 52021 ####[facility] [facility].[address] Hemoglobin (Bld) [Mass/Vol] 14.4 g/dL Normal 13.0-17.0 [facility] Comment on above: Performed By: #### 102, 84774 ####[facility] [facility].[address] IMMATURE GRANS 0.3 % Normal 0.0-1.0 [facility] Comment on above: Performed By: #### 102, [address]47 ####[place] [address] [facility].[address] Lymphocytes (Bld) [#/Vol] 0.9 10*3/uL Low 1.2-4.0 [facility] Comment on above: Performed By: #### 5 102, 25592 ####[facility] Lymphocytes/100 WBC (Bld) 13.6 % Low 20.0-45.0 [facility] Comment on above: Performed By: #### 5 102, 09651 ####[facility] MCH (RBC) [Entitic mass] 29.3 pg Normal 27.0-33.0 [facility] Comment on above: Performed By: #### 5 102, 07599 ####[facility] [place] [address] MCHC (RBC) [Mass/Vol] 32.1 g/dL Normal 32.0-35.0 [facility] Comment on above: Performed By: #### 5 102, 13906 ####[facility] MCV (RBC) [Entitic vol] 91.2 fL Normal 82.0-98.0 [facility] Comment on above: Performed By: #### 5 102, 55155 ####[facility] Monocytes (Bld) [#/Vol] 0.5 10*3/uL Normal 0.1-1.0 [facility] Comment on above: Performed By: #### 5 102, 78895 ####[facility] MONOS 7.4 % Normal 5.0-12.0 [facility] Comment on above: Performed By: #### 5 102, [address]367 ####[address] Neutrophils/100 WBC (Bld) 75.3 % High 40.0-72.0 [facility] Comment on above: Performed By: #### 5 102, 97328 ####[facility] [facility].[address] Nucleated RBC/100 WBC (Bld) [Ratio] 0 % Normal 0-0 [facility] Comment on above: Performed By: #### 5 102, 44309 ####[facility] [facility].[address] PLAT CNT 240 10*3/uL Normal 150-400 [facility] Comment on above: Performed By: #### 5 102, 25105 ####[place] [address] [facility].[address] RBC (Bld) [#/Vol] 4.91 10*6/uL Normal 4.20-5.70 [facility] Comment on above: Performed By: #### 5 102, 37667 ####[facility] [facility].[address] WBC (Bld) [#/Vol] 6.47 10*3/uL Normal 4.00-10.60 [facility] Comment on above: Performed By: #### 5 102, 42309 ####[facility] [facility].[address] FLUID CELL COUNTon 1 Lymphocytes/100 WBC (Bld) 4 % Normal [facility] Comment on above: Performed By: #### 4 2083, 85048 ####[facility] [facility].[address] MACROPHAGE 1 % Normal [facility] Comment on above: Performed By: #### 4 2083, 79672 ####[facility] [facility].[address] OTHER F1 Diff done by cytospin Normal [facility] Comment on above: Performed By: #### 4 2083, 00110 ####[facility] [place] [address], [facility] OTHER F3 Normal [facility] Comment on above: Result Comment: Chec ked by Tamiko Quispe M.D. Result changed by MEENA on 09/20/2020 20:52. The previous value was Preliminary report; verified report to follow. Performed By: #### 4 2083, 27257 ####[facility] [place] [address], [facility] RBC 5101 RBC/uL Normal [facility] Comment on above: Performed By: #### 4 2083, 37490 ####[facility] [place] [address], [facility] SEGS 95 % Normal [facility] Comment on above: Performed By: #### 4 2083, 00541 ####[facility] [place] [address], [facility] SOURCE Synovial Normal [facility] Comment on above: Performed By: #### 4 2083, 14321 ####[facility] [place] [address], [facility] TOTAL VOLUME 1mL Normal [facility] Comment on above: Performed By: #### 4 2083, 11544 ####[facility] [place] [address], [place] WBC 5287 WBC/uL Normal [facility] Comment on above: Result Comment: Some reference interval(s) and other method performance specifications have not been established for analytes on this body fluid. The test result must be integrated into the clinical context for interpretation. Performed By: #### 4 2083, 21941 ####[facility] [place] [address], [place] FLUID CRYSTALSon 09-18-2020 Crystals LM Nom (Urine sed) NO CRYSTALS SEEN Normal NO CRYSTALS SEEN [facility] Comment on above: Performed By: #### 4 8494, 71632 ####[facility] [facility].[address] SEDIMENTATION RATEon 021 SED RATE 3 mm/hr Normal 0-10 [facility] Comment on above: Performed By: #### 5 0103, 29651 ####[facility] [facility] Ambulatory Clinical Summaryo n 06-04-2020 Ambulatory Clinical Summary {[id number] }[id number] Normal [facility] Patient Educationon 06-04-20 Patient Education Family Medicine Urinary Frequency The number of times a normal person urinates depends upon how much liquid they take in and how much liquid they are losing. If the temperature is hot and there is high humidity then the person will sweat more and usually breathe a little more frequently. These factors decrease the amount of frequency of urination that would be considered normal. The amount you drink is easily determined, but the amount of fluid lost is sometimes more difficult to calculate. Fluid is lost in two ways: ? Sensible fluid loss is usually measured by the amount of urine that you get rid of. Losses of fluid can also occur with diarrhea. ? Insensible fluid loss is more difficult to measure. It is caused by evaporation. Insensible loss of fluid occurs through breathing and sweating. It usually ranges from a little less than a quart to a little more than a quart of fluid a day. In normal temperatures and activity levels the average person may urinate 4 to 7 times in a 24-hour period. Needing to urinate more often than that could indicate a problem. If one urinates 4 to 7 times in 24 hours and has large volumes each time, that could indicate a different problem from one who urinates 4 to 7 times a day and has small volumes. The time of urinating is also an important. Most urinating should be done during the waking hours. Getting up at night to urinate frequently can indicate some problems. CAUSES The bladder is the organ in your lower abdomen that holds urine. Like a balloon, it swells some as it fills up. Your nerves sense this and tell you it is time to head for the bathroom. There are a number of reasons that you might feel the need to urinate more often than usual. They include: ? Urinary tract infection. This is usually associated with other signs such as burning when you urinate. ? In men, problems with the prostate (a walnut-size gland that is located near the tube that carries urine out of your body). There are two reasons why the prostate can cause an increased frequency of urination: ? An enlarged prostate that does not let the bladder empty well. If the bladder only half empties when you urinate then it only has half the capacity to fill before you have to urinate again. ? The nerves in the bladder become more hypersensitive with an increased size of the prostate even if the bladder empties completely. ? . ? Obesity. Excess weight is more likely to cause a problem for women more than for men. ? Bladder stones or other bladder problems. ? Caffeine. ? Alcohol. ? Medications. For example, drugs that help the body get rid of extra fluid (diuretics ) increase urine production. Some other medicines must be taken with lots of fluids. ? Muscle or nerve weakness. This might be the result of a spinal cord injury, a stroke, multiple sclerosis or Parkinson's disease. ? Long-standing diabetes can decrease the sensation of the bladder. This loss of sensation makes it harder to sense the bladder needs to be emptied. Over a period of years the bladder is stretched out by constant overfilling. This weakens the bladder muscles so that the bladder does not empty well and has less capacity to fill with new urine. ? Interstitial cystitis (also called painful bladder syndrome). This condition develops because the tissues that line the insider of the bladder are inflamed (inflammation is the body's way of reacting to injury or infection). It causes pain and frequent urination. It occurs in women more often than in men. DIAGNOSIS ? To decide what might be causing your urinary frequency, your healthcare provider will probably: ? Ask about symptoms you have noticed. ? Ask about your overall health. This will include questions about any medications you are taking. ? Do a physical examination. ? Order some tests. These might include: ? A blood test to check for diabetes or other health issues that could be contributing to the problem. ? Urine testing. This could measure the flow of urine and the pressure on the bladder. ? A test of your neurological system (the brain, spinal cord and nerves). This is the system that senses the need to urinate. ? A bladder test to check whether it is emptying completely when you urinate. ? Cytoscopy. This test uses a thin tube with a tiny camera on it. It offers a look inside your urethra and bladder to see if there are problems. ? Imaging tests. You might be given a contrast dye and then asked to urinate. X-rays are taken to see how your bladder is working. TREATMENT It is important for you to be evaluated to determine if the amount or frequency that you have is unusual or abnormal. If it is found to be abnormal the cause should be determined and this can usually be found out easily. Depending upon the cause treatment could include medication, stimulation of the nerves, or surgery. There are not too many things that you can do as an individual to change your urinary (more content not included)... Normal [facility] Urology Office/Clinic Noteon 06-04-2020 Urology Office/Clinic Note Chief Complaint 2 month HPI Staff Pt is here for a 2 month f/u. Pt has Renal US done 05/15/20. Pt stopped testosterone due to BP being elevated. Pt seen Dr. Manuel and he has a renal US done. Last Testosterone level done and was at 579. Pt is here to talk testosterone options. Dysuria: no pain or burning Incomplete bladder emptying: emptying well Hematuria: denies any blood in urine , UA is neg Frequency: normal Urgency: none Nocturia: mild, 2x this has improved from 4x Stream: average stream, nice steady stream. Post void dripping: none Wearing pads/ Depends: none worn Urge incontinence: none Stress incontinence: none Incontinence without Sensory Awareness: none Abdominal pain: no pain Flank pain: _none Sexual complaints: not taking sildenafil History of Present Illness Reviewed UA, test. level, and renal us. There have been no associated fever, chills, flank pain or blood in the urine. Pt. denies any pain/burning with urination at this time. Review of Systems PHQ Score Initial Depression Screen Score: 0 General: Fevers Denies, Weight Loss Denies, Weakness Denies Skin: Rash Denies, Non-healed Skin Wound Denies Blood: Bruising Denies, Bleeding Denies, Anemia Denies Eyes: Eye Problems Denies Ears: Recent Hearing Problems Denies Respiratory: Cough Denies, Coughing Blood Denies, Shortness of Breath Denies, Respiratory Infections Denies, Loud Snoring Denies Cardiovascular: Chest Pain Denies, Sensation of Irregular Heart Beat Denies Intestinal: Constipation Denies, Diarrhea Denies, Rectal Bleeding/Blood in Stool Denies Hemorrhoids Denies, Indigestion Denies, Nausea Denies, Vomiting Denies Genito-Urinary: Have you ever seen blood in your urine Denies, Have you ever been told there was blood in your urine Denies, Penile Discharge Denies, Penile Bleeding Denies, Leaking Urine (incontinence) Denies, Flank or Kidney Pain Denies, Pain relating to your bladder filling or emptying Denies, Burning with Urination Denies, Urinary Tract Infection Denies Kidney Stone Denies, Sexual Difficulties Yes Muscle-Skeletal: Joint Pain Denies, Back Pain Denies, Muscle Cramps Denies Nervous System: Headaches Denies, Seizures Denies, Blackouts Denies, Numbness Denies Weakness in a certain area of your body Denies, Tingling in a certain area of your body Denies Psychological: Confusion Denies, Anxiety Denies Other Free Text: Physical Exam Vitals & Measurements HR: 118(Peripheral) RR: 18 BP: 136/95 HT: 183 cm HT: 183.0 cm WT: 132 kg WT: 132.0 kg BMI: 39.42 General Appearance: alert, no distress, well nourished, well developed male. Flank Pain: none. Bladder: nonpalpable Assessment/Plan 1. 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 is getting test. inj. q2wks. 200mg IM by PCP. Current Test. level drawn on 03/26/2020 w/ a level o 579 ([phone]). Will have pt. continue inj. as directed and will have pt. get hematocrit and Crea. labs drawn. All questions/concerns were discussed. Pt. to call the office if heencounters any issues prior. Pt. acknowledges understanding. Ordered: Creatinine Hematocrit PSA Total Urnls Dip Stick Auto w/o Microscopy POC 67531 2. Nocturia (R35.1: Nocturia) Improved. 2x/night as opposed to 2x/night. Pt. is doing well overall w/ his urination w/ no bothersome symptoms. Ordered: Creatinine Hematocrit PSA Total 3. Impotence (N52.1: Erectile dysfunction due to diseases classified elsewhere) Pt. was prescribed Sildenafil 100mg prn but states that is not using it. Pt. denies issues at this time. Ordered: Creatinine Hematocrit PSA Total 4. Screening PSA (prostate specific antigen) (Z12.5: Encounter for screening for malignant neoplasm of prostate) Last PSA drawn on 11/05/2019 w/ a level of 3.24. Will have pt. get another level soon. Ordered: Creatinine Hematocrit PSA Total I have reviewed the previous health record information and history for this pt. from Dr. Jensen. 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 At this time he was agreeable to a PSA, HCT, and given his renal ultrasound findings reporting mid arterial changes of questionable significance in the setting of HTN controlled today on medications with his PCP. His last PSA was October, he started TRT in December. Await Hct, PSA, and check Cr. I explained the limited results with renalvascula stenting as compared to cardiac stenting. COnsider vascular referral for renal arteriogram but there is still not concensus about the optimal management of renovascular hypertension. One reasonable approach is if not proteinuria(none toady) and BP controlled with medication is to follow Cr and BP on 2 to 3 meds. For refractory BP (more than 3 meds, no controll on 3 meds), proteinuria over a certain threshold consider (more content not included)... Normal [facility] Comment on above: Result Comment: Elec tronically Signed By: Mikey JOHNSON, Wong Solis\\.br\\Date and Time Signed: 06/04/20 10:32 EST\\.br\\Electronically Co-Signed By: Kelly Goss MA\\.br\\Date and Time Co-Signed: 06/04/20 10:25 EST Vital Signs Date Time Vital Sign Value Performing Clinician Facility 11-30-2024 14:30-0400 Body height 182.88 cm [facility] 11-30-2024 14:30-0400 Body mass index (BMI) [Ratio] 34.4 kg/m2 [facility] 11-30-2024 14:30-0400 Body weight 115.21 kg [facility] 11-30-2024 14:30-0400 Diastolic blood pressure 71 mm[Hg] [facility] 11-30-2024 14:30-0400 Heart rate 91 /min [facility] 11-30-2024 14:30-0400 Systolic blood pressure 112 mm[Hg] [facility] 10-18-2024 10:45-0400 Body height 182.88 cm [facility] 10-18-2024 10:45-0400 Body mass index (BMI) [Ratio] 44.1 kg/m2 [facility] 10-18-2024 10:45-0400 Body weight 147.47 kg [facility] 10-18-2024 10:45-0400 Diastolic blood pressure 61 mm[Hg] [facility] 10-18-2024 10:45-0400 Heart rate 80 /min [facility] 10-18-2024 10:45-0400 Respiratory rate 12 /min [facility] 10-18-2024 10:45-0400 Systolic blood pressure 107 mm[Hg] [facility] 09-06-2024 13:34-0400 Body height 180.3 cm Felice Pearson DPM Work Phone: [facility] 09-06-2024 13:34-0400 Body mass index (BMI) [Ratio] 43.93 kg/m2 Felice Pearson DPM Work Phone: [facility] 09-06-2024 13:34-0400 Body weight 142.88 kg Felice Pearson DPM Work Phone: [facility] 09-06-2024 13:34-0400 Respiratory rate 18 /min Felice Pearson DPM Work Phone: [facility] 08-29-2024 13:51-0500 Body height 182.[address] 08-29-2024 13:51-0500 Body mass index (BMI) [Ratio] 34.58 kg/m2 [address] 08-29-2024 13:51-0500 Body weight 115.[address] 08-29-2024 13:51-0500 Diastolic blood pressure 76 mm[Hg] [address] 08-29-2024 13:51-0500 Heart rate 94 /min [address] 08-29-2024 13:51-0500 Systolic blood pressure 144 mm[Hg] [address] 08-23-2024 13:45-0500 Body height 180.3 cm Felice Pearson DPM Work Phone: [facility] 08-23-2024 13:45-0500 Body mass index (BMI) [Ratio] 43.93 kg/m2 Felice Pearson DPM Work Phone: [facility] 08-23-2024 13:45-0500 Body weight 142.88 kg Felice Pearson DPM Work Phone: [facility] 08-23-2024 13:45-0500 Respiratory rate 16 /min Felice Pearson DPM Work Phone: [facility] 02-21-2024 07:14-0400 Body temperature 97.9 [degF] Wesley Tomlinson MD Work Phone: [facility] 02-21-2024 07:14-0400 Diastolic blood pressure 73 mm[Hg] Wesley Tomlinson MD Work Phone: [facility] 02-21-2024 07:14-0400 Heart rate 81 /min Wesley Tomlinson MD Work Phone: [facility] 02-21-2024 07:14-0400 Respiratory rate 18 /min Wesley Tomilnson MD Work Phone: [facility] 02-21-2024 07:14-0400 SaO2% (BldA) [Mass fraction] 96 % Wesley Tomlinson MD Work Phone: [employer] 02-21-2024 07:14-0400 Systolic blood pressure 130 mm[Hg] Wesley Tomlinson MD Work Phone: [facility] [employer] 02-20-2024 09:09-0400 Body height 182.9 cm Wesley Tomlinson MD Work Phone: [facility] [employer] 02-20-2024 09:09-0400 Body mass index (BMI) [Ratio] 41.23 kg/m2 Wesley Tomlinson MD Work Phone: [facility] [employer] 02-20-2024 09:09-0400 Body weight 137.89 kg Wesley Tomlinson MD Work Phone: [facility] [employer] 02-10-2024 10:23-0400 Body height 182.9 cm [facility] [employer] [employer] 02-10-2024 10:23-0400 Body mass index (BMI) [Ratio] 41.23 kg/m2 [facility] [employer] 02-10-2024 10:23-0400 Body temperature 98.6 [degF] Sta 2 [facility] [employer] 02-10-2024 10:23-0400 Body weight 137.89 kg [facility] [employer] 02-10-2024 10:23-0400 Diastolic blood pressure 62 mm[Hg] Sta [facility] [employer] 02-10-2024 10:23-0400 Heart rate 106 /min [facility] [employer] 02-10-2024 10:23-0400 Respiratory rate 20 /min Sta 2 [facility] [employer] 02-10-2024 10:23-0400 SaO2% (BldA) [Mass fraction] 98 % Sta 2 [employer] 02-10-2024 10:23-0400 Systolic blood pressure 147 mm[Hg] Sta 2 [employer] 12-26-2023 15:04-0400 Body height 182.88 cm DO Deejay Ball Work Phone: [facility] 12-26-2023 15:04-0400 Body mass index (BMI) [Ratio] 42.9 kg/m2 DO Deejay Ball Work Phone: [facility] 12-26-2023 15:04-0400 Body weight 143.5 kg DO Deejay Ball Work Phone: [facility] 12-26-2023 15:04-0400 Diastolic blood pressure 89 mm[Hg] DO Deejay Ball Work Phone: [facility] 12-26-2023 15:04-0400 Heart rate 75 /min DO Deejay Ball Work Phone: [facility] 12-26-2023 15:04-0400 Respiratory rate 12 /min DO Deejay Ball Work Phone: [facility] 12-26-2023 15:04-0400 Systolic blood pressure 139 mm[Hg] DO Deejay Ball Work Phone: [facility] 09-26-2023 08:47-0400 Body height 182.88 cm [facility] 09-26-2023 08:47-0400 Body mass index (BMI) [Ratio] 34 kg/m2 [facility] 09-26-2023 08:47-0400 Body weight 113.96 kg [facility] 09-26-2023 08:47-0400 Diastolic blood pressure 72 mm[Hg] [facility] 09-26-2023 08:47-0400 Heart rate 94 /min [facility] 09-26-2023 08:47-0400 Systolic blood pressure 114 mm[Hg] [facility] 09-23-2023 08:58-0400 Body height 182.88 cm DO Deejay Ball Work Phone: [facility] 09-23-2023 08:58-0400 Body mass index (BMI) [Ratio] 43.4 kg/m2 DO Deejay Ball Work Phone: [facility] 09-23-2023 08:58-0400 Body weight 145.37 kg DO Deejay Ball Work Phone: [facility] 09-23-2023 08:58-0400 Diastolic blood pressure 70 mm[Hg] DO Deejay Ball Work Phone: [facility] 09-23-2023 08:58-0400 Heart rate 64 /min DO Deejay Ball Work Phone: [facility] 09-23-2023 08:58-0400 Respiratory rate 20 /min DO Deejay Ball Work Phone: [facility] 09-23-2023 08:58-0400 Systolic blood pressure 130 mm[Hg] DO Deejay Ball Work Phone: [facility] 08-22-2023 13:18-0500 Body height 182.9 cm [facility] 08-22-2023 13:18-0500 Body mass index (BMI) [Ratio] 34.45 kg/m2 [facility] [employer] 08-22-2023 13:18-0500 Body weight 115.21 kg Ace [facility] [employer] 08-22-2023 13:18-0500 Diastolic blood pressure 70 mm[Hg] [facility] [employer] 08-22-2023 13:18-0500 Heart rate 110 /min Ace Carrero MD Work Phone: [email or web address] 08-22-2023 13:18-0500 Systolic blood pressure 127 mm[Hg] Ace Carrero MD Work Phone: [email or web address] 08-08-2023 10:15-0500 Body height 182.88 cm Francisco J Carrera Other [employer] Other 08-08-2023 10:15-0500 Body mass index (BMI) [Ratio] 33.5 kg/m2 Francisco J Carrera Other [employer] Other 08-08-2023 10:15-0500 Body weight 112.04 kg Francisco J Carrera Other [employer] Other 08-08-2023 10:15-0500 Diastolic blood pressure 67 mm[Hg] Francisco J Carrera Other [employer] Other 08-08-2023 10:15-0500 Systolic blood pressure 104 mm[Hg] Francisco J Carrera Other [employer] Other 08-04-2023 11:15-0500 Body height 182.88 cm Nadiya Ramon Other [employer] Other 08-04-2023 11:15-0500 Body mass index (BMI) [Ratio] 34.85 kg/m2 Nadiya Ramon Other [employer] Other 08-04-2023 11:15-0500 Body weight 116.58 kg Nadiya Ramon Other [employer] Other 08-04-2023 11:15-0500 Diastolic blood pressure 82 mm[Hg] Nadiya Ramon Other [employer] Other 08-04-2023 11:15-0500 Systolic blood pressure 144 mm[Hg] Nadiya Ramon Other [employer] Other 08-01-2023 09:00-0500 Body height 182.9 cm Jr. Stepanic DO Work Phone: [facility] [employer] 08-01-2023 09:00-0500 Body mass index (BMI) [Ratio] 44.08 kg/m2 Jr. Stepanic DO Work Phone: [facility] [employer] 08-01-2023 09:00-0500 Body weight 147.42 kg Jr. Stepanic DO Work Phone: [facility] 07-28-2023 13:50-0500 Body temperature 97.2 [degF] Selwyn Garcia MD Work Phone: [facility] 07-28-2023 13:50-0500 Diastolic blood pressure 70 mm[Hg] Selwyn Garcia MD Work Phone: [facility] 07-28-2023 13:50-0500 Heart rate 77 /min Selwyn Garcia MD Work Phone: [facility] 07-28-2023 13:50-0500 Respiratory rate 18 /min Selwyn Garcia MD Work Phone: [facility] 07-28-2023 13:50-0500 SaO2% (BldA) [Mass fraction] 94 % Selwyn Garcia MD Work Phone: [facility] 07-28-2023 13:50-0500 Systolic blood pressure 126 mm[Hg] Selwyn Garcia MD Work Phone: [facility] 07-28-2023 09:14-0500 Body height 182.9 cm Selwyn Garcia MD Work Phone: [facility] 07-28-2023 09:14-0500 Body mass index (BMI) [Ratio] 34.31 kg/m2 Selwyn Garcia MD Work Phone: [facility] 07-28-2023 09:14-0500 Body weight 114.76 kg Selwyn Garcia MD Work Phone: [facility] 07-22-2023 09:15-0500 Body height 182.88 cm Francisco J Carrera Other [facility] 07-22-2023 09:15-0500 Body mass index (BMI) [Ratio] 34.31 kg/m2 Francisco J Carrera Other [employer] Other 07-22-2023 09:15-0500 Body weight 114.76 kg Francisco J Carrera Other [facility] [employer] Other 07-22-2023 09:15-0500 Body weight 114.75 kg [facility] 07-22-2023 09:15-0500 Diastolic blood pressure 79 mm[Hg] Francisco J Carrera Other [facility] 07-22-2023 09:15-0500 Systolic blood pressure 126 mm[Hg] Francisco J Carrera Other [facility] 06-21-2023 13:30-0500 Body height 182.88 cm DO Deejay Ball Work Phone: [facility] 06-21-2023 13:30-0500 Body weight 146.87 kg DO Deejay Ball Work Phone: [facility] 06-21-2023 13:30-0500 Diastolic blood pressure 63 mm[Hg] DO Deejay Ball Work Phone: [facility] 06-21-2023 13:30-0500 Systolic blood pressure 119 mm[Hg] DO Deejay Ball Work Phone: [facility] 03-22-2023 09:30-0400 Body height 182.88 cm Deejay Ball Other [facility] [employer] Other 03-22-2023 09:30-0400 Body mass index (BMI) [Ratio] 43.45 kg/m2 Deejay Ball Other [facility] [employer] Other 03-22-2023 09:30-0400 Body weight 145.33 kg Deejay Ball Other [facility] [employer] Other 03-22-2023 09:30-0400 Diastolic blood pressure 76 mm[Hg] Deejay Ball Other [facility] [employer] Other 03-22-2023 09:30-0400 Respiratory rate 12 /min Deejay Ball Other [employer] Other 03-22-2023 09:30-0400 Systolic blood pressure 152 mm[Hg] Deejay Ball Other [employer] Other 02-23-2023 14:45-0400 Body height 182.88 cm Deejay Ball Other [employer] Other 02-23-2023 14:45-0400 Body mass index (BMI) [Ratio] 42.69 kg/m2 Deejay Ball Other [employer] Other 02-23-2023 14:45-0400 Body weight 142.79 kg Deejay Ball Other [employer] Other 02-23-2023 14:45-0400 Diastolic blood pressure 75 mm[Hg] Deejay Ball Other [employer] Other 02-23-2023 14:45-0400 Respiratory rate 20 /min Deejay Ball Other [employer] Other 02-23-2023 14:45-0400 Systolic blood pressure 134 mm[Hg] Deejay Ball Other [employer] Other 12-20-2022 10:30-0400 Body height 182.88 cm Deejay Ball Other [employer] Other 12-20-2022 10:30-0400 Body mass index (BMI) [Ratio] 42.23 kg/m2 Deejay Ball Other [employer] Other 12-20-2022 10:30-0400 Body weight 141.25 kg Deejay Ball Other [employer] Other 12-20-2022 10:30-0400 Diastolic blood pressure 71 mm[Hg] Deejay Ball Other [employer] Other 12-20-2022 10:30-0400 Systolic blood pressure 122 mm[Hg] Deejay Ball Other [employer] Other 11-12-2022 14:45-0400 Body height 182.88 cm Deejay Ball Other [employer] Other 11-12-2022 14:45-0400 Body mass index (BMI) [Ratio] 42.2 kg/m2 Deejay Ball Other [employer] Other 11-12-2022 14:45-0400 Body weight 141.16 kg Deejay Ball Other [employer] Other 11-12-2022 14:45-0400 Diastolic blood pressure 68 mm[Hg] Deejay Ball Other [employer] Other 11-12-2022 14:45-0400 Respiratory rate 12 /min Deejay Ball Other [employer] Other 11-12-2022 14:45-0400 Systolic blood pressure 107 mm[Hg] Deejay Ball Other [employer] Other 09-03-2022 09:30-0500 Body height 182.88 cm Deejay Ball Other [employer] Other 09-03-2022 09:30-0500 Body mass index (BMI) [Ratio] 43.26 kg/m2 Deejay Ball Other [employer] Other 09-03-2022 09:30-0500 Body weight 144.7 kg Deejay Ball Other [employer] Other 09-03-2022 09:30-0500 Diastolic blood pressure 71 mm[Hg] Deejay Ball Other [employer] Other 09-03-2022 09:30-0500 Systolic blood pressure 141 mm[Hg] Deejay Ball Other [employer] Other 09-03-2022 08:30-0500 Body height 182.88 cm Deejay Ball Other [employer] Other 09-03-2022 08:30-0500 Body mass index (BMI) [Ratio] 43.26 kg/m2 Deejay Ball Other [employer] Other 09-03-2022 08:30-0500 Body weight 144.7 kg Deejay Ball Other [employer] Other 09-03-2022 08:30-0500 Diastolic blood pressure 71 mm[Hg] Deejya Ball Other [employer] Other 09-03-2022 08:30-0500 Systolic blood pressure 141 mm[Hg] Deejay Ball Other [employer] Other 10-19-2021 14:38-0400 Blood Pressure Location Geremias HAMMOND [facility] 10-19-2021 14:38-0400 Diastolic blood pressure 66 mm[Hg] Geremias HAMMOND [facility] 10-19-2021 14:38-0400 Heart rate 91 /min Geremias HAMMOND [facility] 10-19-2021 14:38-0400 Systolic blood pressure 101 mm[Hg] Geremias HAMMOND [facility] [place] Encounters Encounter Date Encounter Type Care Provider Facility Start: 11-30-2024 End: 11-30-2024 ambulatory [facility] Work Phone: Start: 11-30-2024 End: 11-30-2024 Patient encounter procedure [facility] Work Phone: Start: 11-29-2024 ambulatory Wesley Tomlinson Facility : [facility] Start: 10-29-2024 End: 10-29-2024 ambulatory Jai Cárdenas MD Facility:[facility] Start: 10-18-2024 End: 10-18-2024 ambulatory [facility] Work Phone: Start: 10-18-2024 End: 10-18-2024 Encounter for general adult medical examination without abnormal findings [facility] Start: 10-18-2024 End: 10-18-2024 Patient encounter procedure [facility] Work Phone: Start: 10-16-2024 Patient encounter procedure [facility] Start: 10-15-2024 End: 10-15-2024 ambulatory [facility] Start: 09-07-2024 Non-patient / Non-visit [facility] Work Phone: Start: 09-06-2024 End: 09-06-2024 Bamboo flowsheet Felice Pearson DPM Work Phone: [facility] Start: 09-06-2024 End: 09-06-2024 Megan flowslionel Pearson DPM Work Phone: [facility] Start: 09-06-2024 End: 09-06-2024 Office outpatient visit 15 minutes Felice Pearson DPM Work Phone: [facility] Comment on above: Abscess of toe, righ t (Primary Dx); Onychocryptosis; Toe pain, right Start: 09-06-2024 End: 09-06-2024 ambulatory FELICE PEARSON Not Available Start: 08-29-2024 End: 08-29-2024 Office outpatient visit 25 minutes Ace Carrero MD Work Phone: [facility] Comment on above: Benign prostatic hyp erplasia with urinary frequency (Primary Dx); Elevated PSA Start: 08-29-2024 End: 08-29-2024 ambulatory ACE CARRERO [facility] Start: 08-23-2024 End: 08-23-2024 Bamboo flowsheet Felice Pearson DPM Work Phone: [facility] Start: 08-23-2024 End: 08-23-2024 Bamboo flowsheet Felice Pearson DPM Work Phone: [facility] Start: 08-23-2024 End: 08-23-2024 Office outpatient new 30 minutes Felice Pearson DPM Work Phone: [facility] Comment on above: Onychocryptosis (Katy misbah Dx); Toe pain, right; Abscess of toe, right Start: 08-23-2024 End: 08-23-2024 ambulatory FELICE PEARSON Not Available Start: 08-22-2024 End: 08-22-2024 ambulatory FRANCISCO J CARRERA [facility] Start: 05-13-2024 End: 05-13-2024 Foster MAX [facility] Start: 04-16-2024 End: 04-16-2024 ambulatory [facility] Start: 03-29-2024 [facility] Start: 03-29-2024 End: 03-29-2024 [facility] Start: 03-05-2024 End: 03-05-2024 ambulatory [facility] Start: 02-29-2024 End: 02-29-2024 Patient encounter procedure DO Deejay Manuel Work Phone: [facility] Work Phone: Start: 02-29-2024 End: 02-29-2024 ambulatory DO Deejay Manuel Work Phone: [facility] Work Phone: Start: 02-28-2024 Non-patient / Non-visit DO Jewel Manuel Work Phone: [facility] Work Phone: Start: 02-23-2024 End: 02-23-2024 Refill Giuliana MAX Work Phone: [facility] Start: 02-20-2024 End: 02-21-2024 Evaluation and management of inpatient MARTELL FONTAINE [facility] Comment on above: Acute post-operative pain (Primary Dx); Prostate cancer (HCC) Start: 02-10-2024 End: 02-14-2024 ambulatory [facility] Start: 02-10-2024 End: 02-14-2024 Subsequent hospital visit by physician Xenia Stratton 2 LEONOR PRE-ADMIT TESTING Start: 01-13-2024 End: 01-13-2024 ambulatory [facility] Start: 01-13-2024 End: 01-13-2024 Encounter for preprocedural cardiovascular examination [facility] Start: 01-09-2024 End: 01-09-2024 ambulatory GIOVANA RAZA Not Available Start: 12-28-2023 Non-patient / Non-visit DO Jewel Manuel Work Phone: [facility] Work Phone: Start: 12-27-2023 Non-patient / Non-visit DO Jewel Manuel Work Phone: [facility] Work Phone: Start: 12-26-2023 End: 12-26-2023 Patient encounter procedure DO Deejay Manuel Work Phone: [facility] Work Phone: Start: 11-28-2023 End: 11-28-2023 ambulatory GIOVANA RAZA Not Available Start: 10-14-2023 End: 10-14-2023 ambulatory GIOVANA RAZA Not Available Start: 10-06-2023 End: 10-06-2023 ambulatory DO Deejay Manuel Work Phone: [facility] Work Phone: Start: 10-06-2023 End: 10-06-2023 Departed Referred DO Deejay Manuel Work Phone: [facility] Start: 10-06-2023 Non-patient / Non-visit DO Jewel Manuel Work Phone: [facility] Work Phone: Start: 09-26-2023 End: 09-26-2023 ambulatory [facility] Work Phone: Start: 09-26-2023 End: 09-26-2023 Patient encounter procedure [facility] Work Phone: Start: 09-23-2023 End: 09-23-2023 Encounter for general adult medical examination without abnormal findings DO Deejay Manuel Work Phone: [facility] Start: 09-23-2023 End: 09-23-2023 Patient encounter procedure DO Deejay Manuel Work Phone: [facility] Work Phone: Start: 09-21-2023 Orders Only Giovana hamlin DO Work Phone: [facility] Comment on above: Pain in left hip Start: 09-21-2023 End: 09-21-2023 ambulatory GIOVANA RAZA Not Available Start: 09-06-2023 Non-patient / Non-visit DO Jewel Manuel Work Phone: [facility] Work Phone: Start: 09-05-2023 Non-patient / Non-visit DO Jewel Manuel Work Phone: [facility] Work Phone: Start: 08-29-2023 Non-patient / Non-visit [facility] Work Phone: Start: 08-22-2023 End: 08-22-2023 Office outpatient visit 25 minutes Ace Carrero MD Work Phone: [facility] Comment on above: Elevated PSA (Primar y Dx); Benign prostatic hyperplasia with urinary frequency Start: 08-10-2023 Chart abstracting Jr. Giovana Snyder DO Work Phone: [facility] Start: 08-10-2023 End: 08-11-2023 ambulatory GIOVANA RAZA Not Available Start: 08-09-2023 End: 08-09-2023 Patient encounter procedure DO Deejay Manuel Work Phone: [facility] [place] Work Phone: Start: 08-09-2023 End: 08-09-2023 ambulatory DO Deejay Manuel Work Phone: [facility] Work Phone: Start: 08-08-2023 End: 08-08-2023 ambulatory Francisco J Carrera Other [facility] [employer] Other Start: 08-08-2023 Patient encounter procedure Francisco J Carrera [facility] Start: 08-04-2023 End: 08-04-2023 ambulatory Nadiya Ramon Other [facility] [employer] Other Start: 08-04-2023 Office outpatient vi sit 15 minutes Nadiya Ramon [facility] Start: 08-01-2023 Chart abstracting Jr. Giovana Snyder DO Work Phone: [facility] Start: 08-01-2023 End: 08-01-2023 Office outpatient visit 25 minutes Jr. 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); Post-op pain Start: 07-28-2023 End: 07-28-2023 ambulatory [facility] Start: 07-28-2023 End: 07-28-2023 Subsequent hospital visit by physician Loida Nm 2 [facility] Comment on above: Malignant melanoma o f neck (CMS/HCC) Arrived Start: 07-22-2023 End: 07-22-2023 ambulatory Francisco J Carrera Other [employer] Other Start: 07-22-2023 Encounter for other preprocedural examination Francisco J Carrera [facility] Start: 07-22-2023 Office outpatient vi sit 25 minutes Francisco J Carrera [facility] Start: 07-22-2023 End: 07-22-2023 Patient encounter procedure [facility] Start: 07-19-2023 End: 07-19-2023 ambulatory SELWYN [employer] Other Start: 07-19-2023 Telephone encounter Francisco J Carrera [facility] Start: 07-12-2023 End: 07-13-2023 ambulatory [facility] Start: 07-12-2023 End: 07-12-2023 ambulatory [facility] Start: 07-08-2023 End: 07-08-2023 ambulatory Deejay Manuel Other [employer] Other Start: 07-08-2023 Telephone encounter Deejay Manuel [facility] Start: 07-04-2023 End: 07-05-2023 ambulatory [facility] Start: 06-30-2023 ambulatory Facility:[facility] Start: 06-21-2023 End: 06-21-2023 Patient encounter procedure DO Deejay Manuel Work Phone: [facility] Work Phone: Start: 06-16-2023 End: 06-16-2023 ambulatory Francisco J Carrera Other [employer] Other Start: 06-16-2023 Telephone encounter Francisco J Carrera [facility] Start: 05-23-2023 End: 05-23-2023 ambulatory Deejay Manuel Other [employer] Other Start: 05-23-2023 Telephone encounter Deejay Manuel [facility] Start: 05-02-2023 End: 05-02-2023 ambulatory Deejay Manuel Other [employer] Other Start: 05-02-2023 Telephone encounter Deejay Manuel [facility] Start: 04-21-2023 End: 04-21-2023 ambulatory Deejay Manuel Other [employer] Other Start: 04-21-2023 Telephone encounter Deejay Manuel [facility] Start: 03-23-2023 End: 03-23-2023 ambulatory Deejay Ball Other [employer] Other Start: 03-23-2023 Telephone encounter Deejay Manuel [facility] Start: 03-22-2023 End: 03-22-2023 ambulatory Deejay Ball Other [employer] Other Start: 03-22-2023 Office outpatient vi sit 25 minutes Deejay Ball [facility] Start: 02-23-2023 End: 02-23-2023 ambulatory Deejay Ball Other [employer] Other Start: 02-23-2023 Office outpatient vi sit 15 minutes Deejay Ball [facility] Start: 02-22-2023 End: 02-22-2023 ambulatory Deejay Ball Other [employer] Other Start: 02-22-2023 Telephone encounter Deejay Ball [facility] Start: 01-11-2023 End: 01-11-2023 ambulatory Deejay Ball Other [employer] Other Start: 01-11-2023 Telephone encounter Deejay Ball [facility] Start: 01-03-2023 End: 01-03-2023 ambulatory Deejay Ball Other [employer] Other Start: 01-03-2023 Telephone encounter Deejay Ball [facility] Start: 12-20-2022 End: 12-20-2022 ambulatory Deejay Ball Other [employer] Other Start: 12-20-2022 Office outpatient vi sit 25 minutes Deejay Ball [facility] Start: 11-12-2022 End: 11-12-2022 ambulatory Deejay Ball Other [employer] Other Start: 11-12-2022 Office outpatient vi sit 15 minutes Deejay Ball [facility] Start: 11-09-2022 End: 11-10-2022 ambulatory NARENDRANATH LAKSHMIPATHY . Facility: Start: 11-06-2022 Telephone encounter Deejay Ball [facility] Start: 11-06-2022 End: 11-07-2022 ambulatory SHAKIRA LOMAS [facility] Other Start: 10-29-2022 End: 10-30-2022 ambulatory LILA ROSENBAUM . Facility:[facility] Start: 10-27-2022 End: 10-27-2022 ambulatory Deejay Manuel Other [employer] Other Start: 10-27-2022 Telephone encounter Deejay Manuel [facility] Start: 10-12-2022 End: 10-12-2022 ambulatory NARENDRANATH LAKSHMIPATHY . Facility:[facility]1 Start: 09-30-2022 End: 10-01-2022 ambulatory NARENDRANATH LAKSHMIPATHY . Facility:[facility]1 Start: 09-27-2022 End: 09-27-2022 ambulatory Deejay Manuel Other [employer] Other Start: 09-27-2022 Telephone encounter Deejay Manuel [facility] Start: 09-16-[address] GIOVANA MAYBERRY Fac ility:[facility]1 Start: 09-10-2022 End: 09-10-2022 ambulatory Deejay Manuel Other [employer] Other Start: 09-10-2022 Telephone encounter Deejay Manuel [facility] Start: 09-07-2022 End: 09-07-2022 ambulatory Deejay Manuel Other [employer] Other Start: 09-07-2022 Telephone encounter Deejay Manuel [facility] Start: 09-06-2022 End: 09-06-2022 ambulatory Deejay Manuel Other [employer] Other Start: 09-06-2022 Telephone encounter Deejay Ball [facility] Start: 09-03-2022 End: 09-03-2022 ambulatory Deejay Kaleb Other [employer] Other Start: 09-03-2022 Encounter for genera l adult medical examination without abnormal findings Deejay Manuel [facility] Start: 09-03-2022 Periodic preventive med est patient 65yrs& older Deejay Manuel [facility] Start: 07-26-2022 End: 09-03-2022 ambulatory JEREMY BROTHERS . Facility:[facility] Start: 07-22-2022 End: 07-23-2022 ambulatory JEREMY BROTHERS . Facility:[facility] Start: 06-27-2022 End: 07-10-[address] GIOVANA SNYDER Facility:[facility] Start: 06-11-2022 ambulatory BRIA GONZALEZ Facility :UNKNOWN Start: 06-01-2022 End: 06-26-[address] GIOVANA SNYDER Facility:[facility]1 Start: 05-11-2022 End: 05-12-[address] DEEJAY MANUEL Facility:[facility]1 Start: 05-10-2022 End: 06-03-[address] MERARY MIRELES . Facility:[facility]1 Start: 05-04-2022 End: 05-05-[address] MERARY MIRELES . Facility:[facility] Start: 04-29-2022 End: 04-30-[address] Umu BARRETT Facility:[facility]1 Start: 04-23-2022 End: 04-24-[address] DOCTOR RUIZ Facility:[facility]1 Start: 03-30-2022 End: 03-30-2022 ambulatory DO Deejay Manuel Work Phone: [facility] Work Phone: Start: 03-30-2022 End: 03-30-2022 Patient encounter procedure DO Deejay Manuel Work Phone: [facility] Start: 03-08-2022 End: 03-09-[address] GIOVANA MAYBERRY Facility:[facility]1 Start: 03-04-2022 End: 03-05-[address] MERARY MIRELES . Facility:[facility]1 Start: 02-25-[address] GIOVANA MAYBERRY Fac ility:[facility]1 Start: 02-02-2022 End: 02-02-[address] MERARY MIRELES . Facility:[facility] Start: 01-29-2022 Encounter for preprocedural laboratory examination DR DEEJAY MANUEL [facility] Start: 01-28-2022 End: 01-29-2022 Encounter for preprocedural laboratory examination DR DEEJAY MANUEL Facility:[facility]1 Start: 01-28-2022 End: 01-29-[address] DEEJAY MANUEL Facility:[facility]1 Start: 01-26-2022 End: 01-26-[address] MERARY MIRELES . Facility:[facility]1 Start: 01-25-2022 End: 01-26-[address] MERARY MIRELES . Facility:[facility]1 Start: 01-21-2022 End: 01-22-[address] MERARY MIRELES . Facility:[facility]1 Start: 12-31-2021 Encounter for genera l adult medical examination without abnormal findings DR DEEJAY MANUEL [facility] Start: 12-24-2021 End: 12-25-[address] DEEJAY MANUEL Facility:[facility]1 Start: 12-24-2021 End: 12-25-2021 Encounter for general adult medical examination without abnormal findings DR DEEJAY MANUEL Facility:[facility]1 Start: 12-23-2021 End: 12-24-2021 ambulatory JEREMY BROTHERS . Facility:[facility]1 Start: 2021 End: [address] MERARY MIRELES . Facility:[facility]1 Start: 11-26-2021 End: 11-27-2021 ambulatory JEREMY BROTHERS . Facility:[facility] Start: 10-19-2021 End: 10-19-2021 Patient encounter procedure Geremias HAMMOND [facility] Start: 10-07-2021 End: 10-07-2021 Lab Drop off Geremias HAMMOND [facility] Start: 10-07-2021 End: 10-07-2021 Patient encounter procedure Laly Dan [facility] Start: 02-11-2021 End: 02-12-2021 ambulatory DEEJAY MANUEL Facility:[facility] Start: 11-12-2020 End: 11-16-2020 Evaluation and management of inpatient DEEJAY MANUEL Facility:[facility] Start: 11-01-2018 Pre-procedure evalua tion check Deejay Manuel Other [employer] Other Procedures Date Procedure Procedure Detail Performing Clinician Start: 08-29-2024 Follow-up visit Follow-up ACE CARRERO Start: 02-21-2024 Basic metabolic pane l calcium total Wesley Tomlinson MD Work Phone: Start: 02-20-2024 Glucose blood reagen t strip Wesley Tomlinson MD Work Phone: Start: 02-20-2024 Glucose blood reagen t strip Wesley Tomlinson MD Work Phone: Start: 02-10-2024 Basic metabolic pane l calcium total Mao W Ronquillo DO Work Phone: Start: 02-10-2024 Blood typing serologic abo Wesley Tomlinson MD Work Phone: Start: 08-09-2023 MR prostate wo/w con DO Deejay [employer] Work Phone: Start: 08-01-2023 Radex spine lumbosac ral 2/3 views Jr. Giovana Snyder DO Work Phone: Start: 07-28-2023 DISCHARGE PATIENT SELWYN GARCIA Start: 07-28-2023 ADULT DISCHARGE DIET KANDY GARCIA Start: 07-28-2023 DISCHARGE ACTIVITY KRISTAL GARCIA Start: 07-28-2023 FOLLOW UP WITH PROVIDER SELWYN GARCIA Start: 07-28-2023 NOTIFY PROVIDER (DO NOT PROMPT FOR PARAMETERS) SELWYN GARCIA Start: 07-28-2023 WOUND CARE SELWYN FOURNIER Start: 07-28-2023 PULSE OXIMETRY, CONTINUOUS SELWYN GARCIA Start: 07-28-2023 SURGICAL PATHOLOGY EXAM SELWYN GARCIA Start: 07-28-2023 PULSE OXIMETRY, CONTINUOUS Russell Morgan DO Work Phone: Start: 07-28-2023 CBC panel - Blood by Automated count SELWYN GARCIA Start: 07-28-2023 EXTRA TUBES SELWYN FOURNIER Start: 07-28-2023 LIGHT BLUE TOP SELWYN TENA Start: 07-28-2023 ECG 12-LEAD SELWYN FOURNIER Start: 07-28-2023 Glucose [Mass/volume ] in Serum or Plasma SELWYN GARCIA Start: 07-28-2023 NM LYMPHOSCINTIGRAM SHREYAS GARCIA Start: 07-28-2023 NM SPECT/CT LOCALIZA TION ADD ON SINGLE DAY SELWYN GARCIA Start: 07-28-2023 End: 07-28-2023 Blood count complete automated Selwyn Garcia MD Work Phone: Start: 07-28-2023 EXTRA TUBES Selwyn tena MD Work Phone: Start: 07-28-2023 LIGHT BLUE TOP Selwyn Garcia MD Work Phone: Start: 07-28-2023 Ecg routine ecg w/le ast 12 lds trcg only w/o i&r Selwyn Garcia MD Work Phone: Start: 07-28-2023 Rp loclzj preeti spect w/ct 1 area 1 day imaging Selwyn Garcia MD Work Phone: Start: 07-28-2023 Lymphatics & lymph n odes imaging Selwyn Garcia MD Work Phone: Start: 07-19-2023 CASE REQUEST OPERATI NG ROOM SELWYN GARCIA Start: 12-24-[address] MERARY MIRELES . Comment on above: Performed By: #### P [facility] #### [facility] [address] [place] [address] Dr. Layla Bennett Start: 02-11-2021 ANESTH REVISE HIP REPAIR DEEJAY MANUEL Start: 02-11-2021 Removal non-biodegra dable drug delivery [facility] Start: 02-11-2021 REVISE HIP JOINT REPLACEMENT VITHAL SHENDGE Start: 11-14-2020 INSERTION OF INFUSIO N DEVICE INTO UPPER VEIN, PERC APPROACH VITHAL SHENDGE Start: 11-14-2020 INTRODUCE OF OTH ANTI-INFECT INTO PERIPH VEIN, PERC APPROACH VITHAL SHENDGE Start: 11-12-2020 INSERTION OF SPACER INTO LEFT HIP JOINT, OPEN APPROACH VITHAL SHENDGE Start: 11-12-2020 INTRODUCTION OF OTHE R GAS INTO RESP TRACT, VIA OPENING VITHAL SHENDGE Start: 11-12-2020 REMOVAL OF SYNTHETIC SUBSTITUTE FROM L HIP JT, OPEN APPROACH [facility] Start: 11-08-2020 Antibody screen LADI MANUEL Comment on above: Performed By: #### [id number] #### [facility] [address] [place] [address], [facility] History of hernia repair Carin hy Sy History of operative procedure on knee History of left knee replacement Repair of hip Laly Dan Tonsillectomy Laly Dan Plan of Treatment Date Care Activity Detail Author Start: 02-09-2027 Diabetes screen Diabetes screen [facility] Start: 09-11-2025 End: 09-11-2025 Patient encounter procedure 09/11/2025 1:00 PM EDT Office Visit [facility] [address] [place] [address] [place] [address] Ace Carrero MD [address] [place] [id number] [facility] Start: 08-29-2025 Adult BMI Screening Adult BMI Screen ing [facility] Start: 08-29-2025 End: 07-30-2026 Prostatic specific antigen, diagnostic Prostatic specific antigen, diagnostic Lab Routine Elevated PSA Expected: 08/29/2025 (Approximate), Expires: 07/30/2026 [facility] Work Phone: Comment on above: Expected: 08/29/2025 (Approximate), Expires: 07/30/2026 Start: 08-29-2025 Tobacco Screening Tobacco Screening [facility] Start: 09-06-2024 End: 09-06-2024 Patient encounter procedure 09/06/2024 1:40 PM EDT Office Visit [facility] [address] [facility] [address] [place] [address] Felice Pearson DPM [address] [facility] [address] [place] [address] Abscess of toe, right (Primary Dx); Onychocryptosis; Toe pain, right [facility] Comment on above: Abscess of toe, righ t (Primary Dx); Onychocryptosis; Toe pain, right Start: 08-29-2024 End: 08-29-2024 Patient encounter procedure 08/29/2024 1:00 PM EST Office Visit [facility] [address] [place] [address] [place] [address] Ace Carrero MD [address] [place], [place] [id number] [facility] Start: 08-23-2024 End: 08-23-2024 Patient encounter procedure 08/23/2024 1:50 PM EST Office Visit [facility] [address] [facility] [address] [place] [address] Felice Pearson DPM [address] [facility] [address] [place] [address] Arrived [facility] Comment on above: Arrived Start: 08-22-2024 Adult BMI Screening Adult BMI Screen ing [facility] Start: 08-22-2024 Tobacco Screening Tobacco Screening [facility] Start: 08-21-2024 End: 07-22-2025 Prostatic specific antigen, diagnostic Prostatic specific antigen, diagnostic Lab Routine Elevated PSA Expected: 08/21/2024 (Approximate), Expires: 07[facility]22[facility]25 [facility] Comment on above: Expected: 08/21/2024 (Approximate), Expires: 07/22/2025 Start: 02-26-2024 Influenza vaccination [facility] Start: 02-20-2024 End: 02-20-2024 Admission to same day surgery center 02/20/2024 11:10 AM EDT - 02/20/2024 2:15 PM EDT Surgery [facility] [address] [place], [place] [id number] Wesley Tomlinson MD [address] [place] [address] RADICAL PROSTATECTOMY LAPAROSCOPIC ROBOTIC XI, POSSIBLE PELVIC LYMPH NODE DISSECTION [facility] Comment on above: RADICAL PROSTATECTOM Y LAPAROSCOPIC ROBOTIC XI, POSSIBLE PELVIC LYMPH NODE DISSECTION Start: 02-20-2024 Subsequent hospital visit by physician 02/20/2024 11:10 AM EDT Hospital Encounter [facility] [place] [address] [place] [address] Wesley Tomlinson MD [address] [place] [address] [facility] Start: 02-20-2024 End: 02-20-2024 Unlisted procedure male genital system PROSTATECTOMY LAPAROSCOPIC ROBOTIC XI Prostate cancer (HCC) 02/20/2024 11:10 AM EDT [facility] Start: 01-26-2024 Influenza vaccination Flu vaccine (# 1) [facility] Start: 09-26-2023 End: 09-26-2023 Patient encounter procedure 09/26/2023 9:00 AM EDT Office Visit [facility] [address] [place] [address] Jr. Giovana Snyder, DO [address] [place] [address] [facility] Start: 09-21-2023 End: 09-20-2024 C-reactive protein C-reactive protein Lab Routine Pain in left hip Expected: 09/21/2023, Expires: 09/20/2024 [facility] Work Phone: Comment on above: Expected: 09/21/2023 , Expires: 09/20/2024 Start: 09-21-2023 End: 09-20-2024 CBC W Auto Differential panel - Blood CBC auto differential Lab Routine Pain in left hip Expected: 09/21/2023, Expires: 09/20/2024 [facility] Work Phone: Comment on above: Expected: 09/21/2023 , Expires: 09/20/2024 Start: 09-21-2023 End: 09-20-2024 Erythrocyte sedimentation rate Erythrocyte Sedimentation Rate (ESR) Lab Routine Pain in left hip Expected: 09/21/2023, Expires: 09/20/2024 [facility] Work Phone: Comment on above: Expected: 09/21/2023 , Expires: 09/20/2024 Start: 08-10-2023 End: 08-10-2023 Patient encounter procedure 08/10/2023 9:30 AM EST Office Visit [facility] [address] [facility] [address] Jr. Giovana Snyder, DO [address] [place] [address] [facility] Start: 08-01-2023 End: 08-01-2023 Patient encounter procedure 08/01/2023 9:00 AM EST Office Visit [facility] [address] [place] [id number] Jr. Giovana Snyder, DO [address] [facility] [address] [place] [address] [facility] Start: 02-25-2023 COVID-19 Vaccine ( season) COVID-19 Vaccine ( season) [facility] Start: 02-25-2023 COVID-19 Vaccine ( season) COVID-19 Vaccine ( season) [facility] Start: 02-25-2023 Influenza vaccination [facility] Start: 12-10-2022 ambulatory Ambulatory Facility:H 1 Start: 11-16-2022 ambulatory Ambulatory Facility:H 1 Start: 12-09-2019 Fall Risk Screening Fall Risk Screen ing [facility] Start: 12-09-2019 Pneumococcal 65+ yea rs Vaccine (2 of 2 - PPSV23 or PCV20) Pneumococcal 65+ years Vaccine (2 of 2 - PPSV23 or PCV20) [facility] Start: 12-09-2019 Pneumococcal Vaccine : 65+ Years (1 - PCV) Pneumococcal Vaccine: 65+ Years (1 - PCV) [facility] Start: 12-09-2019 Pneumococcal Vaccine : 65+ Years (2 - PPSV23 or PCV20) Pneumococcal Vaccine: 65+ Years (2 - PPSV23 or PCV20) [facility] Start: 12-09-2019 Pneumococcal Vaccine : 65+ Years (2 of 2 - PPSV23 or PCV20) Pneumococcal Vaccine: 65+ Years (2 of 2 - PPSV23 or PCV20) [facility] Start: 2014 Respiratory Syncytia l Virus (RSV) or age 60 yrs+ (1 - 1-dose 60+ series) Respiratory Syncytial Virus (RSV) or age 60 yrs+ (1 - 1-dose 60+ series) [facility] Start: 2004 Administration of varicella zoster vaccine Zoster (Shingles) Vaccine (1 of 2) [facility] Start: 2004 Shingles vaccine (1 of 2) Shingles vaccine (1 of 2) [facility] Start: 2004 Zoster Vaccines (1 of 2) Zoste r Vaccines (1 of 2) [facility] Start: 12-09-1999 Screening for malign ant neoplasm of colon [facility] Start: 1994 Prostate specific antigen measurement Prostate Specific Antigen (PSA) Screening or Monitoring [facility] Start: 1976 DTaP/Tdap/Td Vaccine s (1 - Tdap) DTaP/Tdap/Td Vaccines (1 - Tdap) [facility] Start: 1973 DTaP,Tdap and Td Vaccines (1 - Tdap) DTaP,Tdap and Td Vaccines (1 - Tdap) [facility] Start: 1973 DTaP/Tdap/Td vaccine (1 - Tdap) DTaP/Tdap/Td vaccine (1 - Tdap) [facility] Start: 1972 Adult BMI Follow Up Plan Adult BMI Follow Up Plan [facility] Start: 1972 Hepatitis C screening U [facility] Start: 1966 Depression Screen Depression Screen [facility] Start: 1966 Depression Screening Depression Scre [facility] Start: 1964 Lipid panel Lipids [facility] [employer] Start: 06-09-1955 Examination of skin Derm Melan beto Skin Check [facility] Start: 1954 Lipid panel Lipid Panel [facility] Start: 1954 Medicare Annual Well ness Visit [facility] Start: 1954 Screening for malign ant neoplasm of colon [facility] End: 02-21-2024 Blood glucose - POCT Blood glucose - POCT Point of Care Testing Routine One Time for 1 Occurrences starting 02/21/2024 until 02/21/2024 [employer] Comment on above: One Time for 1 Occur rences starting 02/21/2024 until 02/21/2024 End: 07-28-2023 Comprehensive metabolic 2000 panel - Serum or Plasma Comprehensive Metabolic Panel Lab Timed Malignant melanoma of neck (CMS/HCC) Once for 1 Occurrences starting 07/28/2023 until 07/28/[address] [facility] Service Area Work Phone: Comment on above: Once for 1 Occurrenc es starting 07/28/2023 until 07/28/2023 Comprehensive metabo lic 2000 panel - Serum or Plasma [facility] Comprehensive metabo lic 2000 panel - Serum or Plasma [facility] Comprehensive metabo lic 1999 panel - Serum or Plasma [facility] Comprehensive metabo lic 1999 panel - Serum or Plasma [facility] ECG 12 Lead ECG 12 Lead ECG Routine Malignant melanoma of neck (CMS/HCC) 07/28/2023 9:24 AM EST [facility] Work Phone: Home BIPAP or CPAP Home BIPAP or CPAP Respiratory Care Routine QHS until discontinued starting 02/21/2024 [employer] Comment on above: QHS until discontinu ed starting 02/21/2024 Microalbumin [Mass/volume] in Urine [facility] Microalbumin [Mass/volume] in Urine [facility] Nasal Cannula Oxygen Nasal Cannu la Oxygen Respiratory Care Routine Daily until discontinued starting 02/21/2024 [employer] Comment on above: Daily until disconti nued starting 02/21/2024 Oxygen therapy [Mini mum Data Set] Initiate Oxygen Therapy Protocol Respiratory Care Routine As Needed until discontinued starting 02/20/2024 [employer] Comment on above: As Needed until disc ontinued starting 02/20/2024 End: 02-20-2024 SURGICAL PATHOLOGY REPORT SURGICAL PATHOLOGY REPORT Lab Routine Once for 1 Occurrences starting 02/20/2024 until 02/20/2024 [employer] Comment on above: Once for 1 Occurrenc es starting 02/20/2024 until 02/20/2024 Surgical pathology study [facility] Work Phone: Comment on above: Release Upon Orderin g for 1 Occurrences starting 07/28/2023, 1 completed Surgical pathology study Surgica l Pathology Lab Routine Prostate cancer (HCC) Release Upon Ordering for 1 Occurrences starting 02/20/2024 [employer] Comment on above: Release Upon Orderin g for 1 Occurrences starting 02/20/2024 XR Cervical spine 5 Views [facility] XR Lumbar spine 2 or 3 Views XR lumbar spine 2 or 3 views Imaging Routine Low back pain potentially associated with radiculopathy 08/01/2023 9:20 AM EST [facility] Work Phone: [facility] Immunizations Immunization Date Immunization Notes Care Provider Dipak linder 04-04-2023 Influenza, Seasonal, Quadrivalent, Adjuvanted Jr. Stepanic DO Work Phone: [facility] 04-04-2023 influenza virus vaccine, unspecified formulation Felice Pearson DPM Work Phone: [facility] 03-24-2022 influenza virus vaccine, split virus (incl. purified surface antigen) Deejay Manuel Other [employer] Other 03-24-2022 influenza virus vaccine, unspecified formulation DO Deejay Manuel Work Phone: [facility] 03-24-2022 Influenza, High-dose Seasonal, Quadrivalent, Preservative Free Jr. Stepanic DO Work Phone: [facility] 03-16-2022 influenza, injectabl e, quadrivalent, preservative free Jr. Stepanic DO Work Phone: [facility] 06-10-2021 COVID-19 Vaccine Pfizer - Documentation Purposes Only Deejay Manuel Other [facility] 06-10-2021 influenza virus vaccine, split virus (incl. purified surface antigen) Deejay Manuel Other [facility] [employer] Other 06-10-2021 influenza virus vaccine, unspecified formulation DO Deejay Manuel Work Phone: [facility] 06-10-2021 Influenza, Seasonal, Quadrivalent, Adjuvanted Jr. Stepanic DO Work Phone: [facility] 01-07-2021 SARS-CoV-2 (COVID-19 ) Ad26 vaccine, recombinant Geremias HAMMOND [facility] 10-16-2020 COVID-19 Vaccine Pfizer - Documentation Purposes Only Deejay Manuel Other [facility] 10-16-2020 SARS-CoV-2, Unspecified Jr. Stepanic DO Work Phone: [facility] 09-25-2020 COVID-19 Vaccine Pfizer - Documentation Purposes Only Deejay Manuel Other [facility] 09-25-2020 SARS-CoV-2, Unspecified Jr. Stepanic DO Work Phone: [facility] 02-27-2020 influenza virus vaccine, split virus (incl. purified surface antigen) Deejay Manuel Other [facility] [employer] Other 02-27-2020 influenza virus vaccine, unspecified formulation DO Deejay Manuel Work Phone: [facility] 02-27-2020 influenza, injectabl e, quadrivalent, preservative free Jr. Stepanic DO Work Phone: [facility] 02-20-2019 influenza, injectabl e, quadrivalent, preservative free Jr. Stepanic DO Work Phone: [facility] 04-12-2018 influenza, injectabl e, quadrivalent, preservative free Jr. Stepanic DO Work Phone: [facility] 10-12-2017 pneumococcal conjuga te vaccine, 13 valent Deejay Manuel Other [facility] [employer] Other 03-30-2017 influenza, injectabl e, quadrivalent, preservative free Jr. Stepanic DO Work Phone: [facility] 03-30-2017 tetanus and diphther ia toxoids, adsorbed, preservative free, for adult use (5 Lf of tetanus toxoid and 2 Lf of diphtheria toxoid) Deejay Manuel Other [facility] 04-21-2016 influenza virus vaccine, split virus (incl. purified surface antigen) Deejay Manuel Other [facility] [employer] Other 04-21-2016 influenza virus vaccine, unspecified formulation DO Deejay Manuel Work Phone: [facility] 04-21-2016 influenza, injectabl e, quadrivalent, preservative free Jr. Stepanic DO Work Phone: [facility] 05-17-2015 influenza virus vaccine, split virus (incl. purified surface antigen) Deejay Manuel Other [facility] [employer] Other 05-17-2015 influenza virus vaccine, unspecified formulation DO Deejay Manuel Work Phone: [facility] 05-17-2015 influenza, seasonal, injectable, preservative free Jr. Stepanic DO Work Phone: [facility] NEGATED: Highlighted row has not occurred!07-21-2020 influenza virus vaccine, unspecified formulation Laly Sy [facility] Payers Date Payer Category Payer Unknown [id number] 2021 Blue Cross Blue Shield BCBS [id number] 2021 Managed Care Other (unspecified) [employer] [id number]. [id number] 2021 Private Health Insurance [id number] .840.966454.1.13.647. 2.7.3.158823.315 2019 Medicare [id number]. 1.13.647. [id number] 2019 Medicare [id number] 2019 Unknown [id number]. 1.13.693. 2.7.3.528643.315 1959 Medicare [id number] 1959 Private Health Insurance [id number] 1959 Self-pay [id number] 1959 Self-pay [id number] 1959 Unknown [id number] 1954 Unknown [id number] 2.16.840.1.057560.3.579. 2.647 1954 Unknown [id number] 2.16.840.1.380526.3.579. 2.647 1954 Unknown [id number] 2.16.840.1.459016.3.579. 2.693 1954 Unknown [id number] 2.16.840.1.733490.3.579. 2.593 1954 Unknown [id number] 2.16.840.1.963817.3.579. 2.593 1954 Unknown [id number] 2.16.840.1.231222.3.579. 2.593 1954 Unknown [id number] 2.16.840.1.698827.3.579. 2.593 1954 Unknown [id number] 2.16.840.1.276608.3.579. 2.593 1954 Unknown [id number] 2.16.840.1.763290.3.579. 2.593 1954 Unknown [id number] 2.16.840.1.317992.3.579. 2.593 1954 Unknown [id number] 2.16.840.1.811753.3.579. 2.593 1954 Unknown [id number] 2.16.840.1.758599.3.579. 2.593 1954 Unknown [id number] 2.16.840.1.909209.3.579. 2.593 1954 Unknown [id number] 2.16.840.1.103813.3.579. 2.593 1954 Unknown [id number] 2.16.840.1.747071.3.579. 2.593 1954 Unknown [id number] 2.16.840.1.381002.3.579. 2.593 1954 Unknown [id number] 2.16.840.1.569665.3.579. 2.593 1954 Unknown [id number] 2.16.840.1.157530.3.579. 2.593 1954 Unknown [id number] 2.16.840.1.095710.3.579. 2.593 1954 Unknown [id number] 2.16.840.1.096049.3.579. 2.593 1954 Unknown [id number] 2.16.840.1.383560.3.579. 2.593 1954 Unknown [id number] 2.16.840.1.891514.3.579. 2.593 1954 Unknown [id number] 2.16.840.1.977691.3.579. 2.593 1954 Unknown [id number] 2.16.840.1.962301.3.579. 2.593 1954 Unknown [id number] 2.16.840.1.779593.3.579. 2.593 1954 Unknown [id number] 2.16.840.1.314863.3.579. 2.593 1954 Unknown [id number] 2.16.840.1.283846.3.579. 2.593 1954 Unknown [id number] 2.16.840.1.172836.3.579. 2.593 1954 Unknown [id number] 2.16.840.1.634446.3.579. 2.593 1954 Unknown [id number] 2.16.840.1.828146.3.579. 2.593 1954 Unknown [id number] 2.16.840.1.293195.3.579. 2.593 1954 Unknown [id number] 2.16.840.1.818859.3.579. 2.593 1954 Unknown [id number] 2.16.840.1.534637.3.579. 2.593 1954 Unknown [id number] 2.16.840.1.052844.3.579. 2.593 1954 Unknown [id number] 2.16.840.1.327179.3.579. 2.593 1954 Unknown [id number] 2.16.840.1.808785.3.579. 2.1244 1954 Unknown [id number] 2.16.840.1.243623.3.579. 2.1286 1954 Unknown [id number] 2.16.840.1.188380.3.579. 2.1286 1954 Unknown [id number] 2.16.840.1.816788.3.579. 2.1286 1954 Unknown [id number] 2.16.840.1.069651.3.579. 2.1286 1954 Unknown [id number] 2.16.840.1.057606.3.579. 2.1243 1954 Unknown [id number] 2.16.840.1.012963.3.579. 2.1243 1954 Unknown [id number] 2.16.840.1.827250.3.579. 2.1243 1954 Unknown [id number] 2.16.840.1.555591.3.579. 2.1243 1954 Unknown [id number] 2.16.840.1.468422.3.579. 2.1259 1954 Unknown [id number] 2.16.840.1.108342.3.579. 2.1259 1954 Unknown [id number] 2.16.840.1.117135.3.579. 2.1259 1954 Unknown [id number] 2.16.840.1.085473.3.579. 2.177 1954 Unknown [id number] 2.16.840.1.772165.3.579. 2.177 1954 Unknown [id number] 2.16.840.1.691639.3.579. 2.1286 1954 Unknown [id number] 2.16.840.1.148154.3.579. 2.1286 1954 Unknown [id number] 2.16.840.1.241149.3.579. 2.128 1954 Unknown [id number] 2.16.840.1.133669.3.579. 2.1259 1954 Unknown [id number] 2.16.840.1.618951.3.579. 2.9 1954 Unknown [id number] 2.16.840.1.467579.3.579. 2.9 1954 Unknown [id number] 2.16.840.1.322657.3.579. 2.9 1954 Unknown [id number] 2.16.840.1.464633.3.579. 2.1259 1954 Unknown [id number] 2.16.840.1.502260.3.579. 2.1259 1954 Unknown [id number] 2.16.840.1.316031.3.579. 2.718 1954 Unknown [id number] 2.16.840.1.042429.3.579. 2.196 Social History Date Type Detail Facility Start: 04-17-2021 End: 08-29-2023 Tobacco smoking status Never smoked tobacco (finding) [facility] Start: 07-04-2023 End: 08-23-2024 Sex Assigned At Male [facility] Start: 1955 Sex Assigned At Male [facility] Start: 07-08-2023 End: 07-22-2023 Tobacco use and exposure Smokeless tobacco non-user [facility] Work Phone: Start: 07-22-2023 End: 08-23-2024 History of Social function [facility] Work Phone: Start: 07-04-2023 Gender identity Identifies as male gender (finding) [facility] Work Phone: Start: 07-28-2023 Sexual orientation Heterosexual (finding) [facility] Work Phone: Start: 07-18-2023 End: 07-28-2023 Exposure to SARS-CoV-2 (event) Not sure [facility] Start: 08-01-2023 End: 09-06-2024 Alcohol intake Lifetime non-drinker (finding) [facility] Start: 08-01-2023 Alcohol Comment caffeine intake: 2-3 cups/day, soda/pop [facility] Physical abuse Denies [employer] [facility] Start: 1955 Sex assigned at Not on file [email or web address] Has the [employer], [employer], or [employer] threatened to shut off services in your home in past 12Mo No [employer] (I/We) worried homer er (my/our) food would run out before (I/we) got money to buy more. Never true [employer] Start: 01-30-2015 End: 11-30-2024 Sex Male (finding) [email or web address] Medical Equipment Procedure Code Equipment Code Equipment Origin al Text Equipment Identifier Dates Minimally invasive revision of total replacement of hip APEX DEPUY HIP HOLE ELIMINATOR FDA Start: 08-18-2018 Minimally invasive revision of total replacement of hip HEAD DEPUY METAL 36MM +8.5 FDA Start: 08-18-2018 Minimally invasive revision of total replacement of hip LINER DEPUY HIP [id number] FDA Start: 08-18-2018 Minimally invasive revision of total replacement of hip SCREW DEPUY 6.5X25MM CANCELLOU FDA Start: 08-18-2018 Minimally invasive revision of total replacement of hip SHELL 56MM PINNACLE DEPUY CUP FDA Start: 08-18-2018 Minimally invasive revision of total replacement of hip STEM DEPUY HIP SIZE 11 STD COL FDA Start: 08-18-2018 Minimally invasive revision of total replacement of hip APEX DEPUY HIP HOLE ELIMINATOR FDA Start: 11-23-2018 Minimally invasive revision of total replacement of hip HEAD DEPUY METAL 36MM +5 FDA Start: 11-23-2018 Minimally invasive revision of total replacement of hip LINER DEPUY HIP [id number] FDA Start: 11-23-2018 Minimally invasive revision of total replacement of hip SCREW DEPUY 6.5X20MM CANCELLOU FDA Start: 11-23-2018 Minimally invasive revision of total replacement of hip SHELL 56MM PINNACLE DEPUY CUP FDA Start: 11-23-2018 Minimally invasive revision of total replacement of hip STEM DEPUY HIP SIZE 11 STD COL FDA Start: 11-23-2018 Minimally invasive revision of total replacement of hip APEX DEPUY HIP HOLE ELIMINATOR FDA Start: 08-18-2018 Minimally invasive revision of total replacement of hip HEAD DEPUY METAL 36MM +8.5 FDA Start: 08-18-2018 Minimally invasive revision of total replacement of hip LINER DEPUY HIP [id number] FDA Start: 08-18-2018 Minimally invasive revision of total replacement of hip SCREW DEPUY 6.5X25MM CANCELLOU FDA Start: 08-18-2018 Minimally invasive revision of total replacement of hip SHELL 56MM PINNACLE DEPUY CUP FDA Start: 08-18-2018 Minimally invasive revision of total replacement of hip STEM DEPUY HIP SIZE 11 STD COL FDA Start: 08-18-2018 Minimally invasive revision of total replacement of hip APEX DEPUY HIP HOLE ELIMINATOR FDA Start: 11-23-2018 Minimally invasive revision of total replacement of hip HEAD DEPUY METAL 36MM +5 FDA Start: 11-23-2018 Minimally invasive revision of total replacement of hip LINER DEPUY HIP [id number] FDA Start: 11-23-2018 Minimally invasive revision of total replacement of hip SCREW DEPUY 6.5X20MM CANCELLOU FDA Start: 11-23-2018 Minimally invasive revision of total replacement of hip SHELL 56MM PINNACLE DEPUY CUP FDA Start: 11-23-2018 Minimally invasive revision of total replacement of hip STEM DEPUY HIP SIZE 11 STD COL FDA Start: 11-23-2018 Minimally invasive revision of total replacement of hip APEX DEPUY HIP HOLE ELIMINATOR FDA Start: 08-18-2018 Minimally invasive revision of total replacement of hip HEAD DEPUY METAL 36MM +8.5 FDA Start: 08-18-2018 Minimally invasive revision of total replacement of hip LINER DEPUY HIP [id number] FDA Start: 08-18-2018 Minimally invasive revision of total replacement of hip SCREW DEPUY 6.5X25MM CANCELLOU FDA Start: 08-18-2018 Minimally invasive revision of total replacement of hip SHELL 56MM PINNACLE DEPUY CUP FDA Start: 08-18-2018 Minimally invasive revision of total replacement of hip STEM DEPUY HIP SIZE 11 STD COL FDA Start: 08-18-2018 Minimally invasive revision of total replacement of hip APEX DEPUY HIP HOLE ELIMINATOR FDA Start: 11-23-2018 Minimally invasive revision of total replacement of hip HEAD DEPUY METAL 36MM +5 FDA Start: 11-23-2018 Minimally invasive revision of total replacement of hip LINER DEPUY HIP [id number] FDA Start: 11-23-2018 Minimally invasive revision of total replacement of hip SCREW DEPUY 6.5X20MM CANCELLOU FDA Start: 11-23-2018 Minimally invasive revision of total replacement of hip SHELL 56MM PINNACLE DEPUY CUP FDA Start: 11-23-2018 Minimally invasive revision of total replacement of hip STEM DEPUY HIP SIZE 11 STD COL FDA Start: 11-23-2018 Minimally invasive revision of total replacement of hip APEX DEPUY HIP HOLE ELIMINATOR FDA Start: 08-18-2018 Minimally invasive revision of total replacement of hip HEAD DEPUY METAL 36MM +8.5 FDA Start: 08-18-2018 Minimally invasive revision of total replacement of hip LINER DEPUY HIP [id number] FDA Start: 08-18-2018 Minimally invasive revision of total replacement of hip SCREW DEPUY 6.5X25MM CANCELLOU FDA Start: 08-18-2018 Minimally invasive revision of total replacement of hip SHELL 56MM PINNACLE DEPUY CUP FDA Start: 08-18-2018 Minimally invasive revision of total replacement of hip STEM DEPUY HIP SIZE 11 STD COL FDA Start: 08-18-2018 Minimally invasive revision of total replacement of hip APEX DEPUY HIP HOLE ELIMINATOR FDA Start: 11-23-2018 Minimally invasive revision of total replacement of hip HEAD DEPUY METAL 36MM +5 FDA Start: 11-23-2018 Minimally invasive revision of total replacement of hip LINER DEPUY HIP [id number] FDA Start: 11-23-2018 Minimally invasive revision of total replacement of hip SCREW DEPUY 6.5X20MM CANCELLOU FDA Start: 11-23-2018 Minimally invasive revision of total replacement of hip SHELL 56MM PINNACLE DEPUY CUP FDA Start: 11-23-2018 Minimally invasive revision of total replacement of hip STEM DEPUY HIP SIZE 11 STD COL FDA Start: 11-23-2018 Minimally invasive revision of total replacement of hip APEX DEPUY HIP HOLE ELIMINATOR FDA Start: 08-18-2018 Minimally invasive revision of total replacement of hip HEAD DEPUY METAL 36MM +8.5 FDA Start: 08-18-2018 Minimally invasive revision of total replacement of hip LINER DEPUY HIP [id number] FDA Start: 08-18-2018 Minimally invasive revision of total replacement of hip SCREW DEPUY 6.5X25MM CANCELLOU FDA Start: 08-18-2018 Minimally invasive revision of total replacement of hip SHELL 56MM PINNACLE DEPUY CUP FDA Start: 08-18-2018 Minimally invasive revision of total replacement of hip STEM DEPUY HIP SIZE 11 STD COL FDA Start: 08-18-2018 Minimally invasive revision of total replacement of hip APEX DEPUY HIP HOLE ELIMINATOR FDA Start: 11-23-2018 Minimally invasive revision of total replacement of hip HEAD DEPUY METAL 36MM +5 FDA Start: 11-23-2018 Minimally invasive revision of total replacement of hip LINER DEPUY HIP [id number] FDA Start: 11-23-2018 Minimally invasive revision of total replacement of hip SCREW DEPUY 6.5X20MM CANCELLOU FDA Start: 11-23-2018 Minimally invasive revision of total replacement of hip SHELL 56MM PINNACLE DEPUY CUP FDA Start: 11-23-2018 Minimally invasive revision of total replacement of hip STEM DEPUY HIP SIZE 11 STD COL FDA Start: 11-23-2018 Clip Int L Polym er Donna Lig Hem O Donna (6ea/Pk) - [id number] Start: 02-20-2024 Clip Int L Polym er Donna Lig Hem O Donna (6ea/Pk) - [id number] Start: 02-20-2024 Clinical Notes 11-17-2020 to 10-15-2024 Felice Pearson DPM - 09/06/2024 1:40 PM Mami Carrero MD - 08/29/2024 2:00 PM Ananya Pearson DPM - 08/23/2024 1:50 PM Susana Cook RN - 02/21/2024 10:12 AM EDTAttachments Note Date & Type Note Facility 10-15-2024 Note [place] [facility] - [facility] Subjective Kin Flores is a 68 y.o. year old male patient being seen for A-fib, hypertension, hyperlipidemia Patient Active Problem List Diagnosis Acquired spondylolisthesis Arthritis Arthritis of right hip Difficulty walking H/O neck disorder Hyperglycemia High cholesterol Hyperlipidemia Hypertension Impingement syndrome of right shoulder Lumbar disc herniation with radiculopathy Lumbar stenosis with neurogenic claudication Neurogenic claudication Pain in joint involving pelvic region and thigh Pain of left hip joint Presence of left artificial hip joint Primary localized osteoarthritis of pelvic region and thigh Right arm pain Secondary kyphosis deformity of spine Status post cervical spinal fusion History of revision of total replacement of left hip joint 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, left Tear of right rotator cuff Persistent atrial fibrillation ([facility]/HCC) Chronic heart failure with preserved ejection fraction (HFpEF) ([facility]/HCC) Allergic rhinitis Chronic venous insufficiency GERD (gastroesophageal reflux disease) Iron deficiency anemia Major depression HERBERT (obstructive sleep apnea) Prostate cancer ([facility]/HCC) Stage 3a chronic kidney disease (CKD) ([facility]/HCC) Type 2 diabetes mellitus with hyperglycemia ([facility]) On amiodarone therapy Class 3 severe obesity due to excess calories with serious comorbidity and body mass index (BMI) of 40.0 to 44.9 in adult Aftercare following surgery of the musculoskeletal system Infection and inflammatory reaction due to internal left hip prosthesis, subsequent encounter HPI 10/15/2024 Patient is here today for follow-up visit. He states that overall he feels good except that he is tired. He wears CPAP every night. He denies any palpitations. Denies any chest pain or shortness of breath at rest or with exertion. He denies orthopnea or paroxysmal nocturnal dyspnea or dizziness or legs edema. He walks using 2 canes due to back and prostate surgery. He did physical therapy and he feels better but he is still has balance issue He reports that his blood pressure at home is good 04/16/2024 Patient is here today after he underwent MAMIE and cardioversion on 03/29/2024. He has been doing well. Denies any chest pain or shortness of breath at rest or with exertion. She denies any palpitation or dizziness. He denies orthopnea or paroxysmal nocturnal dyspnea or legs edema. He has been going through physical therapy after his surgery and he is improving. 03/05/2024 He is a 68-year-old man with prior history of hypertension, hyperlipidemia, type II diabetes, obesity, and sleep apnea on CPAP. In the past he was evaluated in cardiology clinic due to abnormal stress test. A stress test in 2018 showed small subtle perfusion defect versus diaphragm attenuation artifact of the apical inferior wall with normal ejection fraction. This was managed medically Most recently he was seen by cardiology on 01/13/2024 for cardiac clearance and he was stable and he was in sinus rhythm. He had 2 recent surgeries radical prostatectomy and back surgery, last surgery was 2 weeks ago during which he was in sinus rhythm. He had a home health care nurse who told him lately that she noticed that his heart rate has been fast between 100-120 and regular. Patient started to check his blood pressure and heart rate regularly and he noted that it has been fast consistently. He denies any associated palpitation or dizziness or shortness of breath or chest pain. He states sometimes he feels little dizzy when he bends over. He occasionally feels short of breath when he walks long distance. He denies orthopnea or paroxysmal nocturnal dyspnea or legs edema. He never been a smoker, he denies alcohol or illicit drugs ROS All systems were reviewed and they were negative except for the positive findings noted above in the history Past Medical History: Diagnosis Date Abnormal ECG Arrhythmia Atrial fibrillation (CMS/HCC) Cancer (CMS/HCC) Chronic kidney disease Diabetes mellitus (CMS/HCC) Hyperlipidemia Hypertension Sleep apnea Past Surgical History: Procedure Laterality Date APPENDECTOMY FL GUIDED ASPIRATION OR INJECTION LARGE JOINT BILATERAL Bilateral 10/03/2020 FL GUIDED ASPIRATION OR INJECTION LARGE JOINT BILATERAL MEDINA CONVERSION NECK SURGERY REPLACEMENT TOTAL HIP LATERAL POSITION TONSILLECTOMY TOTAL SHOULDER ARTHROPLASTY Family History Problem Relation Name Age of Onset Heart failure Mother Atrial fibrillation Mother Social History Tobacco Use Smoking status: Never Smokeless tobacco: Never Substance Use Topics Alcohol use: Not Currently Drug use: Never Allergies Allergies Allergen Reactions Clonidine Anaphylaxis Medications Current Outpatient Medications: amiodarone (Pacerone) 200 mg tablet, (more content not included)... [facility] 09-06-2024 History of Present illness Narrative Patient: Kin Flores : 1955 PCP: Deejay Manuel MD SUBJECTIVE This is a 68 y.o. male that presents today 14 d s/p incision and drainage of abcess with nail avulsion to the right lateral hallux Pt states that they have been following all post op instructions and have been taking antibiotic as prescribed. Pt denies n/f/v/c and has negative pain at post op site. Pt presents today for postoperative follow up. Allergies: Allergies Allergen Reactions Clonidine Hcl Unknown Past Medical History: Past Medical History: Diagnosis Date Arthritis Cervical disc displacement Depression (CMS/[facility]) Diabetes ([facility]) GERD (gastroesophageal reflux disease) Hyperlipidemia (CMS/[facility]) Hypertension (CMS/[facility]) Obesity Medications: Current Outpatient Medications: amoxicillin (Amoxil) 500 MG capsule, TAKE 4 CAPSULES BY MOUTH 45 MINUTES TO 1 HOUR PRIOR TO DENTAL PROCEDURE, Disp: 4 capsule, Rfl: 3 aspirin 81 MG EC tablet, Take 1 tablet by mouth in the morning., Disp: , Rfl: atorvastatin (Lipitor) 40 MG tablet, Take 1 tablet by mouth in the morning., Disp: , Rfl: carvedilol (Coreg) 25 MG tablet, take 1 tablet by mouth twice a day WITH BREAKFAST AND WITH EVENING MEAL, Disp: , Rfl: cephalexin (Keflex) 500 MG capsule, Take 1 capsule (500 mg) by mouth in the morning and 1 capsule (500 mg) in the evening and 1 capsule (500 mg) before bedtime. Do all this for 10 days. Take one tablet by mouth three times daily., Disp: 30 capsule, Rfl: 0 chlorthalidone (Hygroton) 25 MG tablet, Take 25 mg by mouth in the morning., Disp: , Rfl: diclofenac (Voltaren) 75 MG EC tablet, Take 1 tablet by mouth in the morning and 1 tablet before bedtime., Disp: , Rfl: hydrALAZINE (Apresoline) 100 MG tablet, Take 100 mg by mouth in the morning and 100 mg in the evening and 100 mg before bedtime., Disp: , Rfl: lisinopril 40 MG tablet, Take 40 mg by mouth in the morning., Disp: , Rfl: metFORMIN (Glucophage) 500 MG tablet, Take 1 tablet by mouth, Disp: , Rfl: oxyCODONE-acetaminophen (Percocet) 5-325 MG tablet, Take 1 tablet by mouth 3 (three) times a day as needed, Disp: , Rfl: pantoprazole (ProtoNix) 40 MG EC tablet, TAKE 1 TABLET BY MOUTH ONCE DAILY ON AN EMPTY STOMACH FOLLOWED IN 30 MINUTES BY BREAKFAST, Disp: , Rfl: PARoxetine (Paxil) 20 MG tablet, Take 1 tablet by mouth in the morning., Disp: , Rfl: pregabalin (Lyrica) 100 MG capsule, Take 100 mg by mouth in the morning and 100 mg in the evening and 100 mg before bedtime., Disp: , Rfl: Trulicity 0.75 MG/0.5ML solution pen-injector, inject 0.75 milligrams subcutaneously every 7 days IN THE ABDOMEN... (REFER TO PRESCRIPTION NOTES)., Disp: , Rfl: ROS: General: denies fever, chills, fatigue, malaise GI: denies loose or watery stool on antibiotic OBJECTIVE LE EXAM: DERM: Negative erythema, negative drainage from the right lateral hallux VASC: Palpable pedal pulses bilaterally NEURO: Gross sensation intact to bilateral feet ORTHO: Minimal pain on palpation to the right lateral hallux ASSESSMENT 14 d s/p I&D of abscess to the right lateral hallux 1. Abscess of toe, right 2. Onychocryptosis 3. Toe pain, right PLAN Pt to d/c abx. Patient to continue with OTC oral anti - inflammatories as needed for pain. Pt to keep DSD on area of interest while in shoegear, otherwise may expose to air in a clean environment. Felice Pearson DPM documented in this encounter [facility] 08-29-2024 History of Present illness Narrative Images from the original note were not included. [address] [place] [address] A [facility] [id number] Patient: Wong Flores Date of : 1955 Encounter Date: 08/29/2024 History of Present Illness: The patient is a 68 y.o. male, an established patient, and is here for Chief Complaint Patient presents with Follow-up . Two issues 1 is history of elevated PSA. He was on finasteride. Looks good. PSA as below. Separate issue of BPH lower urinary tract symptoms maximal medical therapy tolerates medication. PSA value as below. Decision made to refill continue on this course. Urinalysis today: No results for input(s): EXTPOCURCO , EXTPOCURCH , EXTPOCAPP , EXTPOCURBS , EXTPOCURBIL , EXTPOCUKET , EXTPOCUSPG , EXTPOCUHGB , EXTPOCUPRO , EXTPOCUURO , EXTPOCULEU , EXTPOCUNIT , EXTPOCUWBC , EXTPOCUBLD , EXTPOCURBC , EXTPOCUCRY , EXTPOCUBAC , EXTPOCUTREP , EXTPOCUPH , EXTPOCULEE in the last 72 hours. Last BUN and creatinine: No results found for: BUN No results found for: CREATININE Last PSA: Lab Results Component Value Date PSA 1.89 08/22/2024 PSA 1.61 08/16/2023 PSA 1.50 10/13/2022 PSA 1.87 03/10/2022 No results found for: PROSTATICSP Past Medical, Family, and Social History Update: The following portions of the patient's history were reviewed and updated as appropriate: allergies, current medications, past family history, past medical history, past social history, past surgical history and problem list. Past Medical History: Diagnosis Date Diabetes mellitus ([facility]) Elevated PSA Hypertension Lumbar radiculopathy Past Surgical History: Procedure Laterality Date HERNIA REPAIR KNEE ARTHROSCOPY MOHS SURGERY Left 07/28/2023 Removed from neck TONSILLECTOMY ADENOIDECTOMY History reviewed. No pertinent family history. Current Outpatient Medications Medication Sig Dispense Refill aspirin 81 mg Take 1 tablet (81 mg total) by mouth in the morning and 1 tablet (81 mg total) before bedtime. atorvastatin (LIPITOR) 20 mg tablet Take 1 tablet (20 mg total) by mouth in the morning. finasteride (PROSCAR) 5 mg tablet TAKE 1 TABLET BY MOUTH ONCE DAILY IN THE MORNING 90 tablet 3 ibuprofen (MOTRIN) 800 mg tablet Take 1 tablet (800 mg total) by mouth every 6 (six) hours as needed for pain. lisinopril-hydroCHLOROthiazide (PRINZIDE,ZESTORETIC) 10-12.5 mg per tablet Take 1 tablet by mouth in the morning. metFORMIN (GLUCOPHAGE) 500 mg tablet Take 1 tablet (500 mg total) by mouth in the morning and 1 tablet (500 mg total) before bedtime. spironolactone (ALDACTONE) 25 mg tablet Take 1 tablet (25 mg total) by mouth in the morning. tamsulosin (FLOMAX) 0.4 mg capsule TAKE 1 CAPSULE BY MOUTH TWICE DAILY (IN THE MORNING & AT BEDTIME) 180 capsule 3 No current facility-administered medications for this visit. (All medications reviewed and updated by provider since last office visit or hospitalization) Allergies: Patient has no known allergies. Tobacco History: Social History Tobacco Use Smoking Status Never Smokeless Tobacco Never (If patient a smoker, smoking cessation counseling offered) Social History: Social History Substance and Sexual Activity Alcohol Use Never Review of Systems: General: Negative for chills and fever. Cardiovascular: Negative for chest pain and shortness of breath. Gastrointestinal: Negative for constipation, diarrhea, nausea, and vomitting. -per HPI Physical Exam: BP 144/76 Pulse 94 Ht 182.9 cm (6') Wt 115.7 kg (255 lb) BMI 34.58 kg/m Nontoxic no apparent distress. Respirations nonlabored. Awake alert oriented x3. Assessment and Plan: Wong was seen today for follow-up. Diagnoses and all orders for this visit: Benign prostatic hyperplasia with urinary frequency Elevated PSA - Prostatic specific antigen, diagnostic; Future Problem List High Elevated PSA Overview Has been on finasteride greater than 10 [...] 2020. Digital rectal exam benign feeling prostate. Relevant Orders Prostatic specific antigen, diagnostic Benign prostatic hyperplasia with lower urinary tract symptoms - Primary Overview ==== 08/29/2024 ==== continues on with maximal [...] well. Tolerating medication. Continue on with such. Follow-up: Psa one year and rtc after Ace Carrero MD 2 or more chronic urologic conditions addressed today. Decision was made during today's visit to continue on with the patient's prescription drug regimen which would require refill prior to next appointment This note was created with the assistance of a speech recognition program. While intending to generate a timely document that accurately reflects the content of the visit, no guarantee can be provided that every grammatical or spelling mistake has been or will be identified or corrected. Thank you for your understanding. [facility] History of Present illness Narrative Patient: Kin Flores : 1955 PCP: Deejay Manuel MD SUBJECTIVE This is a 68 y.o. male that presents today with a CC of ingrowing right hallux toenail Pt states problem has been present for the past few weeks. Pt has noticed positive drainage to the affected area and states pain is achey in nature. Treatments have consisted of soaking and trying to remove the ingrown nail on their own with no relief. Patient has had longstanding issue with ingrowing nail and presents today for treatment Allergies: Allergies Allergen Reactions Clonidine Hcl Unknown Past Medical History: Past Medical History: Diagnosis Date Arthritis Cervical disc displacement Depression (CMS/HCC) Diabetes (CMS/HCC) GERD (gastroesophageal reflux disease) Hyperlipidemia (CMS/HCC) Hypertension (CMS/HCC) Obesity Medications: Current Outpatient Medications: amoxicillin (Amoxil) 500 MG capsule, TAKE 4 CAPSULES BY MOUTH 45 MINUTES TO 1 HOUR PRIOR TO DENTAL PROCEDURE, Disp: 4 capsule, Rfl: 3 aspirin 81 MG EC tablet, Take 1 tablet by mouth in the morning., Disp: , Rfl: atorvastatin (Lipitor) 40 MG tablet, Take 1 tablet by mouth in the morning., Disp: , Rfl: carvedilol (Coreg) 25 MG tablet, take 1 tablet by mouth twice a day WITH BREAKFAST AND WITH EVENING MEAL, Disp: , Rfl: chlorthalidone (Hygroton) 25 MG tablet, Take 25 mg by mouth in the morning., Disp: , Rfl: diclofenac (Voltaren) 75 MG EC tablet, Take 1 tablet by mouth in the morning and 1 tablet before bedtime., Disp: , Rfl: hydrALAZINE (Apresoline) 100 MG tablet, Take 100 mg by mouth in the morning and 100 mg in the evening and 100 mg before bedtime., Disp: , Rfl: lisinopril 40 MG tablet, Take 40 mg by mouth in the morning., Disp: , Rfl: metFORMIN (Glucophage) 500 MG tablet, Take 1 tablet by mouth, Disp: , Rfl: oxyCODONE-acetaminophen (Percocet) 5-325 MG tablet, Take 1 tablet by mouth 3 (three) times a day as needed, Disp: , Rfl: pantoprazole (ProtoNix) 40 MG EC tablet, TAKE 1 TABLET BY MOUTH ONCE DAILY ON AN EMPTY STOMACH FOLLOWED IN 30 MINUTES BY BREAKFAST, Disp: , Rfl: PARoxetine (Paxil) 20 MG tablet, Take 1 tablet by mouth in the morning., Disp: , Rfl: pregabalin (Lyrica) 100 MG capsule, Take 100 mg by mouth in the morning and 100 mg in the evening and 100 mg before bedtime., Disp: , Rfl: Trulicity 0.75 MG/0.5ML solution pen-injector, inject 0.75 milligrams subcutaneously every 7 days IN THE ABDOMEN... (REFER TO PRESCRIPTION NOTES)., Disp: , Rfl: Social History: Social History Socioeconomic History Marital status: Spouse name: Not on file Number of children: Not on file Years of education: Not on file Highest education level: Not on file Occupational History Not on file Tobacco Use Smoking status: Never Smokeless tobacco: Never Substance and Sexual Activity Alcohol use: Never Comment: caffeine intake: 2-3 cups/day, soda/pop Drug use: Never Sexual activity: Not on file Other Topics Concern Not on file Social History Narrative Not on file Social Drivers of Health Financial Resource Strain: Not on file Food Insecurity: No Food Insecurity (02/20/2024) Received from [email or web address] Hunger Vital Sign Worried About Running Out of Food in the Last Year: Never true Ran Out of Food in the Last Year: Never true Transportation Needs: No Transportation Needs (02/20/2024) Received from [email or web address] PRAPARE - Transportation Lack of Transportation (Medical): No Lack of Transportation (Non-Medical): No Physical Activity: Not on file Stress: Not on file Social Connections: Not on file Intimate Partner Violence: Unknown (08/18/2023) Re[facility] from [facility] [place] Safety & Environment Fear of Current or Ex-Partner: Not on file Emotionally Abused: Not on file Physically Abused: Not on file Sexually Abused: Not on file Physically or Sexually Abused: Not on file Housing Stability: Low Risk (02/20/2024) Received from [email or web address] Housing Stability Vital Sign Unable to Pay for Housing in the Last Year: No Number of Times Moved in the Last Year: 1 Homeless in the Last Year: No ROS: Gastrointestinal: denies abdominal pain, ulcers, or changes in appetite or bowel habits Musculoskeletal: Positive generalized arthritis to joints and denies loss of strength. Positive history of hip replacements in 2019 Cardiovascular: denies CP, palpitations, irregular rhythms OBJECTIVE LE EXAM: DERM: Positive erythema and positive serous drainage from the lateral right hallux with hair growth noted to b/l feet. VASC: Palpable pedal pulsed b/l with warm to cool tibia to toes b/l NEURO: Gross sensation intact digits 1-10 and b/l feet ORTHO: Ankle ROM less than 10 degrees b/l. Positive pain on palpation to lateral right hallux ASSESSMENT 1. Onychocryptosis 2. Toe pain, right 3. Abscess of toe, right PLAN Patient to continue with oral anti - inflammatories as needed for pain and recommended OTC medications such as tylenol or Ibuprofen Discussed possible treatment options including a permanent nail avulsion and patient may consider in the future. Performed I and D of abcess with partial removal of nail to access infection to the right toenail. Pt informed of risks and benefits of procedure including infection,pain,bleeding, reoccurance. Pt consents. Next, 3cc of xylocaine 2% plain injected into affected digit for anesthesia. The affected toe was prepped and draped in usual sterile manner and offending nail was removed with minimal blood loss and positive serosanguinous drainage noted. Wound then was flushed with NSS and DSD applied to digit. Pt is to have a prescription for an antibiotic. Felice Pearson DPM documented in this encounter [facility] 04-20-2024 Note Spoke to patient reg arding his interest in bariatric surgery. He is no longer interested in pursuing this option. No further calls will be made for seminar attendance. [facility] 04-16-2024 Note [place] Cardiology - [facility] Subjective Kin Flores is a 68 y.o. year old male patient being seen for Atrial Fibrillation (Denies palpitations and bleeding on Eliquis.), follow up MAMIE/DCCV, Hypertension, and Hyperlipidemia Patient Active Problem List Diagnosis Acquired spondylolisthesis Arthritis Arthritis of right hip Difficulty walking H/O neck disorder Hyperglycemia High cholesterol Hyperlipidemia Hypertension Impingement syndrome of right shoulder Lumbar disc herniation with radiculopathy Lumbar stenosis with neurogenic claudication Neurogenic claudication Pain in joint involving pelvic region and thigh Pain of left hip joint Presence of left artificial hip joint Primary localized osteoarthritis of pelvic region and thigh Right arm pain Secondary kyphosis deformity of spine Status post cervical spinal fusion History of revision of total replacement of left hip joint 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 (CMS/HCC) Status post total hip replacement, left Tear of right rotator cuff Persistent atrial fibrillation (CMS/HCC) Chronic heart failure with preserved ejection fraction (HFpEF) (CMS/HCC) Allergic rhinitis Chronic venous insufficiency GERD (gastroesophageal reflux disease) Iron deficiency anemia Major depression HERBERT (obstructive sleep apnea) Prostate cancer ([facility]/HCC) Stage 3a chronic kidney disease (CKD) ([facility]) Type 2 diabetes mellitus with hyperglycemia ([facility]) On amiodarone therapy Class 3 severe obesity due to excess calories with serious comorbidity and body mass index (BMI) of 40.0 to 44.9 in adult ([facility]) HPI 04/16/2024 Patient is here today after he underwent MAMIE and cardioversion on 03/29/2024. He has been doing well. Denies any chest pain or shortness of breath at rest or with exertion. She denies any palpitation or dizziness. He denies orthopnea or paroxysmal nocturnal dyspnea or legs edema. He has been going through physical therapy after his surgery and he is improving. 03/05/2024 He is a 68-year-old man with prior history of hypertension, hyperlipidemia, type II diabetes, obesity, and sleep apnea on CPAP. In the past he was evaluated in cardiology clinic due to abnormal stress test. A stress test in 2018 showed small subtle perfusion defect versus diaphragm attenuation artifact of the apical inferior wall with normal ejection fraction. This was managed medically Most recently he was seen by cardiology on 01/13/2024 for cardiac clearance and he was stable and he was in sinus rhythm. He had 2 recent surgeries radical prostatectomy and back surgery, last surgery was 2 weeks ago during which he was in sinus rhythm. He had a home health care nurse who told him lately that she noticed that his heart rate has been fast between 100-120 and regular. Patient started to check his blood pressure and heart rate regularly and he noted that it has been fast consistently. He denies any associated palpitation or dizziness or shortness of breath or chest pain. He states sometimes he feels little dizzy when he bends over. He occasionally feels short of breath when he walks long distance. He denies orthopnea or paroxysmal nocturnal dyspnea or legs edema. He never been a smoker, he denies alcohol or illicit drugs ROS All systems were reviewed and they were negative except for the positive findings noted above in the history Past Medical History: Diagnosis Date Abnormal ECG Arrhythmia Atrial fibrillation (CMS/HCC) Cancer (CMS/HCC) Chronic kidney disease Diabetes mellitus (CMS/HCC) Hyperlipidemia Hypertension Sleep apnea Past Surgical History: Procedure Laterality Date APPENDECTOMY FL GUIDED ASPIRATION OR INJECTION LARGE JOINT BILATERAL Bilateral 10/03/2020 FL GUIDED ASPIRATION OR INJECTION LARGE JOINT BILATERAL MEDINA CONVERSION NECK SURGERY REPLACEMENT TOTAL HIP LATERAL POSITION TONSILLECTOMY TOTAL SHOULDER ARTHROPLASTY Family History Problem Relation Name Age of Onset Heart failure Mother Atrial fibrillation Mother Social History Tobacco Use Smoking status: Never Smokeless tobacco: Never Substance Use Topics Alcohol use: Not Currently Allergies Allergies Allergen Reactions Clonidine Anaphylaxis Medications Current Outpatient Medications: amiodarone (Pacerone) 200 mg tablet, Take 1 tablet (200 mg) by mouth in the morning., Disp: 30 tablet, Rfl: 2 apixaban (Eliquis) 5 mg tablet, Take 1 tablet (5 mg) by mouth two times daily., Disp: 180 tablet, Rfl: 3 aspirin 81 mg EC tablet, in the morning., Disp: , Rfl: atorvastatin (Lipitor) 40 mg tablet, take 1 tablet by mouth every evening, Disp: 90 tablet, Rfl: 3 carvedilol (Coreg) 25 mg tablet, Take 1 tablet by mouth with breakfast and with evening meal. (Patient taking differently: Take 37.5 mg by mouth with breakfast and with evening meal.), Disp: 180 tablet, Rfl: 3 chlorthalidone (Hygroton) 25 mg (more content not included)... [facility] 04-04-2024 Note MBS Coordinator call ed patient regarding referral received to Bariatrics program. Patient was not aware of any referral to the Bariatric Program. Provided the patient some information/education regarding the medical management part of the program as well as the bariatric surgery part of the program. Patient agreeable to receive information regarding the bariatric surgery seminar before deciding whether to move forward or not. A welcome email was provided which provided information on where and how to attend the bariatric seminar. Patient understands that I will follow up with him if/when he attends the bariatric seminar. [facility] 03-29-2024 Note patient has A-fib st atus post cardioversion, HFpEF, morbid obesity with BMI 42, obstructive sleep apnea, diabetes He has multiple diseases related to morbid obesity BMI>40 I recommend at least 20% body weight loss to improve his chance of successful treatment for A-fib and HFpEF and HERBERT and diabetes I discussed with him and he understands I will refer to bariatric medicine and bariatric surgery. He is agreeable. Diagnosis Plan 1. Chronic heart failure with preserved ejection fraction (HFpEF) ([facility]) Ambulatory referral to Endocrinology Ambulatory referral to Bariatrics 2. Primary hypertension Ambulatory referral to Endocrinology Ambulatory referral to Bariatrics 3. Persistent atrial fibrillation (CMS/HCC) Ambulatory referral to Endocrinology Ambulatory referral to Bariatrics 4. Class 3 severe obesity due to excess calories without serious comorbidity with body mass index (BMI) of 40.0 to 44.9 in adult (CMS/HCC) Ambulatory referral to Endocrinology Ambulatory referral to Bariatrics 5. Morbid obesity with BMI of 40.0-44.9, adult ([facility]) Ambulatory referral to Endocrinology Ambulatory referral to Bariatrics 6. Diabetes mellitus type II, non insulin dependent ([facility]) Ambulatory referral to Endocrinology Ambulatory referral to Bariatrics 7. HERBERT (obstructive sleep apnea) Ambulatory referral to Endocrinology Ambulatory referral to Bariatrics [facility] 03-29-2024 Note Patient: Kin stark Procedure Information Date/Time: 03/29/24 1000 Procedure: TRANSESOPHAGEAL ECHO (MAMIE) Location: [facility] Clinical information reviewed: Physical Exam Airway Mallampati: III Neck ROM: full Cardiovascular Rhythm: irregular Rate: normal Dental Pulmonary Breath sounds clear to auscultation Abdominal Abdomen: soft Anesthesia Plan ASA 3 other (Moderate Sedation) Anesthetic plan and risks discussed with patient. Use of blood products discussed with patient who consented to blood products. Additional Equipment Requests [facility] 03-05-2024 Note [place] Cardiology - [facility] Subjective Kin Flores is a 68 y.o. year old male patient being seen for Hyperlipidemia and Hypertension (Pt is being seen for fast heart rate.) Patient Active Problem List Diagnosis Acquired spondylolisthesis Arthritis Arthritis of right hip Difficulty walking H/O neck disorder Hyperglycemia High cholesterol Hyperlipidemia Hypertension Impingement syndrome of right shoulder Lumbar disc herniation with radiculopathy Lumbar stenosis with neurogenic claudication Neurogenic claudication Pain in joint involving pelvic region and thigh Pain of left hip joint Presence of left artificial hip joint Primary localized osteoarthritis of pelvic region and thigh Right arm pain Secondary kyphosis deformity of spine Status post cervical spinal fusion History of revision of total replacement of left hip joint 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 In the past he was evaluated in cardiology clinic due to abnormal stress test. A stress test in 2018 showed small subtle perfusion defect versus diaphragm attenuation artifact of the apical inferior wall with normal ejection fraction. This was managed medically Most recently he was seen by cardiology on 01/13/2024 for cardiac clearance and he was stable and he was in sinus rhythm. He had 2 recent surgeries radical prostatectomy and back surgery, last surgery was 2 weeks ago during which he was in sinus rhythm. He had a home health care nurse who told him lately that she noticed that his heart rate has been fast between 100-120 and regular. Patient started to check his blood pressure and heart rate regularly and he noted that it has been fast consistently. He denies any associated palpitation or dizziness or shortness of breath or chest pain. He states sometimes he feels little dizzy when he bends over. He occasionally feels short of breath when he walks long distance. He denies orthopnea or paroxysmal nocturnal dyspnea or legs edema. He never been a smoker, he denies alcohol or illicit drugs ROS All systems were reviewed and they were negative except for the positive findings noted above in the history Past Medical History: Diagnosis Date Diabetes mellitus (CMS/HCC) Hyperlipidemia Hypertension Sleep apnea Past Surgical History: Procedure Laterality Date APPENDECTOMY FL GUIDED ASPIRATION OR INJECTION LARGE JOINT BILATERAL Bilateral 10/03/2020 FL GUIDED ASPIRATION OR INJECTION LARGE JOINT BILATERAL MEDINA CONVERSION NECK SURGERY REPLACEMENT TOTAL HIP LATERAL POSITION TONSILLECTOMY TOTAL SHOULDER ARTHROPLASTY Family History Problem Relation Name Age of Onset Heart failure Mother Atrial fibrillation Mother Social History Tobacco Use Smoking status: Never Smokeless tobacco: Never Substance Use Topics Alcohol use: Not Currently Allergies Allergies Allergen Reactions Clonidine Anaphylaxis Medications Current Outpatient Medications: aspirin 81 mg EC tablet, in the morning., Disp: , Rfl: atorvastatin (Lipitor) 40 mg tablet, take 1 tablet by mouth every evening, Disp: 90 tablet, Rfl: 3 carvedilol (Coreg) 25 mg tablet, Take 1 tablet by mouth with breakfast and with evening meal., Disp: 180 tablet, Rfl: 3 chlorthalidone (Hygroton) 25 mg tablet, take 1 tablet by mouth every morning, Disp: 90 tablet, Rfl: 3 folic acid (Folvite) 1 mg tablet, Take by mouth in the morning., Disp: , Rfl: hydrALAZINE (Apresoline) 100 mg tablet, Take 1 tablet (100 mg) by mouth in the morning, at noon, and at bedtime., Disp: 270 tablet, Rfl: 3 lisinopril 40 mg tablet, Take 40 mg by mouth in the morning., Disp: , Rfl: metFORMIN (Glucophage) 500 mg tablet, metformin 500 mg tablet take 1 tablet by mouth every morning BEFORE BREAKFAST, Disp: , Rfl: methocarbamol (Robaxin) 500 mg tablet, Take 500 mg by mouth in the morning, afternoon, and at bedtime., Disp: , Rfl: oxyCODONE-acetaminophen (Percocet) 5-325 mg tablet, oxycodone-acetaminophen 5 mg-325 mg tablet take 1 tablet by mouth three times a day if needed, Disp: , Rfl: pantoprazole (ProtoNix) 40 mg EC tablet, pantoprazole 40 mg tablet,delayed release TAKE 1 TABLET BY MOUTH ONCE DAILY ON AN EMPTY STOMACH FOLLOWED IN 30 MINUTES BY BREAKFAST, Disp: , Rfl: PARoxetine (Paxil) 20 mg tablet, paroxetine 20 mg tablet take 1 tablet by mouth once daily, Disp: , Rfl: pregabalin (Lyrica) 75 mg capsule, pregabalin 75 mg capsule take 1 capsule by mouth three times a day, Disp: , Rfl: Trulicity 0.75 mg/0.5 mL pen injector, inject 0.75 milligrams subcutaneously every 7 days IN THE ABDOMEN... (REFER TO PRESCRIPTION NOTES)., Disp: , Rfl: diclofenac (Voltaren) 75 mg EC tablet, Take 75 mg by mouth in the morning (more content not included)... [facility] 02-21-2024 History of Present illness Narrative Pt discharged to home in stable condition with belongings Discharge instructions given Pt denies having any further questions at this time personal items given to patient at discharge Patient/family state they have everything they were admitted with. Dr. Fontaine in for visit. Ok to discharge home today [] Medication Reconciliation was completed and the patient's home medication list was verified. The Med List Status has been marked Complete . The following sources were used to assist with Medication Reconciliation: [] Patient had a list of medications which was transcribed into the EHR. [x] Patient provided bottles of their medications [] Home medications reviewed and confirmed with [] Contacted patient's pharmacy to confirm home medications [] Contacted patient's physician office to confirm home medications [] Medical Records from another facility and/or Care Everywhere were reviewed Pt admitted to room. Oriented to room, call light and bed mechanics. Side rails up x2. Call light within reach. Orders reviewed. documented in this encounter [facility] 02-20-2024 Hospital Discharge instructions Susana Wesley RN - 02/20/2024 2:05 PM EDT Regular diet Regular walking No heavy lifting Avoid blood thinners including aspirin for [address] Fontaine office if numbness in Left hand continues into 02/21 The following attachments cannot be sent through Care Everywhere.Radical Prostatectomy: Laparoscopic: Post-op (Peruvian)Indwelling Urinary Catheter Care: General Info (Peruvian)documented in this encounter [facility] 01-13-2024 Note MA Cardiology - [facility] Subjective Kin Flores is a 68 y.o. year old male patient being seen for surgery clearance. Had EKG and labs 2 weeks ago for pre-op evaluation. He is scheduled for back surgery on 01/18/2024. He denies chest pain, SOB, palpitations, and lightheadedness/syncope. Patient Active Problem List Diagnosis Acquired spondylolisthesis Arthritis Arthritis of right hip Difficulty walking H/O neck disorder Hyperglycemia High cholesterol Hyperlipidemia Hypertension Impingement syndrome of right shoulder Lumbar disc herniation with radiculopathy Lumbar stenosis with neurogenic claudication Neurogenic claudication Pain in joint involving pelvic region and thigh Pain of left hip joint Presence of left artificial hip joint Primary localized osteoarthritis of pelvic region and thigh Right arm pain Secondary kyphosis deformity of spine Status post cervical spinal fusion History of revision of total replacement of left hip joint 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 He is a 68-year-old man with prior history of hypertension, hyperlipidemia and diabetes. In the past he was evaluated in cardiology clinic due to abnormal stress test. A stress test in 2018 showed small subtle perfusion defect versus diaphragm attenuation artifact of the apical inferior wall with normal ejection fraction. This was managed medically. Today he reports that he has been doing well. He used to have chronic shortness of breath on exertion that he thinks is related to his excessive body weight. His main limitation is arthritis and back pain. He is seeing pain management for that. He needs lumbar surgery. He denies chest pain. He has no leg swelling. Currently no dyspnea at his current level of activity. Review of Systems Hematologic/Lymphatic: Bruises/bleeds easily. Musculoskeletal: Positive for arthritis, back pain and joint pain. All other systems reviewed and are negative. Objective Visit Vitals BP 106/62 (BP Location: Left arm, Patient Position: Sitting) Pulse 72 Ht 1.829 m (6') Wt (!) 142 kg (312 lb) SpO2 95% BMI 42.31 kg/m??? Smoking Status Never BSA 2.69 m??? Physical Exam Constitutional: Appearance: He is well-developed. He is obese. He is not ill-appearing. HENT: Head: Normocephalic and atraumatic. Nose: Nose normal. Eyes: General: No scleral icterus. Pupils: Pupils are equal, round, and reactive to light. Neck: Thyroid: No thyromegaly. Vascular: No JVD. Cardiovascular: Rate and Rhythm: Normal rate and regular rhythm. Pulses: Radial pulses are 2+ on the right side and 2+ on the left side. Heart sounds: Normal heart sounds. No murmur heard. No friction rub. No gallop. Pulmonary: Effort: Pulmonary effort is normal. No respiratory distress. Breath sounds: Normal breath sounds. No wheezing or rales. Chest: Chest wall: No tenderness. Abdominal: General: Bowel sounds are normal. There is no distension. Palpations: Abdomen is soft. Tenderness: There is no abdominal tenderness. Musculoskeletal: General: No swelling. Cervical back: Neck supple. Skin: General: Skin is warm and dry. Neurological: General: No focal deficit present. Mental Status: He is alert and oriented to person, place, and time. Psychiatric: Mood and Affect: Mood normal. Behavior: Behavior is cooperative. Judgment: Judgment normal. Allergies Allergies Allergen Reactions Clonidine Anaphylaxis Medications Current Outpatient Medications: aspirin 81 mg EC tablet, in the morning., Disp: , Rfl: atorvastatin (Lipitor) 40 mg tablet, take 1 tablet by mouth every evening, Disp: 90 tablet, Rfl: 3 carvedilol (Coreg) 25 mg tablet, Take 1 tablet by mouth with breakfast and with evening meal., Disp: 180 tablet, Rfl: 3 chlorthalidone (Hygroton) 25 mg tablet, take 1 tablet by mouth every morning, Disp: 90 tablet, Rfl: 3 diclofenac (Voltaren) 75 mg EC tablet, Take 75 mg by mouth in the morning and at bedtime., Disp: , Rfl: hydrALAZINE (Apresoline) 100 mg tablet, Take 1 tablet (100 mg) by mouth in the morning, at noon, and at bedtime., Disp: 270 tablet, Rfl: 3 iFerex 150 150 mg iron capsule, Take 150 mg by mouth in the morning., Disp: , Rfl: lisinopril 40 mg tablet, Take 40 mg by mouth in the morning., Disp: , Rfl: metFORMIN (Glucophage) 500 mg tablet, metformin 500 mg tablet take 1 tablet by mouth every morning BEFORE BREAKFAST, Disp: , Rfl: methocarbamol (Robaxin) 500 mg tablet, Take 500 mg by mouth in the morning, afternoon, and at bedtime., Disp: , Rfl: oxyCODONE- (more content not included)... [facility] 08-22-2023 Evaluation + Plan note Associated Problem(s): Benign prostatic hyperplasia with lower urinary tract symptoms Decision was made during today's visit to continue on with the patient's prescription drug regimen which would require refill prior to next appointment [facility] 08-22-2023 Miscellaneous Notes Associated Problem(s): Benign prostatic hyperplasia with lower urinary tract symptoms Decision was made during today's visit to continue on with the patient's prescription drug regimen which would require refill prior to next appointment documented in this encounter [facility] 08-22-2023 History of Present illness Narrative Images from the original note were not included. [id number] [place] [address] [facility] [id number] Patient: Wong Flores Date of : 1955 Encounter Date: 08/22/2023 History of Present Illness: The patient is a 67 y.o. male, an established patient, and is here for history of BPH elevated PSA in the past. He is on finasteride has been so for years. His PSA is nice and low. 1.6 months. Double that to just over 3. For his age that is fine number. Rectal exam is benign as below.. Urinalysis today: No results for input(s): EXTPOCURCO , EXTPOCURCH , EXTPOCAPP , EXTPOCURBS , EXTPOCURBIL , EXTPOCUKET , EXTPOCUSPG , EXTPOCUHGB , EXTPOCUPRO , EXTPOCUURO , EXTPOCULEU , EXTPOCUNIT , EXTPOCUWBC , EXTPOCUBLD , EXTPOCURBC , EXTPOCUCRY , EXTPOCUBAC , EXTPOCUTREP , EXTPOCUPH in the last 72 hours. Last BUN and creatinine: No results found for: BUN No results found for: CREATININE Last PSA: Lab Results Component Value Date PSA 1.61 08/16/2023 PSA 1.50 10/13/2022 PSA 1.87 03/10/2022 No results found for: PROSTATICSP Reviewed his CBC in Care everywhere. Some normal. Platelets are normal as well. Past Medical, Family, and Social History Update: The following portions of the patient's history were reviewed and updated as appropriate: allergies, current medications, past family history, past medical history, past social history, past surgical history and problem list. Past Medical History: Diagnosis Date Diabetes mellitus ([facility]) Elevated PSA Hypertension Lumbar radiculopathy Past Surgical History: Procedure Laterality Date HERNIA REPAIR KNEE ARTHROSCOPY MOHS SURGERY Left 07/28/2023 Removed from neck TONSILLECTOMY ADENOIDECTOMY History reviewed. No pertinent family history. Current Outpatient Medications Medication Sig Dispense Refill aspirin 81 mg Take 1 tablet (81 mg total) by mouth in the morning and 1 tablet (81 mg total) before bedtime. atorvastatin (LIPITOR) 20 mg tablet Take 1 tablet (20 mg total) by mouth in the morning. finasteride (PROSCAR) 5 mg tablet TAKE 1 TABLET BY MOUTH EVERY MORNING 90 tablet 3 ibuprofen (MOTRIN) 800 mg tablet Take 1 tablet (800 mg total) by mouth every 6 (six) hours as needed for pain. lisinopril-hydroCHLOROthiazide (PRINZIDE,ZESTORETIC) 10-12.5 mg per tablet Take 1 tablet by mouth in the morning. metFORMIN (GLUCOPHAGE) 500 mg tablet Take 1 tablet (500 mg total) by mouth in the morning and 1 tablet (500 mg total) before bedtime. spironolactone (ALDACTONE) 25 mg tablet Take 1 tablet (25 mg total) by mouth in the morning. tamsulosin (FLOMAX) 0.4 mg capsule TAKE 1 CAPSULE BY MOUTH TWICE DAILY (IN THE MORNING & AT BEDTIME) 180 capsule 3 No current facility-administered medications for this visit. (All medications reviewed and updated by provider since last office visit or hospitalization) Allergies: Patient has no known allergies. Tobacco History: Social History Tobacco Use Smoking Status Never Smokeless Tobacco Never (If patient a smoker, smoking cessation counseling offered) Social History: Social History Substance and Sexual Activity Alcohol Use Never Review of Systems: General: Negative for chills and fever. Cardiovascular: Negative for chest pain and shortness of breath. Gastrointestinal: Negative for constipation, diarrhea, nausea, and vomitting. Physical Exam: BP 127/70 Pulse 110 Ht 182.9 cm (6') Wt 115.2 kg (254 lb) BMI 34.45 kg/m General Alert., Cooperative. Not in acute distress. Non-toxic. Orientation - Oriented X3. Head and Neck Normocephalic, atraumatic with no lesions. No abnormal movements. Trachea - midline. Integumentary Normal coloration of skin. Skin Moisture - normal skin moisture. Chest and Lung Exam Quiet, even and easy respiratory effort with no use of accessory muscles. Neurologic NON-focal. Uses a cane Digital rectal exam: Benign feeling prostate. Borders are well demarcated. No nodules noted. Assessment and Plan: Wong was seen today for follow-up. Diagnoses and all orders for this visit: Elevated PSA - Prostatic specific antigen, diagnostic; Future Benign prostatic hyperplasia with urinary frequency Problem List High Elevated PSA - Primary Overview Has been on finasteride greater than 10 years. ==== 08/22/2023 ==== PSA 1.61. Rectal exam [...] 2020. Digital rectal exam benign feeling prostate. Relevant Orders Prostatic specific antigen, diagnostic Benign prostatic hyperplasia with lower urinary tract symptoms Overview ==== 08/22/2023 ==== maximal medical therapy. Remain on such. ==== 10/20/2022 ==== longstanding history of BPH been on finasteride for at least 10 years or so. On tamsulosin as well. Tolerating medication. Continue on with such. Current Assessment & Plan Decision was made during today's visit to continue on with the patient's prescription drug regimen which would require refill prior to next appointment Follow-up: Ace Carrero MD 2 or more chronic urologic conditions addressed today. Decision was made during today's visit to continue on with the patient's prescription drug regimen which would require refill prior to next appointment This note was created with the assistance of a speech recognition program. While intending to generate a timely document that accurately reflects the content of the visit, no guarantee can be provided that every grammatical or spelling mistake has been or will be identified or corrected. Thank you for your understanding. documented in this encounter [facility] 08-08-2023 Evaluation note Encounter Date Diagnosis Assessment Notes Jul, Left ear impacted cerumen (ICD-10 - H61.22) [facility] Other 02-08-2024 Evaluation note* Encounter Date Diagnosis Assessment Notes Treatment Notes Treatment Clinical Notes Jul, Acute non-recurrent maxillary sinusitis (ICD-10 - J01.00) Will tx tody for bacterial sinusitis based on physical exam and duration of symptoms. Take antibiotic as prescribed, complete entire course of therapy even if symptoms resolve. Take Bromfed as directed. Supportive care as directed, push fluids and rest, Tylenol/Motrin as directed for aches/fever, warm moist compress over sinuses several times a day, cool mist humidifier, nasal saline spray as directed. Symptoms should improve in the next 3 days, if symptoms persist follow up with PCP. Immediate eval for warning s/sx as discussed. Patient verbalizes understanding and is agreeable to treatment plan. Jul, Bilateral impacted cerumen (ICD-10 - H61.23) Ear lavage in office today. Discussed proper ear hygiene. Avoid putting anything inside the ear such as Q-tips, etc. Patient may use OTC wax softeners (Debrox) as directed as needed. Follow up with UC or PCP as needed. Immediate eval for ear drainage, pain, loss of hearing, ringing, dizziness, fever, redness, swelling, and pain behind the ear, headache, neck pain, or any other new or concerning symptoms. Patient verbalizes understanding and is agreeable to treatment plan. [facility] Other 02-05-2024 History of Present illness Narrative* Jr. Giovana Snyder, - 08/01/2023 9:00 AM EST Images from the original note were not included. HISTORY OF PRESENT ILLNESS: EST PT Kin Flores is an 67 y.o. @ male. (EST PT ; LAST APPT W/ SHANIKA) S/P (R) SHERI 11/23/18 (~4.5YRS) ; S/P MDP 07/18/23 (2WKS) DENIES ANY RELIEF OF SYMPTOMS XRAYS, 07/04/23 IN CHANGE / EPIC BONE SCAN 07/12/23 @ H S/P MDP 07/18/23, 10/04/19 (NO RELIEF) FINISHED PHYSICAL THERAPY ; POST-OP S/P PAIN MGMT @ [facility] ; LBP S/P LUMBAR MIRTHA 12/19/19 - NOTES GREAT RELIEF CONTINUES TO HAVE CONSTANT DISCOMFORT ; PAIN STARTS IN HIS (R) BUTTOCK AND RADIATES INTO HIS (R) GROIN - NO PAIN IN HIS (R) LEG - NO N/T. NOTES FULL / PAINFUL ROM ; PAINFUL AMBULATION ; DISCONTINUED WALKER- ALSO NOTES DIFFICULTY LAYING ON HIS (R) SIDE, WAKES HS. TAKING PERCOCET TID PRN (PER MGMT) /DICLOFENAC 75MG BID - TEMP RELIEF ; +HEATING PAD, DENIES HEP/TOPICAL GELS. H/O SYMPTOMS : PAIN ONSET IN 04/2023 ; NOTES RECENT FALLS ALLERGIES: Allergies Allergen Reactions Clonidine Hcl Unknown HOME MEDICATIONS: Current Outpatient Medications Medication Instructions aspirin 81 MG EC tablet 1 tablet, Oral, Daily atorvastatin (Lipitor) 40 MG tablet 1 tablet, Oral, Daily carvedilol (Coreg) 25 MG tablet take 1 tablet by mouth twice a day WITH BREAKFAST AND WITH EVENING MEAL chlorthalidone (HYGROTON) 25 mg, Oral, Every morning diclofenac (Voltaren) 75 MG EC tablet 1 tablet, Oral, 2 times daily hydrALAZINE (APRESOLINE) 100 mg, Oral, 3 times daily lisinopril 40 mg, Oral, Daily metFORMIN (Glucophage) 500 MG tablet 1 tablet, Oral methocarbamol (ROBAXIN) 500 mg, Oral, 3 times daily methylPREDNISolone (Medrol Dospak) 4 MG tablets Follow schedule on package instructions oxyCODONE-acetaminophen (Percocet) 5-325 MG tablet 1 tablet, Oral, 3 times daily PRN pantoprazole (ProtoNix) 40 MG EC tablet TAKE 1 TABLET BY MOUTH ONCE DAILY ON AN EMPTY STOMACH FOLLOWED IN 30 MINUTES BY BREAKFAST PARoxetine (Paxil) 20 MG tablet 1 tablet, Oral, Daily pregabalin (LYRICA) 100 mg, Oral, 3 times daily Trulicity 0.75 MG/0.5ML solution pen-injector inject 0.75 milligrams subcutaneously every 7 days INTHE ABDOMEN... (REFER TO PRESCRIPTION NOTES). PHYSICAL EXAM: Spine Musculoskeletal Exam Gait Gait is normal. Inspection Thoracolumbar Thoracolumbar inspection is normal. Erythema: none Swelling: none Palpation Thoracolumbar Thoracolumbar palpation is normal. Tenderness: present Right Masses: none Muscle tone: normal Left Masses: none Muscle tone: normal Range of Motion Thoracolumbar Range of motion is normal. Flexion: normal. Extension: normal. Right Lateral bending: normal. Lateral rotation: normal. Left Lateral bending: normal. Lateral rotation: normal. Strength Thoracolumbar Right Extensor hallucis longus: 5/5. Tibialis anterior: 5/5. Tibialis posterior: 5/5. Plantar flexion: 5/5. Peroneals: 5/5. Quadriceps: 5/5. Hamstrin/5. Hip abductors: 5/5. Hip flexion: 5/5. Hip adduction: 5/5. Left Extensor hallucis longus: 5/5. Tibialis anterior: 5/5. Tibialis posterior: 5/5. Plantar flexion: 5/5. Peroneals: 5/5. Quadriceps: 5/5. Hamstrin/5. Hip abductors: 5/5. Hip flexion: 5/5. Hip adduction: 5/5. Sensory Thoracolumbar Thoracolumbar sensation is normal. Spine sensation additional comments: NO FOCAL DEFICIT Reflexes Thoracolumbar reflexes are normal. Right Quadriceps: 2/4 Achilles: 2/4 Clonus: normal Left Quadriceps: 2/4 Achilles: 2/4 Clonus: normal Neurovascular Thoracolumbar Thoracolumbar neurovascular exam is normal. Right Pulses - PT: normal Posterior tibial: 2+ Left Pulses - PT: normal Posterior tibial: 2+ Special Tests Thoracolumbar Right SLR: back pain and pain radiates to right leg General Constitutional: appears stated age Psychiatric: normal mood and affect Neurological: alert and oriented x3 Skin: intact Vitals: Body mass index is 44.08 kg/m . 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 There is decreased disc space noted globally to the lumbar spine. Anterior and posterior columns appeared to be symmetric posterior elements appear to be anatomic. There was no acute Bony process including but not limited to fracture and/or dislocation. Impression: Moderate degenerative changes lumbar spine globally no acute bony process. Procedures Orders Placed This Encounter Procedures XR lumbar spine 2 or 3 views Order Specific Question: Views Answer: Lateral Order Specific Question: Reason for exam: Answer: PAIN XR lumbar spine 2 or 3 views Order Specific Question: Reason for exam: Answer: PAIN Ambulatory referral to Pain Medicine Dr. Anaya - [facility] pain management ; Please call patient to schedule, thank you. MIRTHA (prior to proceeding with the thought of a nerve stimulator) Standing Status: Future Standing Expiration Date: 01/30/2024 Referral Priority: Routine Referral Type: Consultation Referral Reason: Specialty Services Required Referred to Provider: Mikaela Anaya MD Requested Specialty: Pain Medicine Number of Visits Requested: 1 ASSESSMENT: ICD-10-CM 1. Lumbar radiculopathy M54.16 Ambulatory referral to Pain Medicine 2. Acute bilateral low back pain with right-sided sciatica M54.41 XR lumbar spine 2 or 3 views 3. Low back pain potentially associated with radiculopathy M54.50 XR lumbar spine 2 or 3 views PLAN: We have answered all the patients questions and explained the patients condition, decision making and plan including the risks and benefits associated with said plan in layman''s terms in a language the patient could understand easily. If patient''s symptoms significantly worsen and they cannot get a hold of us or their family physician, we have recommended that the patient proceed to the nearest emergency department (room). Dr. Snyder obtained history and examined the patient, I am acting as scribe for Dr. Snyder/[facility], PLAN: We have discussed L-spine xrays with patient at bedside. After examination today we are recommending a referral to [facility] pain management for a repeat MIRTHA as he noted relief a few years ago with MIRTHA. We would like to proceed with MIRTHA prior to entertaining the thought of a nerve stimulator as patient states he is scheduled with pain management through [facility] August to further discuss the option of a nerve stimulator. We have discussed his HEP and restrictions and will see him back in 8 weeks to reassess his l-spine, if exam warrants we may recommend MRI. Rachele Mcrae MA documented in this encounterEx[facility] [id number] Attending History and physical note* Selwyn Garcia MD - 07/28/2023 10:16 AM EST H&P reviewed. The patient was examined and there are no changes to the H&P. Source Note - Selwyn Garcia MD - 07/19/2023 12:45 PM EST ENT Outpatient Consultation Chief Complaint: melanoma left neck History Of Present Illness Wong Flores is a 67 y.o. male presents for newly diagnosed melanoma of the left lateral neck. This was biopsied showing a 2.1 mm melanoma. He was referred to an oncologist to then obtained a PET scan. This did not show any definitive local or distant disease. There is some faint uptake in his lumbar spine however he has known orthopedic issues in this location and states he has had prior MRIs obtained of this location. We do not have those for review Past Medical History Hyperlipidemia, BPH, hypertension, diabetes, cardiac disease Surgical History No prior surgeries on the head or neck Social History He reports that he has never smoked. He does not have any smokeless tobacco history on file. No history on file for alcohol use and drug use. Family History Denies family history of melanoma Allergies Patient has no known allergies. Physical Exam: CONSTITUTIONAL: No acute distress VOICE: No hoarseness or other abnormality RESPIRATION: Breathing comfortably, no stridor CV: No clubbing/cyanosis/edema in hands EYES: EOM intact, sclera normal NEURO: Alert and oriented times 3, Cranial nerves II-XII grossly intact and symmetric bilaterally HEAD AND FACE: Symmetric facial features, no masses or lesions, sinuses non- tender to palpation SALIVARY GLANDS: Parotid and submandibular glands normal bilaterally EARS: Normal external ears, external auditory canals, and TMs to otoscopy, normal hearing to whispered voice. NOSE: External nose midline, anterior rhinoscopy is normal with limited visualization to the anterior aspect of the interior turbinates, no bleeding or drainage, no lesions ORAL CAVITY/OROPHARYNX/LIPS: Normal mucous membranes, normal floor of mouth/tongue/OP, no masses orlesions PHARYNGEAL RAGUETA: No masses or lesions NECK/LYMPH: No palpable LAD, no thyroid masses, trachea midline SKIN: Scar from recent biopsy present on the left lateral posterior neck PSYCH: Alert and oriented with appropriate mood and affect Last Recorded Vitals Height 1.803 m (5' 11 ), weight 118 kg (260 lb). Relevant Results Path report and pet scan results reviewed Assessment and Plan 67 y.o. male with newly diagnosed melanoma of the left lateral neck with 2.1 mm depth. We discussednext steps in management which would include wide local excision, sentinel node biopsy, closure with advancement of local tissue for skin graft. We discussed how these results will complete the staging process and also allow us to make further recommendations after surgery. -Surgery scheduling -We will try to obtain prior MRIs of his spine. We may need to reimage this area Selwyn Garcia MD [facility] Work Phone: [phone]) 792-327702-01-2024 History and physical note* Selwyn Garcia MD - 07/28/2023 10:16 AM EST H&P reviewed. The patient was examined and there are no changes to the H&P. Source Note - Selwyn Garcia MD - 07/19/2023 12:45 PM EST ENT Outpatient Consultation Chief Complaint: melanoma left neck History Of Present Illness Wong Flores is a 67 y.o. male presents for newly diagnosed melanoma of the left lateral neck. This was biopsied showing a 2.1 mm melanoma. He was referred to an oncologist to then obtained a PET scan. This did not show any definitive local or distant disease. There is some faint uptake in his lumbar spine however he has known orthopedic issues in this location and states he has had prior MRIs obtained of this location. We do not have those for review Past Medical History Hyperlipidemia, BPH, hypertension, diabetes, cardiac disease Surgical History No prior surgeries on the head or neck Social History He reports that he has never smoked. He does not have any smokeless tobacco history on file. No history on file for alcohol use and drug use. Family History Denies family history of melanoma Allergies Patient has no known allergies. Physical Exam: CONSTITUTIONAL: No acute distress VOICE: No hoarseness or other abnormality RESPIRATION: Breathing comfortably, no stridor CV: No clubbing/cyanosis/edema in hands EYES: EOM intact, sclera normal NEURO: Alert and oriented times 3, Cranial nerves II-XII grossly intact and symmetric bilaterally HEAD AND FACE: Symmetric facial features, no masses or lesions, sinuses non- tender to palpation SALIVARY GLANDS: Parotid and submandibular glands normal bilaterally EARS: Normal external ears, external auditory canals, and TMs to otoscopy, normal hearing to whispered voice. NOSE: External nose midline, anterior rhinoscopy is normal with limited visualization to the anterior aspect of the interior turbinates, no bleeding or drainage, no lesions ORAL CAVITY/OROPHARYNX/LIPS: Normal mucous membranes, normal floor of mouth/tongue/OP, no masses orlesions PHARYNGEAL ARGUETA: No masses or lesions NECK/LYMPH: No palpable LAD, no thyroid masses, trachea midline SKIN: Scar from recent biopsy present on the left lateral posterior neck PSYCH: Alert and oriented with appropriate mood and affect Last Recorded Vitals Height 1.803 m (5' 11 ), weight 118 kg (260 lb). Relevant Results Path report and pet scan results reviewed Assessment and Plan 67 y.o. male with newly diagnosed melanoma of the left lateral neck with 2.1 mm depth. We discussednext steps in management which would include wide local excision, sentinel node biopsy, closure with advancement of local tissue for skin graft. We discussed how these results will complete the staging process and also allow us to make further recommendations after surgery. -Surgery scheduling -We will try to obtain prior MRIs of his spine. We may need to reimage this area Selwyn Garcia MD documented in this [facility] Work Phone: [phone] 285-935101-26-2024 Evaluation note* Encounter Date Diagnosis Assessment Notes Treatment Notes Treatment Clinical Notes Jun, Preoperative clearance (ICD-10 - Z01.818) Gave Jake copy of faxes rec'd from Dr. Garcia's office. He will take them today to [facility] and he is looking forward to surgery next week, barring any significant abnormalities on the testing. Jun, Skin melanoma (ICD-10 - C43.9) PET scan normal. Eager to have problem behind home. Jun, HTN (hypertension) (ICD-10 - I10) Chronic problem, well controlled today. Jun, Type 2 diabetes mellitus with hyperglycemia, without long-term current use of insulin (ICD-10 - E11.65) Recent glucose very good. Continue Metformin. [facility] Other 01-12-2024 Evaluation note* Encounter Date Diagnosis Assessment Notes Treatment Notes Treatment Clinical Notes Jun, Type 2 diabetes mellitus with hyperglycemia, without long-term current use of insulin (ICD-10 - E11.65) [facility] Other 12-21-2023 Evaluation note* Encounter Date Diagnosis Assessment Notes Treatment Notes Treatment Clinical Notes May, Skin melanoma (ICD-10 - C43.9) [facility] Other 11-06-2023 Evaluation note* Encounter Date Diagnosis Assessment Notes Treatment Notes Treatment Clinical Notes Apr, Benign prostatic hyperplasia with lower urinary tract symptoms (ICD-10 - N40.1) Symptoms tolerable. Apr, Elevated PSA (ICD-10 - R97.20) Refer to Urology for further evaluation and treatment [facility] Other 10-26-2023 Evaluation note* Encounter Date Diagnosis Assessment Notes Treatment Notes Treatment Clinical Notes Mar, Elevated PSA (ICD-10 - R97.20) [facility] Other 09-27-2023 Evaluation note* Encounter Date Diagnosis Assessment Notes Treatment Notes Treatment Clinical Notes Feb, Screening PSA (prostate specific antigen) (ICD-10 - Z12.5) [facility] Other 09-26-2023 Evaluation note* Encounter Date Diagnosis Assessment Notes Treatment Notes Treatment Clinical Notes Feb, Type 2 diabetes chrissy itus with hyperglycemia, without long-term current use of insulin (ICD-10 - E11.65) This patient is following a comprehensive diabetic treatment plan. They are checking their feet daily for calluses and nonhealing ulcers. They are being seen for yearly dilated eye examinations. Goals: SBP less than 130, LDL less than 100, FBS less than 140, A1C less than 7%. They are checking their BS daily, will which are reviewed at the office visit. Continue regular routine monitoring of A1C,] Microalbumin, Dilated eye exam and Foot exam Feb, Primary hypertension (ICD-10 - I10) This patient is instructed to consume a healthy, low-fat, low-salt diet. They are also encouraged to continue exercise to achieve/maintain a normal BMI. Patient is instructed on home BP measurements: - rest for 5 minutes w/o talking- positioned w/ feet on floor and arm supported- average best 2/3 readings w/ goal < 135/85 Feb, Stage 3a chronic kid surekha disease (ICD-10 - N18.31) The patient is instructed on adequate control of hypertension and diabetes, if appropriate. They are also educated on the associated risks of NSAIDs and PPI use with kidney disease. They were instructed on adequate fluid balance and to avoid dehydration. Feb, HERBERT (obstructive sle ep apnea) (ICD-10 - G47.33) This patient is aware of the benefits associated with HERBERT: With continued use, the patient reduces the risk for MT, CVA, HTN, cardiac dysrhythmias and sudden cardiac deaths.The patient is also aware of the association between HERBERT and morning headaches, daytime somnolence, fatigue and obesity, which also has been improved with continued use.The patient is compliant with treatment, wearing the equipment every night for greater than 4 hours.The patient is instructed to continue use of the CPAP for HERBERT treatment. Feb, Hypercholesterolemia (ICD-10 - E78.00) Instructed on diet and exercise with continued statin therapy.Discussed the beneficial effects of lowering cholesterol in reducing the risk for cerebrovascular and cardiovascular disease. Feb, Gastroesophageal ref lux disease without esophagitis (ICD-10 - K21.9) Diet instructions: Smaller portions, avoid eating and laying flat, avoid eating or drinking prior to bedtime. Weight loss. Feb, Chronic venous insufficiency (ICD-10 - I87.2) Avoid salt and elevate lower extremities, support stockings, inspect legs and feet daily for blisters and ulcerations. Feb, Lumbar stenosis with neurogenic claudication (ICD-10 - M48.062) The patient is instructed to avoid bending, twisting or lifting. They are to use intermittent heat and ice as needed. They may schedule a massage or gentle manipulation. They may safely use Tylenol as needed. F/U pain clinic Feb, Iron deficiency anem ia due to chronic blood loss (ICD-10 - D50.0) Start Fe supplement Completed EGD/colonoscopy w/o finding to explain anemia Capsule endoscopy not covered by insurance Instructed to stop NSAIDS but unable due to pain. Instructed to monitor BM and call if see BRBPR or melena. Feb, Folic acid deficienc y (ICD-10 - E53.8) Continue supplements [facility] Other 08-30-2023 Evaluation note* Encounter Date Diagnosis Assessment Notes Treatment Notes Treatment Clinical Notes Jan, Paronychia of left thumb (ICD-10 - L03.012) Soak in warm water couple times daily. No improvement, I&D ' Initiated steroid crm for nailbed and broad spectrum antibiotics Jan, Type 2 diabetes mellitus with hyperglycemia, without long-term current use of insulin (ICD-10 - E11.65) This patient is following a comprehensive diabetic treatment plan. They are checking their feet daily for calluses and nonhealing ulcers. They are being seen for yearly dilated eye examinations. Goals: SBP less than 130, LDL less than 100, FBS less than 140, AC and A1C less than 7%. They are checking their BS daily, will which are reviewed at the office visit. Continue regular routine monitoring of A1C,] Microalbumin, Dilated eye exam and Foot exam Increases risk of prolonged, serious infection [facility] Other 07-18-2023 Evaluation note* Encounter Date Diagnosis Assessment Notes Treatment Notes Treatment Clinical Notes Dec, Type 2 diabetes mellitus with hyperglycemia, without long-term current use of insulin (ICD-10 - E11.65) [facility] Other 07-10-2023 Evaluation note* Encounter Date Diagnosis Assessment Notes Treatment Notes Treatment Clinical Notes Dec, Type 2 diabetes mellitus with hyperglycemia, without long-term current use of insulin (ICD-10 - E11.65) [facility] Other 06-26-2023 Evaluation note* Encounter Date Diagnosis Assessment Notes Treatment Notes Treatment Clinical Notes Nov, Primary hypertension (ICD-10 - I10) This patient is instructed to consume a healthy, low-fat, low-salt diet. They are also encouraged to continue exercise to achieve/maintain a normal BMI. Nov, Type 2 diabetes chrissy itus with hyperglycemia, without long-term current use of insulin (ICD-10 - E11.65) This patient is following a comprehensive diabetic treatment plan. They are checking their feet daily for calluses and nonhealing ulcers. They are being seen for yearly dilated eye examinations. Goals: SBP less than 130, LDL less than 100, FBS less than 140, AC and A1C less than 7%. They are checking their BS daily, will which are reviewed at the office visit. Continue regular routine monitoring of A1C,] Microalbumin, Dilated eye exam and Foot exam Nov, Stage 3a chronic kid surekha disease (ICD-10 - N18.31) The patient is instructed on adequate control of hypertension and diabetes, if appropriate. They are also educated on the associated risks of NSAIDs and PPI use with kidney disease. They were instructed on adequate fluid balance and to avoid dehydration. Nov, HERBERT (obstructive sle ep apnea) (ICD-10 - G47.33) This patient is aware of the benefits associated with HERBERT: With continued use, the patient reduces the risk for MT, CVA, HTN, cardiac dysrhythmias and sudden cardiac deaths.The patient is also aware of the association between HERBERT and morning headaches, daytime somnolence, fatigue and obesity, which also has been improved with continued use.The patient is compliant with treatment, wearing the equipment every night for greater than 4 hours.The patient is instructed to continue use of the CPAP for HERBERT treatment. Nov, Hypercholesterolemia (ICD-10 - E78.00) Instructed on diet and exercise with continued statin therapy.Discussed the beneficial effects of lowering cholesterol in reducing the risk for cerebrovascular and cardiovascular disease. Nov, Chronic venous insufficiency (ICD-10 - I87.2) Avoid salt and elevate lower extremities, support stockings, inspect legs and feet daily for blisters and ulcerations. Nov, Lumbar stenosis with neurogenic claudication (ICD-10 - M48.062) The patient is instructed to avoid bending, twisting or lifting. They are to use intermittent heat and ice as needed. They may schedule a massage or gentle manipulation. They may safely use Tylenol as needed. Nov, Gastroesophageal ref lux disease without esophagitis (ICD-10 - K21.9) Diet instructions: Smaller portions, avoid eating and laying flat, avoid eating or drinking prior to bedtime. Weight loss. Nov, Anemia, unspecified type (ICD-10 - D64.9) Nov, Screening PSA (prost ate specific antigen) (ICD-10 - Z12.5) Nov, High risk medication use (ICD-10 - Z79.899) [facility] Other 05-19-2023 Evaluation note* Encounter Date Diagnosis Assessment Notes Treatment Notes Treatment Clinical Notes October, Paronychia of finger of left hand (ICD-10 - L03.012) Soak in warm water daily Use Triamcinolone along the nailbed. Start antibiotic, call office if need extended treatment October, Type 2 diabetes mellitus with hyperglycemia, without long-term current use of insulin (ICD-10 - E11.65) May increased risk of more severe, systemic infection [facility] Other 05-13-2023 Evaluation note* Encounter Date Diagnosis Assessment Notes Treatment Notes Treatment Clinical Notes October, Stage 3a chronic kidney disease (ICD-10 - N18.31) October, Hypertensive chronic kidney disease with stage 1 through stage 4 chronic kidney disease, or unspecified chronic kidney disease (ICD-10 - I12.9) [facility] Other 04-06-2023 NoteCONSULTATION CONSULTATION DATE: 09/30/2022 TO: Deejay Manuel D.O. HISTORY: Patient returns today complaining of 5-7/10 pain in his right buttock area, right hip area. He describes it as a sharp/burning pain, sensitive to even light touch. He also reports standing, walking and performing transitioning maneuvers is uncomfortable. He feels most comfortable in the semi-recumbent position. He denies any change in bowel and bladder habits or new sensorimotor changes in his lower extremities. EXAM: Notable for patient having dysesthesia and hyperesthesia along the distribution of the lateral cutaneous branch of the iliohypogastric nerve on the left side, and a fair amount of myofascial spasm of the gluteus medius muscle on the left side. He had no clinical radiculopathy or myelopathy involving his lower extremities. He had nothing to suggest facet loading pain clinically on today's visit. MEDICATIONS: He continues to be on Lyrica 75 t.i.d. He reports that this does improve his current pain symptoms, and he reports Percocet 5 mg b.i.d. is also quite effective and improves his quality of life, leveling of functioning and sleep pattern, and he denies any side effect with the same. RECOMMENDATIONS: I recommend proceeding with increasing his tizanidine 4 mg pills, one-quarter pill to have a pill b.i.d. and one at h.s. Will maintain his current dose of Lyrica 75 t.i.d. effective for his neurogenic pain, and to proceed with diagnostic left sided nerve block of the lateral cutaneous branch of the iliohypogastric nerve on the left side. His TATIANA is 27. As part of providing excellent, safe, comprehensive care, the following was completed at our patient's visit: 1. A medication reconciliation and review to ensure accurate knowledge of current/active medications, including asking our patients to inform us about any [id number] medications or herbal remedies/nutritional supplements/alternative remedies. 2. A review to specifically ensure our patients have had annual screening for: elevated body mass index (BMI, see intake chart for exact total), tobacco use, screening for depression, and screening for unhealthy alcohol use. When screening is concerning, patients are provided with education and the specific recommendation to discuss the concerning health issue and treatment options with their primary care provider.[id number] Evaluation note * Encounter Date Diagnosis Assessment Notes Treatment Notes Treatment Clinical Notes Aug, Primary hypertension (ICD-10 - I10) [facility] Other 03-13-2023 Evaluation note* Encounter Date Diagnosis Assessment Notes Treatment Notes Treatment Clinical Notes Aug, Type 2 diabetes mellitus with hyperglycemia, without long-term current use of insulin (ICD-10 - E11.65) [facility] Other 03-10-2023 Evaluation note* Encounter Date Diagnosis Assessment Notes Treatment Notes Treatment Clinical Notes Aug, Wellness examination (ICD-10 - Z00.00) Healthy diet and exercise. Reviewed age-appropriate preventive testing recommended. Aug, Primary hypertension (ICD-10 - I10) This patient is instructed to consume a healthy, low-fat, low-salt diet. They are also encouraged to continue exercise to achieve/maintain a normal BMI. Aug, Type 2 diabetes mellitus with hyperglycemia, without long-term current use of insulin (ICD-10 - E11.65) This patient is following a comprehensive diabetic treatment plan. They are checking their feet daily for calluses and nonhealing ulcers. They are being seen for yearly dilated eye examinations. Goals: SBP less than 130, LDL less than 100, FBS less than 140, AC and A1C less than 7%. They are checking their BS daily, will which are reviewed at the office visit. A1C: [ ] Microalbumin: Aug, Pure hypercholesterolemia, unspecified (ICD-10 - E78.00) Aug, HERBERT (obstructive sle ep apnea) (ICD-10 - G47.33) This patient is aware of the benefits associated with HERBERT: With continued use, the patient reduces the risk for MT, CVA, HTN, cardiac dysrhythmias and sudden cardiac deaths.The patient is also aware of the association between HERBERT and morning headaches, daytime somnolence, fatigue and obesity, which also has been improved with continued use.The patient is compliant with treatment, wearing the equipment every night for greater than 4 hours.The patient is instructed to continue use of the CPAP for HERBERT treatment. Aug, Morbid obesity (ICD- 10 - E66.01) This patient has been instructed on a low-fat, high-fiber diet. They are instructed to reduce calories, portion sizes and snacks. It is recommended that they exercise for 30 minutes, 3-5 times weekly. Aug, Chronic venous insufficiency (ICD-10 - I87.2) Avoid salt and elevate lower extremities, support stockings, inspect legs and feet daily for blisters and ulcerations. Aug, Lumbar stenosis with neurogenic claudication (ICD-10 - M48.062) The patient is instructed to avoid bending, twisting or lifting. They are to use intermittent heat and ice as needed. They may schedule a massage or gentle manipulation. They may safely use Tylenol as needed. Aug, Nocturia (ICD-10 - R35.1) Aug, Benign prostatic hyperplasia with lower urinary tract symptoms (ICD-10 - N40.1) Yearly ALMA and PSA. Symptoms tolerable Aug, Gastroesophageal reflux disease without esophagitis (ICD-10 - K21.9) Aug, Anemia, unspecified type (ICD-10 - D64.9) EGD and colonoscopy w/o findings to explain anemia. Recheck Fe, B12, FA Aug, Screening PSA (prostate specific antigen) (ICD-10 - Z12.5) [facility] Other 01-26-2023 NoteCONSULTATION CONSULTATION DATE: 07/22/2022 HISTORY OF PRESENT ILLNESS: This is a pleasant, 66-year-old gentleman who returns to the clinic for a two month follow up for his chronic lower back pain. The patient states three weeks ago, he tripped over a stone and fell on his left side and has some residual soreness. He is on diclofenac 75 mg b.i.d., which seems to help. The patient did have right shoulder reverse replacement done on 06/03/2022 and is recovering well. Overall, he feels good, but is inquiring about aqua therapy as it helps maintain low level of pain to his back and keeps him active. He does report standing, walking, lying and stairs do aggravate his pain. He does use heat as well as his Lyrica and Percocet to help manage his pain. He is on Percocet 5/325 t.i.d., Lyrica 75 mg t.i.d. and tizanidine 8 mg q.h.s. Patient's REVIEW OF SYSTEMS / PAST MEDICAL HISTORY / ALLERGIES and IMAGES have been reviewed and noted on the chart. PHYSICAL EXAM: VITAL SIGNS: Blood pressure 170/77, heart rate is 64. Temperature is 98. He is 6' tall, weighs 143.6 kg. GENERAL IMPRESSION: Pleasant, appropriate, in no acute distress. FOCUSED EXAM - BACK: Range of motion is functional in lateral rotation and flexion/extension. Paravertebral muscles are non-spasmodic. Kathryn's point non-tender. Negative FABERs and compression test. MUSCULOSKELETAL: Motor is 5/5 bilaterally. Patient has a steady but antalgic gait. He walks unassisted. NEUROLOGICALLY: Radicular sensory is intact. Negative polyneuropathy. DIAGNOSIS: Chronic lower back pain, lumbar spondylosis, lumbar degenerative disc disease. PLAN: We will prescribe aqua therapy 2-3 times a week for eight weeks and reinforce his vitamin regimen, stretches and daily exercises. There will be no medication changes today, but diclofenac 75 mg b.i.d. will be refilled. We will see him in three months' time unless otherwise indicated. Patient agrees with this plan.[facility] [id number] NoteCONSULTATION CONSULTATION DATE: 05/04/2022 CHIEF COMPLAINT: Low back pain, right groin pain. HISTORY OF PRESENT ILLNESS: This is a very pleasant, 66-year-old gentleman who is known to the Pain Clinic. The patient had undergone a rhizotomy radiofrequency ablation in January which afforded him significant improvement. 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 The patient states he started noticing pain in his right low back and, at times, which radiates into his right groin. The patient is status post bilateral total hip replacements. The patient rates the pain as a 4/10, a stabbing sensation. Pushing, pulling, activities, housework aggravate the patient' pain, as does bending, lifting and climbing onto machinery. Sitting down mitigates the pain, as does laying down and heat mitigates the pain. The patient takes Percocet 5/325 on a t.i.d. basis, Paxil 20 mg, Lyrica 75 mg t.i.d., tizanidine 8 mg and a multivitamin regimen. The patient's PAST MEDICAL HISTORY / SURGICAL HISTORY / REVIEW OF SYSTEMS are noted on the chart, along with the MEDICATION LIST / ALLERGIES and RADIOLOGICAL IMAGES. X-rays were reviewed in office today. PHYSICAL EXAMINATION: Upon physical examination, this is a pleasant, cooperative gentleman, who does not appear to be in any acute distress. VITAL SIGNS: Stable at 170/84 with a heart rate of 58. At a height of 6', the patient weighs 87 kg. HEAD: Atraumatic, normocephalic. NECK: Bolus. HEART: No orthopnea is noted. LUNGS: Non-labored breathing. ABDOMEN: Protuberant, distended. BACK: Paravertebral tightness and tenderness is noted at the level of L5-S1 on the right hand side, which reproduces a component of the patient's pain symptomatology. The patient has significant degenerative changes at this site. Discophytes are noted. EXTREMITIES: No pedal edema is noted. MUSCULOSKELETAL: Intact in the lower extremities. NEUROLOGICALLY: The patient is intact. PSYCHIATRICALLY: Affect is appropriate. IMPRESSION: The question became whether the patient also has irritation along the obturator nerve on the right hand side. We will maintain this as a differential diagnosis, along with the lumbar paravertebral spasm, which is secondary to overuse. The patient is also status post bilateral total hip replacement. The patient has a pending right shoulder replacement in the early part of May. Current working diagnosis with the lumbar paravertebral spasm. PLAN: We will perform lumbar trigger point injection in office today. The patient will start aquatic program. The patient has been shown some stretching exercises. The patient understands and would like to proceed. CC: Danny Douglas M.D.[facility] [id number] NoteCONSULTATION PROCEDURE DATE: 05/04/2022 PREOPERATIVE DIAGNOSIS: Lumbar paravertebral spasm. POSTOPERATIVE DIAGNOSIS: Lumbar paravertebral spasm. PROCEDURE: Lumbar trigger point injection x1. Subsequent to obtaining informed consent, the patient was placed in the prone position. Alcohol prep was used to sterilize the site. A 22 gauge needle was advanced until it comes to rest along the paravertebral trigger points. Negative aspiration. Marcaine 0.125% along with Kenalog was placed to the site. Negative heme. The patient tolerates the procedure well without any overt complications. Post procedurally, reports having mitigation in his pain symptomatology.[facility] [id number] NoteCONSULTATION CONSULTATION DATE: 03/04/2022 HISTORY OF PRESENT ILLNESS: This is a very pleasant, 66-year-old male, returning to the clinic, status post bilateral RFAs of L2, L3 and L4, L5, which was completed on 02/02/2022 and afforded him 85% relief to both sides. Overall, the patient is very comfortable, states consistently his pain is at a 2/10. Prior to the RFAs, he had a right groin sharp pain, which he said was completely mitigated with the procedure. When he lifts heavy things above his head, on occasion, he gets some slight numbness and tingling to the bottoms of his feet. Activities such as standing, walking, operator lights hours, lifting, reaching and yard work aggravate his pain. The use of heat and sitting decrease his pain. Current medications include Percocet 5/325 t.i.d., Paxil 20 mg daily, Lyrica 75 mg t.i.d., tizanidine 8 mg q.h.s. He is compliant with a multivitamin regimen. Denies any new vasomotor changes. Patient's REVIEW OF SYSTEMS / PAST MEDICAL HISTORY / ALLERGIES and IMAGES have been reviewed and they are noted on the chart. PHYSICAL EXAM: Blood pressure is 134/66. Heart rate is 61. Temperature is 97.1. He is 6' tall and weighs 143 kg. GENERAL APPEARANCE: Pleasant, appropriate and jovial. FOCUSED EXAM - BACK: Range of motion is functional in lateral rotation and flexion/extension. Paravertebral muscles are supple. No reproduction of spinal axial pain to compression of his lumbar facets indicative of successful RFA. Kathryn's point is non-tender bilaterally. MUSCULOSKELETAL: Motor is intact, 5/5 bilaterally. Patient walks with a stable, regular gait, does not use an assistive device. NEUROLOGICAL: Diffuse positional hypoesthesia to bilateral plantar aspect of his feet. Radicular sensory is intact, +1 bilateral. DIAGNOSIS: Lumbar spondylosis, lumbar degenerative disc disease, spinal axial lower back pain. PLAN: All his meds will be maintained at the current does and frequency. He is compliant with his multivitamins and was encouraged to continue doing so. Exercise and stretches are to be done daily. Patient will be followed up in three months' time, unless otherwise indicated. Patient agrees with the plan of care.[id number] NoteCONSULTATION CONSULTATION DATE: 12/23/2021 HISTORY OF PRESENT ILLNESS: This is a pleasant, 66-year-old male returning to the clinic status post a repeat #2 bilateral MBB of L2, L3 and L4, L5 in which he reports 90% relief for four days. Patient states that he felt absolutely wonderful and was able to work, bend in all activities with less pain. He states that he felt his legs felt stronger during that time. Today, he is back to baseline with a level of 7/10, described as achy. He denies any radicular pain at this time. Activities such as standing, walking, evening hours, housework, lifting and bending aggravate his pain. He does use heat daily which is helpful. Medications include Percocet 5/325 t.i.d., diclofenac 75 mg b.i.d., Lyrica 75 mg t.i.d., tizanidine and a multivitamin regimen. Patient's REVIEW OF SYSTEMS / PAST MEDICAL HISTORY / ALLERGIES and IMAGES have been reviewed and they are noted on the chart. PHYSICAL EXAM: VITAL SIGNS: Blood pressure 136/72, heart rate is 58. Temperature is 97.1. He is 6' tall, weighs 140 kg. GENERAL APPEARANCE: Pleasant, appropriate, no acute distress. FOCUSED EXAM - BACK: Range of motion is guarded in lateral rotation and flexion/extension. Reproduction of the patient's spinal axial pain to direct compression along the posterior elements of the lumbar facets of L2, L3 and L4, L5. Fullness is felt as well, which is concordant with facet arthropathy, lumbar spondylosis. Kathryn's point is non-tender bilaterally. Paravertebral muscles are taut but non-spasmodic. MUSCULOSKELETAL: Motor is intact, 4/5 bilaterally. Patient does not use an assistive device. Muscle tone is good. NEUROLOGICAL: Radicular sensory is intact. Bilateral patellar reflex +1. Negative polyneuropathy. IMPRESSION: Lumbar degenerative disc disease, lumbar spondylosis, spinal axial lower back pain. PLAN: We will move forward to authorize for radiofrequency ablation starting on the left side of L2, L3 and L4, L5 and subsequently move to the right. I did encourage him to continue his muscle relaxer and to add stretches and use heat rub prior to going to the ablation procedure. Patient acknowledges understanding and wishes to proceed. He will be followed up in the office post procedure. [facility] Signed and Approved by: JEREMY BROTHERS . 12/24/2021 13:38:00[facility]06-02-2022 NoteCONSULTATION CONSULTATION DATE: 11/26/2021 HISTORY OF PRESENT ILLNESS: This is a 65-year-old gentleman returning to the clinic status post #2 bilateral MBB of L2, L3 and L4, L5, which was completed on 11/10/2021. Patient reports it afforded him zero relief; however, he had increased amount of pain for three days following the injection that made it very difficult to move around and walk. This is the first time the patient has experienced this. He has had numerous injections in the past that have been historically successful. Today, his pain is 5/10 and feels he is not in that acute flare that he was in before. Activities that aggravate his pain are twisting, turning, operator lights hours, lifting and cold wet weather. He uses heat daily which decreases his pain. Current medications include tizanidine 8 mg q.h.s., Lyrica 75 mg t.i.d., Percocet, diclofenac and Tylenol. Patient denies any new radicular pain or vasomotor changes. Patient's REVIEW OF SYSTEMS / PAST MEDICAL HISTORY / ALLERGIES and IMAGES have been reviewed and they are noted in the chart. PHYSICAL EXAM: Blood pressure 139/84, heart rate of 93, temperature of 98. She is 163 cm tall, weighs 110.9 kg. GENERAL APPEARANCE: Pleasant and appropriate, no acute distress, sitting in the chair. FOCUSED EXAM - BACK: Range of motion is decreased and guarded in lateral rotation and flexion/extension. Paravertebral muscles are non-spasmodic. Reproduction of the spinal axial pain to direct compression along the posterior elements of the lumbar facets of L2, L3 and L4, L5 bilaterally. Left is greater than right. Kathryn's point is non-tender bilaterally. No radiating pain that goes below the knee. MUSCULOSKELETAL: Motor is intact, 4/5 bilaterally. Patient walks with a stable gait, does not use an assistive device. NEUROLOGICALLY: Negative polyneuropathy. Patellar and Achilles tendon reflexes are intact bilaterally. IMPRESSION: Lumbar degenerative disc, lumbar spondylosis, spinal axial lower back pain. PLAN: After discussing with the patient, we will gain authorization to repeat a #2 bilateral MBB of L2, L3 and L4, L5 with sedation. Historically, she has had sedation with 90% or greater resolve. This procedure was done locally. We are hoping to progress to a radiofrequency ablation, that is why we are repeating the #2 MBB. Patient does agree to this and would like to proceed. No medication changes today. Patient will be followed up in the office post procedure for evaluation. [facility] Signed and Approved by: JEREMY BROTHERS . 12/02/2021 16:08:00[place] [id number] Hospital Discharge instructions Patient Education 10/19/2021 15:30:15 Benign Prostatic Hyperplasia Benign Prostatic Hyperplasia Benign prostatic hyperplasia (BPH) is an enlarged prostate gland that is caused by the normal agingprocess and not by cancer. The prostate is a walnut-sized gland that is involved in the production of semen. It is located in front of the rectum and below the bladder. The bladder stores urine and the urethra is the tube that carries the urine out of the body. The prostate may get bigger as a man gets older. An enlarged prostate can press on the urethra. This can make it harder to pass urine. The build-up of urine in the bladder can cause infection. Back pressure and infection may progress to bladder damage and kidney (renal) failure. What are the causes? This condition is part of a normal aging process. However, not all men develop problems from this condition. If the prostate enlarges away from the urethra, urine flow will not be blocked. If it enlarges toward the urethra and compresses it, there will be problems passing urine. What increases the risk? This condition is more likely to develop in men over the age of 50 years. What are the signs or symptoms? Symptoms of this condition include: Getting up often during the night to urinate. Needing to urinate frequently during the day. Difficulty starting urine flow. Decrease in size and strength of your urine stream. Leaking (dribbling) after urinating. Inability to pass urine. This needs immediate treatment. Inability to completely empty your bladder. Pain when you pass urine. This is more common if there is also an infection. Urinary tract infection (UTI). How is this diagnosed? This condition is diagnosed based on your medical history, a physical exam, and your symptoms. Tests will also be done, such as: A post-void bladder scan. This measures any amount of urine that may remain in your bladder after you finish urinating. A digital rectal exam. In a rectal exam, your health care provider checks your prostate by putting a lubricated, gloved finger into your rectum to feel the back of your prostate gland. This exam detects the size of your gland and any abnormal lumps or growths. An exam of your urine (urinalysis). A prostate specific antigen (PSA) screening. This is a blood test used to screen for prostate cancer. An ultrasound. This test uses sound waves to electronically produce a picture of your prostate gland. Your health care provider may refer you to a specialist in kidney and prostate diseases (urologist). How is this treated? Once symptoms begin, your health care provider will monitor your condition (active surveillance or watchful waiting). Treatment for this condition will depend on the severity of your condition. Treatment may include: Observation and yearly exams. This may be the only treatment needed if your condition and symptoms are mild. Medicines to relieve your symptoms, including: ?Medicines to shrink the prostate. ?Medicines to relax the muscle of the prostate. Surgery in severe cases. Surgery may include: ?Prostatectomy. In this procedure, the prostate tissue is removed completely through an open incision or with a laparoscope or robotics. ?Transurethral resection of the prostate (TURP). In this procedure, a tool is inserted through the opening at the tip of the penis (urethra). It is used to cut away tissue of the inner core of the prostate. The pieces are removed through the same opening of the penis. This removes the blockage. ?Transurethral incision (TUIP). In this procedure, small cuts are made in the prostate. This lessens the prostate's pressure on the urethra. ?Transurethral microwave thermotherapy (TUMT).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 Manuel DO Primary Care Provider Active Start: February 28, 2024 ADELAIDE Shaikh Attending Provider Active St art: February 28, 2024 Team Status: Inactive Member Role Status Dates Deejay Manuel DO Primary Care Provider Active Start: February 29, 2024 End: February 29, 2024 Wesley Tomlinson MD Attending Provider Active Start: February 29, 2024 End: February 29, 2024 [employer] Project Manager Relationship Specialty Start Date End Date Wesley Tomlinson MD [address] [place] [address] PCP - General Urology 02/10/24 [employer] Project Manager Relationship Specialty Start Date End Date Wesley Tomlinson MD [address] [place] [address] PCP - General Urology 02/10/24 [employer] Project Manager Relationship Specialty Start Date End Date Francisco J Carrera MD [address] [place] [address] PCP - General Family Medicine 03/10/22 [employer] Project Manager Relationship Specialty Start Date End Date Francisco J Carrera MD [address] [place] [address] PCP - General Family Medicine 03/10/22 [employer] Project Manager Relationship Specialty [place] [address] [place] [address] PCP - General Family Medicine 03/10/22 [employer] Project Manager Relationship Specialty Start [place] [address] [place] [address] PCP - General Family Medicine 03/10/22 [employer] Project Manager Relationship Specialty [place] [address] [place] [phone] PCP - General Internal Medicine 07/04/23 [employer] Project Manager Relationship Specialty Start [place] [address] [place] [phone] PCP - General Internal Medicine 07/04/23 [employer] Project Manager Relationship Specialty Start [place] [address] [place] [address] PCP - General Family Medicine 03/10/22 [employer] Project Manager Relationship Specialty Start Date End Date Deejay Manuel MD [address] [place] [phone] PCP - General Internal Medicine 07/04/23 [employer] Project Manager Relationship Specialty Start Date End Date Deejay Manuel MD [address] [place] [phone] PCP - General Internal Medicine 07/04/23 Team Status: Inactive Member Role Status Dates Francisco J Carrera MD Primary Care Provide r, Attending Provider Active Start: November 30, 2024 End: November 30, 2024 Goals (unrecognized section and content) Goals may be documented in a n alternate section REASON FOR VISIT (unrecogniz ed section and content) Specialty Diagnoses / Procedures Referred By Armando t Referred To Contact Diagnoses 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 Department [place] [address] [place] [address] [place] [address] Referral ID Status Reason Start Date Expiration Date Visits Re quested Visits Authorized [id number] 1 1 Reason Comments Pain Specialty Diagnoses / Procedures Referred By Armando t Referred To Contact Diagnoses Prostate cancer (HCC) Prostate cancer (HCC) [C61] Procedures MS UNLISTED PROCEDURE MALE GENITAL SYSTEM MS LAPS SURG [id number] RPBIC RAD W/NRV SPARING ROBOT MS LAPS SURG BILATERAL TOTAL PELVIC LMPHADECTOMY RADICAL PROSTATECTOMY LAPAROSCOPIC ROBOTIC XI, POSSIBLE PELVIC LYMPH NODE DISSECTION Wesley Tomlinson MD [address] [facility] [place] [address] [facility] [address] [place] [address] Referral ID Status Reason Start Date Expiration Date Visits Re quested Visits Authorized [id number] 1 1 Reason Comments Follow-up Reason Comments Med Refill Reason Comments Ingrown Toenail Rt gt ingrown Reason Comments Follow-up 14d s/p rt gt avulsi on Scheduled Active and Recently Administ ered Medications (unrecognized section and content) Medication Order 07/26/2023 07/27/2023 07/28/2023 acetaminophen (Tylenol) tablet 975 mg 975 mg, oral, Once, On Gabriela 07/28/23 at 1200, For 1 dose, Recovery (only), If ordered PRN for pain, nurse is permitted to administer this medication for higher pain scores based on patient preference? Yes 1200 (Due) famotidine PF (Pepcid) injection 20 mg 20 mg, intravenous, Once, On Gabriela 07/28/23 at 1200, For 1 dose, Recovery (only) 1200 (Due) lidocaine PF (Xylocaine) 10 mg/mL (1 %) injection 1 mg 1 mg (0.1 mL), subcutaneous, Once, On Gabriela 07/28/23 at 1200, For 1 dose, Recovery (only), To be used for IV insertion ONLY 1200 (Due) Continuous Medication Order 07/26/2023 07/27/2023 07/28/2023 lactated Ringer's infusion 100 mL/hr, intravenous, Continuous, Starting on Gabriela 07/28/23 at 1200, Recovery (only) 1200 (Due) PRN Medication Order 07/26/2023 07/27/2023 07/28/2023 albuterol 2.5 mg /3 mL (0.083 %) nebulizer solution 2.5 mg 2.5 mg, nebulization, Once as needed, wheezing, Starting on Gabriela 07/28/23 at 1157, For 1 dose, Recovery (only) bacitracin ointment (CANCELED) As needed, Starting on Gabriela 07/28/23 at 1125, Intraprocedure 1125 (Given - Provid er: Selwyn Garcia MD) diphenhydrAMINE (BENADryl) injection 12.5 mg 12.5 mg, intravenous, Once as needed, itching, allergic reaction, Starting on Gabriela 07/28/23 at 1157, For 1 dose, Recovery (only) hydrALAZINE (Apresoline) injection 5 mg 5 mg, intravenous, Administer over 2 Minutes, Every 30 min PRN, high blood pressure, systolic blood pressure greater than 180 mmHg and heart rate less than 60 BPM, Starting on Gabriela 07/28/23 at 1157, For 2 doses, Recovery (only) HYDROmorphone (Dilaudid) injection 0.2 mg 0.2 mg, intravenous, Every 5 min PRN, pain moderate (4-6), first line, Starting on Gabriela 07/28/23 at 1157, Recovery (only), Max total of 4 mg regardless of dose. HYDROmorphone (Dilaudid) injection 0.5 mg 0.5 mg, intravenous, Every 5 min PRN, pain severe (7-10), first line, Starting on Gabriela 2 at 1157, Recovery (only), Max total of 4 mg regardless of dose. labetaloL (Normodyne,Trandate) injection 5 mg 5 mg, intravenous, Administer over 1 Minutes, Once as needed, systolic blood pressure greater than 180 mmHg, dystolic blood pressure greater than 100 mmHg and heart rate greater than 60 BPM, Starting on Gabriela 2 at 1157, For 1 dose, Recovery (only) lidocaine-epinephrine (Xylocaine W/EPI) 1 %-1:100,000 injection (CANCELED) As needed, Starting on Gabriela 07/28/23 at 1115, Intraprocedure 1115 (Given - Provid er: Selwyn Garcia MD) meperidine PF (Demerol) injection 12.5 mg 12.5 mg, intravenous, Every 10 min PRN, shivering, Starting on Gabriela 07/28/23 at 1157, Recovery (only) metoclopramide (Reglan) injection 10 mg 10 mg, intravenous, Once as needed, nausea/vomiting, second line, Starting on Gabriela 2 at 1157, For 1 dose, Recovery (only) ondansetron (Zofran) injection 4 mg 4 mg, intravenous, Once as needed, nausea/vomiting, first line, Starting on Gabriela 224 at 1157, For 1 dose, Recovery (only), When administering via IV Push, administer over 3-5 minutes. oxyCODONE (Roxicodone) immediate release tablet 10 mg 10 mg, oral, Every 4 hours PRN, pain severe (7-10), second line, Starting on Gabriela 2 at 1157, Recovery (only), When able to take oral medications., If ordered PRN for pain, nurse is permitted to administer this medication for higher pain scores based on patient preference? Yes oxyCODONE (Roxicodone) immediate release tablet 5 mg 5 mg, oral, Every 4 hours PRN, pain mild (1-3), first line, Starting on Gabriela 07/28/23 at 1157, Recovery (only), When able to take oral medications., If ordered PRN for pain, nurse is permitted to administer this medication for higher pain scores based on patient preference? Yes oxyCODONE (Roxicodone) immediate release tablet 5 mg 5 mg, oral, Every 4 hours PRN, pain moderate (4-6), second line, Starting on Gabriela 07/28/23 at 1157, Recovery (only), When able to take oral medications., If ordered PRN for pain, nurse is permitted to administer this medication for higher pain scores based on patient preference? Yes Scheduled Medication Order 02/19/2024 02/20/2024 02/21/2024 atorvastatin (LIPITOR) tablet 40 mg 40 mg, Oral, Nightly, First dose on Tue02/20/24 at 2100, Until Discontinued 1924 (Given - Provider: Kinga Durham RN) 2100 (Due) ceFAZolin (ANCEF) 2000 mg in 0.9% sodium chloride 50 mL IVPB 2,000 mg, IntraVENous, EVERY 8 HOURS, 3 doses, First dose on Tue02/20/24 at 2000, Last dose on Tue02/21/24 at 1200, Antimicrobial Indications: Surgical Prophylaxis 192 (New Bag - Provider: Kinga Durham RN)2000 (Stopped - Provider: Kinga Durham RN) 0428 (New Bag - Provider: Kinga Durham RN)0458 (Stopped - Provider: Kinga Durham RN)1200 (Due) ceFAZolin (ANCEF) 3000 mg in sodium chloride 0.9% 100 mL IVPB (COMPLETED) 3,000 mg, IntraVENous, ONCE, 1 dose, On Tue02/20/24 at 1015, Antimicrobial Indications: Surgical Prophylaxis, STAT 1124 (Given - Provider: Yi Campos, DISABILITY COORDINATOR - YARD LABOR SUPERVISOR) chlorthalidone (HYGROTON) tablet 25 mg 25 mg, Oral, DAILY, First dose on Tue02/21/24 at 0900, Until Discontinued 824 (Given - Provid er: Susana Wesley RN) enoxaparin Sodium (LOVENOX) injection 30 mg 30 mg, SubCUTAneous, 2 TIMES DAILY, First dose on Tue02/20/24 at 2200, Until Discontinued, Indication of Use: Prophylaxis-DVT/PE, Administer by deep subCUTAneous injection with pt lying down. Alternate injection sites on abdominal wall. Do not rub site after injection. Check with provider prior to any invasive procedure. 0125 (Not Given - Provider: Kinga Durham RN - Reason: Patient/family refused)0825 (Given - Provider: Susana Wesley RN)2100 (Due) heparin (porcine) injection 5,000 Units (COMPLETED) 5,000 Units, SubCUTAneous, ONCE, 1 dose, On Tue02/20/24 at 1130 0948 (Given - Provider: Ellie Sharp RN) hydrALAZINE (APRESOLINE) tablet 100 mg 100 mg, Oral, 3 TIMES DAILY, First dose on Tue02/20/24 at 2100, Until Discontinued 192 (Given - Provider: Kinga Durham RN) 08 (Given - Provider: Susana Wesley RN)1400 (Due)2100 (Due) labetalol (NORMODYNE;TRANDATE) injection 10 mg (COMPLETED) 10 mg, IntraVENous, ONCE, 1 dose, On Tue02/20/24 at 1800, STAT, PACU only 1748 (Given - Provider: Tamiko Velasco RN) lisinopril (PRINIVIL;ZESTRIL) tablet 40 mg 40 mg, Oral, DAILY, First dose on Tue02/21/24 at 0900, Until Discontinued 823 (Given - Provid er: Susana Wesley RN) metFORMIN (GLUCOPHAGE) tablet 500 mg 500 mg, Oral, DAILY WITH BREAKFAST, First dose on Tue02/21/24 at 0800, Until Discontinued 08 (Given - Provid er: Susana Wesley RN) pantoprazole (PROTONIX) tablet 40 mg 40 mg, Oral, DAILY, First dose on Tue02/20/24 at 1845, Until Discontinued, Do not crush or break. 1828 (Not Given - Provider: Rose Mary Rooney RN - Reason: Patient/family refused) 08 (Given - Provider: Susana Wesley RN) PARoxetine (PAXIL) tablet 20 mg 20 mg, Oral, EVERY MORNING, First dose on Tue02/21/24 at 0900, Until Discontinued 823 (Given - Provid er: Susana Wesley RN) pregabalin (LYRICA) capsule 150 mg 150 mg, Oral, 3 times daily, First dose on Tue02/20/24 at 2100, Until Discontinued 1924 (Given - Provider: Kinga Durham RN) 0824 (Given - Provider: Susana Wseley RN)1500 (Due)2100 (Due) Continuous Medication Order 02/19/2024 02/20/2024 02/21/2024 lactated ringers IV soln infusion (CANCELED) IntraVENous, at 125 mL/hr, CONTINUOUS, Starting on Tue02/20/24 at 0915, Pre-op (day of surgery) 0917 (New Bag - Provider: Jaime Sharp RN)0923 (New Bag - Provider: Ellie Sharp RN)1111 (NoRateChange - Provider: Yi Campos APRN [employer])1253 (Paused - Provider: Yi Campos APRN - [employer] SUPERVISOR - Comment: Switch to gravity)1254 (Restarted - Provider: Yi Campos APRN [employer] SUPERVISOR)1345 (Anesthesia Volume Adjustment - Provider: Yi Campos APRN [employer] SUPER[employer]OR)1622 (New Bag - Provider: Tamiko Velasco RN) PRN Medication Order 02/19/2024 02/20/2024 02/21/2024 BUPivacaine-EPINEPHrine PF (MARCAINE-w/EPINEPHrine) 0.25% -[id number] injection (CANCELED) PRN, Starting on Tue02/20/24 at 1205, Until Tue02/20/24 at 1409, Intra-op 1205 (Given - Provider: Wesley Tomlinson MD - Comment: OPSITES) fentaNYL (SUBLIMAZE) injection 25 mcg (COMPLETED) 25 mcg, IntraVENous, EVERY 5 MIN PRN, 4 doses, Starting on Tue02/20/24 at 1353, Until Tue02/20/24 at 1538, Pain Moderate (4-6), Phase I - Initial therapy for moderate pain., PACU only 1431 (Given - Provider: Tamiko Velasco RN)1445 (Given - Provider: Tamiko Velasco, EVELIA)1504 (Given - Provider: Tamiko Velasco, EVELIA)1538 (Given - Provider: Tamiko Velasco RN) fibrin sealant (human) 10 ML external kit (CANCELED) PRN, Starting on Tue02/20/24 at 1249, Intra-op 1249 (Given - Provider: Wesley Tomlinson MD - Comment: OPSITE) HYDROmorphone HCl PF (DILAUDID) injection 0.5 mg (CANCELED) 0.5 mg, IntraVENous, EVERY 5 MIN PRN, 4 doses, Starting on Tue02/20/24 at 1353, Until Tue02/20/24 at 1817, Pain Severe (7-10), Phase I - Initial therapy for severe pain., PACU only 1549 (Given - Provider: Tamiko Velasco RN) morphine (PF) injection 2 mg(Linked Group 1) 2 mg, IntraVENous, EVERY 2 HOURS PRN, Starting on Tue02/20/24 at 1818, Until Discontinued, Pain Moderate (4-6), If oral and IV narcotics ordered, use oral first and only use IV if oral is ineffective or cannot take oral. Do Not give oral and IV within 1 hour of each other unless specifically ordered. morphine sulfate (PF) injection 4 mg(Linked Group 1) 4 mg, IntraVENous, EVERY 2 HOURS PRN, Starting on Tue02/20/24 at 1818, Until Discontinued, Pain Severe (7-10), If oral and IV narcotics ordered, use oral first and only use IV if oral is ineffective or cannot take oral. Do Not give oral and IV within 1 hour of each other unless specifically ordered. ondansetron (ZOFRAN) injection 4 mg(Linked Group 2) 4 mg, IntraVENous, EVERY 6 HOURS PRN, Starting on Tue02/20/24 at 1818, Until Discontinued, Nausea, Vomiting, Administer if oral route cannot be used. ondansetron (ZOFRAN-ODT) disintegrating tablet 4 mg(Linked Group 2) 4 mg, Oral, EVERY 8 HOURS PRN, Starting on Tue02/20/24 at 1818, Until Discontinued, Nausea, Vomiting oxyCODONE-acetaminophen (PERCOCET) 5-325 MG per tablet 1 tablet(Linked Group 3) 1 tablet, Oral, EVERY 4 HOURS PRN, Starting on Tue02/20/24 at 1818, Until Discontinued, Pain Moderate (4-6), Maximum dose of acetaminophen is 4000 mg from all sources in 24 hours. 1900 (See Alternative - Provider: Rose Mary Rooney RN) 0128 (See Alternative - Provider: Kinga Durham RN) oxyCODONE-acetaminophen (PERCOCET) 5-325 MG per tablet 2 tablet(Linked Group 3) 2 tablet, Oral, EVERY 4 HOURS PRN, Starting on Tue02/20/24 at 1818, Until Discontinued, Pain Severe (7-10), Maximum dose of acetaminophen is 4000 mg from all sources in 24 hours. 1900 (Given - Provider: Rose Mary Rooney, EVELIA) 0128 (Given - Provider: Kinga Durham RN) sod chloride IRR soln 0.9 % irrigation (COMPLETED) CONTINUOUS PRN, Starting on Tue02/20/24 at 1204, Intra-op 1204 (New Bag - Provider: Wesley Tomlinson MD) Linked Groups Order Group 1: morphine (PF) injection 2 mgJump to med 2 mg, IntraVENous, EVERY 2 HOURS PRN, Starting on Tue02/20/24 at 1818, Until Discontinued, Pain Moderate (4-6), If oral and IV narcotics ordered, use oral first and only use IV if oral is ineffective or cannot take oral. Do Not give oral and IV within 1 hour of each other unless specifically ordered. Or morphine sulfate (PF) injection 4 mgJump to med 4 mg, IntraVENous, EVERY 2 HOURS PRN, Starting on Tue02/20/24 at 1818, Until Discontinued, Pain Severe (7-10), If oral and IV narcotics ordered, use oral first and only use IV if oral is ineffective or cannot take oral. Do Not give oral and IV within 1 hour of each other unless specifically ordered. Group 2: ondansetron (ZOFRAN-ODT) disintegrating tablet 4 mgJump to med 4 mg, Oral, EVERY 8 HOURS PRN, Starting on Tue02/20/24 at 1818, Until Discontinued, Nausea, Vomiting Or ondansetron (ZOFRAN) injection 4 mgJump to med 4 mg, IntraVENous, EVERY 6 HOURS PRN, Starting on Tue02/20/24 at 1818, Until Discontinued, Nausea, Vomiting, Administer if oral route cannot be used. Group 3: oxyCODONE-acetaminophen (PERCOCET) 5-325 MG per tablet 1 tabletJump to med 1 tablet, Oral, EVERY 4 HOURS PRN, Starting on Tue02/20/24 at 1818, Until Discontinued, Pain Moderate (4-6), Maximum dose of acetaminophen is 4000 mg from all sources in 24 hours. Or oxyCODONE-acetaminophen (PERCOCET) 5-325 MG per tablet 2 tabletJump to med 2 tablet, Oral, EVERY 4 HOURS PRN, Starting on 02/20/24 at 1818, Until Discontinued, Pain Severe (7-10), Maximum dose of acetaminophen is 4000 mg from all sources in 24 hours. Ordered Prescriptions (unrec ognized section and content) Prescription Sig Dispensed Refills Start Date End Da te oxyCODONE-acetaminophen (PERCOCET) 5-325 MG per tabletIndications:Acute post-operative pain Take 1 tablet by mouth every 6 hours as needed for Pain for up to 7 days. Max Daily Amount: 4 tablets 28 tablet 02/20/2024 02/27/2024 ciprofloxacin (CIPRO) 500 MG tablet Take 1 tablet by mouth 2 times daily for 3 days 6 tablet 02/20/2024 02/23/2024 FOR RECORDS PERTAINING TO PATIENTS WHO ARE OR HAVE BEEN ENROLLED IN A CHEMICAL DEPENDENCY/SUBSTANCEABUSE PROGRAM, SOME INFORMATION MAY BE OMITTED. This clinical summary was aggregated from multiple sources. Caution should be exercised in using it in the provision of clinical care. This summary normalizes information from multiple sources, and as a consequence, information in this document may materially change the coding, format and clinical context of patient data. In addition, data may be omitted in some cases. CLINICAL DECISIONS SHOULD BE BASED ON THE PRIMARY CLINICAL RECORDS. [employer] provides no warranty or guarantee of the accuracy or completeness of information in this document."
--- NOTE | 2024-12-07 08:40 | XR_ITS ---
The [address] [address] Patient Name: ALEXANDRIA JONES MRN: [id number] date: 1955 Sex: M Assigned Patient Location: LAB Current Patient Location: LAB Accession/Order Number: [id number] Exam Date: 12/07/2024 09:16 Report Date: 12/07/2024 09:20 At the request of: FRANCISCO J CARRERA MD Procedure: XR cervical spine 5V CERVICAL SPINE - 5 views: CLINICAL HISTORY: Chronic bilateral hand numbness COMPARISON: None AP, lateral, both oblique and odontoid views were obtained. There is no evidence of compression fracture or displacement. There is mild disc space narrowing at C5-6 and C6-7. There is also endplate spurring, greatest at those levels including posteriorly. Mild facet hypertrophy is seen. On the right, there is mild to moderate bony foraminal encroachment at C5-6 and minor at C4-5. On the right, there is mild to moderate bony foraminal encroachment at C4-5 and mild at C5-6. The atlantoaxial relationship is maintained. There is no prevertebral soft tissue swelling. XR/XR cervical spine 5V IMPRESSION: DEGENERATIVE CHANGES, DESCRIBED. Impression dictated by: Laura Vo M.D. 12/07/2024 9:20 AM Dictation Location: [place] [address] Electronically authenticated by: [id number] Y Date: 12/07/2024 09:20
[2024-12-07 08:55] LABS: Estimated Average Glucose 123 mg/dL; Glycohemoglobin A1C 5.9 % (4.5-6.2)
[2024-12-07 08:57] LABS: Creatinine Urine Random 128.01 mg/dL (20.00-300.00); Microalbumin Urine Random <1.3 mg/dL (<=30.0)
[2024-12-07 11:55] LABS: Alanine Aminotransferase 24 U/L (16-63); Albumin Globulin Ratio 1.1; Albumin Level 3.9 g/dL (3.4-5.0); Alkaline Phosphatase 83 U/L (46-116); Anion Gap 15.6; Aspartate Amino Transferase 14 U/L (15-37); BUN Creatinine Ratio 30.6; Bilirubin Total 0.4 mg/dL (0.2-1.0); Calcium 9.6 mg/dL (8.5-10.1); Carbon Dioxide 26.8 mmol/L (21.0-32.0); Chloride 103 mmol/L (98-107); Chol HDL Ratio 3.3; Cholesterol 137 mg/dL (<=200); Estimated GFR (African America >60 (>=60 mL/min/1.73m^2); Estimated GFR (Non-African Ame >60 (>=60 mL/min/1.73m^2); Globulin 3.4 g/dL; Glucose 108 mg/dL (74-106); HDL Cholesterol 41 mg/dL (40-60); Potassium 4.4 mmol/L (3.5-5.1); Sodium 141 mmol/L (136-145); Total Protein 7.3 g/dL (6.4-8.2); Triglycerides 166 mg/dL (<=150); VLDL CHOLESTEROL 33.2 mg/dL
== END 2024-12-07 08:19 | disposition home or self-care (01) ==
LOC: LAB 08:21
PROVIDERS: PCP Family Medicine; Visit Provider Family Medicine
DX: E78.5 Hyperlipidemia, unspecified (principal); E11.65 Type 2 diabetes mellitus with hyperglycemia; I10 Essential (primary) hypertension; M54.12 Radiculopathy, cervical region; M50.30 Other cervical disc degeneration, unspecified cervical region
CPT/HCPCS: 36415; 72050; 80053; 80061; 82043; 82570; 83036; 85025